=== PATIENT | female | born 1945 | race Caucasian/White ===

== ENCOUNTER 2025-02-07 18:40 | Inpatient (IN) | payer MEDICARE, BC, SELFPAY ==
[2025-02-07] VITALS (8 sets, daily range): BP systolic 91–122; BP diastolic 69–79; BMI 18.4
[2025-02-07] MEDS: NSS 1000 IV ×2 (14:18→20:52)
[2025-02-07] MEDS: OMNIPAQUE 50 ML PO (14:18)
[2025-02-07 14:29] LABS: Hemoglobin 12.4 g/dL (12.0-16.0); Mean Corp Hgb Conc. 33.5 g/dL (33.0-37.0); Mean Corpuscular Volume 89.4 fL (81.0-99.0); Mean Platelet Volume 10.3 fL (7.4-10.4); Platelet Count 557 10^3/uL (130-400); Red Blood Cell Count 4.14 10^6/uL (4.20-5.40); Red Cell Dist. Width 13.8 % (11.5-14.5); White Blood Cell Count 11.5 10^3/uL (4.8-10.8)
[2025-02-07] MEDS: ZOFRAN 4 MG IV ×2 (14:36→18:10)
[2025-02-07 14:37] LABS: Lactic Acid 6.3 mmol/L (0.7-2.0)
[2025-02-07 14:39] LABS: Blood Urea Nitrogen 111 mg/dl (7-17); Calcium 10.3 mg/dl (8.4-10.2); Carbon Dioxide 16 mmol/L (22-30); Chloride 89 mmol/L (98-107); Glucose 177 mg/dl (70-99); Lipase 50 U/L (23-300); Sodium 134 mmol/L (135-145)
[2025-02-07 14:45] LABS: COVID-19 Antigen Negative (Negative)
[2025-02-07 14:46] LABS: Estimated Creatinine Clearance 9 ml/min; eGFR 11.47
[2025-02-07 14:50] LABS: Absolute Neutrophils -Man Diff 9.6 10^3/uL (1.4-6.5); Band Neutrophils 34 % (0-3); Lymphocytes 10 % (20-51); Monocytes 6 % (2-9); Segmented Neutrophils 50 % (42-75)
[2025-02-07 14:51] LABS: Platelets Checked YES
--- NOTE | 2025-02-07 14:51 | ED.GENMED ---
History of Present Illness
<Magali Ramsey PA-C - Last Filed: 02/07/25 20:44>
General
Chief Complaint: Abdominal Symptoms
Source: patient
Exam Limitations: none
Time Seen by Provider: 02/07/25 13:45
Nursing documentation reviewed up to this point in time: agreed with
History of Present Illness
History of Present Illness:
pt is a 79 y/o F
h/o CAD, CKD, depression
s/p colostomy and reversal (robby for collagenous colitis)
here with 5 days nausea/vomiting, abdominal pain and abdominal distention
Patient feels very weak
She has also had chills and suspected fever when this began but has not taken her temperature in several days. She has not been able to eat anything, she occasionally is able to take down some liquids and ice chips. What she is vomiting looks
brownish. She has never had a bowel obstruction before. Her pain is generalized. She has not had a stool in several days as well. Patient has no history of GI bleed. She denies that she is on blood thinners, her daughter says she is on Plavix.
She denies having chest pain, shortness of breath
Past History
<Magali Ramsey PA-C - Last Filed: 02/07/25 20:44>
Past History
ED Past Medical History: CAD, HTN and Hypercholesterolemia
Phy Exam
<Magali Ramsey PA-C - Last Filed: 02/07/25 20:44>
Physical Exam
Physical Exam:
GENERAL: Alert pale, uncomfortable
EYE: pupils equal and reactive
NECK: Supple
ENT: o/p clr, VERY DRY.
CARDIAC: tachycardic
LUNGS: Clear breath sounds bilaterally, no acute respiratory distress, no wheezes/rales/rhonchi
ABDOMEN:distended, tympatnic, mild tenderness, no guarding, no rebound, hypoactive bowel sounds
rectum : heme neg brown stool
NEUROLOGICAL: Alert and oriented, no focal neuro deficits
SKIN: Warm and dry, skin intact. VERY PALE
MUSCULOSKELETAL: No edema, well perfused. neg nick's sign
PSYCH: Normal and appropriate interaction.
Course
<Magali Ramsey PA-C - Last Filed: 02/07/25 20:44>
Orders/Labs/Results
Orders:
Orders
02/07/25 14:02
0.9% Sodium Chloride 1000 ml [Nss] 1,000 ml IV BOLUS
Diphenhydramine [Benadryl] 50 mg IV NOW STA
Hydrocortisone Sod Succinate [Solu-Cortef] 200 mg IV NOW STA
Iohexol [Omnipaque] See Protocol PO NOW STA
02/07/25 14:04
Electrocardiogram (*1) Urgent
Reason for Study: Abdominal Pain
EKG- Treatment ONCE
CR Chest - 2 Views Urgent
Comment:
Reason For Exam: cough x 1 week
02/07/25 14:11
Basic Metabolic Panel Urgent
COVID-19 Antigen Urgent
Source: Nasal Swab
Complete Blood Count/With Diff Urgent
Lactic Acid Urgent
Lipase Urgent
Manual Differential Urgent
02/07/25 14:13
Type+Screen Urgent
02/07/25 14:28
Electrocardiogram (*1) Urgent
Reason for Study: Abdominal Pain
02/07/25 14:29
EKG- Treatment ONCE
02/07/25 14:32
Ondansetron Injectable [Zofran] 4 mg .ROUTE .[facility]
02/07/25 14:35
ABO2 Routine
BBK Wristband Number:
Associate notified that ABO2 has been ordered: [id number]
Date: 02/07/25
Time: 14:30
Shell Sieve Operator ID: [id number]
Troponin I Urgent
Ondansetron Injectable [Zofran] 4 mg IV NOW STA
02/07/25 14:48
0.9% Sodium Chloride 500 ml [Nss] 500 ml IV BOLUS
Cefepime HCl [Maxipime] 1,000 mg IV NOW STA
Vancomycin 1 Gram/200 ml [Vancocin] 1 gram in 200 ml IV NOW
02/07/25 14:53
CT Abd/pel (oral only)-[facility] Only Urgent
Comment:
Reason For Exam: abd pain, vomiting, lactic acidosis; h/o colosomy
Iohexol [Omnipaque] See Protocol PO NOW STA
02/07/25 15:30
Sterile Water [Sterile Water For Injection] 10 ml .ROUTE .[facility]
02/07/25 15:43
Straight cath- Treatment ONCE
02/07/25 16:53
Comprehensive Metabolic Panel Urgent
02/07/25 17:21
NG Tube [GI tube insertion- Treatment] ONCE
Ondansetron Injectable [Zofran] 4 mg IV NOW STA
02/07/25 18:00
0.9% Sodium Chloride 500 ml [Nss] 500 ml IV 100 mls/hr
02/07/25 18:21
Urinalysis Reflex To Culture Routine
02/07/25 18:27
Admit/Transfer Patient As Directed
Co-Sign Provider:
Level of Care: Inpatient admission
Assign to:: Telemetry
Physician / Group: sher ontiveros
Diagnosis: SBO
Reason for Telemetry: Other
Other Reason for Telemetry: sepsis
Date to Stop Telemetry: 02/09/25
Time to Stop Telemetry: 11:00
Reason for Hospitalization: sepsis
sbo
Expected length of stay greater than two midnights?: Yes
ELOS- Estimated Length of Stay in days: 3
I certify the patient meets the requirements for IP care: Yes
Code Status As Directed
Resuscitation Status: Do not resuscitate
Reached after discussion with pt or family/Healthcare POA: Yes
PRN Pain Medication Management As Directed
May give lesser potent ordered pain med per pt: Yes
preference::
Protocol:: Medication orders for pain may be administered in a
manner that supports deferring to patient preference
when the pt is:
- Requesting an ordered lesser potent pain medication.
Least to most potent pain medications are defined
as: acetaminophen < NSAID < tramadol < opioids
(morphine, oxycodone, hydromorphone).
- Requesting a lesser dose of the same medication IF
ORDERED.
- Requesting a less intrusive route of administration
if both routes are prescribed by the provider (PO <
IV).
02/07/25 18:28
DNR Bracelet Application ONCE
02/07/25 19:59
0.9% Sodium Chloride 1000 ml [Nss] 1,000 ml IV 80 mls/hr
Acetaminophen [Tylenol/Feverall] 650 mg RECTAL Q4HPRN PRN
VANCOMYCIN Pharmacy to Dose [VANCOCIN Pharmacy to Dose] 1 each Pharmacy To Prepare [Call Pharmacy To Prepare] 0 ml IV PER PROTOCOL
02/07/25 19:59
CARDIOLOGY CONSULT Routine
Consulting Provider: Elisa Dueñas
Was physician already notified: Yes
SURGICAL CONSULT Routine
Consulting Provider: Andry Alfaro
Was physician already notified: Yes
Activity As Directed
Activity Level: As Tolerated
Intake/ Output As Directed
Frequency: Per unit guidelines
Vital Signs As Directed
Frequency: Per unit guidelines
DX Deep Vein Thrombosis Video Routine
02/07/25 20:00
Heparin 5,000 units SC Q12
02/07/25 20:30
EKG [Electrocardiogram (*1)] Q6H
Reason for Study: Chest Pain
02/07/25 21:37
Lactic Acid Q4H
Comment: repeat q4 hours x 4 or until less than 2 mmol/L
Troponin I Q6H
Blood Culture Q30M
CHRISTINA Source: Blood/Venous
Specimen Description:
Comment: IF NOT OBTAINED IN ED
02/07/25 21:41
Blood Culture Q30M
CHRISTINA Source: Blood/Venous
Specimen Description:
Comment: IF NOT OBTAINED IN ED
02/07/25 23:59
Lactic Acid Q4H
Comment: repeat q4 hours x 4 or until less than 2 mmol/L
02/08/25 02:30
EKG [Electrocardiogram (*1)] Q6H
Reason for Study: Chest Pain
Troponin I Q6H
02/08/25 03:59
Lactic Acid Q4H
Comment: repeat q4 hours x 4 or until less than 2 mmol/L
02/08/25 Breakfast
NPO
Allow oral meds: No
Allow clear liquids: No
Complete Blood Count/No Diff IN AM
02/08/25 07:59
Lactic Acid Q4H
Comment: repeat q4 hours x 4 or until less than 2 mmol/L
02/08/25 08:30
EKG [Electrocardiogram (*1)] Q6H
Reason for Study: Chest Pain
Troponin I Q6H
02/08/25 16:00
Cefepime HCl [Maxipime] 1,000 mg IV Q24H
02/09/25 06:00
Complete Blood Count/No Diff IN AM
02/09/25 11:00
DC Protocol for Telemetry ONCE
02/10/25 06:00
Complete Blood Count/No Diff IN AM
02/11/25 06:00
Complete Blood Count/No Diff IN AM
Abnormal Lab Results
02/07/25 02/07/25 02/07/25
14:11 14:35 16:53
WBC 11.5 H 10^3/uL
(4.8-10.8)
RBC 4.14 L 10^6/uL
(4.20-5.40)
Plt Count 557 H 10^3/uL
(130-400)
Abs Neuts (Manual) 9.6 H 10^3/uL
(1.4-6.5)
Band Neutrophils 34 H %
(0-3)
Lymphocytes (Manual) 10 L %
(20-51)
Sodium 134 L mmol/L
(135-145)
Chloride 89 L mmol/L 93 L mmol/L
(98-107) (98-107)
Carbon Dioxide 16 L mmol/L
(22-30)
BUN 111 H* mg/dl 111 H* mg/dl
(7-17) (7-17)
Creatinine 3.8 H mg/dL 3.8 H mg/dL
(0.6-1.0) (0.6-1.0)
Glucose 177 H mg/dl 152 H mg/dl
(70-99) (70-99)
Lactic Acid 6.3 H* mmol/L
(0.7-2.0)
Calcium 10.3 H mg/dl
(8.4-10.2)
Troponin I 0.261 H* ng/ml
02/07/25 14:11
02/07/25 16:53
Vital Signs
Initial and Last Documented VS:
Initial Vital Signs
BP
91/71
02/07/25 13:34
Last Documented Vital Signs
Temp Pulse Resp BP Pulse Ox
98.2 F 109 18 113/70 95
02/07/25 20:23 02/07/25 20:23 02/07/25 20:23 02/07/25 20:23 02/07/25 20:23
<Clarke Lugo, DO - Last Filed: 02/07/25 22:32>
Orders/Labs/Results
Orders:
Orders
02/07/25 14:02
0.9% Sodium Chloride 1000 ml [Nss] 1,000 ml IV BOLUS
Diphenhydramine [Benadryl] 50 mg IV NOW STA
Hydrocortisone Sod Succinate [Solu-Cortef] 200 mg IV NOW STA
Iohexol [Omnipaque] See Protocol PO NOW STA
02/07/25 14:04
Electrocardiogram (*1) Urgent
Reason for Study: Abdominal Pain
EKG- Treatment ONCE
CR Chest - 2 Views Urgent
Comment:
Reason For Exam: cough x 1 week
02/07/25 14:11
Basic Metabolic Panel Urgent
COVID-19 Antigen Urgent
Source: Nasal Swab
Complete Blood Count/With Diff Urgent
Lactic Acid Urgent
Lipase Urgent
Manual Differential Urgent
02/07/25 14:13
Type+Screen Urgent
02/07/25 14:28
Electrocardiogram (*1) Urgent
Reason for Study: Abdominal Pain
02/07/25 14:29
EKG- Treatment ONCE
02/07/25 14:32
Ondansetron Injectable [Zofran] 4 mg .ROUTE .[facility]
02/07/25 14:35
ABO2 Routine
BBK Wristband Number:
Associate notified that ABO2 has been ordered: [id number]
Date: 02/07/25
Time: 14:30
Shell Sieve Operator ID: [id number]
Troponin I Urgent
Ondansetron Injectable [Zofran] 4 mg IV NOW STA
02/07/25 14:48
0.9% Sodium Chloride 500 ml [Nss] 500 ml IV BOLUS
Cefepime HCl [Maxipime] 1,000 mg IV NOW STA
Vancomycin 1 Gram/200 ml [Vancocin] 1 gram in 200 ml IV NOW
02/07/25 14:53
CT Abd/pel (oral only)-[facility] Only Urgent
Comment:
Reason For Exam: abd pain, vomiting, lactic acidosis; h/o colosomy
Iohexol [Omnipaque] See Protocol PO NOW STA
02/07/25 15:30
Sterile Water [Sterile Water For Injection] 10 ml .ROUTE .[facility]
02/07/25 15:43
Straight cath- Treatment ONCE
02/07/25 16:53
Comprehensive Metabolic Panel Urgent
02/07/25 17:21
NG Tube [GI tube insertion- Treatment] ONCE
Ondansetron Injectable [Zofran] 4 mg IV NOW STA
02/07/25 18:00
0.9% Sodium Chloride 500 ml [Nss] 500 ml IV 100 mls/hr
02/07/25 18:21
Urinalysis Reflex To Culture Routine
02/07/25 18:27
Admit/Transfer Patient As Directed
Co-Sign Provider:
Level of Care: Inpatient admission
Assign to:: Telemetry
Physician / Group: sher ontiveros
Diagnosis: SBO
Reason for Telemetry: Other
Other Reason for Telemetry: sepsis
Date to Stop Telemetry: 02/09/25
Time to Stop Telemetry: 11:00
Reason for Hospitalization: sepsis
sbo
Expected length of stay greater than two midnights?: Yes
ELOS- Estimated Length of Stay in days: 3
I certify the patient meets the requirements for IP care: Yes
Code Status As Directed
Resuscitation Status: Do not resuscitate
Reached after discussion with pt or family/Healthcare POA: Yes
PRN Pain Medication Management As Directed
May give lesser potent ordered pain med per pt: Yes
preference::
Protocol:: Medication orders for pain may be administered in a
manner that supports deferring to patient preference
when the pt is:
- Requesting an ordered lesser potent pain medication.
Least to most potent pain medications are defined
as: acetaminophen < NSAID < tramadol < opioids
(morphine, oxycodone, hydromorphone).
- Requesting a lesser dose of the same medication IF
ORDERED.
- Requesting a less intrusive route of administration
if both routes are prescribed by the provider (PO <
IV).
02/07/25 18:28
DNR Bracelet Application ONCE
02/07/25 19:59
0.9% Sodium Chloride 1000 ml [Nss] 1,000 ml IV 80 mls/hr
Acetaminophen [Tylenol/Feverall] 650 mg RECTAL Q4HPRN PRN
VANCOMYCIN Pharmacy to Dose [VANCOCIN Pharmacy to Dose] 1 each Pharmacy To Prepare [Call Pharmacy To Prepare] 0 ml IV PER PROTOCOL
02/07/25 19:59
CARDIOLOGY CONSULT Routine
Consulting Provider: Elisa Dueñas
Was physician already notified: Yes
SURGICAL CONSULT Routine
Consulting Provider: Andry Alfaro
Was physician already notified: Yes
Activity As Directed
Activity Level: As Tolerated
Intake/ Output As Directed
Frequency: Per unit guidelines
Vital Signs As Directed
Frequency: Per unit guidelines
DX Deep Vein Thrombosis Video Routine
02/07/25 20:00
Heparin 5,000 units SC Q12
02/07/25 20:30
EKG [Electrocardiogram (*1)] Q6H
Reason for Study: Chest Pain
02/07/25 21:37
Lactic Acid Q4H
Comment: repeat q4 hours x 4 or until less than 2 mmol/L
Troponin I Q6H
Blood Culture Q30M
CHRISTINA Source: Blood/Venous
Specimen Description:
Comment: IF NOT OBTAINED IN ED
02/07/25 21:41
Blood Culture Q30M
CHRISTINA Source: Blood/Venous
Specimen Description:
Comment: IF NOT OBTAINED IN ED
02/07/25 23:59
Lactic Acid Q4H
Comment: repeat q4 hours x 4 or until less than 2 mmol/L
02/08/25 02:30
EKG [Electrocardiogram (*1)] Q6H
Reason for Study: Chest Pain
Troponin I Q6H
02/08/25 03:59
Lactic Acid Q4H
Comment: repeat q4 hours x 4 or until less than 2 mmol/L
02/08/25 Breakfast
NPO
Allow oral meds: No
Allow clear liquids: No
Complete Blood Count/No Diff IN AM
02/08/25 07:59
Lactic Acid Q4H
Comment: repeat q4 hours x 4 or until less than 2 mmol/L
02/08/25 08:30
EKG [Electrocardiogram (*1)] Q6H
Reason for Study: Chest Pain
Troponin I Q6H
02/08/25 16:00
Cefepime HCl [Maxipime] 1,000 mg IV Q24H
02/09/25 06:00
Complete Blood Count/No Diff IN AM
02/09/25 11:00
DC Protocol for Telemetry ONCE
02/10/25 06:00
Complete Blood Count/No Diff IN AM
02/11/25 06:00
Complete Blood Count/No Diff IN AM
Abnormal Lab Results
02/07/25 02/07/25 02/07/25
14:11 14:35 16:53
WBC 11.5 H 10^3/uL
(4.8-10.8)
RBC 4.14 L 10^6/uL
(4.20-5.40)
Plt Count 557 H 10^3/uL
(130-400)
Abs Neuts (Manual) 9.6 H 10^3/uL
(1.4-6.5)
Band Neutrophils 34 H %
(0-3)
Lymphocytes (Manual) 10 L %
(20-51)
Sodium 134 L mmol/L
(135-145)
Chloride 89 L mmol/L 93 L mmol/L
(98-107) (98-107)
Carbon Dioxide 16 L mmol/L
(22-30)
BUN 111 H* mg/dl 111 H* mg/dl
(7-17) (7-17)
Creatinine 3.8 H mg/dL 3.8 H mg/dL
(0.6-1.0) (0.6-1.0)
Glucose 177 H mg/dl 152 H mg/dl
(70-99) (70-99)
Lactic Acid 6.3 H* mmol/L
(0.7-2.0)
Calcium 10.3 H mg/dl
(8.4-10.2)
Troponin I 0.261 H* ng/ml
02/07/25 14:11
02/07/25 16:53
Vital Signs
Initial and Last Documented VS:
Initial Vital Signs
BP
91/71
02/07/25 13:34
Last Documented Vital Signs
Temp Pulse Resp BP Pulse Ox
98.2 F 109 18 113/70 95
02/07/25 20:23 02/07/25 20:23 02/07/25 20:23 02/07/25 20:23 02/07/25 20:23
<Magali Ramsey PA-C - Last Filed: 02/07/25 20:44>
MDM/Problems Addressed
Differential Diagnosis Includes:
SBO, volvulus, lactic acidosis, vomiting, dehydration, bry
MDM/Problems Addressed:
robin montero 79 y/o F
cad, collagenous colitis 3 years ago requiring colostomy s/p reversal last year
ckd
5 days vomiting, abd distension and pain
pt has lactate 6, ag 26, ARF (cr 1.5 to 3.8), was hypotensive and tchy on arrival, very dry and pale
got sepsis fluids and abx
has SBO with transition point in the LLQ on ct
NGT
vitals are improved after fluids
nstemi as well (ekg t wave inv with trop 0.2, no STEMI, showed to jocelyn) pt has no chest pain
EKG showed to dr. banks by dr pineda who was on earlier and without chest pain he did not think this was STEMI, but more consistent with NSTEMI
d/w dr alfaro from surgery
agree with plan
<Magali Ramsey PA-C - Last Filed: 02/07/25 20:44>
*Critical Care Note
Total Time (30-74mins, 75-104mins- exclusive of procedures): Not Applicable
ED Attending Note
<Magali Ramsey PA-C - Last Filed: 02/07/25 20:44>
-
Portions of this chart may have been created with voice recognition software.� Occasional wrong word or��sound alike� substitutions may have occurred due to the inherent limitations of voice recognition software.
<Clarke Lugo, - Last Filed: 02/07/25 22:32>
ED Attending Note
Patient seen and examined by attending physician: Yes
I performed the substantive portion of visit, reviewed & personally made and approve the management plan that is documented in note by myself or MARY CARMEN.: Yes
ED Attending Note:
I agree with Janette's note
Patient presents with nausea, vomiting, abdominal pain and constipation. Symptoms have been present for the past 4 to 5 days. She feels generally weak. She is noted decreased urine output. Patient has a significant past abdominal surgical
history with colostomy and reversal of colostomy. Daughter notes she also had a cough earlier in the week and seems short of breath. No known fever. No chest pain.
General: Awake, Alert, Oriented X3. Appears thin and chronically ill.
Vitals: Tachycardic, borderline hypotensive
Head: Atraumatic
Eyes: Pupils equal, EOMI
Throat: Airway intact, no exudates, dry mucosa
Neck: Trachea midline
Lungs: Clear and equal b/l
Heart: Regular rate, no murmurs
Abd: Soft, distended, diffusely tender to palpation, no real rebound, No pulsatile mass
Back: No CVA tenderness to percussion
Neuro: Nonfocal
Skin: Warm, dry, no rash
Extremities: pulses equal b/l, no edema
Patient presents with nausea vomiting abdominal pain and abdominal distention. I most concerned about a small bowel obstruction though other things like ischemic bowel or intra-abdominal infection are possible. Patient has a known history of renal
insufficiency and she states her baseline creatinine is 1.4. Today her creatinine is 3.8 with a BUN of 111 indicating significant prerenal azotemia. We will obtain a CT with oral contrast. We will avoid IV contrast at this point given her renal
function. Patient's lactate is quite elevated at 6.3. We will aggressively hydrate and administer broad-spectrum antibiotics.
Discharge Plan
Departure
Patient Disposition: Admit
Date of Disposition: 02/07/25
Time of Disposition: 17:56
Admit to: IMU
Presentation/result/management discussed w/ accepting MD/DO: Hospitalist
Condition: Fair
Covid-19: Not Applicable
Discharge Problem:
Complete small bowel obstruction, Acidosis, lactic
Interventions
Interventions:
*Risk Screen - Suicide Last Done: 02/07/25 14:22
*General Assessment Last Done: 02/07/25 14:22
*Neglect/Abuse Screening Last Done: 02/07/25 14:22
*ED- Fall Risk Assessment Last Done: 02/07/25 14:22
*ED COVID-19 Vaccine History Last Done: 02/07/25 14:22
*Nursing Disposition Last Done: 02/07/25 19:46
AK-Orwftz-Nwzofjwhtb Assessment Last Done: 02/07/25 18:26
Discharge Date and Time
Discharge Date/Time: 02/07/25 19:47
[2025-02-07 14:52] LABS: Normal RBC Morphology Yes; Total Cells Counted 100
[2025-02-07 15:37] LABS: Troponin I 0.261 ng/ml
[2025-02-07] MEDS: NSS 500 IV ×2 (15:37→18:13)
[2025-02-07] MEDS: MAXIPIME 1000 MG IV (15:38)
[2025-02-07] MEDS: VANCOCIN 200 IV (15:41)
[2025-02-07 17:19] LABS: ALT (SGPT) 25 U/L (0-35); AST (SGOT) 34 U/L (14-36); Albumin 3.8 g/dl (3.5-5.0); Alkaline Phosphatase 91 U/L (38-126); Blood Urea Nitrogen 111 mg/dl (7-17); Calcium 8.7 mg/dl (8.4-10.2); Carbon Dioxide 24 mmol/L (22-30); Chloride 93 mmol/L (98-107); Estimated Creatinine Clearance 9 ml/min; Glucose 152 mg/dl (70-99); Potassium 4.7 mmol/L (3.5-5.1); Sodium 135 mmol/L (135-145); Total Bilirubin 0.9 mg/dl (0.2-1.3); Total Protein 6.7 g/dl (6.3-8.2); eGFR 11.47
--- NOTE | 2025-02-07 18:00 | HPS.HSE ---
Family Physician
-
Family Physician: Phillip Jaquez MD
Chief Complaint
-
Abdominal pain, distention, vomiting
History of Present Illness
79 y/o F h/o CAD, CKD, depression,s/p colostomy and reversal ([facility] for collagenous colitis) here with 5 days nausea/vomiting, abdominal pain and abdominal distention. Her last bowel movement was on Sunday. She has not eat anything for past 1 week.
Patient stated very weak. Complaining of chills. Stated headache and dizzy. Complaining of chest pain across. She is also complaining of short of breath. She is complaining of cough. She is not making enough urine output. Denied hematuria.
CT with small bowel obstruction. NG tube placed in ER. On arrival patient was hypotensive, tachycardia which improved with fluids. Patient also received vancomycin and cefepime in ER. Patient also received Benadryl, hydrocortisone in ER.
Admitting for further management
Medical History
Past Medical History
Past Medical History: Reports Other
Additional Past Medical History:
Trochanteric bursitis of bilateral hip
Bilateral lumbar radiculopathy
Impingement syndrome bilateral shoulder
Osteoporosis
Depression
Sarcoidosis
CVA
loop recorder
Past Surgical History: Reports Other
Additional Past Surgical History:
Hernia surgery
Reverse colostomy
Left elbow surgery
Hysterectomy
Femur surgery
Social History
Tobacco: Former Smoker
Alcohol: None
Drug: None
Living: With Family
Family History
Family History: Not pertinent
Allergies / Home Medications
Allergies reflects when Allergies were last updated in [facility].
Home Medications with original date entered in [facility]
Allergy/Medication List:
Allergies
Allergy/AdvReac Type Severity Reaction Status Date / Time
Penicillins Allergy Mild Hives Verified 02/07/25 14:00
Sulfa (Sulfonamide Allergy Mild Hives Verified 02/07/25 14:00
Antibiotics)
hydrochlorothiazide Allergy Hives Verified 02/07/25 14:00
Iodinated Contrast Media Allergy Hives Verified 02/07/25 14:00
Home Medications
amlodipine 5 mg tablet 5 mg PO NOON 02/07/25
atorvastatin 80 mg tablet 80 mg PO HS 02/07/25
bupropion HCl 150 mg tablet,12 hr sustained-release 150 mg PO DAILY 02/07/25
cholecalciferol (vitamin D3) 125 mcg (5,000 unit) tablet (Vitamin D3) 125 mcg PO NOON 02/07/25
clonazepam 1 mg tablet 1 mg PO HS 02/07/25
denosumab 60 mg/mL subcutaneous syringe (Prolia) 60 mg SC [id number] 02/07/25
ferrous sulfate 325 mg (65 mg iron) tablet 325 mg PO NOON 02/07/25
folic acid 1 mg tablet 1 mg PO NOON 02/07/25
lamotrigine 100 mg tablet 100 mg PO QPM 02/07/25
meclizine 25 mg tablet 25 mg PO DAILY 02/07/25
mirtazapine 15 mg tablet 15 mg PO HS 02/07/25
nitroglycerin 0.2 mg/hr transdermal 24 hour patch 1 patch transdermal HS 02/07/25
omeprazole 20 mg capsule,delayed release 20 mg PO DAILY 02/07/25
pramipexole 0.25 mg tablet 0.5 mg PO HS 02/07/25
quetiapine 100 mg tablet 100 mg PO HS 02/07/25
sodium bicarbonate 650 mg tablet 1,300 mg PO BID 02/07/25
Review of Systems
-
Constitutional: Reports Chills
EENT: Reports No Symptoms
Respiratory: Reports Cough
Cardiac: Reports Chest Pain
Abdomen/GI: Reports Abdominal Pain, Nausea, Vomiting and Constipated
: Reports No Symptoms
Musculoskeletal: Reports No Symptoms
Skin: Reports No Symptoms
Neurological: Reports No Symptoms
Endocrine: Reports No Symptoms
Hematologic/Lymphatic: Reports No Symptoms
Psych: Reports No Symptoms
Physical Exam
Vital Signs
Vital Signs
Temp Pulse Resp BP Pulse Ox
97.8 F 110 27 110/75 97
02/07/25 13:50 02/07/25 17:10 02/07/25 17:10 02/07/25 17:10 02/07/25 17:10
Physical Exam
General: Well Developed, Well Nourished and No Apparent Distress
HEENT: NormoCephalic, Moist mucous membranes and Atraumatic
Respiratory: Clear
Cardiac: S1/S2 and Regular Rhythm; No Murmur or Rub
GI: Soft, Non Tender, Tender and Distended; No Organomegaly
Rectal: Deferred by Provider
Musculoskeletal: No Clubbing, No Cyanosis and No Edema
Skin: No Rash
Neuro: AO x 3 and Nonfocal/grossly intact
Psych: Calm
Laboratory Results
-
02/07/25 14:11
02/07/25 16:53
Laboratory Results
Lactic Acid 6.3 mmol/L (0.7-2.0) H* 02/07/25 14:11
Total Bilirubin 0.9 mg/dl (0.2-1.3) 02/07/25 16:53
AST 34 U/L (14-36) 02/07/25 16:53
ALT 25 U/L (0-35) 02/07/25 16:53
Alkaline Phosphatase 91 U/L (38-126) 02/07/25 16:53
Troponin I 0.261 ng/ml H* 02/07/25 14:35
Lipase 50 U/L (23-300) 02/07/25 14:11
Data Reviewed
-
CT Scan: Report Reviewed by me
Lab Data: Labs Reviewed by me
Impression/Plan
-
# Vomiting/abdominal distention and pain likely from small bowel obstruction
- NG tube
- CT abdomen pelvis with impression of Small bowel obstruction with transition point in the left lower quadrant. Moderate colonic stool burden.1.5 cm hypodense left adrenal nodule, incompletely characterized on this examination however likely
represents an adenoma.Tree-in-bud opacities within the right middle lobe which may be infectious/inflammatory.Diffuse osteopenia with postoperative changes of T12 and L1 kyphoplasty.
Extensive atherosclerotic calcifications of the aorta and branch vessels with focal dilation in the infrarenal abdominal aorta measuring 2.9 cm.Bilateral renal atrophy, more pronounced on the left. There are numerous bilateral renal cysts, some of
which appear hyperdense and are likely hemorrhagic/proteinaceous cyst.There is mild asymmetric cutaneous thickening and stranding in the inferior left gluteal soft tissues which may represent superficial infectious/inflammatory process or sequelae
of pressure wound.
- Keep patient n.p.o.
- Fluids continued for hydration
-surgery consulted
# NSTEMI
- EKG with T wave with troponin 0.261
- Will continue to trend troponin
-will continue to trend EKG and trop
# Sepsis as evident by WBCs 11.5, lactic 6.3
-chest x ray with the impression of Trace left basilar opacities favored to represent atelectasis.
- Obtain UA
- Vanco and cefepime continue
- Trend lactic, monitor WBCs
- Tylenol as needed for fever and pain
# Acute kidney injury/anion gap metabolic acidosis likely dehydration
- Creatinine 3.8
- Normal saline continued
-On sodium bicarb as outpatient
- BMP in a.m.
# Essential hypertension
- Patient hypotensive in ER
- Continue to hold Norvasc
# Hyperlipidemia
- Patient on statin
# Anxiety
- On Wellbutrin and clonazepam Lamictal, Seroquel as outpatient
# Restless leg syndrome
- Hold the pramipexole
# Iron deficiency anemia
- Hold ferrous sulfate
# DVT prophylaxis
- Heparin subcu
# CODE STATUS
DNR
--- NOTE | 2025-02-07 19:17 | W.PN.UPDATE ---
Update Note
Progress Note Update
This note serves as an addendum to the H&P by fire marshal refinery MARY CARMEN
This note serves as an addendum to the H&P by fire marshal refinery MARY CARMEN
[facility]
HPI
79F HX CAD, CKD, depression, s/p colostomy and reversal at [facility] for collagenous colitis kevin at ER
- pw nausea/vomiting, abdominal pain and abdominal distention.
- Last BM was on Sunday
- not eat anything for past 1 week
- report chills, headache and dizzy.
- report CP and SoB with cough.
- decreased urine output.
On arrival
- was hypotensive, tachycardia which improved with fluids.
- also received vancomycin and cefepime in ER.
- received Benadryl, hydrocortisone in ER.
CT AP reports small bowel obstruction.
NG tube placed in ER. Admitting for further management
PHX; see above
Reviewed VS:
Vital Signs
Temp Pulse Resp BP Pulse Ox
97.8 F 106 22 106/74 93
02/07/25 13:50 02/07/25 18:15 02/07/25 18:15 02/07/25 18:00 02/07/25 18:15
PE
Gen: pale , but conversant , looks tired but not toxic
HEENT: anicteric , NGT placed and toleratring
Neck: supple
Lungs:CTA
Cor: RRR S1 s2
Abdomen: soft , slightly full
LEARNING COORDINATOR: AAO3, NFND
MS: no edema
Psych:nl mood and affect
Labs
02/07/25 02/07/25 02/07/25
14:11 14:35 16:53
WBC 11.5 H
Plt Count 557 H
Potassium 4.7
Chloride 93 L
BUN 111 H*
Creatinine 3.8 H
eGFR 11.47
Lactic Acid 6.3 H*
Troponin I 0.261 H*
SARS-CoV-2 Antigen Negative
EKG
SINUS TACHYCARDIA
POSSIBLE LEFT ATRIAL ENLARGEMENT
LEFT VENTRICULAR HYPERTROPHY ( Sokolow-Velez , Romhilt-Martinez )
ANTEROSEPTAL INFARCT , AGE UNDETERMINED
LATERAL INJURY PATTERN
CXR
Trace left basilar opacities favored to represent atelectasis.
CT Abd/pel (oral only)-DH Only
- SBO with transition point in the left lower quadrant.
- Moderate colonic stool burden.
- 1.5 cm hypodense left adrenal nodule, incompletely characterized on this examination however likely represents an adenoma.
- Tree-in-bud opacities within the right middle lobe which may be infectious/inflammatory.
- Diffuse osteopenia with postoperative changes of T12 and L1 kyphoplasty.
- Extensive atherosclerotic calcifications of the aorta and branch vessels with focal dilation in the infrarenal abdominal aorta measuring 2.9 cm.
- Bilateral renal atrophy, more pronounced on the left.
- There are numerous bilateral renal cysts, some of which appear hyperdense and are likely hemorrhagic/proteinaceous cyst.
- There is mild asymmetric cutaneous thickening and stranding in the inferior left gluteal soft tissues which may represent superficial infectious/inflammatory process or sequelae of pressure wound.
SBO with transition point in the left lower quadrant with Ischemic BW ?
Moderate colonic stool burden.
Vomiting with abdominal distention and pain
Hi LA due to SBO
- NG tube for decompression
- NPO and IVF
- PRN analgesia
- PRN anti emetics
- GS conuslted
SIRS ( WBCs 11.5) developing Sepsis - source GI , Lungs
- check PCT
- check UA UA
- IV NS
- agree with empiric Vanco and cefepime
- Trend lactic, monitor WBCs
NSTEMI with troponin 0.261
- reports CP
- abnormal EKG
- trend TPNI
- to trend EKG
Presumed TYESHA with metabolic acisosis
Lactate acidosis
likely dehydration and hyovolemia
Suspect underlying CKD - On Na Bicarb as outpatient
- Creatinine 3.8
- IV NS
- c/w DIRECTOR OF STRATEGIC COMMUNICATIONS Na HCO3
- FU BMP in AM
Essential HTN
- Hypotensive in ER
- to hold Norvasc
Hyperlipidemia
- on on statin
Anxiety
- On Wellbutrin and clonazepam Lamictal, Seroquel as outpatient
Restless leg syndrome
- Hold the pramipexole
Iron deficiency anemia
- Hold ferrous sulfate
DVT Px: SQH
DNR
IP TLM
[2025-02-07] MEDS: DILAUDID 0.25 MG IV ×2 (19:33→23:35)
--- NOTE | 2025-02-07 20:07 | PHA.VAN.IN ---
Assessment
- Assessment
Renal Function: Appears elevated from baseline
Maximum Temperature: 97.8
Minimum Temperature: 97.8
Plan
- Plan
Initial / Loading Dose: 1000mg
Maintenance Regimen: Dose by level
Monitoring: Random with am labs
Pharmacokinetics Vancomycin I
- -
Patient Age: 79
Patient Sex: Female
Vancomycin Day #: 1
Indication: Pulmonary/Respiratory
Requesting Provider: [facility]/
Pertinent Antimicrobial Allergies:
Penicillins,sulfa
Height / Weight:
Height 5 ft 3 in
Actual Weight 47.2 kg
- Vital Signs / Lab Results
Temp Pulse Resp BP Pulse Ox
97.8 F 110 20 106/79 94
02/07/25 13:50 02/07/25 19:30 02/07/25 19:30 02/07/25 19:00 02/07/25 19:15
Lab Results - Hematology
02/07/25
14:11
WBC 11.5 H
Band Neutrophils 34 H
Lab Results - Chemistry
02/07/25 02/07/25 02/07/25
14:11 15:38 16:53
BUN 111 H* Cancelled 111 H*
Creatinine 3.8 H Cancelled 3.8 H
Estimated Creat Clear 9 Cancelled 9
Albumin Cancelled Cancelled 3.8
02/07/25
14:11
Lactic Acid 6.3 H*
[2025-02-07 22:01] LABS: Lactic Acid 1.5 mmol/L (0.7-2.0)
[2025-02-07 22:18] LABS: Troponin I 0.257 ng/ml
[2025-02-07] MEDS: HEPARIN 5000 UNITS SC (22:57)
[2025-02-07] MEDS: LOPRESSOR 5 MG IV (23:55)
[2025-02-08] VITALS (23 sets, daily range): BP systolic 86–139; BP diastolic 57–94
--- NOTE | 2025-02-08 00:16 | W.PN.UPDATE ---
Addendum entered and electronically signed by ROD Barrios 02/08/25 05:55:
amio gtt has worked the best but rates still elevated. Still asymptmatic.
Will try lopressor iv again x1
Original Note:
Update Note
Progress Note Update
2330 Notified by RN that pt HR rhythm changed from nSR/st to Afib with RVR Hr to 180s
Pt denies previous hx of afib. Currently does not feel HR elevated. She does state son had ablation for afib. Lopressor 5mg iv given x1 with minimal changes to HR. Will initiate Cardizem gtt and add heparin gtt. Discussed afib and risk for strokes.
0230 cardizem gtt hanging for 2 hrs with no change in HR remains 150-180 and soft bp SBP 90-100. Will change to amio gtt with bolus.
[2025-02-08 00:30] LABS: APTT 45.2 Sec (23.4-35.0)
[2025-02-08] MEDS: CARDIZEM 125 IV (00:35)
[2025-02-08] MEDS: ERYTHROMYCIN 0.5% OPHTHALMIC OINTMENT 1 APPLIC OPHTH ×5 (00:35→21:51)
[2025-02-08 00:46] LABS: Calcium 8.8 mg/dl (8.4-10.2); Carbon Dioxide 19 mmol/L (22-30); Chloride 94 mmol/L (98-107); Estimated Creatinine Clearance 8 ml/min; Glucose 129 mg/dl (70-99); Magnesium 2.5 mg/dl (1.6-2.3); Potassium 4.6 mmol/L (3.5-5.1); Sodium 136 mmol/L (135-145); eGFR 10.79
[2025-02-08 00:54] LABS: Blood Urea Nitrogen 121 mg/dl (7-17)
[2025-02-08] MEDS: HEPARIN 2800 UNITS IV (00:54)
[2025-02-08] MEDS: HEPARIN 25000 UNITS/250 ML IV (00:54)
[2025-02-08] MEDS: NSS 500 IV (01:45)
[2025-02-08] MEDS: CORDARONE 103 MG IV (02:33)
[2025-02-08] MEDS: CORDARONE 518 MG IV (02:52)
[2025-02-08] MEDS: NSS 1000 IV (03:11)
[2025-02-08] MEDS: DILAUDID 0.25 MG IV ×2 (04:17→19:42)
[2025-02-08 04:23] LABS: Hematocrit 31.2 % (37.0-47.0); Hemoglobin 10.7 g/dL (12.0-16.0); Mean Corp Hgb Conc. 34.3 g/dL (33.0-37.0); Mean Corpuscular Hgb 29.7 pg (27.0-31.0); Mean Corpuscular Volume 86.7 fL (81.0-99.0); Mean Platelet Volume 10.3 fL (7.4-10.4); Platelet Count 511 10^3/uL (130-400); Red Cell Dist. Width 13.8 % (11.5-14.5); White Blood Cell Count 16.6 10^3/uL (4.8-10.8)
[2025-02-08 04:45] LABS: Troponin I 0.188 ng/ml
--- NOTE | 2025-02-08 04:47 | PTCARENOTE ---
Pt new adm to unit on tele from ED on 02/07 for SBO, went into rapid AFIB HR 180s @ 2315 EKG performed, HP notified, STAT Lopressor given, HR sustained in the 170s changed to Cardizem drip, HR remained in the 160/170s changed to Amiodarone drip. Pt
has been as low has 130-150s @ this time. Pt straight cath in ED, attempted to void on unit 2x bladder scanned for 140ml. Pt reports intermediate pain in LLQ, belly firm, distended,t tender to palptation. +bs in RUQ, RLQ, and LUQ. NGT patent to low
intermittent suction.
[2025-02-08 04:56] LABS: Vancomycin Random 17.1 ug/ml
[2025-02-08 06:11] LABS: Urine Albumin 2+ (Neg - Trace); Urine Bilirubin 2+ (Negative); Urine Character Slightly Cloudy (Clear); Urine Color Yellow; Urine Glucose Negative (Negative); Urine Ketone Negative (Negative); Urine Leukocyte 1+ (Negative); Urine Nitrite Negative (Negative); Urine Occult Blood Negative (Negative); Urine Urobilinogen 1+ (Neg - 1+)
[2025-02-08] MEDS: LOPRESSOR 5 MG IV ×3 (06:11→15:10)
[2025-02-08 06:22] LABS: Urine Squamous Cell 0-2 /LPF (Few)
[2025-02-08 06:23] LABS: Urine Bacteria Few (Negative); Urine Red Blood Cell 0-2 /HPF (0-2)
--- NOTE | 2025-02-08 07:22 | PTCARENOTE ---
Pt received STAT Lopressor 5ml @0615 for HR 170 , HR @ this time 140s-150s
[2025-02-08 07:27] LABS: APTT 95.5 Sec (23.4-35.0)
--- NOTE | 2025-02-08 08:24 | PHA.VAN.FU ---
Vancomycin Assessment / Plan
- Assessment
Renal Function: SCR Increasing
WBC's are: Trending Up
In the past 24 hrs, patient has been: Afebrile
Concomitant Antimicrobials: CEFEPIME
- Assessment - Therapeutic Drug Monitoring
Random Level: 17.1 DRAWN ~12 HR AFTER PREVIOUS DOSE 02/07 @1541 VANCO 1000MG
- Dosing Plan
Dosing by Level: Re-dose today (VANCO 750MG X1)
- Monitoring Plan
Random Level: 02/09 @0600
- Follow Up
Pharmacy will continue to follow.
Vancomycin Follow UP
- -
Patient Age: 79
Patient Sex: Female
Vancomycin Day #: 2
Indication: Pulmonary/Respiratory
Requesting Provider: [facility]/
Pertinent Antimicrobial Allergies:
Penicillins,sulfa
Height / Weight:
Height 5 ft 3 in
Actual Weight 47.2 kg
- Vital Signs / Lab Results
Temp Pulse Resp BP Pulse Ox
98.1 F 74 16 106/64 95
02/08/25 07:20 02/08/25 07:20 02/08/25 07:20 02/08/25 07:20 02/08/25 07:20
Lab Results - Hematology
02/07/25 02/08/25 02/08/25
14:11 01:00 03:47
WBC 11.5 H Cancelled 16.6 H
Band Neutrophils 34 H
Lab Results - Chemistry
02/07/25 02/07/25 02/07/25
14:11 15:38 16:53
BUN 111 H* Cancelled 111 H*
Creatinine 3.8 H Cancelled 3.8 H
Estimated Creat Clear 9 Cancelled 9
Albumin Cancelled Cancelled 3.8
02/08/25
00:11
BUN 121 H*
Creatinine 4.0 H
Estimated Creat Clear 8
Albumin
02/07/25 02/07/25 02/08/25
14:11 21:37 00:11
Lactic Acid 6.3 H* 1.5 Cancelled
02/08/25 02/08/25
03:59 07:59
Lactic Acid Cancelled Cancelled
Lab Results - Urine
02/08/25
05:55
Urine Nitrite (Reflex) Negative
Leukocyte Esterase Rfl 1+ A
Ur Squamous Epith Cells 0-2
Therapeutic Drug Monitoring
Random Vancomycin 17.1 ug/ml 02/08/25 03:47
[2025-02-08] MEDS: VANCOCIN 150 IV (08:34)
[2025-02-08 08:50] LABS: Calcium 8.2 mg/dl (8.4-10.2); Carbon Dioxide 18 mmol/L (22-30); Chloride 96 mmol/L (98-107); Estimated Creatinine Clearance 8 ml/min; Glucose 127 mg/dl (70-99); Potassium 4.5 mmol/L (3.5-5.1); Sodium 134 mmol/L (135-145); eGFR 10.48
[2025-02-08 09:12] LABS: Blood Urea Nitrogen 128 mg/dl (7-17)
--- NOTE | 2025-02-08 09:28 | CON.GS ---
Addendum entered and electronically signed by Andry Alfaro MD 02/08/25 10:10:
I saw and examined the patient independently.
The Digital Associate Media Director's note was reviewed and I agree with the note, assessment and plan except where noted below.
Comment: This is an 79-year-old female with complex medical and abdominal surgical history with known colostomy in the setting of a prior bowel perforation secondary to collagenous colitis who presents with 5 days of abdominal pain, nausea vomiting
found here to have a small bowel obstruction in the setting of TYESHA, atrial fibrillation, EKG changes and elevated troponin level. General surgery consulted for management of her small bowel obstruction.
Thankfully her imaging and exam are reassuring. She is tender to palpation but non-peritoneal. Her CT scan demonstrates very distended small bowel with a transition point in the left lower quadrant concerning for a high-grade obstruction.
Will continue nonoperative management of her small bowel obstruction for now.
N.p.o., IV fluids
NG tube advanced of 4 cm at bedside today and resecured. It is working very well with over 2 L of output over the past 24 hours.
Patient agreeable to plan of care above. General surgery will continue to follow.
Original Note:
Consultation
-
Date/Time Consultation Performed: 02/08/25 0815
Medical History
-
Chief Complaint: ABD pain
History of Present Illness:
79 yo female with a h/o CVA with loop recorder, sarcoid, KOFI, prior bowel perforation (collagenous colitis) with colostomy creation and subsequent reversal, VHR and prior SBO who presents with 5 days of abdominal pain with nausea and vomiting. She
notes weakness and chills. She had headaches and dizziness with SOB causing her to present. Her last BM was 5-6 days ago with very little PO intake this week. On exam, her abdomen is distended with tympany and some generalized tenderness. An NGT was
placed in the ED with relief of nausea symptoms.
Past Medical History
Past Medical History: CAD, CVA (loop recorder), Psychiatric (depression), Renal Failure (CKD) and Other (depression, sarcoidosis, SBO, collagenous colitis)
Past Surgical History: Bowel Resection (Prior bowel perforation with colostomy creation and subsequent reversal, ? prior ex lap for SBO), Gynecological (kofi), Hernia Repair (VHR) and Orthopedic (left elbow, femur procedure)
Social History
Tobacco: Former Smoker
Alcohol: None
Family History
Family History: Reviewed & Not Pertinent
Allergies / Home Medications
Allergy/AdvReac Type Severity Reaction Status Date / Time
Penicillins Allergy Mild Hives Verified 02/07/25 14:00
Sulfa (Sulfonamide Allergy Mild Hives Verified 02/07/25 14:00
Antibiotics)
hydrochlorothiazide Allergy Hives Verified 02/07/25 14:00
Iodinated Contrast Media Allergy Hives Verified 02/07/25 14:00
�Medication �Instructions �Recorded �Confirmed �Type
amlodipine 5 mg tablet 5 mg PO NOON 02/07/25 02/07/25 History
atorvastatin 80 mg tablet 80 mg PO HS 02/07/25 02/07/25 History
bupropion HCl 150 mg tablet,12 hr 150 mg PO DAILY 02/07/25 02/07/25 History
sustained-release
cholecalciferol (vitamin D3) 125 125 mcg PO NOON 02/07/25 02/07/25 History
mcg (5,000 unit) tablet (Vitamin
D3)
clonazepam 1 mg tablet 1 mg PO HS 02/07/25 02/07/25 History
denosumab 60 mg/mL subcutaneous 60 mg SC [id number] 02/07/25 02/07/25 History
syringe (Prolia)
ferrous sulfate 325 mg (65 mg 325 mg PO NOON 02/07/25 02/07/25 History
iron) tablet
folic acid 1 mg tablet 1 mg PO NOON 02/07/25 02/07/25 History
lamotrigine 100 mg tablet 100 mg PO QPM 02/07/25 02/07/25 History
meclizine 25 mg tablet 25 mg PO DAILY 02/07/25 02/07/25 History
mirtazapine 15 mg tablet 15 mg PO HS 02/07/25 02/07/25 History
nitroglycerin 0.2 mg/hr 1 patch transdermal HS 02/07/25 02/07/25 History
transdermal 24 hour patch
omeprazole 20 mg capsule,delayed 20 mg PO DAILY 02/07/25 02/07/25 History
release
pramipexole 0.25 mg tablet 0.5 mg PO HS 02/07/25 02/07/25 History
quetiapine 100 mg tablet 100 mg PO HS 02/07/25 02/07/25 History
sodium bicarbonate 650 mg tablet 1,300 mg PO BID 02/07/25 02/07/25 History
Review of Systems
-
History Source: Patient
All other systems: Negative unless noted
A 10 point review of systems was completed, and was negative except as per HPI.
Physical Exam
Vital Signs
Temp Pulse Resp BP Pulse Ox
98.1 F 74 16 106/64 95
02/08/25 07:20 02/08/25 07:20 02/08/25 07:20 02/08/25 07:20 02/08/25 08:20
02/07/25 02/08/25 02/09/25
06:59 06:59 06:59
Actual Weight 47.2 kg
Body Mass Index (BMI) 18.4
Lab Results
02/08/25 03:47
02/08/25 07:08
WBC 16.6 10^3/uL (4.8-10.8) H 02/08/25 03:47
Hgb 10.7 g/dL (12.0-16.0) L 02/08/25 03:47
Hct 31.2 % (37.0-47.0) L 02/08/25 03:47
Plt Count 511 10^3/uL (130-400) H 02/08/25 03:47
Physical Exam
General: Well Developed and Well Nourished
HEENT: Moist Mucous Membranes
Respiratory: Non Labored Respirations
GI: Soft, Tender (generalized without rebound, rigidity or guarding), Distended and Other (NGT to LIWS, brown outputs)
Skin: Warm and Dry
Neuro: Awake, Alert and AO x 3
Psych: Calm
Data Reviewed
-
CT Scan: Image Personally Visualized and interpreted, Report Reviewed by me, Discussed with Physician, Discussed with Patient and Discussed with Family
Labs: Labs Reviewed by me, Discussed with Physician, Discussed with Patient and Discussed with Family
Old Records: Reviewed
Assessment / Plan
-
79 yo female with a h/o CVA with loop recorder, sarcoid, KOFI, prior bowel perforation (collagenous colitis) with colostomy creation and subsequent reversal, VHR and prior SBO who presents with 5 days of abdominal pain with nausea and vomiting.
CT imaging reviewed and consistent with SBO with significant small bowel dilatation, with transition point likely in the left lower abdomen, no evidence of bowel threat or compromise. NGT was placed in the ED with bilious/fecal outputs and relief of
nausea. +distention/tympany on exam without r/r/g.
She was found to be in rapid afib with elevated troponin on presentation with cardiology consults pending. Cr markedly elevated to 4.1 with nephrology consult pending. Leukocytosis present (16.6). Afebrile, BP stable. HR improved with amiodarone
gtt. On IV heparin. XR s/p NGT noted, advanced tube by 4cm.
High risk for any surgical intervention at this time, fortunately, she is having some relief in symptoms with medical management without evidence of bowel threat/compromise which would necessitate emergent procedure.
--Continue NGT to LIWS
--NPO with ice chips for comfort
--Medical management as per primary team
--- NOTE | 2025-02-08 09:45 | CM ---
CM reviewed chart and met with pt. Explained role and discussed anticipated dc plan/options.
Presented/discussed IMM- form on chart.
Pt arrived from home where she resides with her adult dtr and grandchildren.
Per pt - I w/amb and 'furniture hanging' in the home and RW for long distances outside the home.
Pt currently here with SOB who is NPO w/NGT to suction, also being treated for afib.
Owns- RW, rollator, commode, shower chair.
Has worked with [facility] in the past and has been to their rehab as well.
Care on-going at this time.
Rec PT and OOB to chair when appropriate.
CM/SW will continue to follow to ensure a safe and timely dc
[2025-02-08 09:55] LABS: Urine Sodium 11 mmol/L (30-90)
--- NOTE | 2025-02-08 10:17 | CON.CAR ---
Consultation
Consultation Request
Date/Time Consultation Requested: February 08, 2025
Date/Time Consultation Performed: February 08, 2025
Requesting Provider: Hospitalist
Performing Provider: Dr Aldair Dueñas
Reason for Consultation: Newly diagnosed atrial fibrillation, abnormal troponin value
Medical History
-
Chief Complaint: Abdominal pain, nausea and vomiting.
History of Present Illness:
She has a complex medical history which includes history of CVA, CKD, sarcoidosis, prior bowel perforation (collagenous colitis) with colostomy creation and subsequent reversal, VHR and prior small bowel obstruction presenting with 5 days of
abdominal pain nausea vomiting weakness and chills and found to have small bowel obstruction.
In the emergency department she is found to be hypotensive likely from sepsis and volume depletion. She is treated initially with NG tube placement for decompression, IV fluids, IV antibiotics.
Laboratory studies find BUN and creatinine of 121 and 4 with carbon dioxide of 19, sodium 136 and potassium 4.6. Magnesium 2.5. Procalcitonin is 6.5.
Laboratory studies also found initial troponin of 0.257 with a subsequent troponin of 0.188
Electrocardiogram is reviewed by me:
EKG 1: is sinus tachycardia at 113 bpm, with anterior septal infarct age undetermined probably old and lateral T wave inversions
EKG 2: sinus tachycardia 100 bpm with anterior infarct age undetermined probably old and resolution of lateral T wave inversions
EKG 3: Atrial fibrillation with a rapid ventricular rate at [address] abnormality laterally.
She tells me that at present she is symptom-free from any chest pain shortness of breath palpitations arm pain or back pain.
Past medical history:
CVA
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
Chronic kidney disease
Sarcoidosis
Prior bowel perforation from collagenous colitis with colostomy creation and subsequent reversal, VHR and prior small bowel obstruction
Social History
Tobacco: Former Smoker
Alcohol: None
Drug: None
Living: With Family
Employment: Retired
Family History
Family History: Reviewed & Not Pertinent
Allergies / Home Medications
Allergy/AdvReac Type Severity Reaction Status Date / Time
Penicillins Allergy Mild Hives Verified 02/07/25 14:00
Sulfa (Sulfonamide Allergy Mild Hives Verified 02/07/25 14:00
Antibiotics)
hydrochlorothiazide Allergy Hives Verified 02/07/25 14:00
Iodinated Contrast Media Allergy Hives Verified 02/07/25 14:00
�Medication �Instructions �Recorded �Confirmed �Type
amlodipine 5 mg tablet 5 mg PO NOON 02/07/25 02/07/25 History
atorvastatin 80 mg tablet 80 mg PO HS 02/07/25 02/07/25 History
bupropion HCl 150 mg tablet,12 hr 150 mg PO DAILY 02/07/25 02/07/25 History
sustained-release
cholecalciferol (vitamin D3) 125 125 mcg PO NOON 02/07/25 02/07/25 History
mcg (5,000 unit) tablet (Vitamin
D3)
clonazepam 1 mg tablet 1 mg PO HS 02/07/25 02/07/25 History
denosumab 60 mg/mL subcutaneous 60 mg SC [id number] 02/07/25 02/07/25 History
syringe (Prolia)
ferrous sulfate 325 mg (65 mg 325 mg PO NOON 02/07/25 02/07/25 History
iron) tablet
folic acid 1 mg tablet 1 mg PO NOON 02/07/25 02/07/25 History
lamotrigine 100 mg tablet 100 mg PO QPM 02/07/25 02/07/25 History
meclizine 25 mg tablet 25 mg PO DAILY 02/07/25 02/07/25 History
mirtazapine 15 mg tablet 15 mg PO HS 02/07/25 02/07/25 History
nitroglycerin 0.2 mg/hr 1 patch transdermal HS 02/07/25 02/07/25 History
transdermal 24 hour patch
omeprazole 20 mg capsule,delayed 20 mg PO DAILY 02/07/25 02/07/25 History
release
pramipexole 0.25 mg tablet 0.5 mg PO HS 02/07/25 02/07/25 History
quetiapine 100 mg tablet 100 mg PO HS 02/07/25 02/07/25 History
sodium bicarbonate 650 mg tablet 1,300 mg PO BID 02/07/25 02/07/25 History
Review of Systems
-
History Source: Patient
All other systems: Negative unless noted
Constitutional: Weight Loss and Fatigue
EENT: No Symptoms
Respiratory: Cough
Cardiac: Palpitations
Abdomen/GI: Abdominal Pain, Nausea and Vomiting
: No Symptoms
Musculoskeletal: No Symptoms
Skin: No Symptoms
Neurological: Dizzy
Endocrine: No Symptoms
Hematologic/Lymphatic: No Symptoms
Physical Exam
Vital Signs
Temp Pulse Resp BP Pulse Ox
98.1 F 87 16 110/60 95
02/08/25 07:20 02/08/25 09:40 02/08/25 07:20 02/08/25 09:40 02/08/25 08:20
Lab Results
02/08/25 03:47
02/08/25 07:08
Troponin I Cancelled 02/08/25 08:30
Physical Exam
General: Other (Elderly woman, frail appearing, no distress)
HEENT: Normocephalic, Anicteric and Moist Mucous Membranes
Respiratory: Clear and Non Labored Respirations
Cardiac: S1/S2 (No S3 no S4), Irregular Rhythm (Tachycardic) and Murmur (Grade 1 of a 6 apical holosystolic murmur, no rubs)
Breast: Deferred by me
GI: Soft, Tender and Distended
Rectal: Deferred by Provider
Musculoskeletal: No Clubbing, No Cyanosis and No Edema
Skin: Warm and Dry
Neuro: Awake, Alert, Oriented and AO x 3
Psych: Calm
Impression / Plan
-
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
Impression:
Small bowel obstruction
Prior bowel perforation from collagenous colitis with colostomy creation and subsequent reversal, VHR and prior small bowel obstruction
Dehydration
Newly diagnosed atrial fibrillation and rapid ventricular rates
Abnormal EKG and elevated troponin values
Acute on chronic kidney disease
History of CVA
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
Sarcoidosis
Recommendations:
Atrial fibrillation with rapid ventricular rates, this is newly diagnosed this admission although apparently there had been concern for the possibility of atrial fibrillation in respect to her cryptogenic CVA. Family describes that loop recorder
has been in place and was interrogated as recently as last week by her primary live games dealer at [facility] and there was no report of any arrhythmias.
IV heparin for atrial fibrillation related thromboembolic risk reduction with eventual consideration for oral anticoagulation
Rate control. Intravenous amiodarone has been started and her heart rates are now better controlled, continue intravenous amiodarone.
Eventual consideration for rhythm control likely switching to oral amiodarone and eventual plan for CV as long as we know anticoagulation will not be interrupted for minimum of 30 days post CV
Abnormal troponin values along with dynamic ECG with lateral ST depressions when tachycardic. She is asymptomatic.
Continue to trend troponin values
Trend ECGs
Rate control of atrial fibrillation
Check echocardiogram
Blood pressures have been borderline and she is now heart rate controlled and remains symptom-free, will hold off on adding beta-ashkan or antianginals at least for now.
Maintain IV heparin
Acute on chronic kidney disease likely related to volume depletion/dehydration and hypotension
Is receiving IV fluids
Further management as per primary service
Recurrent small bowel obstruction management as per primary service and surgery
Acute management is nonoperative
I met not only with the patient but multiple family members who are at the bedside and answered all of their questions.
Total time spent today was 80 minutes in preparing to see the patient, seeing the patient and coordination of care. This included review of recent laboratory evaluations, cardiact testing, imaging studies, primary care rtecords, specialty
consultations, hospital records, as well as personally interviewing and examining the patient, which included discussion of their tests, review/ordering medications, and communicating with other healthcare professionals and also treatment planning
as well as counseling.
Data Reviewed
-
EKG: Tracing Personally Visualized and interpreted
Radiology: Image Personally Visualized and interpreted
CT Scan: Report Reviewed by me
Labs: Labs Reviewed by me, Discussed with Patient and Discussed with Family
--- NOTE | 2025-02-08 10:33 | W.PN.HOSP.TC ---
Today's Communication/Plan
-
Assessment / Plan
Assessment / Plan
General: No Apparent Distress, awake alert
HEENT: NormoCephalic, dry mucous membranes, NG tube in place
Respiratory: Clear and Non Labored Respirations
Cardiac: Irregular rhythm, heart rate around 100
GI: Soft, TTP lower abdomen, Distended, diminished bowel Sounds
Musculoskeletal: No Edema, no deformity
Skin: Warm and dry
: NO Suero
Neuro: Awake, Alert, Nonfocal/grossly intact
Psych: Calm and Intact Judgment/Insight
Ms. Jack is an 79-year-old female with a medical history of sarcoidosis, collagenous colitis with bowel perforation (status post colostomy and reversal at [facility]), CAD, CKD, and CVA who presented with 5 days of nausea and vomiting associated
with abdominal pain and distention. Her last bowel movement was almost 1 week prior to arrival and she has been unable to tolerate anything p.o. during the past week. CT imaging shows very distended small bowel with a transition point in the left
lower quadrant concerning for high-grade obstruction. NG tube was placed for decompression and started on low intermittent wall suction. She developed A-fib with RVR with a heart rate of 150s to 180s, no prior history of A-fib. She was given a
dose of IV Lopressor with no significant effect and so was then started on IV Cardizem drip. However she became mildly hypotensive and so was switched to IV amiodarone drip with bolus. She has been admitted for further evaluation and management of
SBO and new onset A-fib with RVR.
Sepsis secondary to SBO:
- CT imaging of high-grade SBO with transition point in the left lower quadrant
- Currently no clinical or imaging evidence of perforation
- Continue NGT to LIWS, maintain n.p.o. and IV fluids
- Nonoperative management for now
- Appreciate guidance from general surgery
- Continue antibiotics with cefepime, will discontinue vancomycin, follow-up cultures, status post 30 cc/kg resuscitative fluid bolus
- Alternatively source of infection could be pulmonary or skin (left gluteal) based on mild imaging findings
A-fib with RVR:
- New onset
- Currently attempting rate control with IV amiodarone drip and additional pushes of IV Lopressor as needed
- Anticoagulating with IV heparin drip
- Cardiology following, recommendations appreciated
TYESHA on CKD:
- Unclear baseline renal function but currently renal function is very poor, CKD likely related to sarcoidosis
- Suspect worsening due to poor perfusion in the setting of sepsis with intermittent hypotension
- With associated metabolic acidosis, patient takes p.o. sodium bicarb at home
- Monitor for improvement with IV fluids
- Follow-up nephrology recommendations
NSTEMI:
- Suspect due to myocardial stress in the setting of SBO and rapid A-fib
- Anticoagulating with IV heparin drip
- Appreciate cardiology recommendations
Abdominal aortic dilatation:
- Focal dilatation of the infrarenal abdominal aorta measuring 2.9 cm
- Ongoing outpatient monitoring recommended
Adrenal nodule:
- 1.5 centimeter hypodense left adrenal nodule noted on imaging, likely an adenoma
- Outpatient monitoring recommended
CODE STATUS: DNR
Anticipated Discharge: > 48 hours
Subjective/Interval History
-
Date of Service: February 08, 2025
Patient was seen and examined at bedside this morning. NG tube remains in place. She still has significant abdominal discomfort in her lower abdomen. Her heart rate remains elevated despite being started on amiodarone drip for A-fib with RVR.
She is now also getting pushes of IV Lopressor as needed.
Objective Data
-
Labs:
Laboratory Results
02/08/25 02/08/25 02/08/25
00:11 01:00 03:47
WBC Cancelled 16.6 H
Hgb Cancelled 10.7 L
Hct Cancelled 31.2 L
Plt Count Cancelled 511 H
APTT 45.2 H
Sodium 136
Potassium 4.6
Chloride 94 L
Carbon Dioxide 19 L
BUN 121 H*
Creatinine 4.0 H
Glucose 129 H
Calcium 8.8
02/08/25 02/08/25
07:08 13:00
WBC
Hgb
Hct
Plt Count
APTT 95.5 H Pending
Sodium 134 L
Potassium 4.5
Chloride 96 L
Carbon Dioxide 18 L
BUN 128 H*
Creatinine 4.1 H*
Glucose 127 H
Calcium 8.2 L
Vital Signs:
Vital Signs
Temp Pulse Resp BP Pulse Ox
98.1 F 87 16 110/60 95
02/08/25 07:20 02/08/25 09:40 02/08/25 07:20 02/08/25 09:40 02/08/25 08:20
I&O
02/07/25 02/08/25 02/09/25
06:59 06:59 06:59
Intake Total 1000 / 1000 0 / 0
Output Total 700 / 700 100 / 100
Balance 300 / 300 -100 / -100
Review of Systems
-
History Source: Patient
All other systems: Reviewed and negative
Abdomen/GI: Reports Abdominal Pain and Bloated
Physical Exam
-
General: No Apparent Distress
--- NOTE | 2025-02-08 11:26 | W.CON.NEPH ---
Consultation
-
Date/Time Consultation Requested: 02/08/2025 9 AM
Date/Time Consultation Performed: 02/08/2025 11 AM
Requesting Provider: Dr De Leon
Performing Provider: Dr. Issa
Reason for Consultation: TYESHA
Medical History
-
Chief Complaint: TYESHA
History of Present Illness:
This is an 79-year-old female who has collagenous colitis with history of colostomy and reversal. She has had multiple episodes of dehydration in the past requiring admission. This is relayed by her family. She has hypertension treated with a
mild therapy regimen which is stable, hyperlipidemia on statin therapy which is stable. She is on bicarbonate therapy for chronic acidosis. She has known chronic kidney disease 3A followed by outpatient nephrology at [facility]. Beginning
Sunday of last week she developed significant nausea vomiting with abdominal pain and discomfort she has not had a bowel movement since Sunday. Her oral intake has essentially been nil since that timeframe. She has tried drinking fluids
approximately 30-32 ounces a day but has been vomiting so frequently that has negated her intake. She has tried taking her medications but also vomits these up. Ultimately she came to the emergency room because of failure to thrive. She has been
orthostatic since Sunday. At the time of admission her creatinine was elevated at 3.8 with a BUN of 111
Past Medical History
Trochanteric bursitis of bilateral hip
Bilateral lumbar radiculopathy
Impingement syndrome bilateral shoulder
Osteoporosis
Depression
Sarcoidosis
CVA
loop recorder
Hernia surgery
Reverse colostomy
Left elbow surgery
Hysterectomy
Femur surgery
CKD 3A
Social History
Tobacco: Former Smoker
Alcohol: None
Family History
Mother had CKD
Family History: Not Pertinent
Allergies / Home Medications
Allergy/AdvReac Type Severity Reaction Status Date / Time
Penicillins Allergy Mild Hives Verified 02/07/25 14:00
Sulfa (Sulfonamide Allergy Mild Hives Verified 02/07/25 14:00
Antibiotics)
hydrochlorothiazide Allergy Hives Verified 02/07/25 14:00
Iodinated Contrast Media Allergy Hives Verified 02/07/25 14:00
�Medication �Instructions �Recorded �Confirmed �Type
amlodipine 5 mg tablet 5 mg PO NOON 02/07/25 02/07/25 History
atorvastatin 80 mg tablet 80 mg PO HS 02/07/25 02/07/25 History
bupropion HCl 150 mg tablet,12 hr 150 mg PO DAILY 02/07/25 02/07/25 History
sustained-release
cholecalciferol (vitamin D3) 125 125 mcg PO NOON 02/07/25 02/07/25 History
mcg (5,000 unit) tablet (Vitamin
D3)
clonazepam 1 mg tablet 1 mg PO HS 02/07/25 02/07/25 History
denosumab 60 mg/mL subcutaneous 60 mg SC [id number] 02/07/25 02/07/25 History
syringe (Prolia)
ferrous sulfate 325 mg (65 mg 325 mg PO NOON 02/07/25 02/07/25 History
iron) tablet
folic acid 1 mg tablet 1 mg PO NOON 02/07/25 02/07/25 History
lamotrigine 100 mg tablet 100 mg PO QPM 02/07/25 02/07/25 History
meclizine 25 mg tablet 25 mg PO DAILY 02/07/25 02/07/25 History
mirtazapine 15 mg tablet 15 mg PO HS 02/07/25 02/07/25 History
nitroglycerin 0.2 mg/hr 1 patch transdermal HS 02/07/25 02/07/25 History
transdermal 24 hour patch
omeprazole 20 mg capsule,delayed 20 mg PO DAILY 02/07/25 02/07/25 History
release
pramipexole 0.25 mg tablet 0.5 mg PO HS 02/07/25 02/07/25 History
quetiapine 100 mg tablet 100 mg PO HS 02/07/25 02/07/25 History
sodium bicarbonate 650 mg tablet 1,300 mg PO BID 02/07/25 02/07/25 History
Review of Systems
-
Abdominal pain, nausea
All other systems: Negative unless noted
Physical Exam
Vital Signs
Vital Signs
Temp Pulse Resp BP Pulse Ox
98.1 F 87 16 110/60 95
02/08/25 07:20 02/08/25 09:40 02/08/25 07:20 02/08/25 09:40 02/08/25 08:20
Lab Results
WBC 16.6 10^3/uL (4.8-10.8) H 02/08/25 03:47
RBC 3.60 10^6/uL (4.20-5.40) L 02/08/25 03:47
Hgb 10.7 g/dL (12.0-16.0) L 02/08/25 03:47
Hct 31.2 % (37.0-47.0) L 02/08/25 03:47
Plt Count 511 10^3/uL (130-400) H 02/08/25 03:47
Sodium 134 mmol/L (135-145) L 02/08/25 07:08
Potassium 4.5 mmol/L (3.5-5.1) 02/08/25 07:08
Chloride 96 mmol/L (98-107) L 02/08/25 07:08
Carbon Dioxide 18 mmol/L (22-30) L 02/08/25 07:08
BUN 128 mg/dl (7-17) H* 02/08/25 07:08
Creatinine 4.1 mg/dL (0.6-1.0) H* 02/08/25 07:08
eGFR 10.48 02/08/25 07:08
Glucose 127 mg/dl (70-99) H 02/08/25 07:08
Calcium 8.2 mg/dl (8.4-10.2) L 02/08/25 07:08
Albumin 3.8 g/dl (3.5-5.0) 02/07/25 16:53
06/04/2024 creatinine 1.35
11/10/2024 creatinine 1.12
12/05/[address] abdomen and pelvis 02/07/2025
IMPRESSION:
Small bowel obstruction with transition point in the left lower quadrant. Moderate colonic stool burden.
1.5 cm hypodense left adrenal nodule, incompletely characterized on this examination however likely represents an adenoma.
Tree-in-bud opacities within the right middle lobe which may be infectious/inflammatory.
Diffuse osteopenia with postoperative changes of T12 and L1 kyphoplasty.
Extensive atherosclerotic calcifications of the aorta and branch vessels with focal dilation in the infrarenal abdominal aorta measuring 2.9 cm.
Bilateral renal atrophy, more pronounced on the left. There are numerous bilateral renal cysts, some of which appear hyperdense and are likely hemorrhagic/proteinaceous cyst.
There is mild asymmetric cutaneous thickening and stranding in the inferior left gluteal soft tissues which may represent superficial infectious/inflammatory process or sequelae of pressure wound.
Physical Exam
Patient is awake alert oriented and in no distress. Mood and affect were pleasant, insight and judgment were good. Pupils are equal round and reactive to light, extraocular movements are intact, sclera were anicteric. Hearing was normal, ears and
nose are intact. Oropharynx was clear. Neck was supple with trachea midline and no thyromegaly. Heart was regular rate and rhythm without rubs. Lower extremities without edema. Lungs were clear to auscultation bilaterally and with normal
excursion. Abdomen was soft, nontender, with decreased bowel sounds, and no hepatosplenomegaly. Skin was without rash and with decreased turgor.
Data Reviewed
-
Radiology: Image Personally Visualized and interpreted (Chest x-ray 02/07/2025 by my reading shows no acute disease)
CT Scan: Report Reviewed by me
Labs: Labs Reviewed by me
Old Records: Reviewed
Assessment/Plan
-
Assessment
TYESHA
Azotemia
CKD 3A 1.3 baseline
SBO
Nausea vomiting
Metabolic acidosis
Hyperdense renal cysts
A-fib
History of stroke
Left adrenaloma
Plan
She is overtly volume depleted
Continue isotonic fluids at this time add bicarbonate, increased rate. She has no history of heart failure
Follow BMP
We discussed dialysis and she is inclined to decline this if needed. She reiterated that she is a DNR
Multiple family members present during this conversation
--- NOTE | 2025-02-08 12:14 | PTCARENOTE ---
0930. Hr maintaining into 150's at this time Amiodarone is to be decreased to 0.5mg/min. TT with Dr. Dueñas to notified HR/Bp Lopressor added as a dose then PRN. Did update doctoe about 2hrs later regarding BP + HR. HR 148 BP 96/66. With
dehydration will take a little more time to normalize.
[2025-02-08] MEDS: SODIUM BICARBONATE 1150 MEQ IV ×2 (12:41→22:50)
[2025-02-08 13:38] LABS: APTT 77.5 Sec (23.4-35.0)
[2025-02-08 13:51] LABS: Troponin I 0.168 ng/ml
--- NOTE | 2025-02-08 16:04 | PTCARENOTE ---
1555: report was given to IVU nurse prior to arrival, pt being transferred d/t rapid afib with HR continued into 150-160's and on a Amiodarone drip at 0.5mg/min. pulse ox and EKG present on transport 16fr Suero placed prior to leaving floor.
[2025-02-08] MEDS: MAXIPIME 1000 MG IV (16:34)
[2025-02-08] MEDS: STERILE WATER FOR INJECTION 10 ML IV (16:41)
--- NOTE | 2025-02-08 17:09 | PTCARENOTE ---
Received patient from [address] [place] [address] at 1600 with GENE. Patient is NPO with NGT R nare to low intermittent wall suction, dark brown drainage in tubing. No bowel sounds auscultated, patient states she passed a small amount of flatus earlier today, having
generalized abdominal discomfort, rated 6/10. IV heparin infusing at 550 units, IV amiodarone infusing at 0.5mg/min, and IV fluids with bicarb infusing at 120ml/hr. All IV sites patent, with no signs of redness or edema. Instructed the patient to
notify nursing with any pain at her IV sites. Call bel in reach, belongings brought to her room by her family.
[2025-02-09] VITALS (43 sets, daily range): BP systolic 62–129; BP diastolic 43–117; BMI 17.7
[2025-02-09 02:32] LABS: Hematocrit 28.2 % (37.0-47.0); Hemoglobin 10.1 g/dL (12.0-16.0); Mean Corp Hgb Conc. 35.8 g/dL (33.0-37.0); Mean Corpuscular Hgb 30.8 pg (27.0-31.0); Mean Platelet Volume 10.2 fL (7.4-10.4); Platelet Count 453 10^3/uL (130-400); Red Blood Cell Count 3.28 10^6/uL (4.20-5.40); Red Cell Dist. Width 13.8 % (11.5-14.5); White Blood Cell Count 21.7 10^3/uL (4.8-10.8)
[2025-02-09 02:42] LABS: APTT 71.4 Sec (23.4-35.0)
[2025-02-09] MEDS: DILAUDID 0.25 MG IV ×3 (03:20→10:16)
[2025-02-09] MEDS: CORDARONE 518 MG IV (03:26)
[2025-02-09 03:30] LABS: Albumin 3.3 g/dl (3.5-5.0); Calcium 7.2 mg/dl (8.4-10.2); Carbon Dioxide 28 mmol/L (22-30); Chloride 83 mmol/L (98-107); Glucose 89 mg/dl (70-99); Phosphorus 6.3 mg/dl (2.5-4.5); Potassium 3.8 mmol/L (3.5-5.1); Sodium 134 mmol/L (135-145)
[2025-02-09 03:41] LABS: Blood Urea Nitrogen 136 mg/dl (7-17); Estimated Creatinine Clearance 8 ml/min; eGFR 10.18
[2025-02-09 03:42] LABS: Troponin I 0.154 ng/ml
[2025-02-09] MEDS: OFIRMEV 100 IV (05:31)
--- NOTE | 2025-02-09 06:22 | W.PN.UPDATE ---
Update Note
Progress Note Update
~ 1 am Rounding in IVU, noted patient's HR in 160's, BP 70/40. Gave NSS 500 mls bolus, BP improved to 106/77, HR 160's. Patient stated she was having increased abdominal pain, RN to give pain medication if BP stable. NG tube w/brown liquid output.
Patient did have small bowel movement. Hematest negative.
Labs ordered: Significant for WBC 21.7 (Previous 16.6), BUN 136 (previously 128), Creatinine 4.2 (previously 4.1)
~ 5 am, RN notified that patient's pain is worse, even after receiving Dilaudid. HR remains elevated 160-170's, afib RVR, repeat EKG done. BP 80/50's. Discussed with Dr. Choe.
Ordered stat CT abd/pelvis w/o IV contrast due to creatinine level 4.2. Lactic acid. Started on phenylephrine for MAP < 65. Transfer to ICU. Reviewed with ICU SALES DEPARTMENT MANAGER, appreciate their assistance.
[2025-02-09 06:26] LABS: Glucose - Point of Care 99 mg/dl (70-99)
[2025-02-09] MEDS: LR 1000 IV ×4 (07:13→19:41)
--- NOTE | 2025-02-09 07:15 | PTCARENOTE ---
rec'd patient after CT from IVU. pt oriented x3, c/o abdominal pain, PRN dilaudid given with relief. placed on 2L NC, diminished breath sounds noted. pt afib RVR on monitor with rate up to 170s, ICU WATCH REPAIR PERSON to bedside, amio gtt increased to 1mg/min. BP
stable off pressors. NGT to LIS, hypoactive BS, abdomen tender to palpation. rock in place. amio, heparin, bicarb gtts infusing. LA sent. IVF bolus started. PICC order placed by house WATCH REPAIR PERSON, arto almost at 24hr infusion kostas. call álvarez in reach,
report given to dayshift RN
--- NOTE | 2025-02-09 07:18 | PTCARENOTE ---
Pt AFib with HR 150-180 on Amio gtt. Low SBP 70-90. Pt c/o abd pain 04/07, PRN Dilaudid IV given and not effective. AEROSPACE ENGINEER OFFICER ARMAMENT made aware. Later Pt c/o that abd pain worsening. Pt send to STAT CT abd and upgated to ICU
--- NOTE | 2025-02-09 07:58 | CON.INTV ---
Consultation
Consultation Request
Date/Time Consultation Requested: 02/09/2025 - 613
Date/Time Consultation Performed: 02/09/2025 - 750
Requesting Provider: ROD Brooks
Performing Provider: Dr. Sabillon
Reason for Consultation: Worsening rapid A-fib/SBO
Medical History
-
Chief Complaint: Abd pain/nausea + vomiting
History of Present Illness:
79-year-old female with a past medical history of collagenous colitis s/p colostomy followed by reversal, osteoporosis, depression, history of sarcoidosis, history of CVA and impingement syndrome of bilateral shoulders who presented with abdominal
pain + nausea/vomiting. She has had reduced PO for 1 week prior to arrival and was very weak. Also initially had chills, and had chest pain with shortness of breath and cough. Initially in the ER, she was afebrile to 97.8 �F, pulse rate 121,
respiratory rate 20, BP 91/71 and saturating 98% on room air. Initial labs showed leukocytosis to 11.5, platelet count 557, percent bands 34%, bicarbonate level 16, creatinine 3.8, lactate 6.3, troponin 0.261 and lipase 50. Blood cultures were
collected; initial CXR showed left-sided basilar opacities likely due to atelectasis. CT abdomen/pelvis with oral contrast on showed SBO with transition point in the LLQ with moderate colonic stool burden. Also tree-in-bud opacities within
the RML. In the ER she was given 1.5 L NS 0.9%, Zofran, cefepime/vancomycin and admitted to telemetry for further care. She developed rapid A-fib overnight on 02/07 - 02/08/2025, and heparin drip + Cardizem drip was started. Cardiology consulted.
On the rapier insertion loom fixer hours of 02/09, patient had worsening abdominal pain despite NG tube being on LIWS and also her receiving Dilaudid, and heart rate cosme to the 160s with BP 70s/40s. CT abdomen/pelvis was repeated showing slightly worse dilated
small bowel with SBO with no free air and large volume stool with mild distention of the rectum. Patient transferred to the ICU for further care and commercial subcontractor services consulted for additional management/recommendations.
Pt was seen and evaluated this AM. HR was uncontrolled overnight and TRX here and started on amiodarone gtt, currently at 0.5mg/min. Remains on heparin gtt. NGT now on continuous suction. Patient's daughter, Nalini, is at bedside and all
questions were answered. Patient is currently saturating 98% on 3 L/min nasal cannula. BP 92/67 heart rate 151. The patient appears drowsy but still answering my questions appropriately and in no acute distress. She denies chest pain, MAYNARD,
nausea, fevers or chills. She says her belly hurts but there is no one spot where it hurts the most; she says it hurts across her entire belly.
PMHx: Osteoporosis, depression, history of A-fib s/p ablation, history of sarcoidosis, collagenous colitis s/p colostomy followed by reversal, trochanteric bursitis of bilateral hips, bilateral lumbar radiculopathy, impingement syndrome of bilateral
shoulders, history of CVA, loop recorder
PSHx: Hernia surgery, s/p colostomy with reversal, left elbow surgery, hysterectomy, femur surgery
Past Medical History
Past Medical History: Other (Above as per HPI)
Past Surgical History: Other (Above as per HPI)
Social History
Tobacco: Former Smoker
Alcohol: None
Drug: None
Family History
Family History: Reviewed & Not Pertinent
Allergies / Home Medications
Allergies
Allergy/AdvReac Type Severity Reaction Status Date / Time
Penicillins Allergy Mild Hives Verified 02/07/25 14:00
Sulfa (Sulfonamide Allergy Mild Hives Verified 02/07/25 14:00
Antibiotics)
hydrochlorothiazide Allergy Hives Verified 02/07/25 14:00
Iodinated Contrast Media Allergy Hives Verified 02/07/25 14:00
Home Medications
�Medication �Instructions �Recorded �Confirmed �Last Taken �Type
amlodipine 5 mg tablet 5 mg PO NOON 02/07/25 02/07/25 02/05/25 History
atorvastatin 80 mg tablet 80 mg PO HS 02/07/25 02/07/25 02/06/25 History
bupropion HCl 150 mg tablet,12 hr 150 mg PO DAILY 02/07/25 02/07/25 02/05/25 History
sustained-release
cholecalciferol (vitamin D3) 125 125 mcg PO NOON 02/07/25 02/07/25 02/05/25 History
mcg (5,000 unit) tablet (Vitamin
D3)
clonazepam 1 mg tablet 1 mg PO HS 02/07/25 02/07/25 02/05/25 History
denosumab 60 mg/mL subcutaneous 60 mg SC [id number] 02/07/25 02/07/25 Unknown History
syringe (Prolia)
ferrous sulfate 325 mg (65 mg 325 mg PO NOON 02/07/25 02/07/25 02/05/25 History
iron) tablet
folic acid 1 mg tablet 1 mg PO NOON 02/07/25 02/07/25 02/05/25 History
lamotrigine 100 mg tablet 100 mg PO QPM 02/07/25 02/07/25 02/05/25 History
meclizine 25 mg tablet 25 mg PO DAILY 02/07/25 02/07/25 02/05/25 History
mirtazapine 15 mg tablet 15 mg PO HS 02/07/25 02/07/25 02/05/25 History
nitroglycerin 0.2 mg/hr 1 patch transdermal HS 02/07/25 02/07/25 02/06/25 History
transdermal 24 hour patch
omeprazole 20 mg capsule,delayed 20 mg PO DAILY 02/07/25 02/07/25 02/05/25 History
release
pramipexole 0.25 mg tablet 0.5 mg PO HS 02/07/25 02/07/25 02/05/25 History
quetiapine 100 mg tablet 100 mg PO HS 02/07/25 02/07/25 02/05/25 History
sodium bicarbonate 650 mg tablet 1,300 mg PO BID 02/07/25 02/07/25 02/05/25 History
Review of Systems
-
History Source: Patient
All other systems: Negative unless noted
Vitals / Labs / Diagnostic Testing
Vital Signs
Temp Pulse Resp BP Pulse Ox
98.3 F 136 20 92/67 99
02/09/25 07:10 02/09/25 09:06 02/09/25 07:15 02/09/25 09:06 02/09/25 09:27
Laboratory Results
02/08/25 02/09/25
13: 02:22
APTT 77.5 H 71.4 H
Microbiology
02/08/25 05:55 Urine Urine Culture - Final
NO GROWTH
02/07/25 21:37 Blood/Venous Blood Culture - Preliminary
No Growth in 24 hours- Final report to follow
02/07/25 21:41 Blood/Venous Blood Culture - Preliminary
No Growth in 24 hours- Final report to follow
02/08/25 05:55 Nose Nasal Screen MRSA (PCR) - Final
MRSA not detected - performed by PCR methodology.
Diagnostic Testing:
Physical Exam
-
HEENT: Normocephalic and Anicteric
Cardiovascular: Irregular Rhythm (Irregularly irregular), Peripheral Edema (negative) and Other (Tachycardic)
Respiratory: Wheeze (negative), Rales (negative), Rhonchi (negative) and Non-Labored Respirations
GI: Soft, Non Distended, Tender (Mildly tender to palpation diffusely; absent peritoneal signs) and Other (Hypoactive BS)
Neurology: Awake, Alert, Oriented and Tremors (negative)
Skin: Warm and Dry
General: Respiratory Distress (negative), Pain (abdominal), Fever (negative) and Chills (negative)
Assessment
-
Assessment: 79-year-old female with a past medical history of collagenous colitis s/p colostomy followed by reversal, osteoporosis, depression, history of sarcoidosis, history of CVA and impingement syndrome of bilateral shoulders who presented
with abdominal pain + nausea/vomiting. She has had reduced PO for 1 week prior to arrival and was very weak. Also initially had chills, and had chest pain with shortness of breath and cough. Initially in the ER, she was afebrile to 97.8 �F, pulse
rate 121, respiratory rate 20, BP 91/71 and saturating 98% on room air. Initial labs showed leukocytosis to 11.5, platelet count 557, percent bands 34%, bicarbonate level 16, creatinine 3.8, lactate 6.3, troponin 0.261 and lipase 50. Blood
cultures were collected; initial CXR showed left-sided basilar opacities likely due to atelectasis. CT abdomen/pelvis with oral contrast on showed SBO with transition point in the LLQ with moderate colonic stool burden. Also tree-in-bud
opacities within the RML. In the ER she was given 1.5 L NS 0.9%, Zofran, cefepime/vancomycin and admitted to telemetry for further care. She developed rapid A-fib overnight on 02/07 - 02/08/2025, and heparin drip + Cardizem drip was started.
Cardiology consulted. On the rapier insertion loom fixer hours of 02/09, patient had worsening abdominal pain despite NG tube being on LIWS and also her receiving Dilaudid, and heart rate cosme to the 160s with BP 70s/40s. CT abdomen/pelvis was repeated showing
slightly worse dilated small bowel with SBO with no free air and large volume stool with mild distention of the rectum. Patient transferred to the ICU for further care and commercial subcontractor services consulted for additional management/recommendations.
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
syndrome of bilateral shoulders, history of CVA, loop recorder
Impression:
#Rapid A-fib (A--fib developed on 02/07/2025 � new onset)
#Sepsis due to intra-abdominal source (likely translocation in the setting of SBO)
#Small focal consolidation seen in the RML � doubt that this small focus is causing her sepsis
#Leukocytosis with 34% bands (on admission)
#Hypochloremic, hyponatremia due to reduced PO intake; doubt SIADH given low urine Na
#TYESHA with uremia
#Hypocalcemia
#Lactic acidosis � now resolved since 02/07/2025
#Elevated troponin � peaked at 0.261 on 02/07/2025
#Abnormal urinalysis with +1 leukocyte esterase
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
#Reported history of A-fib s/p ablation
#History of sarcoidosis
#Hx of collagenous colitis s/p colostomy followed by reversal
Plan:
- Pt TRX here to ICU for closer monitoring given rapid A-fib with hypotension and worsening abd pain
- CT A/P showed slightly worse dilated small bowel with SBO, although no free air seen; unable to rule out stercoral colitis
- Surgery on board and currently no acute surgical intervention recommended
- She remains on IV antibiotics with cefepime which should be continued
- Follow up blood Cx X2 (02/07 - NGTD) andn urine Cx (02/08 - NGTD)
- Trend WBC and monitor fever curve
- Keep NGT to low continuous wall suction
- Pain control
- Hold all PO meds for now and keep NPO
- Maintain SpO2 >90-94%
- Wean down supplemental O2 as tolerated
- Aspiration precautions
- prn nebulized bronchodilators - not currently bronchospastic
- Once pain improves, then would encourage incentive spirometer use at least 10x per hour for at least 4 hrs a day
- Maintain MAP>65
- If BP does not improve with amiodarone drip then will need to start Fred-Synephrine
- Replete electrolytes with K>4, Mg>2
- If she continues to desaturate then would check a CT chest, although CXR today does not show any evidence of lobar pneumonia
- Rate control with amiodarone gtt
- Check echo
- Continue heparin gtt
- Cardiology on board - recs appreciated
- Troponin peaked at 0.261 on admission, hence no longer need to continue trending at this time
- Trend serum creatinine with strict I's/O and monitor UOP
- Nephrology consulted and recommendations appreciated
- Patient was on a bicarb drip which is now being changed to LR
- Continue to trend sHCO3 levels
- Maintain euglycemia with goal BG 140-180
- Trend H/H and transfuse if needed to keep Hb>7g/dL; keep plt>20k, unless there is concern for bleeding then keep plt>50k
- PPI (home med)
- DVT ppx: Heparin gtt
DNR/DNI
Continue ICU level care for this critically ill patient
Critical care statement: A total of 38 minutes of critical care time was provided for this patient today. This includes management of unstable vital signs, evaluation of the patient at bedside, reviewing the patient's pertinent medical records
including radiographs, microbiology, laboratory evaluations, and discussion with primary team, consultants, pharmacy, nutrition, physical therapy, case management, charge nurse, critical care nursing, and respiratory therapy.
Data:
CT abdomen/pelvis without IV contrast 02/09/2025:
Dilated small bowel, just slightly increased in comparison to recent prior study with findings again seen suggesting small bowel obstruction as was noted on recent prior study. No free air.
Nasogastric tube with tip in the stomach.
Large volume stool filling and mildly distending the rectum. Cannot exclude mild stercoral colitis.
[2025-02-09 08:06] LABS: Lactic Acid 1.3 mmol/L (0.7-2.0)
--- NOTE | 2025-02-09 08:30 | PTCARENOTE ---
Received pt @ change of shift. Pt. AAOx3, c/o mod abd pain- see MAR. Uncontrolled afib on monitor. Cardiology, Dr. Dueñas made aware of rate. SpO2 99% on 2LNC. Auscultated dim breath sounds @ bases. Hypoactive BS, abd tender to
palp/distended. R nare NGT suction increased to continuous by surgery, Dr. Engel; s/p intervention 800mL of green/brown output from NGT. Suero in place draining adequate amts of santiago urine. #20 R AC w heparin gtt; #22 R FA w amio gtt; # 24 L FA
w bicarb gtt- see flow sheets. Pt. assisted w active repositioning in bed. Family @ bedside, updated. Pt. instructed on how to report care concerns and call álvarez placed w in reach.
[2025-02-09] MEDS: ERYTHROMYCIN 0.5% OPHTHALMIC OINTMENT 1 APPLIC OPHTH ×4 (08:44→23:12)
[2025-02-09] MEDS: SODIUM BICARBONATE IV ×2 (08:44→10:53)
[2025-02-09] MEDS: LOPRESSOR 5 MG IV ×4 (09:06→23:11)
--- NOTE | 2025-02-09 09:11 | W.PN.GS2 ---
Addendum entered and electronically signed by Andry Alfaro MD 02/09/25 10:36:
I saw and examined the patient independently.
The Metal Precision Machine Assembler's note was reviewed and I agree with the note, assessment and plan except where noted below.
Comment: 79-year-old female with complex medical and abdominal surgical history with known colostomy status post reversal and significant abdominal wall reconstruction without mesh who presents with a high-grade small bowel obstruction, in the
setting of 5 days of general abdominal pain and nausea vomiting also found to be in TYESHA, A-fib, elevated troponin level. Patient went into A-fib with RVR last night and transferred to the ICU. Still tachycardic and moderately hypotensive this
morning. NG tube was initially not working well this morning but now is suctioning well.
Continue NG tube to low intermittent wall suction and flush as needed.
N.p.o. with ice chips for comfort.
Appreciate cardiology and nephrology as well as ICU care.
As surgery may be indicated for her, please avoid therapeutic anticoagulation though a heparin drip without bolus is okay if absolutely needed.
General surgical continue to follow
Original Note:
Today's Communication / Plan
-
NGT/NPO
Assessment / Plan
-
79 yo female with complex medical and abdominal surgical history with known colostomy in the setting of a prior bowel perforation secondary to collagenous colitis who presents with 5 days of abdominal pain, nausea vomiting found here to have a small
bowel obstruction in the setting of TYESHA, atrial fibrillation, EKG changes and elevated troponin level.
Transferred to ICU this am for continued tachycardia and hypotension. Afebrile.
Leukocytosis rising
Repeat CT noted with continued bowel distention although now contrast has moved to the colon which is a good sign. ?stercoral colitis on formal read, but low suspicion. No evidence of perforation, bowel threat or compromise.
--Continue NGT to suction, flush as needed
--NPO with ice chips for comfort
--No plans for emergent surgery, will continue to follow for improvement with bowel rest/decompression
Cardiology, nephrology and intensive care teams following
Subjective Data
-
Date of Service: February 09, 2025
Patient seen and examined at bedside with Dr. Alfaro. Notes nausea and some worsening abdominal pain. Not passing stools/flatus. Denies chest pain.
Objective Data
-
Intake and Output
02/08/25 02/09/25 02/10/25
06:59 06:59 06:59
Intake Total 1000 / 1000 4017 / 4017
Output Total 700 / 700 1775 / 1775
Balance 300 / 300 2242 / 2242
Intake:
IV fluids (Total) 1000 / 1000 3766 / 3766
Amiodarone 360 / 360
Heparin 126 / 126
NS 500 / 500
Sterile Water For Injection 1950 / 1950
1000 ml 1,000 ml @ 120 mls/hr
IV .[id number] TANIKA with Sodium
Bicarbonate 150 Meq Rx#:
[id number]
IV piggybacks 221 / 221
Amount instilled into GI Tube ( 0 / 0 30 / 30
Total)
[place] Sump 0 / 0 30 / 30
Output:
Gastrointestinal tube output ( 700 / 700 1400 / 1400
Total)
[place] Sump 700 / 700 1400 / 1400
Urine, Rock 375 / 375
Vital Signs
Temp Pulse Resp BP Pulse Ox
98.3 F 136 20 92/67 99
02/09/25 07:10 02/09/25 09:06 02/09/25 07:15 02/09/25 09:06 02/09/25 06:44
Calcium 7.2 mg/dl (8.4-10.2) L 02/09/25 02:23
Phosphorus 6.3 mg/dl (2.5-4.5) H 02/09/25 02:23
Magnesium 2.5 mg/dl (1.6-2.3) H 02/08/25 00:11
Total Bilirubin 0.9 mg/dl (0.2-1.3) 02/07/25 16:53
AST 34 U/L (14-36) 02/07/25 16:53
ALT 25 U/L (0-35) 02/07/25 16:53
Alkaline Phosphatase 91 U/L (38-126) 02/07/25 16:53
Total Protein 6.7 g/dl (6.3-8.2) 02/07/25 16:53
Albumin 3.3 g/dl (3.5-5.0) L 02/09/25 02:23
Physical Exam
-
Uncomfortable appearing
ABD soft, distended, generalized tenderness, non peritoneal
NGT with brown outputs
Patient has a rock catheter: Yes
--- NOTE | 2025-02-09 09:23 | W.PN.HOSP.TC ---
Today's Communication/Plan
-
Continue with NG tube
Continue IV fluids
Continue with IV antibiotics
Assessment / Plan
Assessment / Plan
Ms. Jack is an 79-year-old female with a medical history of sarcoidosis, collagenous colitis with bowel perforation (status post colostomy and reversal at [facility]), CAD, CKD, and CVA who presented with 5 days of nausea and vomiting associated
with abdominal pain and distention. Her last bowel movement was almost 1 week prior to arrival and she has been unable to tolerate anything p.o. during the past week. CT imaging shows very distended small bowel with a transition point in the left
lower quadrant concerning for high-grade obstruction. NG tube was placed for decompression and started on low intermittent wall suction. She developed A-fib with RVR with a heart rate of 150s to 180s, no prior history of A-fib. She was given a
dose of IV Lopressor with no significant effect and so was then started on IV Cardizem drip. However she became mildly hypotensive and so was switched to IV amiodarone drip with bolus. She has been admitted for further evaluation and management of
SBO and new onset A-fib with RVR.
SBO:
- CT imaging of high-grade SBO with transition point in the left lower quadrant. Repeat CT today again shows persistent small bowel obstruction. She is symptomatic with abdominal pain and distention.
- Currently no clinical or imaging evidence of perforation
- Continue NGT to LIWS, maintain n.p.o. and IV fluids
- Nonoperative management per surgery
- Appreciate guidance from general surgery
Sepsis
Unclear source.
Not bacteremic
Urinalysis without pyuria
CT abdomen pelvis raised the concern of tree-in-bud opacities in the right middle lobe, mild asymmetric cutaneous thickening is stranding in the inferior left gluteal soft tissues, mild rectal wall thickening with large amount of stool in the colon.
She does have a cough and she also complains of left buttock area pain. Unclear if those are the sources of infection.
- Continue antibiotics with cefepime, will discontinue vancomycin, follow-up cultures
A-fib with RVR:
- New onset
- Currently attempting rate control with IV amiodarone drip and additional pushes of IV Lopressor as needed
- Anticoagulating with IV heparin drip
- Cardiology following, recommendations appreciated
TYESHA on CKD:
- Unclear baseline renal function but currently renal function is very poor, CKD likely related to sarcoidosis
- Suspect worsening due to poor perfusion in the setting of sepsis with intermittent hypotension
- With associated metabolic acidosis, patient takes p.o. sodium bicarb at home
- Monitor for improvement with IV fluids
- Follow-up nephrology recommendations
NSTEMI:
- Suspect due to myocardial stress in the setting of SBO and rapid A-fib
- Anticoagulating with IV heparin drip
- Appreciate cardiology recommendations
Abdominal aortic dilatation:
- Focal dilatation of the infrarenal abdominal aorta measuring 2.9 cm
- Ongoing outpatient monitoring recommended
Adrenal nodule:
- 1.5 centimeter hypodense left adrenal nodule noted on imaging, likely an adenoma
- Outpatient monitoring recommended
CODE STATUS: DNR
Discussed with INTERNET ECOMMERCE SPECIALIST
Discussed with daughter
Discussed with surgery
Total time spent on today's encounter was 52 minutes which included time spent in counseling the patient/family regarding diagnosis and treatment plan as listed above, goals of care, and symptom management. Case was discussed with nursing staff,
specialists, and care coordinators/case management. All labs and imaging personally reviewed by me. Remainder the time spent in detailed review of previous records, lab data, imaging, and other medical provider documentation.
Anticipated Discharge: > 48 hours
Subjective/Interval History
-
Date of Service: February 09, [address]
Nausea vomiting.
Persistent abdominal pain. She thinks she may have passed some gas but no bowel movement.
No fever or chills.
Objective Data
-
Labs:
Laboratory Results
02/09/25 02/09/25 02/09/25
02:22 02:23 06:00
WBC 21.7 H Pending
Hgb 10.1 L Pending
Hct 28.2 L Pending
Plt Count 453 H Pending
PT
INR
APTT 71.4 H
Sodium 134 L
Potassium 3.8
Chloride 83 L
Carbon Dioxide 28
BUN 136 H*
Creatinine 4.2 H*
Glucose 89
Calcium 7.2 L
02/09/25 02/09/25 02/09/25
09:00 09:15 10:00
WBC
Hgb
Hct
Plt Count
PT Pending
INR Pending
APTT Pending
Sodium Pending
Potassium Pending
Chloride Pending
Carbon Dioxide Pending
BUN Pending
Creatinine Pending
Glucose Pending
Calcium Pending
02/09/25 02/09/25
16:00 22:00
WBC
Hgb
Hct
Plt Count
PT
INR
APTT
Sodium Pending Pending
Potassium Pending Pending
Chloride Pending Pending
Carbon Dioxide Pending Pending
BUN Pending Pending
Creatinine Pending Pending
Glucose Pending Pending
Calcium Pending Pending
Vital Signs:
Vital Signs
Temp Pulse Resp BP Pulse Ox
98.3 F 136 20 92/67 99
02/09/25 07:10 02/09/25 09:06 02/09/25 07:15 02/09/25 09:06 02/09/25 06:44
I&O
02/08/25 02/09/25 02/10/25
06:59 06:59 06:59
Intake Total 1000 / 1000 4017 / 4017
Output Total 700 / 700 1775 / 1775
Balance 300 / 300 2242 / 2242
Review of Systems
-
Constitutional: Denies Fever
Cardiac: Reports Other (Feels like constant pressure in the chest unclear if it is because of abdominal pain); Denies Chest Pain or Palpitations
Neuro: Denies Dizzy
Physical Exam
-
General: Comfortable
HEENT: Moist Mucous Membranes
Respiratory: Clear to Auscultation (Anteriorly) and Non Labored Respirations; Negative Accessory Resp Muscle Use
Cardiac: S1/S2, Irregular Rhythm and Tachycardic
GI: Soft, Tender (Lower abdomen but no rebound guarding rigidity) and Distended (Mild); Negative Normal Bowel Sounds
Neuro: AO x 3
Psych: Calm; Negative Confused
Data Reviewed
-
Labs: Labs Reviewed by me
[2025-02-09 09:53] LABS: Venous Blood Gas HCO3 39.4 mmol/L (22-27); Venous Blood Gas O2 Sat % 98.9 %; Venous Blood Gas pCO2 42 mmHg (35-48); Venous Blood Gas pH 7.58 (7.32-7.43); Venous Blood Gas pO2 104 mmHg (30-50)
--- NOTE | 2025-02-09 09:53 | W.PN.NEPH.PH ---
Today's Communication / Plan
-
Stop bicarbonate drip.
Changed to lactated Ringer's
Assessment/Plan
-
Assessment
TYESHA
Azotemia
CKD 3A 1.3 baseline
SBO
Nausea vomiting
Metabolic acidosis
Hyperdense renal cysts
A-fib
History of stroke
Left adrenaloma
Plan
She is overtly volume depleted
Follow BMP
We discussed dialysis and will decline if needed She reiterated that she is a DNR
Multiple family daughter present
stop bicarb gtt
change to LR
Total Time Spent with Patient (in minutes): 32
-
-
Date of Service: February 09, 2025
CC / HPI / ROS
-
Chief Complaint:
Small bowel obstruction
History of Present Illness:
Presents with small bowel obstruction acute on chronic kidney disease baseline creatinine 1.4 with presenting creatinine 3.8
Review of Systems:.
Oliguric.
No chest pain
Labs
-
Labs:
eGFR 10.18 02/09/25 02:23
Phosphorus 6.3 mg/dl (2.5-4.5) H 02/09/25 02:23
Albumin 3.3 g/dl (3.5-5.0) L 02/09/25 02:23
Physical Exam
-
Vital Signs:
Vital Signs
Temp Pulse Resp BP Pulse Ox
98.3 F 136 20 92/67 99
02/09/25 07:10 02/09/25 09:06 02/09/25 07:15 02/09/25 09:06 02/09/25 09:27
Respiratory:: Bilateral: Coarse
Lung Excursion:: Normal
Abdomen:: Soft
Bowel Sounds:: None
Extremity Edema:: None: Bilateral:
Suero Catheter: Yes
[2025-02-09 10:04] LABS: INR 1.41; PT 17.5 Sec (11.4-14.6)
[2025-02-09 10:06] LABS: APTT 76.7 Sec (23.4-35.0)
[2025-02-09 10:40] LABS: Magnesium 2.2 mg/dl (1.6-2.3)
[2025-02-09 10:48] LABS: Calcium 6.5 mg/dl (8.4-10.2); Carbon Dioxide 34 mmol/L (22-30); Chloride 79 mmol/L (98-107); Glucose 102 mg/dl (70-99); Potassium 3.1 mmol/L (3.5-5.1); Sodium 132 mmol/L (135-145)
[2025-02-09 11:06] LABS: Blood Urea Nitrogen 131 mg/dl (7-17); Estimated Creatinine Clearance 8 ml/min; eGFR 11.12
[2025-02-09 11:10] LABS: Hematocrit 24.1 % (37.0-47.0); Hemoglobin 8.7 g/dL (12.0-16.0); Mean Corp Hgb Conc. 36.1 g/dL (33.0-37.0); Mean Corpuscular Volume 85.8 fL (81.0-99.0); Mean Platelet Volume 10.3 fL (7.4-10.4); Platelet Count 359 10^3/uL (130-400); Red Blood Cell Count 2.81 10^6/uL (4.20-5.40); Red Cell Dist. Width 13.9 % (11.5-14.5); White Blood Cell Count 19.5 10^3/uL (4.8-10.8)
[2025-02-09] MEDS: PROTONIX IV 40 MG IV (12:28)
[2025-02-09] MEDS: DILAUDID 0.5 MG IV ×2 (12:28→19:41)
[2025-02-09] MEDS: NSS (PRESERVATIVE FREE) 10 ML IV (12:29)
[2025-02-09] MEDS: CALCIUM GLUCONATE 100 IV (12:29)
[2025-02-09] MEDS: KCL 50 IV (12:29)
--- NOTE | 2025-02-09 12:30 | PTCARENOTE ---
R DL PICC placed by VAT; placement verified w x-ray. #20 R AC and #22 R FA removed; clean dressings applied. Tubing changed prior to PICC use; amio gtt and IVF infusing via R DL PICC. #24 L FA flushed and heparin gtt infusing. Per cardio, half
amio gtt back to 0.5mh/hr- see flow sheet. NGT output slowing down, surgery made aware and orders received to put suction back to LIS; output remains brown/green. Int nausea and mod-severe pain- medicated w prns- see MAR. Critically low C+ and
low K+ results relayed to Dr. Sabillon and further orders received to replete- see MAR. BUN/creat reviewed by nephro; to bedside to discuss w pt; patient verbalized not wanting HD even if offered. Mx. family members to bedside today, ongoing
updates. Call álvarez in reach.
--- NOTE | 2025-02-09 13:00 | W.PN.CARDCBS ---
Today's Communication / Plan
-
Continue rate control of atrial fibrillation with IV amiodarone. Lopressor IV as needed and [id number]-[id number] also added
Follow telemetry and EKGs
Blood pressure support as needed
Await echocardiogram
Treat sepsis and small bowel obstruction
Impression / Plan
-
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
Impression:
Small bowel obstruction
Prior bowel perforation from collagenous colitis with colostomy creation and subsequent reversal, VHR and prior small bowel obstruction
Dehydration
Newly diagnosed atrial fibrillation and rapid ventricular rates
Abnormal EKG and elevated troponin values
Acute on chronic kidney disease
History of CVA
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
Sarcoidosis
Recommendations:
She remains significantly ill. Family at the bedside. She does feel however a little bit better than yesterday.
Atrial fibrillation with rapid ventricular rates, this is newly diagnosed this admission although apparently there had been concern for the possibility of atrial fibrillation in respect to her cryptogenic CVA. Family describes that loop recorder
has been in place and was interrogated as recently as last week by her primary shrimp header at [facility] and there was no report of any arrhythmias.
Continue as tolerates IV heparin for atrial fibrillation related thromboembolic risk reduction with eventual consideration for oral anticoagulation
Rate control has been difficult given low blood pressure and significant renal dysfunction.
Continue intravenous amiodarone. I have added both as needed and agylaw-fzc-vedwm IV Lopressor which should not reduce her blood pressure significantly.
Eventual consideration for rhythm control likely switching to oral amiodarone and eventual plan for CV as long as we know anticoagulation will not be interrupted for minimum of 30 days post CV
Abnormal troponin values along with dynamic ECG with lateral ST depressions when tachycardic. She is asymptomatic.
We have trended troponin values which have now come down and peak was first troponin of admission 0.261
Follow ECGs
Rate control of atrial fibrillation
Check echocardiogram which is pending
Blood pressures have been borderline. Follow.
Maintain IV heparin
Acute on chronic kidney disease likely related to volume depletion/dehydration and hypotension
Is receiving IV fluids
Further management as per primary service and nephrology
Recurrent small bowel obstruction management as per primary service and surgery
Sepsis being treated
Acute management is nonoperative
I spent 30 minutes gskk-ly-xwug and twf-lecr-bt-face time in discussion and review of records. Discussed with family at the bedside and also have discussed with nursing.
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
Subjective
Date of Service: February 09, 2025
She denies chest pain and palpitation
Objective
Labs:
02/09/25 09:46
Labs
Hgb 8.7 g/dL (12.0-16.0) L 02/09/25 09:46
Hct 24.1 % (37.0-47.0) L 02/09/25 09:46
Plt Count 359 10^3/uL (130-400) D 02/09/25 09:46
PT 17.5 Sec (11.4-14.6) H 02/09/25 09:46
INR 1.41 02/09/25 09:46
APTT 76.7 Sec (23.4-35.0) H 02/09/25 09:46
Sodium Cancelled 02/09/25 11:20
Potassium Cancelled 02/09/25 11:20
BUN Cancelled 02/09/25 11:20
Creatinine Cancelled 02/09/25 11:20
Glucose Cancelled 02/09/25 11:20
Troponins
02/07/25 02/07/25 02/08/25
14:35 21:37 02:30
Troponin I 0.261 H* 0.257 H* Cancelled
02/08/25 02/08/25 02/08/25
03:47 06:00 08:30
Troponin I 0.188 H* D Cancelled Cancelled
02/08/25 02/09/25
13:09 02:23
Troponin I 0.168 H* 0.154 H*
Vital Signs and I&O:
Vital Signs
Temp Pulse Resp BP Pulse Ox
98 F 121 20 97/66 99
02/09/25 11:19 02/09/25 12:29 02/09/25 07:15 02/09/25 12:29 02/09/25 09:27
Vital Signs
Temp Pulse Resp BP Pulse Ox
98 F 121 20 97/66 99
02/09/25 11:19 02/09/25 12:29 02/09/25 07:15 02/09/25 12:29 02/09/25 09:27
Intake & Output
02/07/25 02/08/25 02/09/25 02/10/25
06:59 06:59 06:59 06:59
Intake Total 1000 / 1000 4017 / 4017
Output Total 700 / 700 1775 / 1775
Balance 300 / 300 2242 / 2242
Physical Exam
Physical Exam
General: Well developed, well nourished in NAD.
Heart: Increased heart rates irregularly irregular
Lungs: Coarse anterior breath sounds
Abdomen: NG tube in place
Extremities: No clubbing, cyanosis or edema bilaterally.
Neuro: Grossly nonfocal, awake, alert and oriented x3.
[2025-02-09] MEDS: STERILE WATER FOR INJECTION 10 ML IV (15:34)
[2025-02-09] MEDS: MAXIPIME 1000 MG IV (15:34)
--- NOTE | 2025-02-09 16:09 | PTCARENOTE ---
Remains on IVF, amio and heparin gtts- see flow sheets. Assessment unchanged from previous. ECHO in progress @ bedside. Call álvarez remains w in reach.
[2025-02-09 17:03] LABS: APTT 68.9 Sec (23.4-35.0)
[2025-02-09] MEDS: HEPARIN 25000 UNITS/250 ML IV (17:29)
[2025-02-09 17:41] LABS: Calcium 7.3 mg/dl (8.4-10.2); Carbon Dioxide 35 mmol/L (22-30); Chloride 85 mmol/L (98-107); Glucose 119 mg/dl (70-99); Potassium 3.2 mmol/L (3.5-5.1); Sodium 132 mmol/L (135-145)
[2025-02-09 18:12] LABS: Blood Urea Nitrogen 119 mg/dl (7-17); Estimated Creatinine Clearance 9 ml/min; eGFR 12.67
[2025-02-09] MEDS: KCL 100 IV (18:31)
[2025-02-09] MEDS: ATIVAN 0.25 MG IV (23:11)
[2025-02-09 23:53] LABS: APTT 173.5 Sec (23.4-35.0)
[2025-02-10] VITALS (50 sets, daily range): BP systolic 71–127; BP diastolic 47–85; BMI 17.6
[2025-02-10 00:18] LABS: Blood Urea Nitrogen 119 mg/dl (7-17); Calcium 7.2 mg/dl (8.4-10.2); Carbon Dioxide 34 mmol/L (22-30); Chloride 88 mmol/L (98-107); Glucose 83 mg/dl (70-99); Potassium 3.9 mmol/L (3.5-5.1); Sodium 135 mmol/L (135-145)
[2025-02-10] MEDS: CALCIUM GLUCONATE 100 IV ×2 (00:33→16:57)
--- NOTE | 2025-02-10 00:35 | PTCARENOTE ---
repeat labs sent, calcium repleted. no changes in assessment noted. call álvarez in reach
--- NOTE | 2025-02-10 01:06 | PTCARENOTE ---
ICU SUPERINTENDENT POLICE made aware of soft BPs 80/50s, 250ml LR bolus ordered
[2025-02-10] MEDS: LR 250 IV (01:10)
[2025-02-10] MEDS: LR 1000 IV ×4 (01:43→21:13)
[2025-02-10] MEDS: CORDARONE 518 MG IV (01:44)
[2025-02-10] MEDS: DILAUDID 0.25 MG IV (01:44)
[2025-02-10] MEDS: LOPRESSOR 5 MG IV ×6 (02:08→23:32)
[2025-02-10 02:21] LABS: Estimated Creatinine Clearance 10 ml/min
[2025-02-10] MEDS: NEO-SYNEPHRINE 250 IV ×2 (03:07→23:31)
[2025-02-10 04:45] LABS: Hematocrit 24.9 % (37.0-47.0); Hemoglobin 8.5 g/dL (12.0-16.0); Mean Corp Hgb Conc. 34.1 g/dL (33.0-37.0); Mean Corpuscular Hgb 30.5 pg (27.0-31.0); Mean Corpuscular Volume 89.2 fL (81.0-99.0); Mean Platelet Volume 10.1 fL (7.4-10.4); Platelet Count 402 10^3/uL (130-400); Red Blood Cell Count 2.79 10^6/uL (4.20-5.40)
--- NOTE | 2025-02-10 04:48 | PTCARENOTE ---
Am labs sent. assessment unchanged. pt repositioned q2h for comfort. call álvarez in reach
[2025-02-10 05:40] LABS: Blood Urea Nitrogen 112 mg/dl (7-17); Calcium 8.1 mg/dl (8.4-10.2); Carbon Dioxide 32 mmol/L (22-30); Chloride 91 mmol/L (98-107); Estimated Creatinine Clearance 11 ml/min; Glucose 77 mg/dl (70-99); Potassium 3.4 mmol/L (3.5-5.1); Sodium 136 mmol/L (135-145); eGFR 15.24
[2025-02-10 05:47] LABS: Procalcitonin 6.41 ng/ml (0.0-0.25)
[2025-02-10] MEDS: KCL 100 IV (06:17)
[2025-02-10 06:55] LABS: APTT 113.1 Sec (23.4-35.0)
[2025-02-10] MEDS: ERYTHROMYCIN 0.5% OPHTHALMIC OINTMENT 1 APPLIC OPHTH (07:35)
[2025-02-10] MEDS: PROTONIX IV 40 MG IV (07:35)
[2025-02-10] MEDS: NSS (PRESERVATIVE FREE) 10 ML IV (07:35)
--- NOTE | 2025-02-10 08:00 | PTCARENOTE ---
Received pt @ change of shift. Pt. AAOx3, c/o abd pain- see DEC. Uncontrolled afib on monitor. Cardiology, Dr. ANITA Daley aware of rate. SpO2 94% on 2LNC. Auscultated dim breath sounds @ bases. Hypoactive BS, abd tender to palp/distended. R nare
NGT to LIS draining brown liq. Inc of soft/brown stool. Hygiene provided. Suero in place draining adequate amts of yellow/santiago urine. #24 L FA w heparin gtt; R DL PICC w amio/benoit/IVF/K+ rider- see flow sheet. Pt. assisted w active repositioning
in bed. Pt. instructed on how to report care concerns and call álvarez placed w in reach.
--- NOTE | 2025-02-10 08:11 | W.PN.INTV ---
Today's Communication / Plan
Recommendations
Continue antibiotics
ID now consulted to assist with ABx
Serial abdominal exams, NGT to LIWS and keep NPO
Defer surgical intervention to general surgery; follow-up small bowel follow-through
Heart rate control per cardiology, continue amiodarone and digoxin being added today
Continue to trend serum creatinine + UOP
Maintain MAP >65, continue with Fred-Synephrine
Continue with IVF with LR
Heparin drip
Ativan at night as she takes clonazepam at night as outpatient
Guarded prognosis
Continue ICU level care for this critically ill patient
Assessment
-
Assessment: 79-year-old female with a past medical history of collagenous colitis s/p colostomy followed by reversal, osteoporosis, depression, history of sarcoidosis, history of CVA and impingement syndrome of bilateral shoulders who presented
with abdominal pain + nausea/vomiting. She has had reduced PO for 1 week prior to arrival and was very weak. Also initially had chills, and had chest pain with shortness of breath and cough. Initially in the ER, she was afebrile to 97.8 �F, pulse
rate 121, respiratory rate 20, BP 91/71 and saturating 98% on room air. Initial labs showed leukocytosis to 11.5, platelet count 557, percent bands 34%, bicarbonate level 16, creatinine 3.8, lactate 6.3, troponin 0.261 and lipase 50. Blood
cultures were collected; initial CXR showed left-sided basilar opacities likely due to atelectasis. CT abdomen/pelvis with oral contrast on showed SBO with transition point in the LLQ with moderate colonic stool burden. Also tree-in-bud
opacities within the RML. In the ER she was given 1.5 L NS 0.9%, Zofran, cefepime/vancomycin and admitted to telemetry for further care. She developed rapid A-fib overnight on 02/07 - 02/08/2025, and heparin drip + Cardizem drip was started.
Cardiology consulted. On the meteorologist in charge hours of 02/09, patient had worsening abdominal pain despite NG tube being on LIWS and also her receiving Dilaudid, and heart rate cosme to the 160s with BP 70s/40s. CT abdomen/pelvis was repeated showing
slightly worse dilated small bowel with SBO with no free air and large volume stool with mild distention of the rectum. Patient transferred to the ICU for further care and associate programmer analyst services consulted for additional management/recommendations.
Chronic conditions DATABASE MANAGEMENT SPECIALIST: Osteoporosis, depression, history of A-fib s/p ablation, history of sarcoidosis, collagenous colitis s/p colostomy followed by reversal, trochanteric bursitis of bilateral hips, bilateral lumbar radiculopathy, impingement
syndrome of bilateral shoulders, history of CVA, loop recorder
Impression:
#Rapid A-fib (A--fib developed on 02/07/2025 � new onset)
#Sepsis due to intra-abdominal source (likely translocation in the setting of SBO)
#Small focal consolidation seen in the RML � doubt that this small focus is causing her sepsis
#Leukocytosis with 34% bands (on admission)
#Hypochloremic, hyponatremia due to reduced PO intake; doubt SIADH given low urine Na
#TYESHA with uremia
#Hypocalcemia
#Lactic acidosis � now resolved since 02/07/2025
#Elevated troponin � peaked at 0.261 on 02/07/2025
#Abnormal urinalysis with +1 leukocyte esterase
#Partial SBO with nausea/vomiting and reduced PO intake for 1 week DATABASE MANAGEMENT SPECIALIST
#Reported history of A-fib s/p ablation
#History of sarcoidosis
#Hx of collagenous colitis s/p colostomy followed by reversal
Plan:
- Pt TRX here to ICU for closer monitoring given rapid A-fib with hypotension and worsening abd pain
- CT A/P showed slightly worse dilated small bowel with SBO, although no free air seen; unable to rule out stercoral colitis
- Surgery on board and currently no acute surgical intervention recommended as of 02/09 --> she now has bowel sounds as of 02/09 but belly remains distended, tender and shes in rapid a-fib. Defer surgical intervention decision to surgery who ordered
a SBFT today
- She remains on IV antibiotics with cefepime which should be continued --> ID consulted to assist with ABx
- Follow up blood Cx X2 (02/07 - NGTD) andn urine Cx (02/08 - NGTD)
- Trend WBC and monitor fever curve
- Keep NGT to low intermittent wall suction
- Pain control
- Hold all PO meds for now and keep NPO; may need TPN if she does not want enteral diet within the next 24-48 hrs given low BMI and poor oral intake for >1 week now
- Maintain SpO2 >90-94%
- Wean down supplemental O2 as tolerated
- Aspiration precautions
- prn nebulized bronchodilators - not currently bronchospastic
- Once pain improves, then would encourage incentive spirometer use at least 10x per hour for at least 4 hrs a day
- Maintain MAP>65
- Continue fred-synephrine
- Replete electrolytes with K>4, Mg>2
- If she continues to desaturate then would check a CT chest, although CXR from 02/09 does not show any evidence of lobar pneumonia
- there is a focus of consolidative opacity in RML seen on CT A/P - she is already on Abx with cefepime, and now flagyl staretd by hospitalist
- Rate control with amiodarone gtt
- Add digoxin today but need to renally dose to prevent toxicity; correct hypokalemia as well to prevent dig toxicity
- Echo checked on 02/09 showing valvular heart disease with mild MR, mild AI, and mild�moderate TR with preserved LVEF of 50-55% with mild concentric LVH; RV has normal size and function
- Continue heparin gtt
- Cardiology on board - recs appreciated
- Troponin peaked at 0.261 on admission, hence no longer need to continue trending at this time
- Trend serum creatinine with strict I/O and monitor UOP
- Nephrology consulted and recommendations appreciated
- Patient was on a bicarb drip which was changed to LR on 02/09
- Continue to trend sHCO3 levels
- Maintain euglycemia with goal BG 140-180
- Trend H/H and transfuse if needed to keep Hb>7g/dL; keep plt>20k, unless there is concern for bleeding then keep plt>50k
- PPI (home med)
- DVT ppx: Heparin gtt
DNR/DNI
Continue ICU level care for this critically ill patient
Critical care statement: A total of 41 minutes of critical care time was provided for this patient today. This includes management of unstable vital signs, evaluation of the patient at bedside, reviewing the patient's pertinent medical records
including radiographs, microbiology, laboratory evaluations, and discussion with primary team, consultants, pharmacy, nutrition, physical therapy, case management, charge nurse, critical care nursing, and respiratory therapy.
Data:
CT abdomen/pelvis without IV contrast 02/09/2025:
Dilated small bowel, just slightly increased in comparison to recent prior study with findings again seen suggesting small bowel obstruction as was noted on recent prior study. No free air.
Nasogastric tube with tip in the stomach.
Large volume stool filling and mildly distending the rectum. Cannot exclude mild stercoral colitis.
CXR 02/09/2025:
1. Right PICC tip projects over the central SVC.
2. Lungs remain clear.
Subjective Dataa
Subjective Data
Date of Service:
Date of Service: February 10, 2025
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
Subjective:
Pt seen and evaluated this AM. HR still uncontrolled with HR 136, BP 83/52 on fred at 40mcg/min. SpO2 93% on 1.5L/min NC. NGT has put out about 1.2L since yesterday. NGT now on LIWS. Currently on amiodarone drip 0.5 mg/min + heparin drip.
Review of Systems
General: Other (negative unless mentioned above)
Objective Data
Data Reviewed
Vital Signs / I&O / Oxygen:
Vital Signs
Temp Pulse Resp BP Pulse Ox
97.6 F 125 20 100/79 94
02/10/25 07:38 02/10/25 08:00 02/10/25 08:00 02/10/25 08:00 02/10/25 08:13
Intake and Output
02/09/25 02/10/25 02/11/25
06:59 06:59 06:59
Intake Total 4017 / 4176.8 5144.2 / 5302.4 316.4 / 316.4
Output Total 1775 / 1825 2825 / 2925 200 / 200
Balance 2242 / 2351.8 2319.2 / 2377.4 116.4 / 116.4
SaO2 94
Nasal Cannula flow liters per 2
minute
Physical Exam
General: Respiratory Distress (negative), Chills (negative) and Sweats (negative)
HEENT: Normocephalic and Anicteric
Cardiovascular: Irregular Rhythm (Irregularly irregular), Peripheral Edema (negative) and Other (tachycardic)
Respiratory: Clear, Wheeze (negative), Crackles (negative), Rhonchi (negative), Stridor (negative) and Other (Poor inspiratory effort)
GI: Soft, Distended, Tender, NG Tube (on LIWS) and Other (Hypoactive bowel sounds)
Neurology: Tremors (negative) and Lethargic (Awakens to verbal/tactile stimuli)
Skin: Warm, Dry, Cyanosis (negative) and Jaundice (negative)
Labs/Micro/Reports
Lab Data
02/10/25 04:34
Laboratory Results
02/09/25 02/09/25 02/09/25
09:46 16:33 23:06
PT 17.5 H
INR 1.41
APTT 76.7 H 68.9 H 173.5 H*
02/10/25
06:24
PT
INR
APTT 113.1 H
Microbiology
02/07/25 21:37 Blood/Venous Blood Culture - Preliminary
No Growth in 48 hours- Final report to follow
02/07/25 21:41 Blood/Venous Blood Culture - Preliminary
No Growth in 48 hours- Final report to follow
02/08/25 05:55 Urine Urine Culture - Final
NO GROWTH
02/08/25 05:55 Nose Nasal Screen MRSA (PCR) - Final
MRSA not detected - performed by PCR methodology.
[2025-02-10] MEDS: DILAUDID 0.5 MG IV ×3 (08:19→21:35)
--- NOTE | 2025-02-10 08:39 | W.PN.CARDCBS ---
Today's Communication / Plan
-
Add digoxin
Volume repletion
Continue IV amiodarone
Continue heparin
Impression / Plan
-
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
Impression:
Small bowel obstruction
Prior bowel perforation from collagenous colitis with colostomy creation and subsequent reversal, VHR and prior small bowel obstruction
Dehydration
Newly diagnosed atrial fibrillation and rapid ventricular rates
Abnormal EKG and elevated troponin values
Acute on chronic kidney disease
History of CVA
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
Sarcoidosis
Frailty
Echo 02/09/2025: Mild LVH, EF 50-55%, mild mitral regurgitation, mild aortic regurgitation, mild to moderate tricuspid regurgitation, pulmonary artery systolic pressure 27 mmHg
Recommendations:
At present she has what may well be a surgical abdomen, but she is uncertain as to whether she would consent to surgery. Will await input from hospitalist, clinical nursing assistant, and most importantly surgery, as well as opinion from patient.
Her ventricular response and atrial fibrillation remains very rapid on IV amiodarone. She is on IV Lopressor which has helped somewhat but she remains hypotensive and is on Fred-Synephrine. We will add digoxin. Some of her tachycardia may be
driven by volume depletion as well, would be in favor of aggressive volume repletion. Defer to nephrology, hospitalist and pulmonary.
If surgery recommends laparotomy, perioperative cardiac risk will be very high but not prohibitive given likelihood of poor outcome with conservative management. Her ejection fraction is normal, she does not have pulmonary hypertension and I
suspect her elevated troponin was a nonischemic myocardial injury from sepsis and physiologic stress.
We will continue to follow. Prognosis is guarded, and patient may elect for transition in goals of care which would be reasonable.
Critical care time: 45 minutes
Progress Note - Marketing Strategy Manager
Subjective
Date of Service: February 10, 2025:
Patient with severe abdominal pain. Ventricular response remains very rapid. 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 Has high output from NG tube. Need for surgery is being considered.
Medications: Cefepime, IV heparin, phenylephrine, amiodarone IV, IV pantoprazole, metoprolol 5 mg IV every 6, K rider
100/79, 90/69, pulse 125, sats 94% on 2 L, weight is 45 kg, which is stable,, frail, cachectic, appears uncomfortable, is stoic, lungs not examined as it is painful for her to move and she gets short of breath with movement, very tachycardic, with
systolic murmur, no edema
Chest x-ray NAD
Echo: EF 50-55% mild MR, minimal mild aortic regurgitation, mild to moderate tricuspid regurgitation, mild LVH, pulmonary artery systolic pressure 27
White count 29, hemoglobin 8.5, platelets 402, venous blood gas yesterday 7.58, pCO2 42, O2 104, procalcitonin 6.41, at 4 AM potassium 3.4, BUN 112, creatinine 3.0 last lactic acid was 1.3., Peak troponin was 0.261
Objective
Labs:
02/10/25 04:34
Labs
Hgb 8.5 g/dL (12.0-16.0) L 02/10/25 04:34
Hct 24.9 % (37.0-47.0) L 02/10/25 04:34
Plt Count 402 10^3/uL (130-400) H 02/10/25 04:34
PT 17.5 Sec (11.4-14.6) H 02/09/25 09:46
INR 1.41 02/09/25 09:46
APTT 113.1 Sec (23.4-35.0) H 02/10/25 06:24
Sodium 136 mmol/L (135-145) 02/10/25 04:34
Potassium 3.4 mmol/L (3.5-5.1) L 02/10/25 04:34
BUN 112 mg/dl (7-17) H* 02/10/25 04:34
Creatinine 3.0 mg/dL (0.6-1.0) H 02/10/25 04:34
Glucose 77 mg/dl (70-99) 02/10/25 04:34
Troponins
02/07/25 02/07/25 02/08/25
14:35 21:37 02:30
Troponin I 0.261 H* 0.257 H* Cancelled
02/08/25 02/08/25 02/08/25
03:47 06:00 08:30
Troponin I 0.188 H* D Cancelled Cancelled
02/08/25 02/09/25
13:09 02:23
Troponin I 0.168 H* 0.154 H*
Vital Signs and I&O:
Vital Signs
Temp Pulse Resp BP Pulse Ox
36.4 C 125 20 100/79 94
02/10/25 07:38 02/10/25 08:00 02/10/25 08:00 02/10/25 08:00 02/10/25 08:13
Vital Signs
Temp Pulse Resp BP Pulse Ox
36.4 C 125 20 100/79 94
02/10/25 07:38 02/10/25 08:00 02/10/25 08:00 02/10/25 08:00 02/10/25 08:13
Intake & Output
02/08/25 02/09/25 02/10/25 02/11/25
07:59 07:59 07:59 07:59
Intake Total 1000 / 1000 4176.8 / 4336.6 5142.6 / 5300.8 158.2 / 158.2
Output Total 700 / 700 1825 / 1875 2875 / 2975 100 / 100
Balance 300 / 300 2351.8 / 2461.6 2267.6 / 2325.8 58.2 / 58.2
Physical Exam
Physical Exam
See above
--- NOTE | 2025-02-10 09:40 | W.PN.HOSP.TC ---
Today's Communication/Plan
-
Continue with cefepime. Add Flagyl. Consult ID. Follow white count.
Wean phenylephrine as able.
Continue with IV heparin and IV amiodarone per cardiology
Awaiting general surgery input from today.
Assessment / Plan
Assessment / Plan
Ms. Jack is an 79-year-old female with a medical history of sarcoidosis, collagenous colitis with bowel perforation (status post colostomy and reversal at [facility]), CAD, CKD, and CVA who presented with 5 days of nausea and vomiting associated
with abdominal pain and distention. Her last bowel movement was almost 1 week prior to arrival and she has been unable to tolerate anything p.o. during the past week. CT imaging shows very distended small bowel with a transition point in the left
lower quadrant concerning for high-grade obstruction. NG tube was placed for decompression and started on low intermittent wall suction. She developed A-fib with RVR with a heart rate of 150s to 180s, no prior history of A-fib. She was given a
dose of IV Lopressor with no significant effect and so was then started on IV Cardizem drip. However she became mildly hypotensive and so was switched to IV amiodarone drip with bolus. She has been admitted for further evaluation and management of
SBO and new onset A-fib with RVR.
SBO:
- CT imaging of high-grade SBO with transition point in the left lower quadrant. Repeat CT 02/09 again shows persistent small bowel obstruction. She remains symptomatic with abdominal pain and distention.
- Currently no clinical or imaging evidence of perforation
- Continue NGT to LIWS, maintain n.p.o. and IV fluids
- Further management per surgery
- Appreciate guidance from general surgery
Sepsis
Unclear source.
Not bacteremic
Urinalysis without pyuria
CT abdomen pelvis raised the concern of tree-in-bud opacities in the right middle lobe, mild asymmetric cutaneous thickening is stranding in the inferior left gluteal soft tissues, mild rectal wall thickening with large amount of stool in the colon.
She does have a cough and she also complains of left buttock area pain. Unclear if those are the sources of infection.
- Continue antibiotics with cefepime, vancomycin was discontinued
- With continued rise in white count to add Flagyl for anaerobic coverage. Consult ID.
- High procalcitonin without change may be function of renal function.
A-fib with RVR:
- New onset
- Currently attempting rate control with IV amiodarone drip and additional pushes of IV Lopressor as needed
- Anticoagulating with IV heparin drip
- Cardiology following, recommendations appreciated
TYESHA on CKD 3:
- Unclear baseline renal function but currently renal function is very poor
- Suspect worsening due to poor perfusion in the setting of sepsis with intermittent hypotension
- With associated metabolic acidosis she was put on IV bicarb which is now discontinued with resolution of metabolic acidosis; patient takes p.o. sodium bicarb at home
- Continue IV fluids
- Follow-up nephrology recommendations
NSTEMI:
- Suspect due to myocardial stress in the setting of SBO and rapid A-fib
- Anticoagulating with IV heparin drip
- Appreciate cardiology recommendations
Abdominal aortic dilatation:
- Focal dilatation of the infrarenal abdominal aorta measuring 2.9 cm
- Ongoing outpatient monitoring recommended
Adrenal nodule:
- 1.5 centimeter hypodense left adrenal nodule noted on imaging, likely an adenoma
- Outpatient monitoring recommended
CODE STATUS: DNR
Discussed with cardiology
Total time spent on today's encounter was 52 minutes which included time spent in counseling the patient/family regarding diagnosis and treatment plan as listed above, goals of care, and symptom management. Case was discussed with nursing staff,
specialists, and care coordinators/case management. All labs and imaging personally reviewed by me. Remainder the time spent in detailed review of previous records, lab data, imaging, and other medical provider documentation.
Anticipated Discharge: > 48 hours
Subjective/Interval History
-
Date of Service: February 10, 2025
Patient with persistent nausea and abdominal pain. No flatus. No bowel movement. NG tube in place and hooked up to suction.
Denies any shortness of breath or chest pain.
No fever or chills.
No dizziness
Objective Data
-
Labs:
Laboratory Results
02/09/25 02/10/25 02/10/25
23:06 04:34 06:00
WBC 29.0 H
Hgb 8.5 L
Hct 24.9 L
Plt Count 402 H
APTT 173.5 H*
Sodium 135 136 Pending
Potassium 3.9 3.4 L Pending
Chloride 88 L 91 L Pending
Carbon Dioxide 34 H 32 H Pending
BUN 119 H* 112 H* Pending
Creatinine 3.2 H 3.0 H Pending
Glucose 83 77 Pending
Calcium 7.2 L 8.1 L Pending
02/10/25 02/10/25 02/10/25
06:24 10:00 13:00
WBC
Hgb
Hct
Plt Count
APTT 113.1 H Pending
Sodium Pending
Potassium Pending
Chloride Pending
Carbon Dioxide Pending
BUN Pending
Creatinine Pending
Glucose Pending
Calcium Pending
02/10/25
16:00
WBC
Hgb
Hct
Plt Count
APTT
Sodium Pending
Potassium Pending
Chloride Pending
Carbon Dioxide Pending
BUN Pending
Creatinine Pending
Glucose Pending
Calcium Pending
Vital Signs:
Vital Signs
Temp Pulse Resp BP Pulse Ox
97.6 F 125 20 100/79 94
02/10/25 07:38 02/10/25 08:00 02/10/25 08:00 02/10/25 08:00 02/10/25 08:13
I&O
02/09/25 02/10/25 02/11/25
06:59 06:59 06:59
Intake Total 4017 / 4176.8 5144.2 / 5302.4 474.6 / 474.6
Output Total 1775 / 1825 2825 / 2925 200 / 200
Balance 2242 / 2351.8 2319.2 / 2377.4 274.6 / 274.6
Physical Exam
-
General: No Apparent Distress
HEENT: Moist Mucous Membranes
Respiratory: Clear to Auscultation (Anterior) and Non Labored Respirations; Negative Accessory Resp Muscle Use
Cardiac: S1/S2, Irregular Rhythm and Tachycardic
GI: Soft and Tender (In general without peritonism); Negative Normal Bowel Sounds
Musculoskeletal: No Edema
Neuro: AO x 3
Psych: Calm; Negative Confused
Data Reviewed
-
Labs: Labs Reviewed by me
--- NOTE | 2025-02-10 10:36 | W.PN.NEPH.PH ---
Addendum entered and electronically signed by Alex Guerrero DO 02/10/25 11:02:
Bolus LR 1L and cont infusion @ 125
Original Note:
Today's Communication / Plan
-
Continue LR at decreased dose 80 cc per
Assessment/Plan
-
Assessment
TYESHA
Azotemia
CKD 3A 1.3 baseline= follows with nephrology in [place] Dr. [place]
SBO
Nausea vomiting
Metabolic acidosis
Hyperdense renal cysts
A-fib
History of stroke
Left adrenaloma
Plan
Follow BMP
We discussed dialysis and will decline if needed She reiterated that she is a DNR
Multiple family daughter present
creatinine improved down to 3 peaked 4.8
Decrease lactated Ringer's to 80 cc
Rate control per cardiology
Total Time Spent with Patient (in minutes): 32
-
-
Date of Service: February 10, 2025
CC / HPI / ROS
-
Chief Complaint:
Small bowel obstruction
History of Present Illness:
Presents with small bowel obstruction acute on chronic kidney disease baseline creatinine 1.4 with presenting creatinine 3.8
Review of Systems:.
Nonoliguric improved urine output
No chest pain
Labs
-
Labs:
WBC 29.0 10^3/uL (4.8-10.8) H 02/10/25 04:34
RBC 2.79 10^6/uL (4.20-5.40) L 02/10/25 04:34
Hgb 8.5 g/dL (12.0-16.0) L 02/10/25 04:34
Hct 24.9 % (37.0-47.0) L 02/10/25 04:34
Plt Count 402 10^3/uL (130-400) H 02/10/25 04:34
eGFR 15.24 02/10/25 04:34
Phosphorus 6.3 mg/dl (2.5-4.5) H 02/09/25 02:23
Albumin 3.3 g/dl (3.5-5.0) L 02/09/25 02:23
Physical Exam
-
Vital Signs:
Vital Signs
Temp Pulse Resp BP Pulse Ox
97.6 F 125 20 100/79 94
02/10/25 07:38 02/10/25 08:00 02/10/25 08:00 02/10/25 08:00 02/10/25 08:13
--- NOTE | 2025-02-10 11:43 | PN.CDI ---
CDI
- -
CDI:
Physician Documentation Request
Admit Date: 02/07/25 18:40
Dear Doctor Dickson,
Patient admitted with sepsis and SBO.
02/09 Nutrition note, 'Pt meets criteria for moderate protein calorie malnutrition of acute illness with <75% energy intake >7days, mild depletion subcutaneous fat and mild depletion of muscle.'
Please provide in your note the diagnosis associated with the above nutrition findings and your assessment:
Moderate protein calorie malnutrition
Mild protein calorie malnutrition
Other
[place] Criteria ([facility] Hospitalist 2017)
2 or more criteria must be present for either
non severe or severe malnutrition
Note that the criteria differs related to the
presence of an acute or chronic illness
Acute Illness
Energy Intake Non Severe: <75% for >7 days
Severe: <50% for >5 days
Weight Loss Non Severe: 1-2% over 1 week
5% over 1 month
7.5% over 3 months
1 year N/A
Severe: >2% over 1 week
>5% over 1 month
>7.5% over 3 months
1 year N/A
Body Fat Non Severe: Mild Decrease
Severe: Moderate Decrease
Muscle Mass Non Severe: Mild Decrease
Severe: Moderate Decrease
Fluid Accumulation Non Severe: Mild Accumulation
Severe: Moderate to severe
accumulation
Reduced [employer] Manager Strength Non Severe: N/A
Severe: Measurably reduced
Use of terms such as suspected, likely, concern for, or probable (associated with a specific diagnosis that is being evaluated, monitored, or treated as if it exists) are acceptable and can be coded in the inpatient setting, when documented at the
time of discharge.
Thank you,
Beatriz RILEY,RN,CCDS
CDI Specialist
Available via [place] text
Please use your independent medical judgment in providing your response.
--- NOTE | 2025-02-10 11:51 | PN.CDI ---
CDI
- -
CDI:
Physician Documentation Request
Admit Date: 02/07/25 18:40
Dear Doctor Dickson,
Patient admitted with sepsis and SBO.
02/09 Nursing skin assessment, 'Stage 1 buttock pressure injury, POA.'
Physician documentation of the type and location of wounds is required for compliant documentation. Based on the above clinical findings and your assessment, please provide the following in your progress note:
1. Location of the ulcer/wound, including laterality.
2. Type (etiology) of ulcer/wound:
- Pressure (decubitus) ulcer
- Other
- Unable to determine
For a pressure ulcer, please also include the stage* of the ulcer:
- Stage 1 - Skin intact, non-blanchable redness
- Stage 2 - Partial thickness loss of dermis, includes intact or open blister
- Stage 3 - Full thickness tissue not including bone, tendon or muscle
- Stage 4 - Full thickness tissue loss, including exposed bone, tendon or muscle
- Unstageable - Full thickness loss in which the base of the ulcer is covered by slough (yellow, bills, soto, green or brown) and/or eschar (bills, brown or black) in the wound bed.
- Unable to determine
Use of terms such as suspected, likely, concern for, or probable (associated with a specific diagnosis that is being evaluated, monitored, or treated as if it exists) are acceptable and can be coded in the inpatient setting, when documented at the
time of discharge.
Thank you,
Beatriz RILEY,RN,CCDS
CDI Specialist
Available via [place] text
Please use your independent medical judgment in providing your response.
*Source: National Pressure Ulcer Advisory Panel (NPUAP)
[2025-02-10 12:34] LABS: APTT 56.9 Sec (23.4-35.0)
--- NOTE | 2025-02-10 13:02 | W.PN.GS2 ---
Today's Communication / Plan
-
SBFT
Assessment / Plan
-
79 yo female with complex medical and abdominal surgical history with known colostomy in the setting of a prior bowel perforation secondary to collagenous colitis who presents with 5 days of abdominal pain, nausea vomiting found here to have a small
bowel obstruction in the setting of TYESHA, atrial fibrillation, EKG changes and elevated troponin level.
Transferred to ICU this am for continued tachycardia and hypotension. Afebrile.
Leukocytosis rising, unclear source, abd exam does not correlate with intra-abdominal source
Repeat CT noted with continued bowel distention although now contrast has moved to the colon which is a good sign. ?stercoral colitis on formal read, but low suspicion. No evidence of perforation, bowel threat or compromise.
Asked if she would want surgery if it is the only way to survive this, she responded no. In my opinion she has insight into her current condition and the risks of surgery and is capacitated to make decisions. Asked if she wanted me to speak with
family about this, she responded no.
--Continue NGT to suction, flush as needed
--NPO with ice chips for comfort
--SBFT today via NGT with water soluble contrast
Cardiology, nephrology and intensive care teams following
Subjective Data
-
Date of Service: February 10, 2025
Denies abd pain when asked, denies n/v with ngt to suction, passed a BM but denies flatus, reports feeling 'the same' without improvement
Objective Data
-
Intake and Output
02/09/25 02/10/25 02/11/25
06:59 06:59 06:59
Intake Total 4017 / 4176.8 5144.2 / 5302.4 1791.0 / 1791.0
Output Total 1775 / 1825 2825 / 2925 300 / 300
Balance 2242 / 2351.8 2319.2 / 2377.4 1491.0 / 1491.0
Intake:
IV fluids (Total) 3766 / 3925.8 3514.2 / 3672.4 791.0 / 791.0
Amiodarone 360 / 393.3 467.2 / 483.9 83.5 / 83.5
Heparin 126 / 132.5 157.0 / 161.5 22.5 / 22.5
Lr 1,000 ml @ 125 mls/hr IV . 2500 / 2625 625 / 625
Q8H TANIKA Rx#:[id number]
NS 500 / 500
Fred 30 / 42 60 / 60
Sterile Water For Injection 1949 360 / 360
1000 ml 1,000 ml @ 120 mls/hr
IV .Q9H35M TANIKA with Sodium
Bicarbonate 150 Meq Rx#:
[id number]
IV piggybacks 221 / 221 1600 / 1600 1000 / 1000
Amount instilled into GI Tube ( 30 30 / 30
Total)
[place] Sump 30 / 30 30 / 30
Output:
Gastrointestinal tube output ( 1400 / 1400 1200 / 1200
Total)
[place] Sump 1400 / 1400 1200 / 1200
Urine, Rock 375 / 425 1625 / 1725 300 / 300
Vital Signs
Temp Pulse Resp BP Pulse Ox
97.4 F 125 20 100/79 94
02/10/25 11:09 02/10/25 08:00 02/10/25 08:00 02/10/25 08:00 02/10/25 08:13
Lab Results
02/10/25 04:34
Calcium 8.1 mg/dl (8.4-10.2) L 02/10/25 04:34
Phosphorus 6.3 mg/dl (2.5-4.5) H 02/09/25 02:23
Magnesium 2.2 mg/dl (1.6-2.3) 02/09/25 09:46
Total Bilirubin 0.9 mg/dl (0.2-1.3) 02/07/25 16:53
AST 34 U/L (14-36) 02/07/25 16:53
ALT 25 U/L (0-35) 02/07/25 16:53
Alkaline Phosphatase 91 U/L (38-126) 02/07/25 16:53
Total Protein 6.7 g/dl (6.3-8.2) 02/07/25 16:53
Albumin 3.3 g/dl (3.5-5.0) L 02/09/25 02:23
Physical Exam
-
Gen: somnolent but easily rousable with verbal stimuli
Abd: soft, mild distention, ttp mild-mod at RLQ, no tt light perc
Patient has a rock catheter: Yes
Patient has a central line: Yes (PICC)
[2025-02-10 13:19] LABS: Blood Urea Nitrogen 99 mg/dl (7-17); Calcium 7.5 mg/dl (8.4-10.2); Carbon Dioxide 30 mmol/L (22-30); Chloride 94 mmol/L (98-107); Estimated Creatinine Clearance 11 ml/min; Glucose 111 mg/dl (70-99); Potassium 4.1 mmol/L (3.5-5.1); Sodium 137 mmol/L (135-145); eGFR 15.87
--- NOTE | 2025-02-10 13:48 | CON.ID ---
Consultation
-
Date/Time Consultation Requested: February 10, 2025 0909
Date/Time Consultation Performed: February 10, 2025 1350
Requesting Provider: Dr. Silas Forman
Performing Provider: Dr. Angeline Kovacs
Reason for Consultation: Leukocytosis
Chief Complaint / Past History
Chief Complaint
Nausea, vomiting, abdominal pain
History of Present Illness
79-year-old female with history of severe collagenous colitis status post colostomy with subsequent reversal, abdominal wall reconstruction without mesh, CKD, who presented to the hospital on February 07 due to approximately 5-day history of
intractable nausea, vomiting, abdominal distention, abdominal pain, poor oral intake. Admission white count 11.5 [address] bandemia[address] No fever. CT of the abdomen pelvis showed small bowel obstruction with transition point in the left lower quadrant.
NG tube placed. The patient repeat CAT scan shows slight progression of the SBO. Today she underwent small bowel follow-through. She reports abdominal discomfort with significant pressure. Positive nausea. Positive chills. No sweats. No bowel
movements. Patient was transferred to the ICU today due to tachycardia, A-fib, hypotension requiring pressor support. Patient also in TYESHA. Her white count has increased up to 29. Blood cultures negative. Urine culture negative. MRSA screen
negative.
Past History
Additional Past Medical History:
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
CVA
Osteoporosis
CKD3A
CAD
History of collagenous colitis status post colostomy with subsequent reversal, abdominal wall reconstruction without mesh
Lumbar radiculopathy
Depression/anxiety
Restless leg syndrome
Osteoporosis
Hysterectomy
Ventral Hernia repair
Left elbow surgery
Femur surgery
Allergy History:
Penicillins Allergy (Mild, Verified 02/07/25 14:00)
Hives
Sulfa (Sulfonamide Antibiotics) Allergy (Mild, Verified 02/07/25 14:00)
Hives
hydrochlorothiazide Allergy (Verified 02/07/25 14:00)
Hives
Iodinated Contrast Media Allergy (Verified 02/07/25 14:00)
Hives
Medications Reviewed: Yes
Current Antibiotics:
Cefepime d4
Metronidazole d1
Social History
Tobacco: Former Smoker
Alcohol: None
Drug: None
Living: With Family
Family History
Family History: Not Pertinent
Review of Systems
Review of Systems
General: Chills and Change in Appetite
HEENT: Negative Headache or Pharyngitis
Cardiovascular: Negative Chest Pain or Dyspnea
Respiratory: Negative Dyspnea or Cough
Gasteroenterology: Nausea and Vomiting
Genital / Urological: Negative Dysuria or Flank Pain
Endocrine: Weakness and Fatigue
Skin / Hair / Nails: Negative Rash
All systems: All other systems were reviewed and were negative
Vital Signs
Temp Pulse Resp BP Pulse Ox
97.4 F 125 20 100/79 94
02/10/25 11:09 02/10/25 08:00 02/10/25 08:00 02/10/25 08:00 02/10/25 08:13
Physical Exam
Physical Exam
Constitutional: Acutely Ill
Head: Other (No frontal or max or sinus tenderness)
Eyes: No Conjunctival Hemorrhage and Sclera Anicteric
Cardiovascular: Irregular Rate and Other (Tachycardic)
Pulmonary: Clear
Gastrointestinal: Soft, Tender (Mild diffuse tenderness), Distended and Decreased Bowel Sounds
Genito-Urinary: Clear Urine; Negative CVA Tenderness
Extremities: Negative Edema
Neurological: AO x 3
Lines: PICC (RUE no erythema)
Lab / Diagnostic Study Results
02/10/25 04:34
Total Counted 100 02/07/25 14:11
Abs Neuts (Manual) 9.6 10^3/uL (1.4-6.5) H 02/07/25 14:11
Segmented Neutrophils 50 % (42-75) 02/07/25 14:11
Band Neutrophils 34 % (0-3) H 02/07/25 14:11
Lymphocytes (Manual) 10 % (20-51) L 02/07/25 14:11
PT 17.5 Sec (11.4-14.6) H 02/09/25 09:46
INR 1.41 02/09/25 09:46
Lactic Acid Cancelled 02/09/25 10:00
Procalcitonin 6.41 ng/ml (0.0-0.25) H* 02/10/25 04:34
Ur Squamous Epith Cells 0-2 /LPF (Few) 02/08/25 05:55
Microbiology Results
Micro:
02/07/25 21:37 Blood Culture - Preliminary
Blood/Venous No Growth in 48 hours- Final report to follow
02/07/25 21:41 Blood Culture - Preliminary
Blood/Venous No Growth in 48 hours- Final report to follow
02/08/25 05:55 Urine Culture - Final
Urine NO GROWTH
02/08/25 05:55 Nasal Screen MRSA (PCR) - Final
Nose MRSA not detected - performed by PCR methodology.
02/07/25 CT a/p: Small bowel obstruction with transition point in the left lower quadrant. Moderate colonic stool burden. Tree-in-bud opacities within the right middle lobe which may be infectious/inflammatory. There is mild asymmetric cutaneous
thickening and stranding in the inferior left gluteal soft tissues which may represent superficial infectious/inflammatory process or sequelae of pressure wound.
02/09/25 CT a/p: Dilated small bowel, just slightly increased in comparison to recent prior study with findings again seen suggesting small bowel obstruction as was noted on recent prior study. No free air. Nasogastric tube with tip in the stomach.
Large volume stool filling and mildly distending the rectum. Cannot exclude mild stercoral colitis.
02/09/25 CXR: . Right PICC tip projects over the central SVC. Lungs remain clear.
Assessment / Plan
# High-grade small bowel obstruction
# Stercoral colitis
# Leukocytosis continues to trend up
# Shock on pressor
# TYESHA on CKD
# A-fib with RVR
# PCN and sulfa allergy
-Bcx's neg, Ucx neg. CXR clear lunbgs.
- Suspect GI source of leukocytosis/shock
- Await SBFT result
- Agree with adding metronidazole (d1) to cefepime(d4)
- Add IV Vancomycin for enterococcal coverage.
- Trend wbc, vitals, renal function
- Continue ICU support.
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
CVA
Osteoporosis
CKD3A
CAD
History of collagenous colitis status post colostomy with subsequent reversal, abdominal wall reconstruction without mesh
Lumbar radiculopathy
Depression/anxiety
Restless leg syndrome
Osteoporosis
Hysterectomy
Ventral Hernia repair
Left elbow surgery
Femur surgery
[2025-02-10] MEDS: STERILE WATER FOR INJECTION 10 ML IV (16:21)
[2025-02-10] MEDS: LANOXIN 250 MCG IV (16:21)
[2025-02-10] MEDS: FLAGYL 500 MG 100 IV ×2 (16:21→23:25)
[2025-02-10] MEDS: MAXIPIME 1000 MG IV (16:21)
--- NOTE | 2025-02-10 16:45 | PTCARENOTE ---
Pt. RN transported down to x-ray and back for obstruction series @ approx 1300. No events during transport and pt arrived back to unit @ approx 1530. Upon arrival back to floor, pt reported nausea and had small episode of emesis. NGT back to
continuous suction; decompressed stomach for 1700mL of brown/liq drainage. Once drainage slowed, NGT placed to LIS. Pt. reported nausea relieved. Pt. also inc of stool. Complete hygiene provided. Episode relayed to radiology. Portable x-ray
still obtained 2.5 hours post initial contrast admin; awaiting results. Pt. assisted w active repositioning. Pt.'s son to bedside, updated. Remains on benoit/amio/IVF. Call henri locke in reach.
--- NOTE | 2025-02-10 16:50 | PHA.VAN.IN ---
Assessment
- Assessment
Renal Function: Appears elevated from baseline (1.3)
Concomitant Antimicrobials: cefepime, metronidazole
Plan
- Plan
Initial / Loading Dose: vanc 1000mg
Maintenance Regimen: dosing by level
Monitoring: random level 02/11 06
Pharmacokinetics Vancomycin I
- -
Patient Age: 79
Patient Sex: Female
Vancomycin Day #: 1 (re-consulted today)
Indication: Gi / Intra-Abdominal
Requesting Provider: Dr. Kovacs
Pertinent Antimicrobial Allergies:
Penicillins,sulfa
Height / Weight:
Height 5 ft 3 in
Actual Weight 45 kg
Pertinent Past Medical History: CKD3a
- Vital Signs / Lab Results
Temp Pulse Resp BP Pulse Ox
97.4 F 136 20 100/79 94
02/10/25 11:09 02/10/25 16:21 02/10/25 08:00 02/10/25 08:00 02/10/25 08:13
Lab Results - Hematology
02/08/25 02/08/25 02/09/25
01:00 03:47 02:23
WBC Cancelled 16.6 H 21.7 H
02/09/25 02/10/25
09:46 04:34
WBC 19.5 H 29.0 H
Lab Results - Chemistry
02/07/25 02/08/25 02/08/25
16:53 00:11 07:08
BUN 111 H* 121 H* 128 H*
Creatinine 3.8 H 4.0 H 4.1 H*
Estimated Creat Clear 9 8 8
Albumin 3.8
02/09/25 02/09/25 02/09/25
02:23 09:46 11:20
BUN 136 H* 131 H* Cancelled
Creatinine 4.2 H* 3.9 H Cancelled
Estimated Creat Clear 8 8 Cancelled
Albumin 3.3 L
02/09/25 02/09/25 02/10/25
16:33 23:06 04:34
BUN 119 H* 119 H* 112 H*
Creatinine 3.5 H 3.2 H 3.0 H
Estimated Creat Clear 9 10 11
Albumin
02/10/25
12:16
BUN 99 H
Creatinine 2.9 H
Estimated Creat Clear 11
Albumin
02/07/25 02/08/25 02/08/25
21:37 00:11 03:59
Lactic Acid 1.5 Cancelled Cancelled
02/08/25 02/09/25 02/09/25
07:59 06:36 10:00
Lactic Acid Cancelled 1.3 Cancelled
Lab Results - Urine
02/08/25
05:55
Urine Nitrite (Reflex) Negative
Leukocyte Esterase Rfl 1+ A
Urine WBC (Reflex) 3-5
Ur Squamous Epith Cells 0-2
Urine Bacteria (Reflex) Few A
Microbiology Results
02/07/25 21:37 Blood Culture - Preliminary
Blood/Venous No Growth in 48 hours- Final report to follow
02/07/25 21:41 Blood Culture - Preliminary
Blood/Venous No Growth in 48 hours- Final report to follow
02/08/25 05:55 Urine Culture - Final
Urine NO GROWTH
[2025-02-10] MEDS: VANCOCIN 200 IV (18:10)
[2025-02-10 18:39] LABS: APTT 146.5 Sec (23.4-35.0)
[2025-02-10 19:10] LABS: Blood Urea Nitrogen 99 mg/dl (7-17); Calcium 8.2 mg/dl (8.4-10.2); Carbon Dioxide 28 mmol/L (22-30); Chloride 96 mmol/L (98-107); Estimated Creatinine Clearance 11 ml/min; Glucose 116 mg/dl (70-99); Potassium 3.7 mmol/L (3.5-5.1); Sodium 137 mmol/L (135-145); eGFR 16.55
--- NOTE | 2025-02-10 19:50 | PTCARENOTE ---
Patient received lying in bed, she appears to be sleeping comfortably with eyes closed, lying still respirations nonlabored. She is slightly lethargic, she was recently medicated for pain. She is oriented. She states that her abdominal pain is
better. [place] NGT to right nare to LIS, flushed and almost 300 cc bills green output immediately retrieved. Abdomen rounded and soft, slightly tender to palpation. Bowel sounds hyperactive bilateral upper quadrants, bilateral lower quadrant bowel
sounds hypoactive. Right arm PICC line--Amiodarone, Neosynephrine, IVF infusing. Heparin gtt left FA currently on hold. [place] catheter patent with santiago urine output. BBS diminished t/o, sats 97% on 2L/nc. S1S2 irregular and tachy with positive
murmur. Afib on CM. Positive pulses x 4 extremities, pedal pulses diminished, Bilateral pedal edema trace. Skin color pale, warm and dry. Abdominal xray performed at bedside to complete GI series. Bed in low and locked position. Patient turned every
2 hours. Call álavrez within reach.
[2025-02-10] MEDS: ATIVAN 0.25 MG IV (21:24)
--- NOTE | 2025-02-10 21:30 | PTCARENOTE ---
Complete CHG bath and cares rendered. Suero care and skin care. Complete linen change. DTI noted on Sacrum/left buttock. Foam border dressing donned. Continue turning every 2 hours.
--- NOTE | 2025-02-10 22:35 | PTCARENOTE ---
Attempted to titrate down Neosynephrine but had to return to 40mcg after being medicated for pain.
--- NOTE | 2025-02-10 23:45 | PTCARENOTE ---
Essentially no change in patient's physical assessment. 750cc emptied from NGT. VSS. She appears to be sleeping comfortably when undisturbed with eyes closed, lying still, respirations nonlabored. No complaints offered at this time.
[2025-02-11] VITALS (46 sets, daily range): BP systolic 81–128; BP diastolic 44–76; BMI 19.5
[2025-02-11 03:21] LABS: APTT 125.9 Sec (23.4-35.0)
--- NOTE | 2025-02-11 04:00 | PTCARENOTE ---
Patient appears to be sleeping comfortably when undisturbed with eyes closed, lying still, respirations nonlabored. No complaints offered. Essentially no change in patient physical assessment from previous.
[2025-02-11 05:03] LABS: Ionized Calcium 1.06 mMOL/L (1.15-1.33)
[2025-02-11 05:08] LABS: Hematocrit 23.4 % (37.0-47.0); Hemoglobin 7.7 g/dL (12.0-16.0); Mean Corp Hgb Conc. 32.9 g/dL (33.0-37.0); Mean Corpuscular Hgb 30.4 pg (27.0-31.0); Mean Corpuscular Volume 92.5 fL (81.0-99.0); Mean Platelet Volume 9.8 fL (7.4-10.4); Platelet Count 369 10^3/uL (130-400); Red Blood Cell Count 2.53 10^6/uL (4.20-5.40); Red Cell Dist. Width 14.4 % (11.5-14.5); White Blood Cell Count 24.9 10^3/uL (4.8-10.8)
[2025-02-11 05:20] LABS: Blood Urea Nitrogen 86 mg/dl (7-17); Calcium 7.7 mg/dl (8.4-10.2); Carbon Dioxide 31 mmol/L (22-30); Chloride 97 mmol/L (98-107); Digoxin 0.7 ng/ml (0.8-2.0); Estimated Creatinine Clearance 13 ml/min; Glucose 121 mg/dl (70-99); Potassium 3.2 mmol/L (3.5-5.1); Sodium 137 mmol/L (135-145); eGFR 19.92
[2025-02-11] MEDS: LOPRESSOR 5 MG IV ×6 (05:23→23:00)
[2025-02-11] MEDS: DILAUDID 0.5 MG IV ×2 (05:23→19:45)
[2025-02-11 05:34] LABS: Vancomycin Random 23.3 ug/ml
--- NOTE | 2025-02-11 06:00 | PTCARENOTE ---
Patient incontinent of moderate amount of dark green brown stool. Suero discontinued per order. Partial cares given, perineal care. Partial linen change. Potassium noted 3.2. Orders received for KCL IVPB, see MAR.
[2025-02-11] MEDS: KCL 270 MEQ IV (06:17)
[2025-02-11] MEDS: LR 1000 IV ×2 (06:47→22:39)
--- NOTE | 2025-02-11 07:23 | PTCARENOTE ---
Report given verbally to oncoming Margarita truong RN. Questions answered.
[2025-02-11] MEDS: PROTONIX IV 40 MG IV ×2 (07:45→19:45)
[2025-02-11] MEDS: NSS (PRESERVATIVE FREE) 10 ML IV ×2 (07:45→19:45)
[2025-02-11] MEDS: FLAGYL 500 MG 100 IV ×3 (07:45→23:01)
[2025-02-11] MEDS: CORDARONE 518 MG IV (07:53)
--- NOTE | 2025-02-11 08:11 | PHA.VAN.FU ---
Vancomycin Assessment / Plan
- Assessment
Renal Function: SCR Decreasing (2.8->2.4)
WBC's are: Trending Down (29->24.9)
In the past 24 hrs, patient has been: Afebrile
Concomitant Antimicrobials: Piperacillin/Tazobactam, metronidazole
- Assessment - Therapeutic Drug Monitoring
Random Level: 23.3 ~11hrs after 1G loading infusion
- Dosing Plan
Dosing by Level: Hold off on dosing today
- Monitoring Plan
Random Level: 02/12/25 0600
- Follow Up
Pharmacy will continue to follow.
Vancomycin Follow UP
- -
Patient Age: 79
Patient Sex: Female
Vancomycin Day #: 2 (re-consulted today)
Indication: Gi / Intra-Abdominal
Requesting Provider: Dr. Kovacs
Pertinent Antimicrobial Allergies:
Penicillins,sulfa
Height / Weight:
Height 5 ft 3 in
Actual Weight 50 kg
Pertinent Past Medical History: CKD3a
- Vital Signs / Lab Results
Temp Pulse Resp BP Pulse Ox
97.5 F 116 17 108/68 97
02/11/25 07:44 02/11/25 08:00 02/11/25 08:00 02/11/25 08:00 02/11/25 07:53
Lab Results - Hematology
02/09/25 02/09/25 02/10/25
02:23 09:46 04:34
WBC 21.7 H 19.5 H 29.0 H
02/11/25
04:54
WBC 24.9 H
Lab Results - Chemistry
02/08/25 02/09/25 02/09/25
07:08 02:23 09:46
BUN 128 H* 136 H* 131 H*
Creatinine 4.1 H* 4.2 H* 3.9 H
Estimated Creat Clear 8 8 8
Albumin 3.3 L
02/09/25 02/09/25 02/09/25
11:20 16:33 23:06
BUN Cancelled 119 H* 119 H*
Creatinine Cancelled 3.5 H 3.2 H
Estimated Creat Clear Cancelled 9 10
Albumin
02/10/25 02/10/25 02/10/25
04:34 06:00 12:16
BUN 112 H* Cancelled 99 H
Creatinine 3.0 H Cancelled 2.9 H
Estimated Creat Clear 11 Cancelled 11
Albumin
02/10/25 02/10/25 02/11/25
16:00 18:13 04:54
BUN Cancelled 99 H 86 H
Creatinine Cancelled 2.8 H 2.4 H
Estimated Creat Clear Cancelled 11 13
Albumin
02/09/25 02/09/25
06:36 10:00
Lactic Acid 1.3 Cancelled
Microbiology Results
02/07/25 21:41 Blood Culture - Preliminary
Blood/Venous No Growth in 72 hours- Final report to follow
02/07/25 21:37 Blood Culture - Preliminary
Blood/Venous No Growth in 72 hours- Final report to follow
02/08/25 05:55 Urine Culture - Final
Urine NO GROWTH
Therapeutic Drug Monitoring
Random Vancomycin 23.3 ug/ml 02/11/25 04:54
--- NOTE | 2025-02-11 08:12 | W.PN.INTV ---
Today's Communication / Plan
Recommendations
Continue antibiotics
ID now consulted to assist with ABx
Serial abdominal exams, NGT to LIWS and keep NPO
Defer surgical intervention to general surgery; family coming into the hospital to discuss goals of care today
Heart rate control per cardiology, continue amiodarone; s/p dig on 02/10; HR is better controlled today
Continue to trend serum creatinine + UOP
Maintain MAP >65, continue with Fred-Synephrine
Continue with IVF with LR but cautious not to cause volume overload and she is net (+) 7L since admission and weight is up
Heparin drip on hold; change PPI to 40mg IV BID and consider GI consult
Ativan at night as she takes clonazepam at night as outpatient
Guarded prognosis
Continue ICU level care for this critically ill patient
Assessment
-
Assessment: 79-year-old female with a past medical history of collagenous colitis s/p colostomy followed by reversal, osteoporosis, depression, history of sarcoidosis, history of CVA and impingement syndrome of bilateral shoulders who presented
with abdominal pain + nausea/vomiting. She has had reduced PO for 1 week prior to arrival and was very weak. Also initially had chills, and had chest pain with shortness of breath and cough. Initially in the ER, she was afebrile to 97.8 �F, pulse
rate 121, respiratory rate 20, BP 91/71 and saturating 98% on room air. Initial labs showed leukocytosis to 11.5, platelet count 557, percent bands 34%, bicarbonate level 16, creatinine 3.8, lactate 6.3, troponin 0.261 and lipase 50. Blood
cultures were collected; initial CXR showed left-sided basilar opacities likely due to atelectasis. CT abdomen/pelvis with oral contrast on showed SBO with transition point in the LLQ with moderate colonic stool burden. Also tree-in-bud
opacities within the RML. In the ER she was given 1.5 L NS 0.9%, Zofran, cefepime/vancomycin and admitted to telemetry for further care. She developed rapid A-fib overnight on 02/07 - 02/08/2025, and heparin drip + Cardizem drip was started.
Cardiology consulted. On the mechanical ordnance assembler hours of 02/09, patient had worsening abdominal pain despite NG tube being on LIWS and also her receiving Dilaudid, and heart rate cosme to the 160s with BP 70s/40s. CT abdomen/pelvis was repeated showing
slightly worse dilated small bowel with SBO with no free air and large volume stool with mild distention of the rectum. Patient transferred to the ICU for further care and hot end operator services consulted for additional management/recommendations.
Chronic conditions PR[employer] E[employer]: Osteoporosis, depression, history of A-fib s/p ablation, history of sarcoidosis, collagenous colitis s/p colostomy followed by reversal, trochanteric bursitis of bilateral hips, bilateral lumbar radiculopathy, impingement
syndrome of bilateral shoulders, history of CVA, loop recorder
Impression:
#Rapid A-fib (A--fib developed on 02/07/2025 � new onset)
#Sepsis due to intra-abdominal source (likely translocation in the setting of SBO)
#Circulatory shock likely due to sepsis in setting of rapid A-fib
#Small focal consolidation seen in the RML � doubt that this small focus is causing her sepsis
#Leukocytosis with 34% bands (on admission)
#Hypochloremic, hyponatremia due to reduced PO intake; doubt SIADH given low urine Na
#TYESHA with uremia
#Hypocalcemia
#Anemia
#Lactic acidosis � now resolved since 02/07/2025
#Elevated troponin � peaked at 0.261 on 02/07/2025
#Abnormal urinalysis with +1 leukocyte esterase
#High-grade SBO with nausea/vomiting and reduced PO intake for 1 week [employer] E[employer]
#Reported history of A-fib s/p ablation
#History of sarcoidosis
#Hx of collagenous colitis s/p colostomy followed by reversal
Plan:
- Pt TRX here to ICU for closer monitoring given rapid A-fib with hypotension and worsening abd pain
- CT A/P showed slightly worse dilated small bowel with SBO, although no free air seen; unable to rule out stercoral colitis
- Surgery on board and no acute surgical intervention recommended on 02/09 --> she developed bowel sounds as of 02/09 but belly remains distended, tender and shes in rapid a-fib. Defer surgical intervention decision to surgery -> pt actually says
that she does not want surgery
- SBFT on 02/10 showed high grade SBO
- She remains on IV antibiotics with cefepime which should be continued --> ID consulted to assist with ABx; IV vanco added to cover enterococcus spp
- Follow up blood Cx X2 (02/07 - NGTD) and urine Cx (02/08 - NGTD)
- Trend WBC and monitor fever curve
- Keep NGT to low intermittent wall suction
- Pain control
- Hold all PO meds for now and keep NPO; recommend to start TPN but only if she wishes to pursue surgery; otherwise hospice would be most appropraite; of note, she has low BMI and poor oral intake for >1 week now
- Maintain SpO2 >90-94%
- Wean down supplemental O2 as tolerated
- Aspiration precautions
- prn nebulized bronchodilators - not currently bronchospastic
- Once abd pain + strength improve, then would encourage incentive spirometer use at least 10x per hour for at least 4 hrs a day
- Maintain MAP>65
- Continue fred-synephrine, weaning down as tolerated
- Replete electrolytes with K>4, Mg>2
- If she continues to desaturate then would check a CT chest, although CXR from 02/09 does not show any evidence of lobar pneumonia
- there is a focus of consolidative opacity in RML seen on CT A/P - she is already on Abx with cefepime, flagyl and now IV vanco
- Rate control with amiodarone gtt
- Given digoxin 250mcg x1 on 02/10; dig level today is 0.7; hold off on further dig given risk of toxicity; correct hypokalemia as well to prevent dig toxicity
- Echo checked on 02/09 showing valvular heart disease with mild MR, mild AI, and mild�moderate TR with preserved LVEF of 50-55% with mild concentric LVH; RV has normal size and function
- Heparin gtt currently on hold due to anemia
- Cardiology on board - recs appreciated
- Troponin peaked at 0.261 on admission, hence no longer need to continue trending at this time
- Trend serum creatinine with strict I/O and monitor UOP
- Nephrology consulted and recommendations appreciated
- Patient was on a bicarb drip which was changed to LR on 02/09
- Continue to trend sHCO3 levels
- Maintain euglycemia with goal BG 140-180
- Trend H/H and transfuse if needed to keep Hb>7g/dL; keep plt>50k (hospitalist saw blood coming from NGT this AM)
- Raise PPI to 40mg IV BID
- Consider GI consult
- DVT ppx: SCDs for now; heparin gtt on hold given anemia
DNR/DNI
Continue ICU level care for this critically ill patient
Critical care statement: A total of 37 minutes of critical care time was provided for this patient today. This includes management of unstable vital signs, evaluation of the patient at bedside, reviewing the patient's pertinent medical records
including radiographs, microbiology, laboratory evaluations, and discussion with primary team, consultants, pharmacy, nutrition, physical therapy, case management, charge nurse, critical care nursing, and respiratory therapy.
Data:
CT abdomen/pelvis without IV contrast 02/09/2025:
Dilated small bowel, just slightly increased in comparison to recent prior study with findings again seen suggesting small bowel obstruction as was noted on recent prior study. No free air.
Nasogastric tube with tip in the stomach.
Large volume stool filling and mildly distending the rectum. Cannot exclude mild stercoral colitis.
CXR 02/09/2025:
1. Right PICC tip projects over the central SVC.
2. Lungs remain clear.
Small bowel follow-through 02/10/2025:
Delayed imaging at 6 hours reveals persistent contrast throughout dilated small bowel.
There is no definitive oral contrast seen in large bowel.
Findings suggest high-grade small bowel obstruction.
Subjective Dataa
Subjective Data
Date of Service:
Date of Service: February 11, 2025
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
Subjective:
Pt seen and evaluated this AM. She is awake and following all commands. Hb 7.7 this AM so heparin gtt turned off this AM. Hospitalist saw blood from NGT, although no blood seen when I was in the room. HR 117, BP 99/75 and SpO2 95% on 2L/min.
Remains on amio at 0.5mg/min, fred at 20mcg/min. Suero removed this AM. She is having liquid brown BM. SBFT shows high grade SBO. Surgery was again discussed with the patient but she says she does not want to deal with the postoperative
lifestyle. Family is coming to the hospital to discuss goals of care; family wants the patient to go through with surgery though.
Review of Systems
General: Other (Negative unless mentioned above)
Objective Data
Data Reviewed
Vital Signs / I&O / Oxygen:
Vital Signs
Temp Pulse Resp BP Pulse Ox
97.5 F 128 17 92/65 97
02/11/25 07:44 02/11/25 09:02 02/11/25 09:00 02/11/25 09:02 02/11/25 07:53
Intake and Output
02/10/25 02/11/25 02/12/25
06:59 06:59 06:59
Intake Total 5144.2 / 5302.4 5726.55 / 5926.25 663.6 / 663.6
Output Total 2825 / 2925 3900 / 3900 0 / 0
Balance 2319.2 / 2377.4 1826.55 / 2025. 663.6 / 663.6
SaO2 97
Nasal Cannula flow liters per 1
minute
Physical Exam
General: Respiratory Distress (negative), Comfortable, Chills (negative) and Sweats (negative)
HEENT: Normocephalic and Anicteric
Cardiovascular: Irregular Rhythm (Irregularly irregular), Peripheral Edema (negative) and Other (tachycardic)
Respiratory: Clear, Wheeze (negative), Crackles (negative), Rhonchi (negative), Stridor (negative) and Other (Poor inspiratory effort)
GI: Soft, Distended, Tender, Normal Bowel Sounds and NG Tube (on LIWS)
Neurology: Awake, Alert, Oriented and Tremors (negative)
Skin: Warm, Dry, Cyanosis (negative) and Jaundice (negative)
Labs/Micro/Reports
Lab Data
02/11/25 04:54
Laboratory Results
02/10/25 02/10/25 02/11/25
12:16 18:13 02:23
APTT 56.9 H 146.5 H 125.9 H
Microbiology
02/07/25 21:41 Blood/Venous Blood Culture - Preliminary
No Growth in 72 hours- Final report to follow
02/07/25 21:37 Blood/Venous Blood Culture - Preliminary
No Growth in 72 hours- Final report to follow
02/08/25 05:55 Urine Urine Culture - Final
NO GROWTH
02/08/25 05:55 Nose Nasal Screen MRSA (PCR) - Final
MRSA not detected - performed by PCR methodology.
--- NOTE | 2025-02-11 08:40 | W.PN.HOSP.TC ---
Addendum entered and electronically signed by Silas Forman MD 02/11/25 18:24:
Stage 1 buttock pressure injury, POA.
Pt meets criteria for moderate protein calorie malnutrition of acute illness with <75% energy intake >7days, mild depletion subcutaneous fat and mild depletion of muscle.
Original Note:
Today's Communication/Plan
-
Continue with NG tube suction
Continue with IV antibiotics
Hold IV heparin. Follow H&H.
Assessment / Plan
Assessment / Plan
Ms. Jack is an 79-year-old female with a medical history of sarcoidosis, collagenous colitis with bowel perforation (status post colostomy and reversal at [facility]), CAD, CKD, and CVA who presented with 5 days of nausea and vomiting associated
with abdominal pain and distention. Her last bowel movement was almost 1 week prior to arrival and she has been unable to tolerate anything p.o. during the past week. CT imaging shows very distended small bowel with a transition point in the left
lower quadrant concerning for high-grade obstruction. NG tube was placed for decompression and started on low intermittent wall suction. She developed A-fib with RVR with a heart rate of 150s to 180s, no prior history of A-fib. She was given a
dose of IV Lopressor with no significant effect and so was then started on IV Cardizem drip. However she became mildly hypotensive and so was switched to IV amiodarone drip with bolus. She has been admitted for further evaluation and management of
SBO and new onset A-fib with RVR.
SBO:
- CT imaging of high-grade SBO with transition point in the left lower quadrant. Repeat CT 02/09 again shows persistent small bowel obstruction. SBFT yesterday showed persistent high-grade obstruction of small bowel. She remains symptomatic with
abdominal pain and distention.
- Continue NGT to LIWS, maintain n.p.o. and IV fluids
- Further management per surgery. Patient to talk to surgeon today regarding her options
- Appreciate guidance from general surgery
Sepsis
Clinical shock requiring pressors -suspected septic shock
Unclear source.
Not bacteremic
Urinalysis without pyuria
CT abdomen pelvis raised the concern of tree-in-bud opacities in the right middle lobe, mild asymmetric cutaneous thickening is stranding in the inferior left gluteal soft tissues, mild rectal wall thickening with large amount of stool in the colon.
She does have a cough and she also complains of left buttock area pain. Unclear if those are the sources of infection.
- Continue antibiotics with cefepime
- With continued rise in white count to add Flagyl for anaerobic coverage. Consulted ID-IV vancomycin added for enterococcal coverage
- High procalcitonin without change may be function of renal function.
- Continue with phenylephrine and wean as able
A-fib with RVR:
- New onset
- Currently attempting rate control with IV amiodarone drip and additional pushes of IV Lopressor as needed
- Anticoagulating with IV heparin drip
- Cardiology following, recommendations appreciated
TYESHA on CKD 3:
- Unclear baseline renal function but currently renal function is very poor
- Suspect worsening due to poor perfusion in the setting of sepsis with intermittent hypotension
- With associated metabolic acidosis she was put on IV bicarb which is now discontinued with resolution of metabolic acidosis; patient takes p.o. sodium bicarb at home
- Continue IV fluids. Improving creatinine
- Follow-up nephrology recommendations
NSTEMI:
- Suspect due to myocardial stress in the setting of SBO and rapid A-fib
- Anticoagulating with IV heparin drip
- Appreciate cardiology recommendations
Progressive ownoyz-hakugnqevx-WG aspirate looks bloody-patient is on IV heparin. Gastric occult test. Hold heparin. Continue with PPI IV. Peak H&H later today.
Abdominal aortic dilatation:
- Focal dilatation of the infrarenal abdominal aorta measuring 2.9 cm
- Ongoing outpatient monitoring recommended
Adrenal nodule:
- 1.5 centimeter hypodense left adrenal nodule noted on imaging, likely an adenoma
- Outpatient monitoring recommended
CODE STATUS: DNR
Discussed with RN
Discussed with surgery and application security developer
High risk situation with poor prognosis without surgery. Patient is contemplating on holding any surgical procedures. Counseled patient to speak with her surgeon and the family.
She seems to understand her current situation and the prognosis if she does not have surgery which includes . I feel she is medically competent and understanding her disease process and outcomes.
Total Critical Care Time___35__ minutes. I was immediately available to the patient and staff. I personally examined, reviewed labs, diagnostic images/reports, interpretations, treatment plans, discussed patient care with other providers and
family or caregivers (if patient is unable to make decisions), entered orders as appropriate and documented the medical record.
Anticipated Discharge: > 48 hours
Subjective/Interval History
-
Date of Service: February 11, 2025
Patient still with abdominal discomfort and pain needing IV narcotics.
Nausea present. NG tube in place. No flatus. Denies shortness of breath.
She is alert and oriented.
She had declined the surgery yesterday according to the surgeon. When questioned what her fears of surgery was she told me that last time post intestinal perforation and resection she had a prolonged ICU stay and also she could not handle the
colostomy and dreads having another colostomy.
' I had so many miracles in my life doc, I think it is time for me to check out'
Counseled her about speaking to the surgeon see if there would be a colostomy need and if not would she entertain a surgery.
She also wanted to talk to the surgeon first before I speak to the daughter.
Objective Data
-
Labs:
Laboratory Results
02/10/25 02/11/25 02/11/25
06:00 02:23 04:54
WBC 24.9 H
Hgb 7.7 L
Hct 23.4 L
Plt Count 369
APTT 125.9 H
Sodium Cancelled 137
Potassium Cancelled 3.2 L
Chloride Cancelled 97 L
Carbon Dioxide Cancelled 31 H
BUN Cancelled 86 H
Creatinine Cancelled 2.4 H
Glucose Cancelled 121 H
Calcium Cancelled 7.7 L
02/11/25
09:45
WBC
Hgb
Hct
Plt Count
APTT Pending
Sodium
Potassium
Chloride
Carbon Dioxide
BUN
Creatinine
Glucose
Calcium
Vital Signs:
Vital Signs
Temp Pulse Resp BP Pulse Ox
97.5 F 116 17 108/68 97
02/11/25 07:44 02/11/25 08:00 02/11/25 08:00 02/11/25 08:00 02/11/25 07:53
I&O
02/10/25 02/11/25 02/12/25
06:59 06:59 06:59
Intake Total 5144.2 / 5302.4 5726.55 / 5926.25 448.4 / 448.4
Output Total 2825 / 2925 3900 / 3900 0 / 0
Balance 2319.2 / 2377.4 1826.55 / 2025.25 448.4 / 448.4
Review of Systems
-
Constitutional: Denies Fever or Chills
Cardiac: Denies Chest Pain
Neuro: Denies Dizzy
Physical Exam
-
General: No Apparent Distress
Respiratory: Clear to Auscultation (Anteriorly) and Non Labored Respirations; Negative Accessory Resp Muscle Use
Cardiac: S1/S2, Irregular Rhythm and Tachycardic
GI: Soft, Tender (No rebound or guarding) and Distended; Negative Normal Bowel Sounds
Neuro: AO x 3 and No Motor Deficits; Negative Tremors, Slurred Speech or Facial Droop
Psych: Calm; Negative Confused or Agitated
Data Reviewed
-
Labs: Labs Reviewed by me
--- NOTE | 2025-02-11 08:55 | W.PN.CARDCBS ---
Today's Communication / Plan
-
Continue for now with IV amiodarone. She is also receiving IV Lopressor. She received one time dose of Digoxin February 10.
With possible bleeding, IV heparin currently on hold by hospitalist. Resume anticoagulation once able. Patient is at elevated stroke risk while off anticoagulation but is currently at elevated bleeding risk. She understands her bleeding risk and
stroke risk.
Some of her tachycardia could be related to volume contraction. She is also on IV benoit for blood pressure support.
She is being evaluated by surgery. She is currently opting for conservative management.
Her echo shows preserved LV function. There is no high-grade valvular heart disease.
Continue medical therapy for non-[place] troponin with peak 0.26.
Prognosis is guarded, and patient may elect for transition in goals of care
Impression / Plan
-
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
Impression:
Small bowel obstruction
Prior bowel perforation from collagenous colitis with colostomy creation and subsequent reversal, VHR and prior small bowel obstruction
Dehydration
Newly diagnosed atrial fibrillation and rapid ventricular rates
NonMI troponin elevation with peak was first troponin of admission 0.261
Abnormal EKG
Acute on chronic kidney disease
History of CVA
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
Sarcoidosis
Frailty
Echo 02/09/2025: Mild LVH, EF 50-55%, mild mitral regurgitation, mild aortic regurgitation, mild to moderate tricuspid regurgitation, pulmonary artery systolic pressure 27 mmHg
Plan:
Continue for now with IV amiodarone. She is also receiving IV Lopressor. She received one time dose of Digoxin February 10.
With possible bleeding, IV heparin currently on hold by hospitalist. Resume anticoagulation once able. Patient is at elevated stroke risk while off anticoagulation but is currently at elevated bleeding risk. She understands her bleeding risk and
stroke risk.
Some of her tachycardia could be related to volume contraction. She is also on IV benoit for blood pressure support.
She is being evaluated by surgery. She is currently opting for conservative management.
Her echo shows preserved LV function. There is no high-grade valvular heart disease.
Continue medical therapy for non-[place] troponin with peak 0.26.
Prognosis is guarded, and patient may elect for transition in goals of care
Critical care time: 31 minutes
Discussed with nursing
Progress Note - Senior Commissions Analyst
Subjective
Date of Service: February 11, 2025
Pt seen and examined. No chest pain or shortness of breath.
Objective
Labs:
02/11/25 04:54
Labs
Hgb 7.7 g/dL (12.0-16.0) L 02/11/25 04:54
Hct 23.4 % (37.0-47.0) L 02/11/25 04:54
Plt Count 369 10^3/uL (130-400) 02/11/25 04:54
PT 17.5 Sec (11.4-14.6) H 02/09/25 09:46
INR 1.41 02/09/25 09:46
APTT 125.9 Sec (23.4-35.0) H 02/11/25 02:23
Sodium 137 mmol/L (135-145) 02/11/25 04:54
Potassium 3.2 mmol/L (3.5-5.1) L 02/11/25 04:54
BUN 86 mg/dl (7-17) H 02/11/25 04:54
Creatinine 2.4 mg/dL (0.6-1.0) H 02/11/25 04:54
Glucose 121 mg/dl (70-99) H 02/11/25 04:54
Digoxin 0.7 ng/ml (0.8-2.0) L 02/11/25 04:54
Troponins
02/08/25 02/09/25
13:09 02:23
Troponin I 0.168 H* 0.154 H*
Vital Signs and I&O:
Vital Signs
Temp Pulse Resp BP Pulse Ox
97.5 F 116 17 108/68 97
02/11/25 07:44 02/11/25 08:00 02/11/25 08:00 02/11/25 08:00 02/11/25 07:53
Vital Signs
Temp Pulse Resp BP Pulse Ox
97.5 F 116 17 108/68 97
02/11/25 07:44 02/11/25 08:00 02/11/25 08:00 02/11/25 08:00 02/11/25 07:53
Intake & Output
02/09/25 02/10/25 02/11/25 02/12/25
06:59 06:59 06:59 06:59
Intake Total 4017 / 4176.8 5144.2 / 5302.4 5726.55 / 5926.25 448.4 / 448.4
Output Total 1775 / 1825 2825 / 2925 3900 / 3900 0 / 0
Balance 2242 / 2351.8 2319.2 / 2377.4 1826.55 / 2025.25 448.4 / 448.4
Physical Exam
Physical Exam
General: No acute distress, AAOX3
Neck: Negative JVD
Heart: Regular, Negative S3 positive S1/S2, Negative S4, No murmur
Lungs: CTA b/l, negative wheezes/rales/rhonchi
Abd: Positive BS, NT/ND, neg rebound/rigidity/guarding
Ext: Negative cyanosis/clubbing/edema
Neuro: nonfocal
--- NOTE | 2025-02-11 09:15 | PTCARENOTE ---
Rec'd care of patient at 0700. AAOx3. Drowsy. Sleeping between care. Afib on tele monitor. Rate in the 110-130's. PRN 5mg IV Lopressor administered for HR >120. +Murmur. Trace pedal edema. Weak, palpable pulses. Pulse ox 96-97% on 1L nc. Lung sounds
diminished throughout. Scattered crackles 1/2 up posterior left lung. +BS. Incontinent of liquid brown stool. [place] sump to LIS. Brown output. Suero removed at 0600. DTV by 1200. Amio/Fred/LR/KCl infusing through RDL PICC. Heparin drip placed on hold
by Hospitalist. Repeat labs ordered for 1500. Full assessment and care as charted on worklist.
--- NOTE | 2025-02-11 09:58 | W.PN.NEPH.PH ---
Addendum entered and electronically signed by Alex Guerrero DO 02/11/25 10:08:
Decreased lactated Ringer's to 60 cc/h
Original Note:
Today's Communication / Plan
-
Lactated Ringer's infusion
Assessment/Plan
-
Assessment
TYESHA
Azotemia
CKD 3A 1.3 baseline= follows with nephrology in [place] Dr. Land
SBO
Nausea vomiting
Metabolic acidosis
Hyperdense renal cysts
A-fib
History of stroke
Left adrenaloma
Plan
Follow BMP
We discussed dialysis and will decline if needed She reiterated that she is a DNR
Multiple family daughter present
creatinine improved down to 2.6 peaked 4.8
Heart rates have been better with volume.
Continue lactated Ringer's
-
-
Date of Service: February 11, 2025
CC / HPI / ROS
-
Chief Complaint:
Small bowel obstruction
History of Present Illness:
Presents with small bowel obstruction acute on chronic kidney disease baseline creatinine 1.4 with presenting creatinine 3.8
Review of Systems:.
Nonoliguric improved urine output
No chest pain
Labs
-
Labs:
Sodium 137 mmol/L (135-145) 02/11/25 04:54
Potassium 3.2 mmol/L (3.5-5.1) L 02/11/25 04:54
Chloride 97 mmol/L (98-107) L 02/11/25 04:54
Carbon Dioxide 31 mmol/L (22-30) H 02/11/25 04:54
BUN 86 mg/dl (7-17) H 02/11/25 04:54
Creatinine 2.4 mg/dL (0.6-1.0) H 02/11/25 04:54
eGFR 19.92 02/11/25 04:54
Glucose 121 mg/dl (70-99) H 02/11/25 04:54
Calcium 7.7 mg/dl (8.4-10.2) L 02/11/25 04:54
Phosphorus 6.3 mg/dl (2.5-4.5) H 02/09/25 02:23
Albumin 3.3 g/dl (3.5-5.0) L 02/09/25 02:23
Physical Exam
-
Vital Signs:
Vital Signs
Temp Pulse Resp BP Pulse Ox
97.5 F 120 17 99/75 97
02/11/25 07:44 02/11/25 09:30 02/11/25 09:30 02/11/25 09:30 02/11/25 07:53
Respiratory:: Bilateral: CTA
Lung Excursion:: Normal
Abdomen:: Soft
Bowel Sounds:: Decreased
Extremity Edema:: None: Bilateral:
[2025-02-11] MEDS: CALCIUM GLUCONATE 100 IV (10:27)
--- NOTE | 2025-02-11 11:00 | PTCARENOTE ---
No void since removal of indwelling rock catheter. Bladder scan 432 cc's. Straight cath'd per protocol. 300 cc's of yellow urine drained from bladder.
--- NOTE | 2025-02-11 11:43 | W.PN.GS2 ---
Today's Communication / Plan
-
Family mtg for GOC discussion
Assessment / Plan
-
79 yo female with complex medical and abdominal surgical history with known colostomy in the setting of a prior bowel perforation secondary to collagenous colitis who presents with 5 days of abdominal pain, nausea vomiting found here to have a small
bowel obstruction in the setting of TYESHA, atrial fibrillation, EKG changes and elevated troponin level.
Transferred to ICU for continued tachycardia and hypotension. Afebrile.
Leukocytosis trending down today, unclear source, abd exam does not correlate with intra-abdominal source
Repeat CT noted with continued bowel distention although now contrast has moved to the colon which is a good sign. ?stercoral colitis on formal read, but low suspicion. No evidence of perforation, bowel threat or compromise.
SBFT yesterday without radiographic contrast in colon however she is passing liquid stools\\
KUB today with ongoing sb distention
Asked again if she would want surgery if it is the only way to survive this, she responded no. In my opinion she has insight into her current condition and the risks of surgery and is capacitated to make decisions. I offered to explain a bit more
what surgery would entail and likely recovery and she agreed and asked appropriate questions such as 'how would my life change after surgery?' I advised that she would likely have a long and difficult recovery and may lose some of her independence,
she may feel week and tired for weeks to months, and may need a mobility aid and help with normal ADLs like showering, dressing, etc. She again responded she does not want surgery but she did ask for a 'family huddle.' I reached daughter Ameena Myers to
communicate thisshared this discussion with her. She will organize the 5 children for a visit today. Children not listed in the EMR: Ameena Rocha [phone], Jayy [phone], Genna [phone]
--Continue NGT to suction, flush as needed
--NPO with ice chips for comfort
--SBFT today via NGT with water soluble contrast
--reasonable to start TPN to allow time for family discussion re GOC
Cardiology, nephrology and intensive care teams following
Subjective Data
-
Date of Service: February 11, 2025
Remains phenylephrine, somnolent but easily rousable, denies pain when in good supine position, per nursing passing liquid stools, pt denies flatus, high NGT outputs
Objective Data
-
Intake and Output
02/10/25 02/11/25/
06:59 06:59 06:59
Intake Total 5144.2 / 5302.4 5726.55 / 5926.25 929.0 / 929.0
Output Total 2825 / 2925 3900 / 3900 300 / 300
Balance 2319.2 / 2377.4 1826.55 / 2025.25 629.0 / 629.0
Intake:
Oral fluids 0 / 0
IV fluids (Total) 3514.2 / 3672.4 3549.05 / 3581.25 496.5 / 496.5
Amiodarone 467.2 / 483.9 400.8 / 417.5 83.5 / 83.5
Heparin 157.0 / 161.5 114.75 / 118.25 7.0 / 7.0
Lr 1,000 ml @ 60 mls/hr IV . 2500 / 2625 2750 / 2750 370 / 370
[id number] TANIKA Rx#:[id number]
Fred 30 / 42 283.5 / 295.5 36 / 36
Sterile Water For Injection 360 / 360
1000 ml 1,000 ml @ 120 mls/hr
IV .[id number] TANIKA with Sodium
Bicarbonate 150 Meq Rx#:
[id number]
IV piggybacks 1600 / 1600 1567.5 / 1735.0 402.5 / 402.5
Amount instilled into GI Tube ( 30 / 30 610 / 610 30 / 30
Total)
[place] Sump 30 / 30 610 / 610 30 / 30
Output:
Gastrointestinal tube output ( 1200 / 1200 2650 / 2650
Total)
[place] Sump 1200 / 1200 2650 / 2650
Urine, Rock 1625 / 1725 1250 / 1250
Urine, Voided 0 / 0
Straight cath output 300 / 300
Other:
Number of unmeasured liquid
stools
Rectum 2
Vital Signs
Temp Pulse Resp BP Pulse Ox
97.7 F 113 17 108/76 94
02/11/25 11:17 02/11/25 11:00 02/11/25 11:00 02/11/25 11:00 02/11/25 11:01
Calcium 7.7 mg/dl (8.4-10.2) L 02/11/25 04:54
Phosphorus 6.3 mg/dl (2.5-4.5) H 02/09/25 02:23
Magnesium 2.2 mg/dl (1.6-2.3) 02/09/25 09:46
Total Bilirubin 0.9 mg/dl (0.2-1.3) 02/07/25 16:53
AST 34 U/L (14-36) 02/07/25 16:53
ALT 25 U/L (0-35) 02/07/25 16:53
Alkaline Phosphatase 91 U/L (38-126) 02/07/25 16:53
Total Protein 6.7 g/dl (6.3-8.2) 02/07/25 16:53
Albumin 3.3 g/dl (3.5-5.0) L 02/09/25 02:23
Physical Exam
-
Gen: NAD
Abd: soft, minimal ttp mostly to periumbilical area, no tt light perc
Patient has a rock catheter: No
Patient has a central line: Yes
--- NOTE | 2025-02-11 12:06 | WOUNDNOTE ---
PLANTAR FINGER TIPS
--- NOTE | 2025-02-11 12:09 | WOUNDNOTE ---
[facility] RN note: Patient admitted with complete small bowel obstruction and lactic acidosis.
See H&P for complete history.
PMH: From H&P
Trochanteric bursitis of bilateral hip
Bilateral lumbar radiculopathy
Impingement syndrome bilateral shoulder
Osteoporosis
Depression
Sarcoidosis
CVA
loop recorder
Past Surgical History: Reports Other
Additional Past Surgical History:
Hernia surgery
Reverse colostomy
Left elbow surgery
Hysterectomy
Femur surgery
Wound Location and type/assessment: Patient admitted with: Sacral and L buttock stage 1 PI documented. Per nurse patient transferred from floor to ICU on the , documented DTI on L buttock/Coccyx Sunday evening. L elbow blanchable discolored
skin. L heel with dot of discolored skin, does not appear to be new. Finger tips light purple tinged, patient states she feels cold. Nurse at bedside made aware, patient is on multiple pressors. Suspect despite preventable measures patient at risk
for developing PI's due to NPO status and comorbidities. Patient was also incontinent of small smear of brown stool on Ultra sorb pad, skin care and pad changed.
Appetite: NPO
Pressure redistribution devices in place: On [facility] air bed, turning schedule in effect. Pillows under calves, adhesive foams applied to heels and elbows. Air chair cushion for chair.
Plan: Continue silicone foam to Coccyx and L buttock. Air mattress if patient transferred to floor, nurse aware
Will confirm orders with hospitalist. Updated care plan and will follow as needed.
Note to case management of equipment requested for discharge: air mattress
Recommend follow up at wound care center upon discharge.
--- NOTE | 2025-02-11 12:30 | PTCARENOTE ---
No major changes in assessment. VSS. Afebrile. Remains in afib on tele monitor. Rate in the 110-120's. Pulse ox 96% on 1L nc. WOC consult placed. DTI on left buttock/sacrum. Foam changed. Protective foams applied to b/l heel and elbow. During skin
assessment, finger tips observed to be purple. Weaning Fred for MAP >65. Awaiting arrival of family for GOC discussion.
--- NOTE | 2025-02-11 13:20 | W.PN.ID1 ---
Date of Service
Date of Service: February 11, 2025
Today's Communication
Continue current abx's.
Assessment / Plan
# High-grade small bowel obstruction - persistent
# Leukocytosis plateau'd
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
# TYESHA on CKD
# A-fib with RVR
# PCN and sulfa allergy
-Bcx's neg, Ucx neg. CXR clear lungs.
- Suspect GI source of leukocytosis/shock
- Continue Vancomycin (d2) metronidazole (d2) cefepime(d5) for now.
- Trend wbc, vitals, renal function
- Continue ICU support.
-Prognosis guarded.
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
CVA
Osteoporosis
CKD3A
CAD
History of collagenous colitis status post colostomy with subsequent reversal, abdominal wall reconstruction without mesh
Lumbar radiculopathy
Depression/anxiety
Restless leg syndrome
Osteoporosis
Hysterectomy
Ventral Hernia repair
Left elbow surgery
Femur surgery
Chief Complaint
-: Leukocytosis
Subjective / Review of Systems
Continue to have abd discomfort.
Vital Signs / Physical Exam
Vital Signs
Vital Signs
Temp Pulse Resp BP Pulse Ox
97.7 F 129 19 93/59 94
02/11/25 11:17 02/11/25 13:00 02/11/25 13:00 02/11/25 13:00 02/11/25 11:01
Physical Exam
Constitutional: Acutely Ill
Head: Other (NGT in place.)
Eyes: Sclera Anicteric
Cardiovascular: Irregular Rate and Other (Tachycardic)
Pulmonary: Clear (anteriorly)
Gastrointestinal: Soft, Tender (diffuse mild), Distended and Decreased Bowel Sounds
Extremities: Negative Edema
Objective Data
Lab Data
PT 17.5 Sec (11.4-14.6) H 02/09/25 09:46
INR 1.41 02/09/25 09:46
APTT 125.9 Sec (23.4-35.0) H 02/11/25 02:23
Estimated Creat Clear 13 ml/min 02/11/25 04:54
Lactic Acid Cancelled 02/09/25 10:00
Total Bilirubin 0.9 mg/dl (0.2-1.3) 02/07/25 16:53
AST 34 U/L (14-36) 02/07/25 16:53
ALT 25 U/L (0-35) 02/07/25 16:53
Alkaline Phosphatase 91 U/L (38-126) 02/07/25 16:53
Most recent labs reviewed.
Micro Results:
02/07/25 21:41 Blood Culture - Preliminary
Blood/Venous No Growth in 72 hours- Final report to follow
02/07/25 21:37 Blood Culture - Preliminary
Blood/Venous No Growth in 72 hours- Final report to follow
02/08/25 05:55 Urine Culture - Final
Urine NO GROWTH
02/08/25 05:55 Nasal Screen MRSA (PCR) - Final
Nose MRSA not detected - performed by PCR methodology.
02/07/25 CT a/p: Small bowel obstruction with transition point in the left lower quadrant. Moderate colonic stool burden. Tree-in-bud opacities within the right middle lobe which may be infectious/inflammatory. There is mild asymmetric cutaneous
thickening and stranding in the inferior left gluteal soft tissues which may represent superficial infectious/inflammatory process or sequelae of pressure wound.
02/09/25 CT a/p: Dilated small bowel, just slightly increased in comparison to recent prior study with findings again seen suggesting small bowel obstruction as was noted on recent prior study. No free air. Nasogastric tube with tip in the stomach.
Large volume stool filling and mildly distending the rectum. Cannot exclude mild stercoral colitis.
02/09/25 CXR: . Right PICC tip projects over the central SVC. Lungs remain clear.
02/10/25 SBFT: Delayed imaging at 6 hours reveals persistent contrast throughout dilated small bowel. There is no definitive oral contrast seen in large bowel. Findings suggest high-grade small bowel obstruction.
02/11/25 AXR: Persistent dilated small bowel with persistent contrast following small bowel series of preceding day. Findings suggest high-grade small bowel obstruction.
Care Review
Plan reviewed with: Nurse
--- NOTE | 2025-02-11 14:36 | CM ---
CM following re: discharge planning.
Discussed in Rounds, reviewed pt's chart, met with pt.
Per rounds meeting, Family meeting today for GOC discussion with possible transition to comfort care. Five children are coming this afternoon.
D/C plan: Family meeting today for GOC discussion with possible transition to comfort care.
CM is available for emotional support.
--- NOTE | 2025-02-11 15:23 | PTCARENOTE ---
Patient incontinent of small liquid bm. While cleaning up, patient suddenly nauseous. NGT placed to continuous suction. 1100 cc's drained. Nausea subsided. Placed back to LIS. Repeat labs drawn and sent. No other changes.
[2025-02-11] MEDS: MAXIPIME 1000 MG IV (15:27)
[2025-02-11] MEDS: STERILE WATER FOR INJECTION 10 ML IV (15:27)
[2025-02-11] MEDS: LR IV (15:47)
[2025-02-11 15:56] LABS: Blood Urea Nitrogen 75 mg/dl (7-17); Calcium 8.6 mg/dl (8.4-10.2); Carbon Dioxide 28 mmol/L (22-30); Chloride 100 mmol/L (98-107); Estimated Creatinine Clearance 15 ml/min; Glucose 79 mg/dl (70-99); Phosphorus 3.6 mg/dl (2.5-4.5); Sodium 140 mmol/L (135-145); eGFR 19.92
[2025-02-11 16:15] LABS: Hematocrit 25.9 % (37.0-47.0); Hemoglobin 8.4 g/dL (12.0-16.0); Mean Corp Hgb Conc. 32.4 g/dL (33.0-37.0); Mean Corpuscular Hgb 29.8 pg (27.0-31.0); Mean Corpuscular Volume 91.8 fL (81.0-99.0); Mean Platelet Volume 9.7 fL (7.4-10.4); Platelet Count 378 10^3/uL (130-400); Red Blood Cell Count 2.82 10^6/uL (4.20-5.40); Red Cell Dist. Width 14.3 % (11.5-14.5); White Blood Cell Count 23.6 10^3/uL (4.8-10.8)
--- NOTE | 2025-02-11 16:26 | CHAP ---
Emotional and spiritual support provided: long conversation. Spoke of her life's history and talked through challenge of navigating coming decisions. Will follow.
--- NOTE | 2025-02-11 18:26 | PTCARENOTE ---
Patient converted to NSR at 1700. HR in the 70's. VSS. Patient c/o abdominal pain/pressure. Placed on bedpan to try to void. Patient unable. Bladder scan <400. Patient requesting straight cath d/t discomfort. 300 cc's drained. Incontinent of small
liquid brown bm. CHG bath provided. Total output from [place] sump 1900 cc's from 7A-7P. Abdomen less distended. Patient's 5 children at bedside to discuss GOC.
[2025-02-11 20:00] LABS: TSH Reflex To Free T4 4.87 uIU/ml (0.47-4.68)
--- NOTE | 2025-02-11 20:09 | PTCARENOTE ---
Received pt from previous RN. Pt is AAOx3, drowsy, flat. NSR on the monitor, trace pedal edema. On 1L NC for comfort O2 sat 98%, lungs diminished. Right nare NG at 60 cm, to low int suction. Amio, Fred and LR infusing. Pt c/o 06/07 pain, PRN Dilaudid
given (see MAR). SCDs in place. Plan of care discussed. Safe environment maintained.
[2025-02-11 20:27] LABS: Free T4 2.81 ng/dl (0.78-2.19)
[2025-02-11 20:36] LABS: Folate > 20.0 ng/ml (2.76-20); Vitamin B12 941 pg/ml (239-931)
[2025-02-11] MEDS: ATIVAN 0.25 MG IV (22:39)
[2025-02-11] MEDS: NSS (PRESERVATIVE FREE) 0.125 ML IV (22:39)
[2025-02-11] MEDS: DILAUDID 0.25 MG IV (22:52)
[2025-02-12] VITALS (28 sets, daily range): BP systolic 91–144; BP diastolic 41–65; BMI 19.6
--- NOTE | 2025-02-12 00:25 | PTCARENOTE ---
Systems reviewed, no new changes in assessment. Amio and benoit gtt. CHG bath and sheet changed. Safe environment maintained.
[2025-02-12] MEDS: NEO-SYNEPHRINE 250 IV (03:52)
--- NOTE | 2025-02-12 03:59 | PTCARENOTE ---
Systems reviewed, no new changes in assessment. Fred gtt turned back on MAP 59 (see worklist). Safe environment maintained.
[2025-02-12 04:33] LABS: Vancomycin Random 18.5 ug/ml
[2025-02-12 04:45] LABS: Hematocrit 25.3 % (37.0-47.0); Hemoglobin 8.3 g/dL (12.0-16.0); Mean Corp Hgb Conc. 32.8 g/dL (33.0-37.0); Mean Corpuscular Hgb 30.2 pg (27.0-31.0); Mean Platelet Volume 9.8 fL (7.4-10.4); Platelet Count 292 10^3/uL (130-400); Red Blood Cell Count 2.75 10^6/uL (4.20-5.40); Red Cell Dist. Width 14.3 % (11.5-14.5); White Blood Cell Count 15.8 10^3/uL (4.8-10.8)
[2025-02-12 05:10] LABS: Blood Urea Nitrogen 75 mg/dl (7-17); Calcium 8.2 mg/dl (8.4-10.2); Carbon Dioxide 29 mmol/L (22-30); Chloride 102 mmol/L (98-107); Estimated Creatinine Clearance 17 ml/min; Glucose 72 mg/dl (70-99); Potassium 3.8 mmol/L (3.5-5.1); Sodium 139 mmol/L (135-145); eGFR 23.38
[2025-02-12] MEDS: LOPRESSOR 5 MG IV ×3 (05:28→17:45)
[2025-02-12] MEDS: NSS (PRESERVATIVE FREE) 10 ML IV ×2 (07:24→21:08)
[2025-02-12] MEDS: PROTONIX IV 40 MG IV ×2 (07:24→21:08)
[2025-02-12] MEDS: FLAGYL 500 MG 100 IV ×2 (07:25→15:47)
--- NOTE | 2025-02-12 07:25 | W.PN.GS2 ---
Addendum entered and electronically signed by Mikey Moss MD 02/12/25 08:05:
Patient seen and examined independently of resident. See my surgical progress note for details
Original Note:
Today's Communication / Plan
-
To OR today
Assessment / Plan
-
79 yo female with complex medical and abdominal surgical history with known colostomy in the setting of a prior bowel perforation secondary to collagenous colitis who presents with 5 days of abdominal pain, nausea vomiting found here to have a small
bowel obstruction in the setting of TYESHA, atrial fibrillation, EKG changes and elevated troponin level.
Transferred to ICU for continued tachycardia and hypotension. Afebrile.
WBC downtrending, unclear source - does not appear GI in correlation to physical exam
Repeat CT noted with continued bowel distention although now contrast has moved to the colon which is a good sign. ?stercoral colitis on formal read, but low suspicion. No evidence of perforation, bowel threat or compromise.
SBFT on 02/10 without radiographic contrast in colon however she is passing liquid stools\\
KUB on 02/11 no contrast through the colon
On 02/11 extensive discussion with pt and not agreeable for surgery. 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
final decision. Yesterday, the family strongly encouraged her to go through with surgery and today she is agreeable. She verbalized understanding of the risks of having surgery and what recovery may look for for her. Children not listed in the EMR:
Ameena Rocha [phone], Jayy [phone], Genna [phone]
--To OR today for ex laparotomy and Laparoscopic lysis of adhesion
--Cont to hold heparin ggt
--Cont NPO
Cardiology, nephrology and intensive care teams following
Subjective Data
-
Date of Service: February 12, 2025
Pt feeling generally weak and unwell, however after long discussion with family last night wants to go through with surgery. Denies any N/V overnight or overt ab pain, but tender with palpation. Overnight she did pass a small amount of liquid stool.
Objective Data
-
Intake and Output
02/11/25 02/12/25 02/13/25
06:59 06:59 06:59
Intake Total 5726.55 / 5926.25 2934.3 / 3017.0 82.7 / 82.7
Output Total 3900 / 3900 2900 / 2900 0 / 0
Balance 1826.55 / 2025.25 34.3 / 117.0 82.7 / 82.7
Intake:
Oral fluids 120 / 120 0 / 0
IV fluids (Total) 3549.05 / 3581.25 2091.8 / 2174.5 82.7 / 82.7
Amiodarone 400.8 / 417.5 400.8 / 417.5 16.7 / 16.7
Heparin 114.75 / 118.25 7.0 / 7.0
Lr 1,000 ml @ 60 mls/hr IV . 2750 / 2750 1510 / 1570 60 / 60
[id number] [facility] Rx#:[id number]
Fred 283.5 / 295.5 174 / 180 6 / 6
IV piggybacks 1567.5 / 1735.0 602.5 / 602.5
Amount instilled into GI Tube ( 610 / 610 120 / 120
Total)
[place] Sump 610 / 610 120 / 120
Output:
Gastrointestinal tube output ( 2650 / 2650 1900 / 1900
Total)
[place] Sump 2650 / 2650 1900 / 1900
Urine, Rock 1250 / 1250
Urine, Voided 0 / 0 0 / 0
Straight cath output 1000 / 1000
Other:
Number of unmeasured liquid
stools
Rectum 2
Vital Signs
Temp Pulse Resp BP Pulse Ox
97.9 F 64 19 108/55 98
02/12/25 03:50 02/12/25 07:00 02/12/25 07:00 02/12/25 07:00 02/11/25 20:08
Lab Results
02/12/25 03:54
02/12/25 03:54
Calcium 8.2 mg/dl (8.4-10.2) L 02/12/25 03:54
Phosphorus 3.6 mg/dl (2.5-4.5) 02/11/25 15:16
Magnesium 2.0 mg/dl (1.6-2.3) 02/11/25 15:16
Total Bilirubin 0.9 mg/dl (0.2-1.3) 02/07/25 16:53
AST 34 U/L (14-36) 02/07/25 16:53
ALT 25 U/L (0-35) 02/07/25 16:53
Alkaline Phosphatase 91 U/L (38-126) 02/07/25 16:53
Total Protein 6.7 g/dl (6.3-8.2) 02/07/25 16:53
Albumin 3.3 g/dl (3.5-5.0) L 02/09/25 02:23
Physical Exam
-
Afebrile, converted into sinus rythm yesterday, BP stable on 20 fred-synephrine, currently satting well on room air, however did require 1 L overnight
Ab tender with palpation especially in RLQ, minimal distension, no tympany noted
Patient has a rock catheter: No
Patient has a central line: Yes
--- NOTE | 2025-02-12 07:31 | W.PN.GS2 ---
Today's Communication / Plan
-
`
Assessment / Plan
-
Assessment: 79-year-old female with persistent high-grade small bowel obstruction
Past abdominal surgical history includes colostomy with subsequent reversal, possible ex lap lysis for small bowel obstruction, KOFI, ventral hernia repair
Persistent obstructive symptoms despite NG tube decompression -high bilious outputs
CT and small bowel follow-through imaging suggestive of high-grade persistent partial small bowel obstruction
Lengthy discussions have been had as outlined with Dr. Copeland's note over the last 48 hours with patient and her family. Patient advises that she is comfortable/agreeable to proceed with surgical intervention due to the persistence of her small
bowel obstruction. There is no evidence of immediate bowel ischemia or perforation risk however she has not responded adequately to NG tube decompression after 5-day hospitalization with continued signs of a persistent obstruction as indications
for strong consideration of operative correction.
A-fib with RVR -> improved currently sinus rhythm
Sepsis/hypotension -> improving with resuscitation and now in sinus rhythm; Fred-Synephrine significantly weaning
TYESHA improving with normal electrolytes
Plan: Patient has been added onto the OR schedule today for laparoscopic possible open lysis of adhesions, possible bowel resection
Advised patient of risk of surgery. Utilizing ACS nsqip risk calculator -> 30-day mortality risk of up to 25%, risk of any or serious medical complications approaching 30 to 40%, anticipate prolonged hospital course greater than a week, possible
need for postoperative mechanical ventilation, probable significant post operative/hospitalization deconditioning which may require shelter care. Any of the patient's concerns or questions were confirmed to be fully addressed. I was also
able to discuss with her daughter Nalini Galan who confirmed plan for surgery today. We discussed the risks as outlined above and even in more detail. Also reviewed postoperative hospitalization and care. Any of her questions or concerns were
also confirmed to be completely addressed.
Type and screen
Continue current care
Anticipate starting TPN postoperatively tomorrow
Subjective Data
-
Date of Service: February 12, 2025
Patient seen and examined. Nursing at bedside.
No acute events overnight.
Currently in sinus rhythm with significant improvement on vasopressor support.
Patient acknowledges continued abdominal discomfort/pain but no worse.
She has passed occasional small stool
NG tube with high output 2 L over the last 24 hours. And remains bilious.
Objective Data
-
Intake and Output
02/11/25 02/12/25 02/13/25
06:59 06:59 06:59
Intake Total 5726.55 / 5926.25 2934.3 / 3147.0 212.7 / 212.7
Output Total 3900 / 3900 2900 / 2900 0 / 0
Balance 1826.55 / 2025. 34.3 / 247.0 212.7 / 212.7
Intake:
Oral fluids 120 / 120 0 / 0
IV fluids (Total) 3549.05 / 3581.25 2091.8 / 2174.5 82.7 / 82.7
Amiodarone 400.8 / 417.5 400.8 / 417.5 16.7 / 16.7
Heparin 114.75 / 118.25 7.0 / 7.0
Lr 1,000 ml @ 60 mls/hr IV . 2750 / 2750 1510 / 1570 60 / 60
[id number] [facility] Rx#:[id number]
Fred 283.5 / 295.5 174 / 180 6 / 6
IV piggybacks 1567.5 / 1735.0 602.5 / 702.5 100 / 100
Amount instilled into GI Tube ( 610 / 610 120 / 150 30 / 30
Total)
[place] Sump 610 / 610 120 / 150 30 / 30
Output:
Gastrointestinal tube output ( 2650 / 2650 1900 / 1900
Total)
[place] Sump 2650 / 2650 1900 / 1900
Urine, Rock 1250 / 1250
Urine, Voided 0 / 0 0 / 0
Straight cath output 1000 / 1000
Other:
Number of unmeasured liquid
stools
Rectum 2
Vital Signs
Temp Pulse Resp BP Pulse Ox
97.9 F 64 19 108/55 98
02/12/25 03:50 02/12/25 07:00 02/12/25 07:00 02/12/25 07:00 02/11/25 20:08
Lab Results
02/12/25 03:54
02/12/25 03:54
Calcium 8.2 mg/dl (8.4-10.2) L 02/12/25 03:54
Phosphorus 3.6 mg/dl (2.5-4.5) 02/11/25 15:16
Magnesium 2.0 mg/dl (1.6-2.3) 02/11/25 15:16
Total Bilirubin 0.9 mg/dl (0.2-1.3) 02/07/25 16:53
AST 34 U/L (14-36) 02/07/25 16:53
ALT 25 U/L (0-35) 02/07/25 16:53
Alkaline Phosphatase 91 U/L (38-126) 02/07/25 16:53
Total Protein 6.7 g/dl (6.3-8.2) 02/07/25 16:53
Albumin 3.3 g/dl (3.5-5.0) L 02/09/25 02:23
Physical Exam
-
NAD AAO x 3 acutely/chronically ill-appearing
ABD: Softly distended, mild tenderness to palpation. No rebound rigidity or guarding. Surgical scars.
Residual tympany on percussion.
NG tube in place with bilious output
Patient has a rock catheter: No
--- NOTE | 2025-02-12 08:10 | PHA.VAN.FU ---
Vancomycin Assessment / Plan
- Assessment
Renal Function: SCR Decreasing (2.4->2.1)
WBC's are: Trending Down (23.6->15.8)
In the past 24 hrs, patient has been: Afebrile
Concomitant Antimicrobials: Cefepime, Metronidazole
- Assessment - Therapeutic Drug Monitoring
Random Level: 18.5 ~23hrs after last level of 23.3
Calculated ke: 0.01
Calculated half life (H): 69.1
- Dosing Plan
Dosing by Level: Hold off on dosing today (Level expected to remain >10 for over 48H based on current PK)
- Monitoring Plan
Random Level: 02/13/25 0600
- Follow Up
Pharmacy will continue to follow.
Vancomycin Follow UP
- -
Patient Age: 79
Patient Sex: Female
Vancomycin Day #: 3 (re-consulted today)
Indication: Gi / Intra-Abdominal
Requesting Provider: Dr. Kovacs
Pertinent Antimicrobial Allergies:
Penicillins,sulfa
Height / Weight:
Height 5 ft 3 in
Actual Weight 50.3 kg
Pertinent Past Medical History: CKD3a
- Vital Signs / Lab Results
Temp Pulse Resp BP Pulse Ox
98.0 F 64 19 108/55 98
02/12/25 08:07 02/12/25 07:00 02/12/25 07:00 02/12/25 07:00 02/11/25 20:08
Lab Results - Hematology
02/09/25 02/10/25 02/11/25
09:46 04:34 04:54
WBC 19.5 H 29.0 H 24.9 H
02/11/25 02/12/25
15:16 03:54
WBC 23.6 H 15.8 H
Lab Results - Chemistry
02/09/25 02/09/25 02/09/25
09:46 11:20 16:33
BUN 131 H* Cancelled 119 H*
Creatinine 3.9 H Cancelled 3.5 H
Estimated Creat Clear 8 Cancelled 9
02/09/25 02/10/25 02/10/25
23:06 04:34 06:00
BUN 119 H* 112 H* Cancelled
Creatinine 3.2 H 3.0 H Cancelled
Estimated Creat Clear 10 11 Cancelled
02/10/25 02/10/25 02/10/25
12:16 16:00 18:13
BUN 99 H Cancelled 99 H
Creatinine 2.9 H Cancelled 2.8 H
Estimated Creat Clear 11 Cancelled 11
02/11/25 02/11/25 02/12/25
04:54 15:16 03:54
BUN 86 H 75 H 75 H
Creatinine 2.4 H 2.4 H 2.1 H
Estimated Creat Clear 13 15 17
02/09/25
10:00
Lactic Acid Cancelled
Microbiology Results
02/07/25 21:41 Blood Culture - Preliminary
Blood/Venous No Growth in 4 days- Final report to follow
02/07/25 21:37 Blood Culture - Preliminary
Blood/Venous No Growth in 4 days- Final report to follow
Therapeutic Drug Monitoring
Random Vancomycin 18.5 ug/ml 02/12/25 03:54
--- NOTE | 2025-02-12 08:14 | W.PN.HOSP.TC ---
Today's Communication/Plan
-
OR today.
Continue with antibiotics.
Continue with IV fluids
TPN starting tomorrow
Follow H&H
Assessment / Plan
Assessment / Plan
Ms. Jack is an 79-year-old female with a medical history of sarcoidosis, collagenous colitis with bowel perforation (status post colostomy and reversal at [facility]), CAD, CKD, and CVA who presented with 5 days of nausea and vomiting associated
with abdominal pain and distention. Her last bowel movement was almost 1 week prior to arrival and she has been unable to tolerate anything p.o. during the past week. CT imaging shows very distended small bowel with a transition point in the left
lower quadrant concerning for high-grade obstruction. NG tube was placed for decompression and started on low intermittent wall suction. She developed A-fib with RVR with a heart rate of 150s to 180s, no prior history of A-fib. She was given a
dose of IV Lopressor with no significant effect and so was then started on IV Cardizem drip. However she became mildly hypotensive and so was switched to IV amiodarone drip with bolus. She has been admitted for further evaluation and management of
SBO and new onset A-fib with RVR.
SBO:
- CT imaging of high-grade SBO with transition point in the left lower quadrant. Repeat CT 02/09 again shows persistent small bowel obstruction. SBFT yesterday showed persistent high-grade obstruction of small bowel. She remains symptomatic with
abdominal pain and distention.
- Continue NGT to LIWS, maintain n.p.o. and IV fluids
- Persistent small bowel obstruction and patient finally agreed to go ahead with the surgery. OR today
Sepsis
Clinical shock requiring pressors -suspected septic shock
Unclear source.
Not bacteremic
Urinalysis without pyuria
CT abdomen pelvis raised the concern of tree-in-bud opacities in the right middle lobe, mild asymmetric cutaneous thickening is stranding in the inferior left gluteal soft tissues, mild rectal wall thickening with large amount of stool in the colon.
She does have a cough and she also complains of left buttock area pain. Unclear if those are the sources of infection.
- Continue antibiotics with cefepime
- With continued rise in white count to add Flagyl for anaerobic coverage. Consulted ID-IV vancomycin added for enterococcal coverage
- High procalcitonin without change may be function of renal function.
- Continue with phenylephrine and wean as able
- Improving white count.
A-fib with RVR:
- New onset
- Currently attempting rate control with IV amiodarone drip and additional pushes of IV Lopressor
- Anticoagulating with IV heparin drip-on hold due to bloody aspirate from an NG tube.
- Today she is in sinus rhythm
- Cardiology following, recommendations appreciated
TYESHA on CKD 3:
- Suspect worsening due to poor perfusion in the setting of sepsis with intermittent hypotension
- With associated metabolic acidosis she was put on IV bicarb which is now discontinued with resolution of metabolic acidosis; patient takes p.o. sodium bicarb at home
- Continue IV fluids per nephrology. Improving creatinine
- Follow-up nephrology recommendations
NSTEMI:
- Suspect due to myocardial stress in the setting of SBO and rapid A-fib
- Anticoagulating with IV heparin drip-on hold
- Appreciate cardiology recommendations
Progressive ghffdp-frxltzzzhw-XA aspirate looks bloody-patient is on IV heparin. Heparin on hold. H&H stable in last 24 hours. Continue with PPI IV.
Abdominal aortic dilatation:
- Focal dilatation of the infrarenal abdominal aorta measuring 2.9 cm
- Ongoing outpatient monitoring recommended
Adrenal nodule:
- 1.5 centimeter hypodense left adrenal nodule noted on imaging, likely an adenoma
- Outpatient monitoring recommended
Nutrition-patient has been n.p.o. since admission. Day 6 today without diet. Will start TPN starting tomorrow.
CODE STATUS: DNR
Discussed with RN
Discussed with surgery
Total Critical Care Time___35__ minutes. I was immediately available to the patient and staff. I personally examined, reviewed labs, diagnostic images/reports, interpretations, treatment plans, discussed patient care with other providers and
family or caregivers (if patient is unable to make decisions), entered orders as appropriate and documented the medical record.
Anticipated Discharge: > 48 hours
Subjective/Interval History
-
Date of Service: February 12, 2025
Patient finally agreed for surgery. Going to the OR today.
Still with persistent abdominal pain.
Denies any shortness of breath or chest pain
Objective Data
-
Labs:
Laboratory Results
02/11/25 02/12/25
09:45 03:54
WBC 15.8 H
Hgb 8.3 L
Hct 25.3 L
Plt Count 292 D
APTT Cancelled
Sodium 139
Potassium 3.8
Chloride 102
Carbon Dioxide 29
BUN 75 H
Creatinine 2.1 H
Glucose 72
Calcium 8.2 L
Vital Signs:
Vital Signs
Temp Pulse Resp BP Pulse Ox
98.0 F 64 19 108/55 98
02/12/25 08:07 02/12/25 07:00 02/12/25 07:00 02/12/25 07:00 02/11/25 20:08
I&O
02/11/25 02/12/25 02/13/25
06:59 06:59 06:59
Intake Total 5726.55 / 5926.25 2934.3 / 3147.0 212.7 / 212.7
Output Total 3900 / 3900 2900 / 2900 0 / 0
Balance 1826.55 / 34.3 / 247.0 212.7 / 212.7
Review of Systems
-
Constitutional: Denies Fever
Abdomen/GI: Reports Abdominal Pain
Neuro: Denies Dizzy
Physical Exam
-
General: No Apparent Distress
Respiratory: Clear to Auscultation (Anteriorly) and Non Labored Respirations; Negative Accessory Resp Muscle Use
Cardiac: Regular Rhythm and S1/S2; Negative Tachycardic
GI: Soft and Tender; Negative Normal Bowel Sounds
Neuro: AO x 3
Psych: Calm; Negative Confused
Data Reviewed
-
Labs: Labs Reviewed by me
--- NOTE | 2025-02-12 08:27 | W.PN.INTV ---
Today's Communication / Plan
Recommendations
Going to OR today
Continue antibiotics per ID
Serial abdominal exams, NGT to LIWS and keep NPO
Heart rate control per cardiology, continue amiodarone; s/p dig on 02/10; HR is better controlled today
Continue to trend serum creatinine + UOP
Maintain MAP >65, continue with Fred-Synephrine
Continue with IVF with LR but cautious not to cause volume overload and she is net (+) 7L since admission and weight is up
Heparin drip on hold; continue PPI to 40mg IV BID and consider GI consult if concern for GIB persists/worsens
Ativan at night as she takes clonazepam at night as outpatient
Guarded prognosis
Continue ICU level care for this critically ill patient
Assessment
-
Assessment: 79-year-old female with a past medical history of collagenous colitis s/p colostomy followed by reversal, osteoporosis, depression, history of sarcoidosis, history of CVA and impingement syndrome of bilateral shoulders who presented
with abdominal pain + nausea/vomiting. She has had reduced PO for 1 week prior to arrival and was very weak. Also initially had chills, and had chest pain with shortness of breath and cough. Initially in the ER, she was afebrile to 97.8 �F, pulse
rate 121, respiratory rate 20, BP 91/71 and saturating 98% on room air. Initial labs showed leukocytosis to 11.5, platelet count 557, percent bands 34%, bicarbonate level 16, creatinine 3.8, lactate 6.3, troponin 0.261 and lipase 50. Blood
cultures were collected; initial CXR showed left-sided basilar opacities likely due to atelectasis. CT abdomen/pelvis with oral contrast on showed SBO with transition point in the LLQ with moderate colonic stool burden. Also tree-in-bud
opacities within the RML. In the ER she was given 1.5 L NS 0.9%, Zofran, cefepime/vancomycin and admitted to telemetry for further care. She developed rapid A-fib overnight on 02/07 - 02/08/2025, and heparin drip + Cardizem drip was started.
Cardiology consulted. On the illusionist hours of 02/09, patient had worsening abdominal pain despite NG tube being on LIWS and also her receiving Dilaudid, and heart rate cosme to the 160s with BP 70s/40s. CT abdomen/pelvis was repeated showing
slightly worse dilated small bowel with SBO with no free air and large volume stool with mild distention of the rectum. Patient transferred to the ICU for further care and forest law and policy professor services consulted for additional management/recommendations.
Chronic conditions FIELD ASSISTANT: Osteoporosis, depression, history of A-fib s/p ablation, history of sarcoidosis, collagenous colitis s/p colostomy followed by reversal, trochanteric bursitis of bilateral hips, bilateral lumbar radiculopathy, impingement
syndrome of bilateral shoulders, history of CVA, loop recorder
Impression:
#Rapid A-fib (A--fib developed on 02/07/2025 � new onset) -spontaneously converted into NSR on 02/11/2025
#Sepsis due to intra-abdominal source (likely translocation in the setting of SBO)
#Circulatory shock likely due to sepsis in setting of rapid A-fib
#Small focal consolidation seen in the RML � doubt that this small focus is causing her sepsis
#Leukocytosis with 34% bands (on admission)
#Hypochloremic, hyponatremia due to reduced PO intake; doubt SIADH given low urine Na - Na and Cl both normal now
#TYESHA with uremia
#Hypocalcemia
#Anemia
#Lactic acidosis � now resolved since 02/07/2025
#Elevated troponin � peaked at 0.261 on 02/07/2025
#Abnormal urinalysis with +1 leukocyte esterase
#High-grade SBO with nausea/vomiting and reduced PO intake for 1 week FIELD ASSISTANT
#Reported history of A-fib s/p ablation
#History of sarcoidosis
#Hx of collagenous colitis s/p colostomy followed by reversal
Plan:
- Pt TRX here to ICU for closer monitoring given rapid A-fib with hypotension and worsening abd pain
- CT A/P on 02/09/2025 showed slightly worse dilated small bowel with SBO, although no free air seen; unable to rule out stercoral colitis
- Surgery on board and no acute surgical intervention recommended on 02/09 --> she developed bowel sounds as of 02/09 but belly remains distended, tender and shes in rapid a-fib. As of AM of 02/11, pt actually says that she does not want surgery.
Family came to hospital, discussed the case with the patient and now she is agreeable to surgery. She is going to OR this afternoon
- Of note, SBFT on 02/10 showed high grade SBO
- She is thankfully still having loose bowel movements although small amount
- She remains on IV antibiotics with cefepime which should be continued --> ID consulted to assist with ABx; IV vanco added to cover enterococcus spp
- Follow up blood Cx X2 (02/07 - NGTD) and urine Cx (02/08 - NGTD)
- Trend WBC and monitor fever curve
- Keep NGT to low intermittent wall suction
- Pain control
- Hold all PO meds for now and keep NPO; now that she is starting surgery, will discuss starting TPN; TPN vs tube feeds will be a continuous discussion between surgery and nephro going forward depending how her surgery goes today; of note, she has
low BMI and poor oral intake for >1 week now
- Maintain SpO2 >90-94%
- Wean down supplemental O2 as tolerated
- Aspiration precautions
- prn nebulized bronchodilators - not currently bronchospastic
- Once abd pain + strength improve, then would encourage incentive spirometer use at least 10x per hour for at least 4 hrs a day
- Maintain MAP>65
- Continue fred-synephrine, weaning down as tolerated
- Replete electrolytes with K>4, Mg>2
- CXR from 02/09 does not show any evidence of lobar pneumonia
- there is a focus of consolidative opacity in RML seen on CT A/P from 02/07/2025, and persisted on repeat CT A./P from 02/09- she is already on Abx with cefepime, flagyl and now IV vanco
- Rate control with amiodarone gtt
- Given digoxin 250mcg x1 on 02/10; dig level on 02/11 was 0.7; hold off on further dig given risk of toxicity
- Echo checked on 02/09 showing valvular heart disease with mild MR, mild AI, and mild�moderate TR with preserved LVEF of 50-55% with mild concentric LVH; RV has normal size and function
- Heparin gtt currently on hold due to anemia, although Hb now stable. Would consider resuming heparin gtt post-operatively depending if safe per surgery and Hb stable
- Cardiology on board - recs appreciated
- Troponin peaked at 0.261 on admission, hence no longer need to continue trending at this time
- Trend serum creatinine with strict I/O and monitor UOP
- Nephrology consulted and recommendations appreciated
- Patient was on a bicarb drip which was changed to LR on 02/09
- Continue to trend sHCO3 levels
- Maintain euglycemia with goal BG 140-180
- Trend H/H and transfuse if needed to keep Hb>7g/dL; keep plt>50k (hospitalist saw blood coming from NGT this AM)
- Given that there was blood seen coming from NGT on 02/11, I raised PPI to 40mg IV BID
- Consider GI consult
- DVT ppx: SCDs for now; heparin gtt on hold given anemia
DNR/DNI
Continue ICU level care for this critically ill patient
Critical care statement: A total of 41 minutes of critical care time was provided for this patient today. This includes management of unstable vital signs, evaluation of the patient at bedside, reviewing the patient's pertinent medical records
including radiographs, microbiology, laboratory evaluations, and discussion with primary team, consultants, pharmacy, nutrition, physical therapy, case management, charge nurse, critical care nursing, and respiratory therapy.
Data:
CT abdomen/pelvis/09/2025:
Small bowel obstruction with transition point in the left lower quadrant. Moderate colonic stool burden.
1.5 cm hypodense left adrenal nodule, incompletely characterized on this examination however likely represents an adenoma.
Tree-in-bud opacities within the right middle lobe which may be infectious/inflammatory.
Diffuse osteopenia with postoperative changes of T12 and L1 kyphoplasty.
Extensive atherosclerotic calcifications of the aorta and branch vessels with focal dilation in the infrarenal abdominal aorta measuring 2.9 cm.
Bilateral renal atrophy, more pronounced on the left. There are numerous bilateral renal cysts, some of which appear hyperdense and are likely hemorrhagic/proteinaceous cyst.
There is mild asymmetric cutaneous thickening and stranding in the inferior left gluteal soft tissues which may represent superficial infectious/inflammatory process or sequelae of pressure wound.
CT abdomen/pelvis without IV contrast 02/09/2025:
Dilated small bowel, just slightly increased in comparison to recent prior study with findings again seen suggesting small bowel obstruction as was noted on recent prior study. No free air.
Nasogastric tube with tip in the stomach.
Large volume stool filling and mildly distending the rectum. Cannot exclude mild stercoral colitis.
CXR 02/09/2025:
1. Right PICC tip projects over the central SVC.
2. Lungs remain clear.
Small bowel follow-through 02/10/2025:
Delayed imaging at 6 hours reveals persistent contrast throughout dilated small bowel.
There is no definitive oral contrast seen in large bowel.
Findings suggest high-grade small bowel obstruction.
Subjective Dataa
Subjective Data
Date of Service:
Date of Service: February 12, 2025
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
Subjective:
Pt seen and evaluated this AM. Remains on fred at 20mcg/min. On LR at 60cc/hr. Going to OR today in afternoon. Currently on amio at 0.5mg/min, HR 71, SpO2 95% on 1L/min and BP 101/54. She converted to NSR yesterday afternoon. NGT suctioned out
2L yesterday. She feels well this morning. Her son, Jayy, and a very close family friend that is like her marconDeepti, both at bedside and all questions were answered.
Review of Systems
General: Other (Negative unless mentioned above)
Objective Data
Data Reviewed
Vital Signs / I&O / Oxygen:
Vital Signs
Temp Pulse Resp BP Pulse Ox
98.0 F 69 16 112/51 98
02/12/25 08:07 02/12/25 09:00 02/12/25 09:00 02/12/25 09:00 02/12/25 08:22
Intake and Output
02/11/25 02/12/25 02/13/25
06:59 06:59 06:59
Intake Total 5726.55 / 5926.25 2934.3 / 3087.0 318.1 / 318.1
Output Total 3900 / 3900 2900 / 2900 0 / 0
Balance 1826.55 / 2025.25 34.3 / 187.0 318.1 / 318.1
SaO2 98
Nasal Cannula flow liters per 1
minute
Physical Exam
General: Respiratory Distress (negative), Comfortable, Chills (negative) and Sweats (negative)
HEENT: Normocephalic and Anicteric
Cardiovascular: Irregular Rhythm (Irregularly irregular), Peripheral Edema (negative) and Other (tachycardic)
Respiratory: Clear, Wheeze (negative), Crackles (negative), Rhonchi (negative), Stridor (negative) and Other (Poor inspiratory effort)
GI: Soft, Distended, Tender, Normal Bowel Sounds and NG Tube (on LIWS)
Neurology: Awake, Alert, Oriented and Tremors (negative)
Skin: Warm, Dry, Cyanosis (negative) and Jaundice (negative)
Labs/Micro/Reports
Lab Data
02/12/25 03:54
02/12/25 03:54
Laboratory Results
02/11/25
09:45
APTT Cancelled
Microbiology
02/07/25 21:41 Blood/Venous Blood Culture - Preliminary
No Growth in 4 days- Final report to follow
02/07/25 21:37 Blood/Venous Blood Culture - Preliminary
No Growth in 4 days- Final report to follow
02/08/25 05:55 Urine Urine Culture - Final
NO GROWTH
--- NOTE | 2025-02-12 09:30 | PTCARENOTE ---
Rec'd care of patient at 0700. Patient alert and oriented. Drowsy. NSR on tele monitor. Rate in the 60-70's. +Murmur. Pulse ox 95-98% on 1L nc. Lung sounds diminished throughout. +BS. Abdomen round/distended. [place] sump maintained to LIS. Brown
output. Incontinent of small liquid brown stool. No void. Last straight cath @ 0500. Per Dr. Moss, if bladder scan >400 prior to OR, place indwelling rock catheter. Sacral, b/l heel and b/l elbow foams intact. Q2hr turn maintained. Fred/Amio/LR
infusing through RDL PICC. Left forearm INT removed d/t leaking and patient discomfort. Family at bedside.
--- NOTE | 2025-02-12 10:29 | W.PN.ID1 ---
Date of Service
Date of Service: February 12, 2025
Today's Communication
Continue current abx's.
Assessment / Plan
# High-grade small bowel obstruction - persistent
# Leukocytosis trending down
# s/p Shock off pressor
# TYESHA on CKD
# A-fib - rate controlled
# PCN and sulfa allergy
-Bcx's neg, Ucx neg. CXR clear lungs.
-To OR today for bowel surgery.
- Continue empiric Vancomycin (d3) metronidazole (d3) cefepime(d6) for now.
- Trend wbc, vitals, renal function
- Prognosis remains guarded.
# Conditions DIRECTOR SERVICE
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
CVA
Osteoporosis
CKD3A
CAD
History of collagenous colitis status post colostomy with subsequent reversal, abdominal wall reconstruction without mesh
Lumbar radiculopathy
Depression/anxiety
Restless leg syndrome
Osteoporosis
Hysterectomy
Ventral Hernia repair
Left elbow surgery
Femur surgery
Chief Complaint
-: Leukocytosis
Subjective / Review of Systems
Going to OR today. Family at bedside.
Vital Signs / Physical Exam
Vital Signs
Vital Signs
Temp Pulse Resp BP Pulse Ox
98.0 F 69 17 104/53 95
02/12/25 08:07 02/12/25 10:00 02/12/25 10:00 02/12/25 10:00 02/12/25 09:41
Physical Exam
Constitutional: Acutely Ill and Cachetic
Cardiovascular: Regular Rate and Irregular Rate
Pulmonary: Clear
Gastrointestinal: Soft, Tender, Distended and Decreased Bowel Sounds
Extremities: Negative Edema
Neurological: AO x 3
Objective Data
Lab Data
Lab Results
02/12/25 03:54
02/12/25 03:54
PT 17.5 Sec (11.4-14.6) H 02/09/25 09:46
INR 1.41 02/09/25 09:46
APTT Cancelled 02/11/25 09:45
Estimated Creat Clear 17 ml/min 02/12/25 03:54
Lactic Acid Cancelled 02/09/25 10:00
Total Bilirubin 0.9 mg/dl (0.2-1.3) 02/07/25 16:53
AST 34 U/L (14-36) 02/07/25 16:53
ALT 25 U/L (0-35) 02/07/25 16:53
Alkaline Phosphatase 91 U/L (38-126) 02/07/25 16:53
Most recent labs reviewed.
Micro Results:
02/07/25 21:41 Blood Culture - Preliminary
Blood/Venous No Growth in 4 days- Final report to follow
02/07/25 21:37 Blood Culture - Preliminary
Blood/Venous No Growth in 4 days- Final report to follow
02/08/25 05:55 Urine Culture - Final
Urine NO GROWTH
02/08/25 05:55 Nasal Screen MRSA (PCR) - Final
Nose MRSA not detected - performed by PCR methodology.
02/07/25 CT a/p: Small bowel obstruction with transition point in the left lower quadrant. Moderate colonic stool burden. Tree-in-bud opacities within the right middle lobe which may be infectious/inflammatory. There is mild asymmetric cutaneous
thickening and stranding in the inferior left gluteal soft tissues which may represent superficial infectious/inflammatory process or sequelae of pressure wound.
02/09/25 CT a/p: Dilated small bowel, just slightly increased in comparison to recent prior study with findings again seen suggesting small bowel obstruction as was noted on recent prior study. No free air. Nasogastric tube with tip in the stomach.
Large volume stool filling and mildly distending the rectum. Cannot exclude mild stercoral colitis.
02/09/25 CXR: . Right PICC tip projects over the central SVC. Lungs remain clear.
02/10/25 SBFT: Delayed imaging at 6 hours reveals persistent contrast throughout dilated small bowel. There is no definitive oral contrast seen in large bowel. Findings suggest high-grade small bowel obstruction.
02/11/25 AXR: Persistent dilated small bowel with persistent contrast following small bowel series of preceding day. Findings suggest high-grade small bowel obstruction.
Care Review
Plan reviewed with: Physician (Dr. Silas Forman)
[2025-02-12] MEDS: DILAUDID 0.5 MG IV ×2 (11:08→19:06)
--- NOTE | 2025-02-12 11:49 | W.PN.NEPH.PH ---
Today's Communication / Plan
-
Continue maintenance fluid
Assessment/Plan
-
Assessment
TYESHA
Azotemia
CKD 3A 1.3 baseline= follows with nephrology in [place] Dr. Land
SBO
Nausea vomiting
Metabolic acidosis
Hyperdense renal cysts
A-fib
History of stroke
Left adrenaloma
Plan
Follow BMP
We discussed dialysis and will decline if needed She reiterated that she is a DNR
creatinine improved down to 2.1 peaked 4.8
Heart rates have been better with volume.
Continue lactated Ringer's maintenance dose
today for laparoscopic possible open lysis of adhesions, possible bowel resection
TPN to be started tomorrow per surgery team
Total Time Spent with Patient (in minutes): 31
-
-
Date of Service: February 12, 2025
CC / HPI / ROS
-
Chief Complaint:
Small bowel obstruction
History of Present Illness:
Presents with small bowel obstruction acute on chronic kidney disease baseline creatinine 1.4 with presenting creatinine 3.8
Review of Systems:.
Nonoliguric improved urine output
No chest pain
Labs
-
Labs:
WBC 15.8 10^3/uL (4.8-10.8) H 02/12/25 03:54
RBC 2.75 10^6/uL (4.20-5.40) L 02/12/25 03:54
Hgb 8.3 g/dL (12.0-16.0) L 02/12/25 03:54
Hct 25.3 % (37.0-47.0) L 02/12/25 03:54
Plt Count 292 10^3/uL (130-400) D 02/12/25 03:54
Sodium 139 mmol/L (135-145) 02/12/25 03:54
Potassium 3.8 mmol/L (3.5-5.1) 02/12/25 03:54
Chloride 102 mmol/L (98-107) 02/12/25 03:54
Carbon Dioxide 29 mmol/L (22-30) 02/12/25 03:54
BUN 75 mg/dl (7-17) H 02/12/25 03:54
Creatinine 2.1 mg/dL (0.6-1.0) H 02/12/25 03:54
eGFR 23.38 02/12/25 03:54
Glucose 72 mg/dl (70-99) 02/12/25 03:54
Calcium 8.2 mg/dl (8.4-10.2) L 02/12/25 03:54
Phosphorus 3.6 mg/dl (2.5-4.5) 02/11/25 15:16
Albumin 3.3 g/dl (3.5-5.0) L 02/09/25 02:23
Physical Exam
-
Vital Signs:
Vital Signs
Temp Pulse Resp BP Pulse Ox
97.9 F 69 11 135/57 95
02/12/25 11:46 02/12/25 11:42 02/12/25 11:00 02/12/25 11:42 02/12/25 09:41
--- NOTE | 2025-02-12 11:52 | W.SUR.PREOP ---
Pre-Operative Surgical Note
-
I have examined this patient prior to the performance of the scheduled procedure.
The patient's condition is unchanged from the time of the current History and
Physical and the patient is able to undergo the scheduled procedure.
--- NOTE | 2025-02-12 12:00 | PTCARENOTE ---
Report given to PROPAGATORANUP Brooks. Patient transported in bed to OR. Amio/Fred/LR infusing through RDL PICC. VSS. NSR on tele. Patient c/o abdominal pain around 1100; treated with PRN Dilaudid.
[2025-02-12 13:43] LABS: B.E. - POC 2.2 mmol/L; Glucose - POC 101 mg/dl (70-99); HCO3 - POC 30 mmol/L (21-28); Hematocrit - POC 30 % PCV (37-47); Hemodilution- POC Yes; Hemoglobin Calculated - POC 10.2; Ionized Calcium - POC 1.06 mmol/L (1.15-1.33); Lactate - POC 1.07 mmol/L (0.36-0.75); O2 Saturation %Calculated-POC 99.3 % (94-98); PCO2 - POC 61 mmHg (35-48); PO2 - POC 167 mmHg (83-108); Potassium - POC 3.5 mmol/L (3.5-5.1); Sodium - POC 140 mmol/L (136-145); Specimen Type - POC Arterial; pH - POC 7.29 (7.35-7.45)
[2025-02-12 13:51] LABS: B.E. - POC 2.6 mmol/L; Glucose - POC 92 mg/dl (70-99); HCO3 - POC 30 mmol/L (21-28); Hematocrit - POC 29 % PCV (37-47); Hemodilution- POC Yes; Hemoglobin Calculated - POC 9.8; Ionized Calcium - POC 1.09 mmol/L (1.15-1.33); Lactate - POC 0.69 mmol/L (0.36-0.75); O2 Saturation %Calculated-POC 99.1 % (94-98); PCO2 - POC 64 mmHg (35-48); PO2 - POC 156 mmHg (83-108); Potassium - POC 3.5 mmol/L (3.5-5.1); Sodium - POC 141 mmol/L (136-145); Specimen Type - POC Arterial; pH - POC 7.29 (7.35-7.45)
--- NOTE | 2025-02-12 13:57 | CHAP ---
Ms. Jack received [facility] from [facility] prior to going down for surgery, as requested.
--- NOTE | 2025-02-12 14:08 | W.PN.CARDCBS ---
Today's Communication / Plan
-
Continue IV metoprolol and amiodarone for now with tentatively plan to transition to oral formulation when able to take p.o.
Would recommend eventual anticoagulation when safe from a surgical standpoint
Impression / Plan
-
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
Impression:
Small bowel obstruction
Prior bowel perforation from collagenous colitis with colostomy creation and subsequent reversal, VHR and prior small bowel obstruction
Dehydration
Newly diagnosed atrial fibrillation and rapid ventricular rates
NonMI troponin elevation with peak was first troponin of admission 0.261
Abnormal EKG
Acute on chronic kidney disease
History of CVA
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
Sarcoidosis
Frailty
Echo 02/09/2025: Mild LVH, EF 50-55%, mild mitral regurgitation, mild aortic regurgitation, mild to moderate tricuspid regurgitation, pulmonary artery systolic pressure 27 mmHg
Plan:
Maintaining sinus rhythm today on telemetry
Continue IV amiodarone and IV Lopressor. Can transition to oral formulation when able to take p.o.
IV heparin currently on hold. Resume anticoagulation once able post-op. Patient is at elevated stroke risk while off anticoagulation.
Some of her tachycardia could be related to volume contraction. She is also on IV benoit for blood pressure support.
Her echo shows preserved LV function. There is no high-grade valvular heart disease.
Continue medical therapy for non-NH troponin with peak 0.26.
Progress Note - Aws Architect
Subjective
Date of Service: February 12, 2025
Patient seen and examined on morning rounds. Still with abdominal pain/discomfort. No cardiac complaints.
Objective
Labs:
02/12/25 03:54
02/12/25 03:54
Labs
Hgb 8.3 g/dL (12.0-16.0) L 02/12/25 03:54
Hct 25.3 % (37.0-47.0) L 02/12/25 03:54
Plt Count 292 10^3/uL (130-400) D 02/12/25 03:54
PT 17.5 Sec (11.4-14.6) H 02/09/25 09:46
INR 1.41 02/09/25 09:46
APTT Cancelled 02/11/25 09:45
Sodium 139 mmol/L (135-145) 02/12/25 03:54
Potassium 3.8 mmol/L (3.5-5.1) 02/12/25 03:54
BUN 75 mg/dl (7-17) H 02/12/25 03:54
Creatinine 2.1 mg/dL (0.6-1.0) H 02/12/25 03:54
Glucose 72 mg/dl (70-99) 02/12/25 03:54
Digoxin 0.7 ng/ml (0.8-2.0) L 02/11/25 04:54
Vital Signs and I&O:
Vital Signs
Temp Pulse Resp BP Pulse Ox
97.9 F 66 12 113/51 95
02/12/25 11:46 02/12/25 12:00 02/12/25 12:00 02/12/25 12:00 02/12/25 09:41
Vital Signs
Temp Pulse Resp BP Pulse Ox
97.9 F 66 12 113/51 95
02/12/25 11:46 02/12/25 12:00 02/12/25 12:00 02/12/25 12:00 02/12/25 09:41
Intake & Output
02/10/25 02/11/25 02/12/25 02/13/25
06:59 06:59 06:59 06:59
Intake Total 5144.2 / 5302.4 5726.55 / 5926.25 2934.3 / 3087.0 596.2 / 596.2
Output Total 2825 / 2925 3900 / 3900 2900 / 2900 0 / 0
Balance 2319.2 / 2377.4 1826.55 / 2026.25 34.3 / 187.0 596.2 / 596.2
Physical Exam
Physical Exam
Gen: NAD, AA
HEENT: NG tube in place
Neck: No JVD
CV: RRR, NL s1/s2
Lungs: CTAB
Abd: ND
Ext: No LE edema
Skin: Warm, dry
Neuro: Non-focal
--- NOTE | 2025-02-12 14:12 | W.IMMPOSTOP ---
Addendum entered and electronically signed by Mikey Moss MD 02/12/25 14:23:
#[id number]
Original Note:
Surgical Immed Post Op Note
-
Primary Surgeon: Mikey Moss MD
Assisting Surgeon: Nico SHRESTHAA/Feliciano WHIPPLE
Pre-op Diagnosis: Persistent high-grade small bowel obstruction
Post-op Diagnosis: High-grade small bowel obstruction
Procedure Performed: Laparoscopic lysis of adhesions
Anesthesia Type: GETA +0.25% Marcaine
Specimen / Cultures: None
Estimated Blood Loss: 8 mL
Complications: None immediate
Operative Findings: Omental adhesion band with resultant internal hernia and high grade partial small bowel obstruction. Additional small bowel adhesions to midline abdominal wall just distal from point of obstruction were also lysed. Clear
transition point. Numerous additional adhesions identified but were not lysed as were not associated with the small bowel obstruction.
Postoperative plan:
Therapeutic anticoagulation should be held for 48 hours postoperatively
Maintain NG tube until increasing signs of GI function and reducing outputs
Given degree of malnutrition going into surgery would empirically start on TPN tomorrow while awaiting return of postoperative GI function
--- NOTE | 2025-02-12 14:48 | PTCARENOTE ---
Rec'd patient direct back from OR. Patient drowsy. Opening eyes to verbal stimuli. NSR on tele. HR in the 60's. Right radial mariah transduced and zeroed. Amio and Fred infusing through RDL PICC. Fred infusing for MAP >65. Pulse ox 98% on 6L simple
mask. Lung sounds diminished throughout. +BS. Lap sites approximated and closed with surgical glue. NGT placed back to LIS. Suero placed in OR. Core temp 99.4. Family updated by Dr. Moss.
--- NOTE | 2025-02-12 15:05 | W.PN.UPDATE ---
Update Note
Progress Note Update
I saw the patient after returning from the OR where she underwent laparoscopic lysis of adhesions. She was drowsy but easily awakened and following all commands. NGT remains on LIWS. Fred remains at 20mcg/min. BP 115/41mmhg. She is in NAD. RN
requesting rock order. Will continue to monitor and try to continue weaning down on Fred.
[2025-02-12] MEDS: CORDARONE 518 MG IV (15:14)
[2025-02-12] MEDS: MAXIPIME 1000 MG IV (15:48)
[2025-02-12] MEDS: STERILE WATER FOR INJECTION 10 ML IV (15:48)
--- NOTE | 2025-02-12 15:57 | PTCARENOTE ---
1545- Arterial blood pressure down to 70/30's. Fred titrated accordingly. ABP slowly improved. Titrated back down to 40 mcg/min for MAP > 65. Simple mask weaned off. Pulse ox 96% on 2L nc. Patient resting comfortably.
[2025-02-12] MEDS: LR 1000 IV (20:02)
--- NOTE | 2025-02-12 21:31 | PTCARENOTE ---
Pt received start of shift, HR SR on telemetry. Fred, amio, and LR infusing as ordered. Abdominal operation sites intact, surgical glue present. Positive bowel sounds throughout. R radial line zeroed. 2L NC 98%. NGT in R nare, 60cm at the nare,
connected to LIS. Pt AAOX3, drowsy but easily arousable to verbal stim. PRN Dilaudid - see MAR. Effective.
[2025-02-12] MEDS: ATIVAN 0.25 MG IV (22:41)
[2025-02-12] MEDS: NSS (PRESERVATIVE FREE) 0.125 ML IV (22:42)
[2025-02-13] MEDS: LOPRESSOR 5 MG IV (00:19)
[2025-02-13] MEDS: FLAGYL 500 MG 100 IV ×3 (00:19→17:03)
[2025-02-13] MEDS: DILAUDID 0.5 MG IV ×2 (00:19→15:34)
[2025-02-13] MEDS: DILAUDID 0.25 MG IV ×2 (02:33→12:00)
--- NOTE | 2025-02-13 02:42 | PTCARENOTE ---
Reassessed. Small smear bm x1. PRN dilaudid for pain - see DEC. NGT continuing to drain small amount brown gastric content.
[2025-02-13] MEDS: CHLORASEPTIC/SORE THROAT SPRAY 1 SPRAY PO (05:07)
[2025-02-13 05:53] LABS: Hematocrit 27.8 % (37.0-47.0); Hemoglobin 9.3 g/dL (12.0-16.0); Mean Corp Hgb Conc. 33.5 g/dL (33.0-37.0); Mean Corpuscular Hgb 30.8 pg (27.0-31.0); Mean Corpuscular Volume 92.1 fL (81.0-99.0); Mean Platelet Volume 9.7 fL (7.4-10.4); Platelet Count 328 10^3/uL (130-400); Red Blood Cell Count 3.02 10^6/uL (4.20-5.40); Red Cell Dist. Width 14.7 % (11.5-14.5); White Blood Cell Count 14.5 10^3/uL (4.8-10.8)
[2025-02-13 06:00] VITALS: BMI 20.2
[2025-02-13 06:15] LABS: Blood Urea Nitrogen 62 mg/dl (7-17); Calcium 8.2 mg/dl (8.4-10.2); Carbon Dioxide 21 mmol/L (22-30); Chloride 103 mmol/L (98-107); Estimated Creatinine Clearance 20 ml/min; Glucose 156 mg/dl (70-99); Potassium 4.2 mmol/L (3.5-5.1); Sodium 140 mmol/L (135-145); eGFR 28.13
--- NOTE | 2025-02-13 06:18 | PTCARENOTE ---
Reassessed. No change in assessment. Abdominal incision sites intact.
[2025-02-13 06:21] LABS: Vancomycin Random 12.6 ug/ml
[2025-02-13] MEDS: LOPRESSOR IV ×3 (07:00→18:10)
--- NOTE | 2025-02-13 07:03 | W.PN.GS2 ---
Addendum entered and electronically signed by Mikey Moss MD 02/13/25 09:18:
Patient seen and examined in follow-up with resident care supervisor. Agree with documented progress note.
Overall patient seems to be in better spirits and smiling today.
Reports some postoperative abdominal pains but adequately controlled.
No nausea or vomiting. No flatus or BM.
AFVSS (on Fred-Synephrine drip)
NAD AAO x 3
ABD: Softly protuberant but not tense or overly distended. Mild tenderness to palpation. Surgical sites with glue dressings.
NG tube in place with timber feller bilious/gastric contents. Canister with minimal contents. -Significant improvement in outputs over the last 24 hours
A/P: POD #1 status post laparoscopic lysis of adhesions for high-grade SBO
TPN
IV fluids until TPN started
Wean pressors
N.p.o., NG tube decompression until signs of GI recovery and stability and diminishing outputs; okay for ice chips for comfort
PPI
Original Note:
Today's Communication / Plan
-
TPN
Cont hold anticoagulation until 02/14
PPI BID
Cont bowel rest with NG tube
Fluids
Pain management
Assessment / Plan
-
Assessment: 79-year-old female with persistent high-grade small bowel obstruction s/p ex lap lysis POD#1
In ICU for the following:
A-fib with RVR -> improved currently sinus rhythm on amio ggt 0.5
Sepsis/hypotension -> previously pressor support decreasing, however after surgery pressor requirements increased now on phenylephrine 40. WBC also cont downtrend
TYESHA improving with normal electrolytes
Afebrile, vital signs stable on the above therapies^^
Yesterday during operation found Omental adhesion band with resultant internal hernia and high grade partial small bowel obstruction. Additional small bowel adhesions to midline abdominal wall just distal from point of obstruction were also lysed.
Clear transition point. Numerous additional adhesions identified but were not lysed as were not associated with the small bowel obstruction. 8ml blood loss.
Plan:
--Start TPN today
--Hold anti-coagulants until 02/14
--NG tube with cont bowel rest
--IV Fluids
--Pain management
--Cont PPI BID
--Cont antibiotics
--Cont medical management per primary team
Subjective Data
-
Date of Service: February 13, 2025
In pain, but controlled. Pt states ab pain better after surgery than previously. Nauseous, but no vomiting. Pleasantly surprised at how well the surgery went and how little scars she has post-op. Counts herself eneida.
Objective Data
-
Intake and Output
02/12/25 02/13/25 02/14/25
06:59 06:59 06:59
Intake Total 2934.3 / 3087.0 2050.7 / 2049.7
Output Total 2900 / 2900 1150 / 1150
Balance 34.3 / 187.0 900.7 / 900.7
Intake:
Oral fluids 120 / 120 0 / 0
IV fluids (Total) 2091.8 / 2114.5 1760.7 / 1760.7
Amiodarone 400.8 / 417.5 350.7 / 350.7
Heparin 7.0 / 7.0
Lr 1,000 ml @ 60 mls/hr IV . 1510 / 1510 1200 / 1200
[id number] [facility] Rx#:[id number]
Fred 174 / 180 210 / 210
IV piggybacks 602.5 / 702.5 200 / 200
Amount instilled into GI Tube ( 120 / 150 90 / 90
Total)
Twiggs Sump 120 / 150 90 / 90
Output:
Gastrointestinal tube output ( 1900 / 1900 450 / 450
Total)
Twiggs Sump 1900 / 1900 450 / 450
Urine, Suero 700 / 700
Urine, Voided 0 / 0 0 / 0
Straight cath output 1000 / 1000
Other:
Number of unmeasured liquid
stools
Rectum 2
Vital Signs
Temp Pulse Resp BP Pulse Ox
99.3 F 64 13 130/48 97
02/13/25 03:03 02/13/25 06:15 02/13/25 06:15 02/12/25 17:45 02/13/25 06:44
Lab Results
02/13/25 05:38
02/13/25 05:38
Calcium 8.2 mg/dl (8.4-10.2) L 02/13/25 05:38
Phosphorus 3.6 mg/dl (2.5-4.5) 02/11/25 15:16
Magnesium 2.0 mg/dl (1.6-2.3) 02/11/25 15:16
Total Bilirubin 0.9 mg/dl (0.2-1.3) 02/07/25 16:53
AST 34 U/L (14-36) 02/07/25 16:53
ALT 25 U/L (0-35) 02/07/25 16:53
Alkaline Phosphatase 91 U/L (38-126) 02/07/25 16:53
Total Protein 6.7 g/dl (6.3-8.2) 02/07/25 16:53
Albumin 3.3 g/dl (3.5-5.0) L 02/09/25 02:23
Physical Exam
-
NAD
Tender with palpation especially in RLQ, but improved from prior
Tympanic, slight distension
No signs of infx around surgical wound sites
[2025-02-13] MEDS: NSS (PRESERVATIVE FREE) 10 ML IV ×2 (07:47→20:16)
[2025-02-13] MEDS: PROTONIX IV 40 MG IV ×2 (07:47→20:18)
--- NOTE | 2025-02-13 08:03 | W.PN.INTV ---
Today's Communication / Plan
Recommendations
Went to OR yesterday for laparoscopic NICKI and tolerated well, extubated prior to returning to ICU
Continue antibiotics per ID
Serial abdominal exams, NGT to LIWS and keep NPO
Starting TPN today
Hopefully can start heparin drip tomorrow if H&H remained stable and okay with surgery
Heart rate control per cardiology, continue amiodarone; s/p dig on 02/10; HR is better controlled since 02/12
Continue to trend serum creatinine + UOP
Maintain MAP >65, continue with Fred-Synephrine; start stress dose steroids given that random cortisol this morning was <10
Continue with IVF with LR but cautious not to cause volume overload and she is net (+) 7L since admission and weight is up - once TPN starts then stop IVF
continue PPI to 40mg IV BID and consider GI consult if concern for GIB persists/worsens
Ativan at night as she takes clonazepam at night as outpatient
Guarded prognosis
Continue ICU level care for this critically ill patient
Assessment
-
Assessment: 79-year-old female with a past medical history of collagenous colitis s/p colostomy followed by reversal, osteoporosis, depression, history of sarcoidosis, history of CVA and impingement syndrome of bilateral shoulders who presented
with abdominal pain + nausea/vomiting. She has had reduced PO for 1 week prior to arrival and was very weak. Also initially had chills, and had chest pain with shortness of breath and cough. Initially in the ER, she was afebrile to 97.8 �F, pulse
rate 121, respiratory rate 20, BP 91/71 and saturating 98% on room air. Initial labs showed leukocytosis to 11.5, platelet count 557, percent bands 34%, bicarbonate level 16, creatinine 3.8, lactate 6.3, troponin 0.261 and lipase 50. Blood
cultures were collected; initial CXR showed left-sided basilar opacities likely due to atelectasis. CT abdomen/pelvis with oral contrast on showed SBO with transition point in the LLQ with moderate colonic stool burden. Also tree-in-bud
opacities within the RML. In the ER she was given 1.5 L NS 0.9%, Zofran, cefepime/vancomycin and admitted to telemetry for further care. She developed rapid A-fib overnight on 02/07 - 02/08/2025, and heparin drip + Cardizem drip was started.
Cardiology consulted. On the hand bulldozer hours of 02/09, patient had worsening abdominal pain despite NG tube being on LIWS and also her receiving Dilaudid, and heart rate cosme to the 160s with BP 70s/40s. CT abdomen/pelvis was repeated showing
slightly worse dilated small bowel with SBO with no free air and large volume stool with mild distention of the rectum. Patient transferred to the ICU for further care and educational sign language interpreter services consulted for additional management/recommendations.
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
syndrome of bilateral shoulders, history of CVA, loop recorder
Impression:
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
#Rapid A-fib (A--fib developed on 02/07/2025 � new onset) - spontaneously converted into NSR on 02/11/2025
#Sepsis due to intra-abdominal source (likely translocation in the setting of SBO)
#Circulatory shock likely due to sepsis in setting of rapid A-fib - A fib now resolved as stated above; her DBP is very low, so I question if she has PAD
#Small focal consolidation seen in the RML � doubt that this small focus is causing her sepsis
#Leukocytosis with 34% bands (on admission)
#Hypochloremic, hyponatremia due to reduced PO intake; doubt SIADH given low urine Na - Na and Cl both normal now
#TYESHA with uremia
#Hypocalcemia
#Anemia
#Lactic acidosis � now resolved since 02/07/2025
#Elevated troponin � peaked at 0.261 on 02/07/2025
#Abnormal urinalysis with +1 leukocyte esterase
#Reported history of A-fib s/p ablation
#History of sarcoidosis
#Hx of collagenous colitis s/p colostomy followed by reversal
Plan:
- Pt TRX here to ICU for closer monitoring given rapid A-fib with hypotension and worsening abd pain
- CT A/P on 02/09/2025 showed slightly worse dilated small bowel with SBO, although no free air seen; unable to rule out stercoral colitis
- Surgery on board and no acute surgical intervention recommended on 02/09 --> she developed bowel sounds as of 02/09 but belly remains distended, tender and shes in rapid a-fib. As of AM of 02/11, pt actually says that she does not want surgery.
Family came to hospital, discussed the case with the patient and she agreed to surgery, and went to OR on 02/12 for laparoscopic lysis of adhesions
- Postoperative management as per general surgery
- Continue to monitor bowel movements
- She remains on IV antibiotics with cefepime, Flagyl + IV vancomycin (to cover Enterococcus species); ID on board to assist with ABx; if she deteriorates then would start micafungin
- Follow up blood Cx X2 (02/07 - NGTD) and urine Cx (02/08 - NGTD)
- Trend WBC and monitor fever curve
- Keep NGT to low intermittent wall suction
- Pain control
- Hold all PO meds for now and keep NPO; starting TPN today; of note, she has low BMI and poor oral intake for >1 week now; hopefully we can start using her bowels for tube feeds + oral medications by this weekend - defer this decision to surgery
- Maintain SpO2 >90-94%
- Wean down supplemental O2 as tolerated
- Aspiration precautions
- prn nebulized bronchodilators - not currently bronchospastic
- Encourage incentive spirometer use q1hr while awake or as tolerated
- Maintain MAP>65
- Continue fred-synephrine, weaning down as tolerated
- Replete electrolytes with K>4, Mg>2
- CXR from 02/09 does not show any evidence of lobar pneumonia
- there is a focus of consolidative opacity in RML seen on CT A/P from 02/07/2025, and persisted on repeat CT A./P from 02/09- she is already on Abx with cefepime, flagyl and IV vanco
- Random cortisol checked today which was 9.3. This is very low for patient who is postop and on vasopressors (of note, she did get dexamethasone 20 mg yesterday intraoperatively)
- I will start stress dose steroids and assess her response and then wean as she clinically improves
- Rate control with amiodarone gtt
- Given digoxin 250mcg x1 on 02/10; dig level on 02/11 was 0.7; hold off on further dig given risk of toxicity
- Echo checked on 02/09 showing valvular heart disease with mild MR, mild AI, and mild�moderate TR with preserved LVEF of 50-55% with mild concentric LVH; RV has normal size and function
- Heparin gtt has been on hold since 02/09 due to anemia, although Hb now stable. General surgery is okay with us starting heparin drip tomorrow, however will need to confirm that H&H remained stable before doing so
- Cardiology on board - recs appreciated
- Troponin peaked at 0.261 on admission, hence no longer need to continue trending at this time
- Trend serum creatinine with strict I/O and monitor UOP
- Nephrology consulted and recommendations appreciated
- Patient was on a bicarb drip which was changed to LR on 02/09
- Continue to trend sHCO3 levels
- Maintain euglycemia with goal BG 140-180
- Trend H/H and transfuse if needed to keep Hb>7g/dL; keep plt>50k (hospitalist saw blood coming from NGT this AM)
- Given that there was blood seen coming from NGT on 02/11, I raised PPI to 40mg IV BID --> no more blood seen from NGT since 02/11
- Consider GI consult if concern for GI bleed develops again
- Starting TPN today with ISS q6hr
- DVT ppx: SCDs for now; heparin gtt on hold given anemia; hopefully can start tomorrow
DNR/DNI
Continue ICU level care for this critically ill patient
Critical care statement: A total of 38 minutes of critical care time was provided for this patient today. This includes management of unstable vital signs, evaluation of the patient at bedside, reviewing the patient's pertinent medical records
including radiographs, microbiology, laboratory evaluations, and discussion with primary team, consultants, pharmacy, nutrition, physical therapy, case management, charge nurse, critical care nursing, and respiratory therapy.
Data:
CT abdomen/pelvis/09/2025:
Small bowel obstruction with transition point in the left lower quadrant. Moderate colonic stool burden.
1.5 cm hypodense left adrenal nodule, incompletely characterized on this examination however likely represents an adenoma.
Tree-in-bud opacities within the right middle lobe which may be infectious/inflammatory.
Diffuse osteopenia with postoperative changes of T12 and L1 kyphoplasty.
Extensive atherosclerotic calcifications of the aorta and branch vessels with focal dilation in the infrarenal abdominal aorta measuring 2.9 cm.
Bilateral renal atrophy, more pronounced on the left. There are numerous bilateral renal cysts, some of which appear hyperdense and are likely hemorrhagic/proteinaceous cyst.
There is mild asymmetric cutaneous thickening and stranding in the inferior left gluteal soft tissues which may represent superficial infectious/inflammatory process or sequelae of pressure wound.
CT abdomen/pelvis without IV contrast 02/09/2025:
Dilated small bowel, just slightly increased in comparison to recent prior study with findings again seen suggesting small bowel obstruction as was noted on recent prior study. No free air.
Nasogastric tube with tip in the stomach.
Large volume stool filling and mildly distending the rectum. Cannot exclude mild stercoral colitis.
CXR 02/09/2025:
1. Right PICC tip projects over the central SVC.
2. Lungs remain clear.
Small bowel follow-through 02/10/2025:
Delayed imaging at 6 hours reveals persistent contrast throughout dilated small bowel.
There is no definitive oral contrast seen in large bowel.
Findings suggest high-grade small bowel obstruction.
Subjective Dataa
Subjective Data
Date of Service:
Date of Service: February 13, 2025
Chief Complaint: Brush Hand Follow Up
Subjective:
Pt was seen and evaluated this AM. Having mild abd pain s/p OR yesterday. Still on vasopressors with fred at 60mcg/min. NGT to LIWS with minimal output. Remains on amio gtt at 0.5mg/min. This AM, HR 66, BP 114/46 via A line, and SpO2 95% on room
air. She appears very tired/fatigued. Denies SOB, chest pain.
Review of Systems
General: Other (Negative unless mentioned above)
Objective Data
Data Reviewed
Vital Signs / I&O / Oxygen:
Vital Signs
Temp Pulse Resp BP Pulse Ox
99.2 F 64 13 130/48 95
02/13/25 07:25 02/13/25 08:00 02/13/25 08:00 02/12/25 17:45 02/13/25 07:50
Intake and Output
02/12/25 02/13/25 02/14/25
06:59 06:59 06:59
Intake Total 2934.3 / 3087.0 2050.7 / 2179.4 247.4 / 247.4
Output Total 2900 / 2900 1150 / 1195 85 / 85
Balance 34.3 / 187.0 900.7 / 984.4 162.4 / 162.4
SaO2 95
Nasal Cannula flow liters per 1
minute
Physical Exam
General: Respiratory Distress (negative), Comfortable, Chills (negative) and Sweats (negative)
HEENT: Normocephalic and Anicteric
Cardiovascular: Irregular Rhythm (Irregularly irregular), Peripheral Edema (Trace lower extremity edema bilaterally) and Other (tachycardic)
Respiratory: Clear, Wheeze (negative), Crackles (negative), Rhonchi (negative), Stridor (negative) and Other (Poor inspiratory effort)
GI: Soft, Distended, Tender (RUQ), Normal Bowel Sounds and NG Tube (on LIWS)
Neurology: Awake, Alert, Oriented and Tremors (negative)
Skin: Warm, Dry, Cyanosis (negative) and Jaundice (negative)
Labs/Micro/Reports
Lab Data
02/13/25 05:38
02/13/25 05:38
Microbiology
02/07/25 21:41 Blood/Venous Blood Culture - Final
No Growth - Final Report
02/07/25 21:37 Blood/Venous Blood Culture - Final
No Growth - Final Report
--- NOTE | 2025-02-13 08:29 | W.PN.HOSP.TC ---
Today's Communication/Plan
-
Start on TPN
Continue with IV antibiotics
Out of bed when okay from surgical standpoint
Assessment / Plan
Assessment / Plan
Ms. Jack is an 79-year-old female with a medical history of sarcoidosis, collagenous colitis with bowel perforation (status post colostomy and reversal at [facility]), CAD, CKD, and CVA who presented with 5 days of nausea and vomiting associated
with abdominal pain and distention. Her last bowel movement was almost 1 week prior to arrival and she has been unable to tolerate anything p.o. during the past week. CT imaging shows very distended small bowel with a transition point in the left
lower quadrant concerning for high-grade obstruction. NG tube was placed for decompression and started on low intermittent wall suction. She developed A-fib with RVR with a heart rate of 150s to 180s, no prior history of A-fib. She was given a
dose of IV Lopressor with no significant effect and so was then started on IV Cardizem drip. However she became mildly hypotensive and so was switched to IV amiodarone drip with bolus. She has been admitted for further evaluation and management of
SBO and new onset A-fib with RVR.
High-grade SBO secondary to adhesions
- Status post laparoscopic lysis of additions 02/12
- Await recovery of bowel function. NG tube in place. Continue with n.p.o.
-Start on TPN
Sepsis
Clinical shock requiring pressors -suspected septic shock
Unclear source.
Not bacteremic
Urinalysis without pyuria
CT abdomen pelvis raised the concern of tree-in-bud opacities in the right middle lobe, mild asymmetric cutaneous thickening is stranding in the inferior left gluteal soft tissues, mild rectal wall thickening with large amount of stool in the colon.
She does have a cough and she also complains of left buttock area pain. Unclear if those are the sources of infection.
- Continue antibiotics with cefepime
- With continued rise in white count to add Flagyl for anaerobic coverage. Consulted ID-IV vancomycin added for enterococcal coverage
- High procalcitonin without change may be function of renal function.
- Continue with phenylephrine and wean as able
- Improving white count. Afebrile
A-fib with RVR:
- New onset
- C continue with IV amiodarone drip and additional pushes of IV Lopressor
- Anticoagulating with IV heparin drip-was on hold with NG aspirate being bloody which is now clear. H&H stable. Will restart IV heparin-okay from surgery standpoint.
- Currently she is in sinus rhythm
- Cardiology following, recommendations appreciated
TYESHA on CKD 3:
- Suspect worsening due to poor perfusion in the setting of sepsis with intermittent hypotension
- With associated metabolic acidosis she was put on IV bicarb which is now discontinued with resolution of metabolic acidosis; patient takes p.o. sodium bicarb at home
- Continue IV fluids per nephrology. Improving creatinine
- Follow-up nephrology recommendations
NSTEMI:
- Suspect due to myocardial stress in the setting of SBO and rapid A-fib
- Anticoagulating with IV heparin drip-on hold
- Appreciate cardiology recommendations
Progressive iopmhu-tadffkowig-AE aspirate looks bloody-patient is on IV heparin. Heparin on hold. H&H stable and aspirate without blood. Continue with PPI IV. Will restart heparin when okay from surgical standpoint
Abdominal aortic dilatation:
- Focal dilatation of the infrarenal abdominal aorta measuring 2.9 cm
- Ongoing outpatient monitoring recommended
Adrenal nodule:
- 1.5 centimeter hypodense left adrenal nodule noted on imaging, likely an adenoma
- Outpatient monitoring recommended
Nutrition-patient has been n.p.o. since admission. Day 7 today without diet. Will start TPN.
CODE STATUS: DNR
Discussed with RN
Discussed with surgery
Discussed with monotype caster
Total time spent on today's encounter was 52 minutes which included time spent in counseling the patient/family regarding diagnosis and treatment plan as listed above, goals of care, and symptom management. Case was discussed with nursing staff,
specialists, and care coordinators/case management. All labs and imaging personally reviewed by me. Remainder the time spent in detailed review of previous records, lab data, imaging, and other medical provider documentation.
Anticipated Discharge: > 48 hours
Subjective/Interval History
-
Date of Service: February 13, 2025
Status post laparoscopic lysis of adhesions 02/12.
Improved abdominal pain. NG tube in place still.
Has not passed gas or bowel movement yet.
Denies chest pain or shortness of breath. No dizziness.
Objective Data
-
Labs:
Laboratory Results
02/13/25
05:38
WBC 14.5 H
Hgb 9.3 L
Hct 27.8 L
Plt Count 328
Sodium 140
Potassium 4.2
Chloride 103
Carbon Dioxide 21 L
BUN 62 H
Creatinine 1.8 H
Glucose 156 H
Calcium 8.2 L
Vital Signs:
Vital Signs
Temp Pulse Resp BP Pulse Ox
99.2 F 64 13 130/48 95
02/13/25 07:25 02/13/25 08:00 02/13/25 08:00 02/12/25 17:45 02/13/25 07:50
I&O
02/12/25 02/13/25 02/14/25
06:59 06:59 06:59
Intake Total 2934.3 / 3087.0 2050.7 / 2179.4 247.4 / 247.4
Output Total 2900 / 2900 1150 / 1195 85 / 85
Balance 34.3 / 187.0 900.7 / 984.4 162.4 / 162.4
Review of Systems
-
Constitutional: Denies Fever or Chills
Physical Exam
-
General: No Apparent Distress
Respiratory: Clear to Auscultation (Anteriorly) and Non Labored Respirations; Negative Accessory Resp Muscle Use
Cardiac: Regular Rhythm and S1/S2
GI: Soft, Nondistended and Tender (Much improved tenderness); Negative Normal Bowel Sounds
Neuro: AO x 3
Psych: Calm
Data Reviewed
-
Labs: Labs Reviewed by me
--- NOTE | 2025-02-13 09:00 | PTCARENOTE ---
Rec'd care of patient at 0700. Patient drowsy. Oriented. MAEx4. NSR on tele monitor. Rate in the 60's. +Murmur. Trace pedal edema. +1 edema in fingers. Right radial mariah leveled and zeroed. Titrating benoit for MAP>65. Infusing through RDL PICC with
Amio and LR. Weaned to RA. Pulse ox 95%. Lung sounds diminished throughout; crackles in left base. Hypo BS. [place] sump remains to LIS. Minimal output. No BM. Suero in place for critical I/O. Abdominal incisions closed with surgical glue. Sacral
foam, b/l heel and elbow foams intact. Q2hr turn maintained.
[2025-02-13 10:21] LABS: ALT (SGPT) 46 U/L (0-35); AST (SGOT) 137 U/L (14-36); Albumin 2.3 g/dl (3.5-5.0); Alkaline Phosphatase 92 U/L (38-126); Direct Bilirubin 0.4 mg/dl (0.0-0.4); Magnesium 2.1 mg/dl (1.6-2.3); Phosphorus 5.2 mg/dl (2.5-4.5); Total Bilirubin 0.6 mg/dl (0.2-1.3); Total Protein 4.8 g/dl (6.3-8.2); Triglycerides 51 mg/dl (10-149)
--- NOTE | 2025-02-13 11:04 | W.PN.NEPH.PH ---
Today's Communication / Plan
-
TPN tonight
Assessment/Plan
-
Assessment
TYESHA
Azotemia
CKD 3A 1.3 baseline= follows with nephrology in [place] Dr. [place]
SBO
Nausea vomiting
Metabolic acidosis
Hyperdense renal cysts
A-fib
History of stroke
Left adrenaloma
Plan
improving renal function cr 1.8
non oliguric
starting TPN tonight, d/c IVF same time
s/p laparoscopic lysis of adhesions 02/12
BP stable , wean Fred as tolerated MAP >65
d/w nursing
-
-
Date of Service: February 13, 2025
CC / HPI / ROS
-
Chief Complaint:
Small bowel obstruction
History of Present Illness:
Presents with small bowel obstruction acute on chronic kidney disease baseline creatinine 1.4 with presenting creatinine 3.8
cr now at 1.8, non oliguric with rock
on fred still
no fever
hb better at 9.3
Review of Systems:.
has NGT
no SOB at rest on RA
no cp
Labs
-
Labs:
WBC 14.5 10^3/uL (4.8-10.8) H 02/13/25 05:38
RBC 3.02 10^6/uL (4.20-5.40) L 02/13/25 05:38
Hgb 9.3 g/dL (12.0-16.0) L 02/13/25 05:38
Hct 27.8 % (37.0-47.0) L 02/13/25 05:38
Plt Count 328 10^3/uL (130-400) 02/13/25 05:38
Sodium 140 mmol/L (135-145) 02/13/25 05:38
Potassium 4.2 mmol/L (3.5-5.1) 02/13/25 05:38
Chloride 103 mmol/L (98-107) 02/13/25 05:38
Carbon Dioxide 21 mmol/L (22-30) L 02/13/25 05:38
BUN 62 mg/dl (7-17) H 02/13/25 05:38
Creatinine 1.8 mg/dL (0.6-1.0) H 02/13/25 05:38
eGFR 28.13 02/13/25 05:38
Glucose 156 mg/dl (70-99) H 02/13/25 05:38
Calcium 8.2 mg/dl (8.4-10.2) L 02/13/25 05:38
Phosphorus 5.2 mg/dl (2.5-4.5) H 02/13/25 05:38
Albumin 2.3 g/dl (3.5-5.0) L 02/13/25 05:38
Physical Exam
-
Vital Signs:
Vital Signs
Temp Pulse Resp BP Pulse Ox
99.2 F 67 16 130/48 95
02/13/25 07:25 02/13/25 10:00 02/13/25 10:00 02/12/25 17:45 02/13/25 07:50
Cardiovascular:: Regular rate and rhythm (murmur)
Lung Excursion:: Normal (decrased BS, JVD mild)
Abdomen:: Soft
Extremity Edema:: None: Bilateral:
Rock Catheter: Yes
--- NOTE | 2025-02-13 11:09 | W.PN.CARDCBS ---
Today's Communication / Plan
-
Stable cardiology status
Continue IV Lopressor and IV amiodarone while n.p.o.
Eventual resume anticoagulation when okay from surgical standpoint
Impression / Plan
-
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
Impression:
Small bowel obstruction/status post lysis of adhesions 02/12/2025
Prior bowel perforation from collagenous colitis with colostomy creation and subsequent reversal, VHR and prior small bowel obstruction
Dehydration
Newly diagnosed atrial fibrillation and rapid ventricular rates
Nonischemic troponin elevation with peak troponin 0.261
Abnormal EKG
Acute on chronic kidney disease
History of CVA
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
Sarcoidosis
Frailty
Echo 02/09/2025: Mild LVH, EF 50-55%, mild mitral regurgitation, mild aortic regurgitation, mild to moderate tricuspid regurgitation, pulmonary artery systolic pressure 27 mmHg
Plan:
She remains in sinus rhythm and will continue IV amiodarone and IV Lopressor. Can transition to oral formulation when able to take p.o.
Currently has NG tube in place.
IV heparin currently on hold. Resume anticoagulation once able post-op. Patient is at elevated stroke risk while off anticoagulation
Discussed with nursing
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
Subjective
Date of Service: February 13, 2025
No complaints
Objective
Labs:
02/13/25 05:38
02/13/25 05:38
Labs
Hgb 9.3 g/dL (12.0-16.0) L 02/13/25 05:38
Hct 27.8 % (37.0-47.0) L 02/13/25 05:38
Plt Count 328 10^3/uL (130-400) 02/13/25 05:38
PT 17.5 Sec (11.4-14.6) H 02/09/25 09:46
INR 1.41 02/09/25 09:46
APTT Cancelled 02/11/25 09:45
Sodium 140 mmol/L (135-145) 02/13/25 05:38
Potassium 4.2 mmol/L (3.5-5.1) 02/13/25 05:38
BUN 62 mg/dl (7-17) H 02/13/25 05:38
Creatinine 1.8 mg/dL (0.6-1.0) H 02/13/25 05:38
Glucose 156 mg/dl (70-99) H 02/13/25 05:38
Digoxin 0.7 ng/ml (0.8-2.0) L 02/11/25 04:54
Vital Signs and I&O:
Vital Signs
Temp Pulse Resp BP Pulse Ox
99.2 F 65 16 130/48 95
02/13/25 07:25 02/13/25 11:00 02/13/25 11:00 02/12/25 17:45 02/13/25 07:50
Vital Signs
Temp Pulse Resp BP Pulse Ox
99.2 F 65 16 130/48 95
02/13/25 07:25 02/13/25 11:00 02/13/25 11:00 02/12/25 17:45 02/13/25 07:50
Intake & Output
02/11/25 02/12/25 02/13/25 02/14/25
06:59 06:59 06:59 06:59
Intake Total 5726.55 / 5926.25 2934.3 / 3087.0 2050.7 / 2179.4 513.5 / 513.5
Output Total 3900 / 3900 2900 / 2900 1150 / 1195 /
Balance 1826.55 / 34.3 / 187.0 900.7 / 984.4 308.5 / 308.5
Physical Exam
Physical Exam
General: Well developed, well nourished in NAD.
Neck: Supple, no JVD, HJR, carotids +2 B/L, no bruits bilaterally.
Heart: Non displaced PMI, RRR, no murmurs, No S3, S4, no rubs.
Lungs: Scattered rhonchi
Extremities: No clubbing, cyanosis or edema bilaterally.
Neuro: Grossly nonfocal, awake, alert and oriented x3.
[2025-02-13] MEDS: NOVOLOG FLEXPEN-MODERATE RESISTANCE SC ×2 (11:42→18:08)
[2025-02-13 11:44] LABS: Glucose - Point of Care 108 mg/dl (70-99)
[2025-02-13 11:44] LABS: Prealbumin (Transthyretin) 5.4 mg/dl (17.6-36.0)
--- NOTE | 2025-02-13 11:46 | W.PN.ID1 ---
Date of Service
Date of Service: February 13, 2025
Today's Communication
Continue abx's for now.
Assessment / Plan
# High-grade small bowel obstruction
02/12/25 s/p lap NICKI
# Leukocytosis trending down
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
# TYESHA on CKD, improving
# A-fib - rate controlled
# PCN and sulfa allergy
-Bcx's neg, Ucx neg. CXR clear lungs.
- Continue empiric Vancomycin (d4) metronidazole (d4) cefepime(d7) for now.
- Anticipate dc abx's within next 48 hrs as patient clinically improves.
- Trend wbc, vitals, renal function
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
CVA
Osteoporosis
CKD3A
CAD
History of collagenous colitis status post colostomy with subsequent reversal, abdominal wall reconstruction without mesh
Lumbar radiculopathy
Depression/anxiety
Restless leg syndrome
Osteoporosis
Hysterectomy
Ventral Hernia repair
Left elbow surgery
Femur surgery
Chief Complaint
-: Leukocytosis
Subjective / Review of Systems
Feeling better today.
Vital Signs / Physical Exam
Vital Signs
Vital Signs
Temp Pulse Resp BP Pulse Ox
99.2 F 64 18 130/48 95
02/13/25 07:25 02/13/25 11:30 02/13/25 11:30 02/12/25 17:45 02/13/25 07:50
Physical Exam
Constitutional: Chronically Ill
Eyes: Sclera Anicteric
Cardiovascular: Regular Rate and S1/S2
Pulmonary: Clear
Gastrointestinal: Soft, Tender (mild), Non Distended and Decreased Bowel Sounds
Extremities: Negative Edema
Neurological: Alert
Objective Data
Lab Data
Lab Results
02/13/25 05:38
02/13/25 05:38
PT 17.5 Sec (11.4-14.6) H 02/09/25 09:46
INR 1.41 02/09/25 09:46
APTT Cancelled 02/11/25 09:45
Estimated Creat Clear 20 ml/min 02/13/25 05:38
Lactic Acid Cancelled 02/09/25 10:00
Total Bilirubin 0.6 mg/dl (0.2-1.3) 02/13/25 05:38
AST 137 U/L (14-36) H 02/13/25 05:38
ALT 46 U/L (0-35) H 02/13/25 05:38
Alkaline Phosphatase 92 U/L (38-126) 02/13/25 05:38
Most recent labs reviewed.
Micro Results:
02/07/25 21:41 Blood Culture - Final
Blood/Venous No Growth - Final Report
02/07/25 21:37 Blood Culture - Final
Blood/Venous No Growth - Final Report
02/08/25 05:55 Urine Culture - Final
Urine NO GROWTH
02/08/25 05:55 Nasal Screen MRSA (PCR) - Final
Nose MRSA not detected - performed by PCR methodology.
02/07/25 CT a/p: Small bowel obstruction with transition point in the left lower quadrant. Moderate colonic stool burden. Tree-in-bud opacities within the right middle lobe which may be infectious/inflammatory. There is mild asymmetric cutaneous
thickening and stranding in the inferior left gluteal soft tissues which may represent superficial infectious/inflammatory process or sequelae of pressure wound.
02/09/25 CT a/p: Dilated small bowel, just slightly increased in comparison to recent prior study with findings again seen suggesting small bowel obstruction as was noted on recent prior study. No free air. Nasogastric tube with tip in the stomach.
Large volume stool filling and mildly distending the rectum. Cannot exclude mild stercoral colitis.
02/09/25 CXR: . Right PICC tip projects over the central SVC. Lungs remain clear.
02/10/25 SBFT: Delayed imaging at 6 hours reveals persistent contrast throughout dilated small bowel. There is no definitive oral contrast seen in large bowel. Findings suggest high-grade small bowel obstruction.
02/11/25 AXR: Persistent dilated small bowel with persistent contrast following small bowel series of preceding day. Findings suggest high-grade small bowel obstruction.
[2025-02-13] MEDS: LR 1000 IV (11:59)
--- NOTE | 2025-02-13 12:26 | PHA.VAN.FU ---
Vancomycin Assessment / Plan
- Assessment
Renal Function: SCR Decreasing (2.1->1.8)
WBC's are: Trending Down (15.8->14.5)
In the past 24 hrs, patient has been: Afebrile
Concomitant Antimicrobials: Cefepime, Metronidazole
- Assessment - Therapeutic Drug Monitoring
Random Level: 12.6 ~24.5H after previous level of 18.5
Calculated ke: 0.0149
Calculated half life (H): 46.4
- Dosing Plan
Dosing by Level: Re-dose today
Dosing Comments: Vanco 500mg x1
- Monitoring Plan
Random Level: 02/14/25 0600
- Follow Up
Pharmacy will continue to follow.
Vancomycin Follow UP
- -
Patient Age: 79
Patient Sex: Female
Vancomycin Day #: 4 (re-consulted today)
Indication: Gi / Intra-Abdominal
Requesting Provider: Dr. Kovacs
Pertinent Antimicrobial Allergies:
Penicillins,sulfa
Height / Weight:
Height 5 ft 3 in
Actual Weight 51.8 kg
Pertinent Past Medical History: CKD3a
- Vital Signs / Lab Results
Temp Pulse Resp BP Pulse Ox
99.5 F 62 18 93/40 95
02/13/25 11:00 02/13/25 12:00 02/13/25 12:00 02/13/25 11:47 02/13/25 07:50
Lab Results - Hematology
02/11/25 02/11/25 02/12/25
04:54 15:16 03:54
WBC 24.9 H 23.6 H 15.8 H
02/13/25
05:38
WBC 14.5 H
Lab Results - Chemistry
02/10/25 02/10/25 02/10/25
06:00 12:16 16:00
BUN Cancelled 99 H Cancelled
Creatinine Cancelled 2.9 H Cancelled
Estimated Creat Clear Cancelled 11 Cancelled
Albumin
02/10/25 02/11/25 02/11/25
18:13 04:54 15:16
BUN 99 H 86 H 75 H
Creatinine 2.8 H 2.4 H 2.4 H
Estimated Creat Clear 11 13 15
Albumin
02/12/25 02/13/25
03:54 05:38
BUN 75 H 62 H
Creatinine 2.1 H 1.8 H
Estimated Creat Clear 17 20
Albumin 2.3 L
Microbiology Results
02/07/25 21:41 Blood Culture - Final
Blood/Venous No Growth - Final Report
02/07/25 21:37 Blood Culture - Final
Blood/Venous No Growth - Final Report
Therapeutic Drug Monitoring
Random Vancomycin 12.6 ug/ml 02/13/25 05:38
--- NOTE | 2025-02-13 12:30 | PTCARENOTE ---
Systems reviewed. Patient remains drowsy. NSR on tele. Lopressor held per parameters. Grease Refiner Operator aware. Pulse ox dropping to low 80's while asleep. 2L nc reapplied. Suero output decreased to 15 cc's/hr. Bladder scanned, <30 cc's. Fred/Amio/LR
infusing as ordered. Initiation of TPN ordered for tonight. Q6 accuchecks initiated. Additional peripheral site placed on left forearm. No other changes.
[2025-02-13 12:33] LABS: Cortisol, Random 9.3 ug/dl
[2025-02-13 12:44] LABS: Triglycerides 60 mg/dl (10-149)
[2025-02-13] MEDS: SOLU-CORTEF 50 MG IV (15:33)
[2025-02-13] MEDS: VANCOCIN HCL 500 MG 100 IV (15:34)
[2025-02-13] MEDS: MAXIPIME 1000 MG IV (15:35)
[2025-02-13] MEDS: STERILE WATER FOR INJECTION 10 ML IV (15:35)
--- NOTE | 2025-02-13 16:04 | CM ---
CM following re: discharge planning.
Discussed in rounds, reviewed pt's chart.
Pt is POD#1 s/p ex lap lysis, extubated prior to returning to ICU, continue supportive care.
D/C plan: uncertain at this time and will depend on pt's progress.
CM will follow with discharge plan updates as hospitalization progresses
--- NOTE | 2025-02-13 16:21 | PTCARENOTE ---
No major changes in assessment. Patient awake and talking with son. Repositioned to chair position in bed. Pain controlled with PRN Dilaudid. NSR on tele. Fred remains on for bp support. Pulse ox 92-94% on RA. No BM. Urine output improving; 30-50
cc/hr. IV steroids initiated.
[2025-02-13 18:02] LABS: Glucose - Point of Care 117 mg/dl (70-99)
[2025-02-13] MEDS: CORDARONE 518 MG IV (20:15)
[2025-02-13 20:32] VITALS: BP 142/63
--- NOTE | 2025-02-13 20:46 | PTCARENOTE ---
Handoff report received from off going RN. Dual RN gtt reconciliation completed. Pt's on Fred-synephrine gtt at 20 mcg/min (6 ml/hr), Amiodarone gtt at 0.5 mg/min (16.7 ml/hr), and LR at 60 ml/hr. Pt's AAOx3, drowsy but conversing with staff. MAEx4.
Verbalizes having restless leg syndrome to LLE. Repositioning suggested for relief, but the pt stated that repositioning generally doesn't help. Plan of care for the shift reviewed with the patient. Palpable pulses throughout. Sinus rhythm to sinus
rosey with HR fluctuation between 59-60 bpm. Pt's with +1 edema mainly on her fingers. Core temp at 99 F. SpO2 at 97% on 2L/o2 nc. Crackles throughout. Hypoactive BS. Tenderness to abdomen with palpation. Right nare NGT to LIWS, and is draining
small amount of greenish brown output.Temp sensing rock catheter is intact with no uop at this time. 3 puncture and 1 incision lap site are cdi with surgical adhesive. SCDs are intact. PIV.
[2025-02-13] MEDS: Parenteral Nutrition, Central 770 IV (21:05)
--- NOTE | 2025-02-13 21:13 | PTCARENOTE ---
TPN initiated at 32 ml/hr.
[2025-02-13] MEDS: ATIVAN 0.25 MG IV (22:15)
[2025-02-14] VITALS (18 sets, daily range): BP systolic 105–139; BP diastolic 58–91; BMI 20.9
[2025-02-14] MEDS: SOLU-CORTEF 50 MG IV ×4 (00:08→19:35)
[2025-02-14 00:09] LABS: Glucose - Point of Care 190 mg/dl (70-99)
[2025-02-14] MEDS: LOPRESSOR IV ×3 (00:09→18:12)
[2025-02-14] MEDS: FLAGYL 500 MG 100 IV ×3 (00:12→15:13)
[2025-02-14] MEDS: NOVOLOG FLEXPEN-MODERATE RESISTANCE 1 UNITS SC (00:27)
--- NOTE | 2025-02-14 00:54 | PTCARENOTE ---
Patient reassessed. Drowsy but arouses to verbal commands. Fred-synephrine placed on hold. SBP >65. Remains on 2L/ o2 nc. Turns and repositioning continued.
--- NOTE | 2025-02-14 04:25 | PTCARENOTE ---
Patient reassessed. Awake and unable to sleep. Pt verbalized being depressed and that 'the TPN did not work.' Explained to the patient that the TPN is an ongoing infusion. Reviewed use of TPN to the patient. Repositioning and turning continued. Labs
drawn and sent. No further changes.
[2025-02-14 04:44] LABS: Hematocrit 25.5 % (37.0-47.0); Hemoglobin 8.2 g/dL (12.0-16.0); Mean Corp Hgb Conc. 32.2 g/dL (33.0-37.0); Mean Corpuscular Hgb 30.7 pg (27.0-31.0); Mean Corpuscular Volume 95.5 fL (81.0-99.0); Mean Platelet Volume 9.8 fL (7.4-10.4); Platelet Count 212 10^3/uL (130-400); Red Blood Cell Count 2.67 10^6/uL (4.20-5.40); Red Cell Dist. Width 15.1 % (11.5-14.5); White Blood Cell Count 9.7 10^3/uL (4.8-10.8)
[2025-02-14 04:47] LABS: Vancomycin Random 13.8 ug/ml
[2025-02-14 05:33] LABS: Glucose - Point of Care 227 mg/dl (70-99)
[2025-02-14] MEDS: DILAUDID 0.25 MG IV ×5 (05:50→19:34)
[2025-02-14] MEDS: NOVOLOG FLEXPEN-MODERATE RESISTANCE 3 UNITS SC (05:52)
[2025-02-14 06:57] LABS: ALT (SGPT) 40 U/L (0-35); AST (SGOT) 101 U/L (14-36); Albumin 2.1 g/dl (3.5-5.0); Alkaline Phosphatase 70 U/L (38-126); Blood Urea Nitrogen 62 mg/dl (7-17); Calcium 7.7 mg/dl (8.4-10.2); Carbon Dioxide 23 mmol/L (22-30); Chloride 110 mmol/L (98-107); Estimated Creatinine Clearance 25 ml/min; Glucose 208 mg/dl (70-99); Phosphorus 3.3 mg/dl (2.5-4.5); Potassium 3.8 mmol/L (3.5-5.1); Sodium 138 mmol/L (135-145); Total Bilirubin 0.6 mg/dl (0.2-1.3); Total Protein 4.6 g/dl (6.3-8.2); eGFR 35.01
[2025-02-14] MEDS: PROTONIX IV 40 MG IV ×2 (07:46→19:35)
[2025-02-14] MEDS: NSS (PRESERVATIVE FREE) 10 ML IV ×2 (07:46→19:35)
[2025-02-14] MEDS: CHLORASEPTIC/SORE THROAT SPRAY 2 SPRAY PO (08:10)
--- NOTE | 2025-02-14 08:17 | W.PN.INTV ---
Today's Communication / Plan
Recommendations
Went to OR 2 days ago for laparoscopic NICKI and tolerated well, extubated prior to returning to ICU
Continue antibiotics per ID
Serial abdominal exams, NGT to LIWS and keep NPO
Continue TPN
Defer starting heparin gtt to surgery assuming H&H remains stable
Continue amiodarone; s/p dig on 02/10; she is now in NSR since 02/11/2025
Continue to trend serum creatinine + UOP
Maintain MAP >65, continue stress dose steroids and wean as she clinically improves
Off pressors since midnight
No longer need to use IVF now that she is on TPN
Diurese now that she is off pressors as she is net (+)8L since admission and weight is up 13 lbs
Continue PPI 40mg IV BID and consider GI consult if concern for GIB persists/worsens
Ativan at night as she takes clonazepam at night as outpatient
Guarded prognosis - pt seems interested in transitioning to hospice. I asked her daughter, Ameena, to discuss this with the family and Leonila
Continue ICU level care for this critically ill patient
Assessment
-
Assessment: 79-year-old female with a past medical history of collagenous colitis s/p colostomy followed by reversal, osteoporosis, depression, history of sarcoidosis, history of CVA and impingement syndrome of bilateral shoulders who presented
with abdominal pain + nausea/vomiting. She has had reduced PO for 1 week prior to arrival and was very weak. Also initially had chills, and had chest pain with shortness of breath and cough. Initially in the ER, she was afebrile to 97.8 �F, pulse
rate 121, respiratory rate 20, BP 91/71 and saturating 98% on room air. Initial labs showed leukocytosis to 11.5, platelet count 557, percent bands 34%, bicarbonate level 16, creatinine 3.8, lactate 6.3, troponin 0.261 and lipase 50. Blood
cultures were collected; initial CXR showed left-sided basilar opacities likely due to atelectasis. CT abdomen/pelvis with oral contrast on showed SBO with transition point in the LLQ with moderate colonic stool burden. Also tree-in-bud
opacities within the RML. In the ER she was given 1.5 L NS 0.9%, Zofran, cefepime/vancomycin and admitted to telemetry for further care. She developed rapid A-fib overnight on 02/07 - 02/08/2025, and heparin drip + Cardizem drip was started.
Cardiology consulted. On the caustic preparer hours of 02/09, patient had worsening abdominal pain despite NG tube being on LIWS and also her receiving Dilaudid, and heart rate cosme to the 160s with BP 70s/40s. CT abdomen/pelvis was repeated showing
slightly worse dilated small bowel with SBO with no free air and large volume stool with mild distention of the rectum. Patient transferred to the ICU for further care and drawbench operator services consulted for additional management/recommendations.
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
syndrome of bilateral shoulders, history of CVA, loop recorder
Impression:
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
#Rapid A-fib (A--fib developed on 02/07/2025 � new onset) - spontaneously converted into NSR on 02/11/2025
#Sepsis due to intra-abdominal source (likely translocation in the setting of SBO)
#Circulatory shock likely due to sepsis in setting of rapid A-fib - A fib now resolved as stated above; her DBP is very low, so I question if she has PAD
#Small focal consolidation seen in the RML � doubt that this small focus is causing her sepsis
#Leukocytosis with 34% bands (on admission)
#Hypochloremic, hyponatremia due to reduced PO intake; doubt SIADH given low urine Na - Na and Cl both normal now
#TYESHA with uremia - uremia resolved and sCr improving
#Hypocalcemia
#Anemia
#Lactic acidosis � now resolved since 02/07/2025
#Elevated troponin � peaked at 0.261 on 02/07/2025
#Abnormal urinalysis with +1 leukocyte esterase
#Reported history of A-fib s/p ablation
#History of sarcoidosis
#Hx of collagenous colitis s/p colostomy followed by reversal
Plan:
- Pt TRX here to ICU for closer monitoring given rapid A-fib with hypotension and worsening abd pain
- CT A/P on 02/09/2025 showed slightly worse dilated small bowel with SBO, although no free air seen; unable to rule out stercoral colitis
- Surgery on board and no acute surgical intervention recommended on 02/09 --> she developed bowel sounds as of 02/09 but belly remains distended, tender and shes in rapid a-fib. As of AM of 02/11, pt actually says that she does not want surgery.
Family came to hospital, discussed the case with the patient and she agreed to surgery, and went to OR on 02/12 for laparoscopic lysis of adhesions
- Postoperative management as per general surgery
- Continue to monitor bowel movements
- She remains on IV antibiotics with cefepime, Flagyl + IV vancomycin (to cover Enterococcus species); ID on board to assist with ABx; if she deteriorates then would start micafungin
- Follow up blood Cx X2 (02/07 - NGTD) and urine Cx (02/08 - NGTD)
- Trend WBC and monitor fever curve
- Keep NGT to low intermittent wall suction
- Pain control
- Hold all PO meds for now and keep NPO; started TPN on 02/13; of note, she has low BMI and poor oral intake for >1 week now; hopefully we can start using her bowels for tube feeds + oral medications by tomorrow or Sunday - defer this decision to
surgery
- Maintain SpO2 >90-94%
- Wean down supplemental O2 as tolerated
- Aspiration precautions
- prn nebulized bronchodilators - not currently bronchospastic
- Encourage incentive spirometer use q1hr while awake or as tolerated
- Maintain MAP>65
- Off vasopressors since starting on stress dose steroids; random cortisol on 02/13 was 9.3 (very low for a post-op pt on vasopressors (of note, she did get dexamethasone 20 mg intraoperatively)
- Continue with hydrocortisone but wean down to 50 mg IV q8hr given she is clinically improving with her BP
- Replete electrolytes with K>4, Mg>2
- CXR from 02/09 does not show any evidence of lobar pneumonia
- there is a focus of consolidative opacity in RML seen on CT A/P from 02/07/2025, and persisted on repeat CT A./P from 02/09- she is already on Abx with cefepime, flagyl and IV vanco
- Rate control with amiodarone gtt
- Given digoxin 250mcg x1 on 02/10; dig level on 02/11 was 0.7; hold off on further dig given risk of toxicity
- Echo checked on 02/09 showing valvular heart disease with mild MR, mild AI, and mild�moderate TR with preserved LVEF of 50-55% with mild concentric LVH; RV has normal size and function
- Heparin gtt has been held since 02/09 due to anemia - defer resuming to General surgery assuming H/H is stable
- Cardiology on board - recs appreciated
- Troponin peaked at 0.261 on admission, hence no longer need to continue trending at this time
- Trend serum creatinine with strict I/O and monitor UOP
- Nephrology consulted and recommendations appreciated
- Patient was on a bicarb drip which was changed to LR on 02/09 --> off IVF now that TPN was started
- Given Bumex 0.5mg IV x1 today given she has excess total body volume
- Continue to trend sHCO3 levels
- Maintain euglycemia with goal BG 140-180
- Trend H/H and transfuse if needed to keep Hb>7g/dL; keep plt>50k (hospitalist saw blood coming from T this AM)
- Given that there was blood seen coming from NGT on 02/11, I raised PPI to 40mg IV BID --> no more blood seen from NGT since 02/11
- Consider GI consult if concern for GI bleed develops again
- Continue TPN with ISS q6hr; add a low dose lantus and scheduled aspart 2 units given BG>220 today
- DVT ppx: SCDs for now; heparin gtt on hold given anemia; hopefully can start tomorrow
DNR/DNI
Guarded prognosis -patient said to me today that she does not think she should have done the surgery, and wants to 'throw it in.' Her daughter, Ameena, called and I told her what Leonila had just told me, and that the family as well as Leonila need to
discuss what the best course is going forward as it does not seem that Leonila wants to continue fighting to get better and she would like to be comfortable and transition to hospice.
Continue ICU level care for this critically ill patient
Critical care statement: A total of 41 minutes of critical care time was provided for this patient today. This includes management of unstable vital signs, evaluation of the patient at bedside, reviewing the patient's pertinent medical records
including radiographs, microbiology, laboratory evaluations, and discussion with primary team, consultants, pharmacy, nutrition, physical therapy, case management, charge nurse, critical care nursing, and respiratory therapy.
Data:
CT abdomen/pelvis 02/07/2025:
Small bowel obstruction with transition point in the left lower quadrant. Moderate colonic stool burden.
1.5 cm hypodense left adrenal nodule, incompletely characterized on this examination however likely represents an adenoma.
Tree-in-bud opacities within the right middle lobe which may be infectious/inflammatory.
Diffuse osteopenia with postoperative changes of T12 and L1 kyphoplasty.
Extensive atherosclerotic calcifications of the aorta and branch vessels with focal dilation in the infrarenal abdominal aorta measuring 2.9 cm.
Bilateral renal atrophy, more pronounced on the left. There are numerous bilateral renal cysts, some of which appear hyperdense and are likely hemorrhagic/proteinaceous cyst.
There is mild asymmetric cutaneous thickening and stranding in the inferior left gluteal soft tissues which may represent superficial infectious/inflammatory process or sequelae of pressure wound.
CT abdomen/pelvis without IV contrast 02/09/2025:
Dilated small bowel, just slightly increased in comparison to recent prior study with findings again seen suggesting small bowel obstruction as was noted on recent prior study. No free air.
Nasogastric tube with tip in the stomach.
Large volume stool filling and mildly distending the rectum. Cannot exclude mild stercoral colitis.
CXR 02/09/2025:
1. Right PICC tip projects over the central SVC.
2. Lungs remain clear.
Small bowel follow-through 02/10/2025:
Delayed imaging at 6 hours reveals persistent contrast throughout dilated small bowel.
There is no definitive oral contrast seen in large bowel.
Findings suggest high-grade small bowel obstruction.
Subjective Dataa
Subjective Data
Date of Service:
Date of Service: February 14, 2025
Chief Complaint: Slp Follow Up
Subjective:
Patient was seen this morning. Been off the Fred-Synephrine since midnight. Started on hydrocortisone around the same time. Current BP 125/70, heart rate 69 and saturating 95% on room air. Currently on amiodarone at 0.5 mg/min and TPN at 32 cc/h.
She says she should not have gone through with surgery and she appears drowsy, uncomfortable, and would like to speak to her family as it appears that she wants to be made comfortable and transition to hospice. Her daughter, Joey, called and
I spoke to her over the phone, explaining what Leonila just told me and that the patient as well as other fan members need to discuss this going forward and Joey was in agreement. Patient currently has abdominal discomfort, bloating, and says
she feels she has to have a bowel movement. No chest pain but feels SOB. No fevers or chills or vomiting.
Review of Systems
General: Other (Negative unless mentioned above)
Objective Data
Data Reviewed
Vital Signs / I&O / Oxygen:
Vital Signs
Temp Pulse Resp BP Pulse Ox
98.8 F 66 11 118/58 94
02/14/25 07:17 02/14/25 09:08 02/14/25 09:08 02/14/25 09:08 02/14/25 09:51
Intake and Output
02/13/25 02/14/25 02/15/25
06:59 06:59 06:59
Intake Total 2050.7 / 2179.4 2048.1 / 2096.8 276.1 / 276.1
Output Total 1150 / 1195 937 / 962 105 / 105
Balance 900.7 / 984.4 1111.1 / 1134.8 171.1 / 171.1
SaO2 94
Nasal Cannula flow liters per 2
minute
Physical Exam
General: Respiratory Distress (negative), Pain (Abdominal), Chills (negative), Sweats (negative) and Other (Appears weak, deconditioned and uncomfortable)
HEENT: Normocephalic and Anicteric
Cardiovascular: S1-S2, Regular Rhythm and Peripheral Edema (Trace lower extremity edema bilaterally)
Respiratory: Clear, Wheeze (negative), Crackles (negative), Rhonchi (negative), Stridor (negative) and Other (Poor inspiratory effort)
GI: Soft, Distended, Tender (RUQ), Normal Bowel Sounds and NG Tube (on LIWS)
Neurology: Awake, Alert, Oriented, Tremors (negative) and Other (Drowsy but answering all questions appropriately)
Skin: Warm, Dry, Cyanosis (negative) and Jaundice (negative)
Labs/Micro/Reports
Lab Data
02/14/25 04:07
02/14/25 05:48
Microbiology
02/07/25 21:41 Blood/Venous Blood Culture - Final
No Growth - Final Report
02/07/25 21:37 Blood/Venous Blood Culture - Final
No Growth - Final Report
--- NOTE | 2025-02-14 08:27 | W.PN.ID1 ---
Date of Service
Date of Service: February 14, 2025
Today's Communication
Continue antibiotics for today
Assessment / Plan
# High-grade small bowel obstruction
- s/p lap NICKI (02/12/25 )
# Leukocytosis - trending down
# Shock
- now off pressors
# TYESHA on CKD, improving
# A-fib - rate controlled
# PCN and sulfa allergy
-Bcx's neg, Ucx neg. CXR clear lungs.
- Continue empiric Vancomycin (d#5) metronidazole (d#5) cefepime(d#8) for today.
- Anticipate dc abx's within next 24 hrs as patient clinically improves.
- Trend wbc, vitals, renal function
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
CVA
Osteoporosis
CKD3A
CAD
History of collagenous colitis status post colostomy with subsequent reversal, abdominal wall reconstruction without mesh
Lumbar radiculopathy
Depression/anxiety
Restless leg syndrome
Osteoporosis
Hysterectomy
Ventral Hernia repair
Left elbow surgery
Femur surgery
Chief Complaint
-: Leukocytosis
Subjective / Review of Systems
Review of Systems: No Fever and No Chills
Vital Signs / Physical Exam
Vital Signs
Vital Signs
Temp Pulse Resp BP Pulse Ox
98.8 F 61 15 130/84 97
02/14/25 07:17 02/14/25 06:15 02/14/25 06:15 02/14/25 06:14 02/13/25 20:05
Physical Exam
Constitutional: No Acute Distress, Comfortable and Chronically Ill
Head: Other (NG tube in place.)
Cardiovascular: Regular Rate and S1/S2; Negative S3/S4
Pulmonary: Clear; Negative Wheezes or Rales
Gastrointestinal: Soft, Tender (mild), Non Distended and Decreased Bowel Sounds
Extremities: Negative Edema, Cyanosis or Erythema
Psychological: Calm
Objective Data
Lab Data
Lab Results
02/14/25 04:07
02/14/25 05:48
PT 17.5 Sec (11.4-14.6) H 02/09/25 09:46
INR 1.41 02/09/25 09:46
APTT Cancelled 02/11/25 09:45
Estimated Creat Clear 25 ml/min 02/14/25 05:48
Lactic Acid Cancelled 02/09/25 10:00
Total Bilirubin 0.6 mg/dl (0.2-1.3) 02/14/25 05:48
AST 101 U/L (14-36) H 02/14/25 05:48
ALT 40 U/L (0-35) H 02/14/25 05:48
Alkaline Phosphatase 70 U/L (38-126) 02/14/25 05:48
Most recent labs reviewed.
Micro Results:
02/07/25 21:41 Blood Culture - Final
Blood/Venous No Growth - Final Report
02/07/25 21:37 Blood Culture - Final
Blood/Venous No Growth - Final Report
02/08/25 05:55 Urine Culture - Final
Urine NO GROWTH
02/08/25 05:55 Nasal Screen MRSA (PCR) - Final
Nose MRSA not detected - performed by PCR methodology.
02/07/25 CT a/p: Small bowel obstruction with transition point in the left lower quadrant. Moderate colonic stool burden. Tree-in-bud opacities within the right middle lobe which may be infectious/inflammatory. There is mild asymmetric cutaneous
thickening and stranding in the inferior left gluteal soft tissues which may represent superficial infectious/inflammatory process or sequelae of pressure wound.
02/09/25 CT a/p: Dilated small bowel, just slightly increased in comparison to recent prior study with findings again seen suggesting small bowel obstruction as was noted on recent prior study. No free air. Nasogastric tube with tip in the stomach.
Large volume stool filling and mildly distending the rectum. Cannot exclude mild stercoral colitis.
02/09/25 CXR: . Right PICC tip projects over the central SVC. Lungs remain clear.
02/10/25 SBFT: Delayed imaging at 6 hours reveals persistent contrast throughout dilated small bowel. There is no definitive oral contrast seen in large bowel. Findings suggest high-grade small bowel obstruction.
02/11/25 AXR: Persistent dilated small bowel with persistent contrast following small bowel series of preceding day. Findings suggest high-grade small bowel obstruction.
--- NOTE | 2025-02-14 08:33 | PHA.VAN.FU ---
Vancomycin Assessment / Plan
- Assessment
Renal Function: SCR Decreasing (1.8->1.5)
WBC's are: WNL (9.7)
In the past 24 hrs, patient has been: Afebrile
Concomitant Antimicrobials: Cefepime, Metronidazole
- Assessment - Therapeutic Drug Monitoring
Random Level: 13.8 ~12.5H after 500mg dose
- Dosing Plan
Dosing by Level: Re-dose today
Dosing Comments: Vanco 500mg x1
- Monitoring Plan
Random Level: 02/15/25 0600
- Follow Up
Pharmacy will continue to follow.
Vancomycin Follow UP
- -
Patient Age: 79
Patient Sex: Female
Vancomycin Day #: 5 (re-consulted today)
Indication: Gi / Intra-Abdominal
Requesting Provider: Dr. Kovacs
Pertinent Antimicrobial Allergies:
Penicillins,sulfa
Height / Weight:
Height 5 ft 3 in
Actual Weight 53.4 kg
Pertinent Past Medical History: CKD3a
- Vital Signs / Lab Results
Temp Pulse Resp BP Pulse Ox
98.8 F 61 15 130/84 97
02/14/25 07:17 02/14/25 06:15 02/14/25 06:15 02/14/25 06:14 02/13/25 20:05
Lab Results - Hematology
02/11/25 02/12/25 02/13/25
15:16 03:54 05:38
WBC 23.6 H 15.8 H 14.5 H
02/14/25
04:07
WBC 9.7
Lab Results - Chemistry
02/11/25 02/12/25 02/13/25
15:16 03:54 05:38
BUN 75 H 75 H 62 H
Creatinine 2.4 H 2.1 H 1.8 H
Estimated Creat Clear 15 17 20
Albumin 2.3 L
02/14/25 02/14/25
04:07 05:48
BUN Cancelled 62 H
Creatinine Cancelled 1.5 H
Estimated Creat Clear Cancelled 25
Albumin Cancelled 2.1 L
Microbiology Results
02/07/25 21:41 Blood Culture - Final
Blood/Venous No Growth - Final Report
02/07/25 21:37 Blood Culture - Final
Blood/Venous No Growth - Final Report
Therapeutic Drug Monitoring
Random Vancomycin 13.8 ug/ml 02/14/25 04:07
[2025-02-14] MEDS: VANCOCIN HCL 500 MG 100 IV (08:50)
--- NOTE | 2025-02-14 09:02 | PTCARENOTE ---
Pt peripheral site infiltrated this am. Site removed. Veins very small and some hard in l arm. IV team called for peripheral access.
--- NOTE | 2025-02-14 09:48 | W.PN.NEPH.PH ---
Addendum entered and electronically signed by Lucina Shahid MD 02/14/25 09:58:
sice allergic to sulfa and HCTZ-will try bumex instead of lasix
Original Note:
Today's Communication / Plan
-
renew TPN, lasix
Assessment/Plan
-
Assessment
TYESHA
Azotemia
CKD 3A 1.3 baseline= follows with nephrology in [place] Dr. Land
SBO s/p laparoscopic lysis of adhesions 02/12
Nausea vomiting
Metabolic acidosis
Hyperdense renal cysts
A-fib
History of stroke
Left adrenaloma
Plan
improving renal function cr 1.5, keep rock still
non oliguric but wt increasing-will give lasix 40mg IVx1
renew TPN
BP stable off benoit
stable resp status on RA
cont supportive care
d/w nursing
-
-
Date of Service: February 14, 2025
CC / HPI / ROS
-
Chief Complaint:
Small bowel obstruction
History of Present Illness:
Presents with small bowel obstruction acute on chronic kidney disease baseline creatinine 1.4 with presenting creatinine 3.8
cr now at 1.5, non oliguric with rock
off benoit since last night
no fever
hb low at 8.2, wt is up
Review of Systems:.
has NGT
no SOB at rest on RA
no cp
surgical pain on Iv Dilaudid
Labs
-
Labs:
WBC 9.7 10^3/uL (4.8-10.8) 02/14/25 04:07
RBC 2.67 10^6/uL (4.20-5.40) L 02/14/25 04:07
Hgb 8.2 g/dL (12.0-16.0) L 02/14/25 04:07
Hct 25.5 % (37.0-47.0) L 02/14/25 04:07
Plt Count 212 10^3/uL (130-400) D 02/14/25 04:07
Sodium 138 mmol/L (135-145) 02/14/25 05:48
Potassium 3.8 mmol/L (3.5-5.1) 02/14/25 05:48
Chloride 110 mmol/L (98-107) H 02/14/25 05:48
Carbon Dioxide 23 mmol/L (22-30) 02/14/25 05:48
BUN 62 mg/dl (7-17) H 02/14/25 05:48
Creatinine 1.5 mg/dL (0.6-1.0) H 02/14/25 05:48
eGFR 35.01 02/14/25 05:48
Glucose 208 mg/dl (70-99) H 02/14/25 05:48
Calcium 7.7 mg/dl (8.4-10.2) L 02/14/25 05:48
Phosphorus 3.3 mg/dl (2.5-4.5) 02/14/25 05:48
Albumin 2.1 g/dl (3.5-5.0) L 02/14/25 05:48
Physical Exam
-
Vital Signs:
Vital Signs
Temp Pulse Resp BP Pulse Ox
98.8 F 61 15 130/84 100
02/14/25 07:17 02/14/25 06:15 02/14/25 06:15 02/14/25 06:14 02/14/25 08:00
Cardiovascular:: Regular rate and rhythm
Lung Excursion:: Normal (decrased BS,)
Abdomen:: Soft
Extremity Edema:: None: Bilateral:
Rock Catheter: Yes
--- NOTE | 2025-02-14 09:48 | W.PN.CARDCBS ---
Today's Communication / Plan
-
IV amiodarone to maintain sinus rhythm
IV metoprolol while not taking p.o.'s if blood pressure allows
Once taking p.o.'s we can change to p.o. amiodarone and p.o. metoprolol with blood pressure hold parameters
Resume oral anticoagulation as soon as safe
Will follow with you
Impression / Plan
-
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
Impression:
Small bowel obstruction/status post lysis of adhesions 02/12/2025
Prior bowel perforation from collagenous colitis with colostomy creation and subsequent reversal, VHR and prior small bowel obstruction
Dehydration
Newly diagnosed atrial fibrillation and rapid ventricular rates
Nonischemic troponin elevation with peak troponin 0.261
Abnormal EKG
Acute on chronic kidney disease
History of CVA
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
Sarcoidosis
Frailty
Echo 02/09/2025: Mild LVH, EF 50-55%, mild mitral regurgitation, mild aortic regurgitation, mild to moderate tricuspid regurgitation, pulmonary artery systolic pressure 27 mmHg
Plan:
She remains in sinus rhythm and will continue IV amiodarone and IV Lopressor. Can transition to oral formulation when able to take p.o.
Currently has NG tube in place.
Resume anticoagulation once able post-op. Patient is at elevated stroke risk while off anticoagulation
Discussed with nursing
Progress Note - Slate Splitter
Subjective
Date of Service: February 14, 2025
Feels about the same, overall blood pressure remains mildly low
Objective
Labs:
02/14/25 04:07
02/14/25 05:48
Labs
Hgb 8.2 g/dL (12.0-16.0) L 02/14/25 04:07
Hct 25.5 % (37.0-47.0) L 02/14/25 04:07
Plt Count 212 10^3/uL (130-400) D 02/14/25 04:07
PT 17.5 Sec (11.4-14.6) H 02/09/25 09:46
INR 1.41 02/09/25 09:46
APTT Cancelled 02/11/25 09:45
Sodium 138 mmol/L (135-145) 02/14/25 05:48
Potassium 3.8 mmol/L (3.5-5.1) 02/14/25 05:48
BUN 62 mg/dl (7-17) H 02/14/25 05:48
Creatinine 1.5 mg/dL (0.6-1.0) H 02/14/25 05:48
Glucose 208 mg/dl (70-99) H 02/14/25 05:48
Digoxin 0.7 ng/ml (0.8-2.0) L 02/11/25 04:54
Vital Signs and I&O:
Vital Signs
Temp Pulse Resp BP Pulse Ox
98.8 F 61 15 130/84 100
02/14/25 07:17 02/14/25 06:15 02/14/25 06:15 02/14/25 06:14 02/14/25 08:00
Vital Signs
Temp Pulse Resp BP Pulse Ox
98.8 F 61 15 130/84 100
02/14/25 07:17 02/14/25 06:15 02/14/25 06:15 02/14/25 06:14 02/14/25 08:00
Intake & Output
02/12/25 02/13/25 02/14/25 02/15/25
06:59 06:59 06:59 06:59
Intake Total 2934.3 / 3087.0 2050.7 / 2179.4 2048.1 / 2096.8 276.1 / 276.1
Output Total 2900 / 2900 1150 / 1195 937 / 962 105 / 105
Balance 34.3 / 187.0 900.7 / 984.4 1111.1 / 1134.8 171.1 / 171.1
Physical Exam
Physical Exam
����Physical Exam
���������������������General:��no apparent distress, not acutely ill
���������������������������Neck:��supple. no meningeal signs. normal psoterior pharynx
������������������������
���������������������������Heart:��s1/s2 regular rate and rhythm, no murmur. equal radial pulses.
��������������������������Lungs: ��no acute respiratory distress. clear bilaterally
����������������������Abdomen:�normal bowel sounds. not tender. no CVAT
��������������������������Neuro:��alert and oriented. no focal neurological deficits
������������������������������Skin: ��no rash
�����������������������Psychiatric:�well kept. interactive and cooperative
�����������������������Extremities:��no edema. no calf tenderness. negative homans. good distal pulses
��
�
--- NOTE | 2025-02-14 09:52 | PTCARENOTE ---
with assist of 2 due to weakness/lack of effort, pt assisted oob to chair.
[2025-02-14] MEDS: BUMEX 0.5 MG IV (10:08)
[2025-02-14 11:57] LABS: Glucose - Point of Care 254 mg/dl (70-99)
[2025-02-14] MEDS: LOPRESSOR 5 MG IV (12:02)
[2025-02-14] MEDS: NOVOLOG FLEXPEN-MODERATE RESISTANCE 5 UNITS SC (12:03)
--- NOTE | 2025-02-14 12:30 | PTCARENOTE ---
Pt seen at bedside by Dr Rogers. NGT removed by Dr Rogers and pt still ok for ice chips. Surgery wanted anticoagulation to remain on hold for today. Dr Forman texted and made aware. Pt has remained out of bed to chair. Remains flat and at times
tearful. Texting with family, medicated for pain as charted. Otherwise no changes.
--- NOTE | 2025-02-14 12:31 | W.PN.HOSP.TC ---
Today's Communication/Plan
-
CW TPN
CW ABX
Restart IV heparin
Assessment / Plan
Assessment / Plan
Ms. Jack is an 79-year-old female with a medical history of sarcoidosis, collagenous colitis with bowel perforation (status post colostomy and reversal at [facility]), CAD, CKD, and CVA who presented with 5 days of nausea and vomiting associated
with abdominal pain and distention. Her last bowel movement was almost 1 week prior to arrival and she has been unable to tolerate anything p.o. during the past week. CT imaging shows very distended small bowel with a transition point in the left
lower quadrant concerning for high-grade obstruction. NG tube was placed for decompression and started on low intermittent wall suction. She developed A-fib with RVR with a heart rate of 150s to 180s, no prior history of A-fib. She was given a
dose of IV Lopressor with no significant effect and so was then started on IV Cardizem drip. However she became mildly hypotensive and so was switched to IV amiodarone drip with bolus. She has been admitted for further evaluation and management of
SBO and new onset A-fib with RVR.
High-grade SBO secondary to adhesions
- Status post laparoscopic lysis of additions 02/12
- Await recovery of bowel function. NG tube in place. Continue with n.p.o.
-Started on TPN
Sepsis
Clinical shock requiring pressors -suspected septic shock
Unclear source.
Not bacteremic
Urinalysis without pyuria
CT abdomen pelvis raised the concern of tree-in-bud opacities in the right middle lobe, mild asymmetric cutaneous thickening is stranding in the inferior left gluteal soft tissues, mild rectal wall thickening with large amount of stool in the colon.
She does have a cough and she also complains of left buttock area pain. Unclear if those are the sources of infection.
- Continue antibiotics with cefepime/flagyl/Vanco
- off of vasopressors
- Normalized white count. Afebrile
A-fib with RVR:
- New onset
- C continue with IV amiodarone drip and additional pushes of IV Lopressor
- Anticoagulating with IV heparin drip-was on hold with NG aspirate being bloody which is now clear. H&H stable. Will restart IV heparin today as discussed with surgery yesterday.
- Currently she is in sinus rhythm
- Cardiology following, recommendations appreciated
TYESHA on CKD 3:
- Suspect worsening due to poor perfusion in the setting of sepsis with intermittent hypotension
- With associated metabolic acidosis she was put on IV bicarb which is now discontinued with resolution of metabolic acidosis; patient takes p.o. sodium bicarb at home
- TPN per nephrology. Improving creatinine
- Follow-up nephrology recommendations -consider diuretics for wt gain
NSTEMI:
- Suspect due to myocardial stress in the setting of SBO and rapid A-fib
- Anticoagulating with IV heparin drip-on hold
- Appreciate cardiology recommendations
Progressive [id number] aspirate looks bloody-patient is on IV heparin. Heparin on hold. H&H stable and aspirate without blood. Continue with PPI IV. Follow HH
Abdominal aortic dilatation:
- Focal dilatation of the infrarenal abdominal aorta measuring 2.9 cm
- Ongoing outpatient monitoring recommended
Adrenal nodule:
- 1.5 centimeter hypodense left adrenal nodule noted on imaging, likely an adenoma
- Outpatient monitoring recommended
Nutrition-patient has been n.p.o. since admission. Day 7 today without diet. Will start TPN.
CODE STATUS: DNR
Discussed with RN
Discussed with nephrology
Discussed with snow plow operator
Total time spent on today's encounter was 52 minutes which included time spent in counseling the patient/family regarding diagnosis and treatment plan as listed above, goals of care, and symptom management. Case was discussed with nursing staff,
specialists, and care coordinators/case management. All labs and imaging personally reviewed by me. Remainder the time spent in detailed review of previous records, lab data, imaging, and other medical provider documentation.
Anticipated Discharge: > 48 hours
Subjective/Interval History
-
Date of Service: February 14, 2025
Today complains bit of abdominal pain but also back pain. No nausea or vomiting. Passing gas.
Denies any chest pain. Breathing may be a bit labored.
No dizziness.
Objective Data
-
Labs:
Laboratory Results
02/14/25 02/14/25
04:07 05:48
WBC 9.7
Hgb 8.2 L
Hct 25.5 L
Plt Count 212 D
Sodium Cancelled 138
Potassium Cancelled 3.8
Chloride Cancelled 110 H
Carbon Dioxide Cancelled 23
BUN Cancelled 62 H
Creatinine Cancelled 1.5 H
Glucose Cancelled 208 H
Calcium Cancelled 7.7 L
Total Bilirubin Cancelled 0.6
AST Cancelled 101 H
ALT Cancelled 40 H
Alkaline Phosphatase Cancelled 70
Vital Signs:
Vital Signs
Temp Pulse Resp BP Pulse Ox
97.2 F 76 19 125/70 94
02/14/25 11:00 02/14/25 12:02 02/14/25 11:00 02/14/25 12:02 02/14/25 09:51
I&O
02/13/25 02/14/25 02/15/25
06:59 06:59 06:59
Intake Total 2050.7 / 2179.4 2048.1 / 2096.8 552.2 / 552.2
Output Total 1150 / 1195 937 / 962 340 / 340
Balance 900.7 / 984.4 1111.1 / 1134.8 212.2 / 212.2
Physical Exam
-
General: Comfortable
Respiratory: Clear to Auscultation (anteriorly) and Non Labored Respirations; Negative Accessory Resp Muscle Use
Cardiac: Regular Rhythm, S1/S2 and JVD
GI: Soft, Nondistended and Normal Bowel Sounds; Negative Tender (some discomfort but rebound or guarding)
Neuro: AO x 3
Psych: Calm
Data Reviewed
-
Labs: Labs Reviewed by me
--- NOTE | 2025-02-14 12:41 | W.PN.GS2 ---
Today's Communication / Plan
-
d/c ngt
hold on anticoagulation
Assessment / Plan
-
Assessment: 79-year-old female presenting with high-grade small bowel obstruction
POD #2 Laparoscopic NICKI
TYESHA improving
Pressors off early this am
Afebrile, vital signs stable
Plan:
--Continue on TPN, managed by nephrology
--D/C NGT, continue NPO with ice chips for comfort
--Pain management
--Cont PPI
--Cont antibiotics
--Cont medical management per primary team
Hold full AC for now, if h/h remains stable in AM, ok to start heparin gtt with no bolus tomorrow from surgical standpoint
Subjective Data
-
Date of Service: February 14, 2025
Patient seen and examined at bedside with Dr. Rogers. Monchoies n/v. Passing some small smears of stools. Recently received analgesics for abd pain with relief
Objective Data
-
Intake and Output
02/13/25 02/14/25 02/15/25
06:59 06:59 06:59
Intake Total 2050.7 / 2179.4 2048.1 / 2096.8 552.2 / 552.2
Output Total 1150 / 1195 937 / 962 340 / 340
Balance 900.7 / 984.4 1111.1 / 1134.8 212.2 / 212.2
Intake:
Oral fluids 0 / 0 0 / 0
IV fluids (Total) 1760.7 / 1789.4 1528.1 / 1544.8 100.2 / 100.2
Amiodarone 350.7 / 367.4 384.1 / 400.8 100.2 / 100.2
Lr 1,000 ml @ 60 mls/hr IV . 1200 / 1200 720 / 720
[id number] TANIKA Rx#:[id number]
Fred 210 / 222 168 / 168
TPN 256 / 256
IV piggybacks 200 / 300 400 / 400 200 / 200
TPN/PPN 192 / 192
Amount instilled into GI Tube ( 90 / 90 120 / 120 60 / 60
Total)
[place] Sump 90 / 90 120 / 120 60 / 60
Output:
Gastrointestinal tube output ( 450 / 450 50 / 50
Total)
[place] Sump 450 / 450 50 / 50
Urine, Suero 700 / 745 887 / 912 340 / 340
Urine, Voided 0 / 0
Vital Signs
Temp Pulse Resp BP Pulse Ox
97.2 F 76 19 125/70 94
02/14/25 11:00 02/14/25 12:02 02/14/25 11:00 02/14/25 12:02 02/14/25 09:51
Lab Results
02/14/25 04:07
02/14/25 05:48
Calcium 7.7 mg/dl (8.4-10.2) L 02/14/25 05:48
Phosphorus 3.3 mg/dl (2.5-4.5) 02/14/25 05:48
Magnesium 2.0 mg/dl (1.6-2.3) 02/14/25 05:48
Total Bilirubin 0.6 mg/dl (0.2-1.3) 02/14/25 05:48
Direct Bilirubin 0.4 mg/dl (0.0-0.4) 02/13/25 05:38
AST 101 U/L (14-36) H 02/14/25 05:48
ALT 40 U/L (0-35) H 02/14/25 05:48
Alkaline Phosphatase 70 U/L (38-126) 02/14/25 05:48
Total Protein 4.6 g/dl (6.3-8.2) L 02/14/25 05:48
Albumin 2.1 g/dl (3.5-5.0) L 02/14/25 05:48
Physical Exam
-
NAD
ABD soft, nd, nt
No signs of infx around surgical wound sites, glue intact
[2025-02-14] MEDS: HUMULIN N KWIKPEN 5 UNITS SC (13:21)
[2025-02-14] MEDS: MAXIPIME 1000 MG IV (15:14)
[2025-02-14] MEDS: STERILE WATER FOR INJECTION 10 ML IV (15:15)
--- NOTE | 2025-02-14 16:30 | PTCARENOTE ---
Systems reviewed. Pt continues to tolerate ice chips. No bm since first thing in morning. VItals remain stable off pressors. Continues to c/o abd pain, medicated as charted. Abdomen remains soft, no rebound or guarding. Returned to bed with
heavy assist of 2. Pt remains withdrawn, but in somewhat better spirits this afternoon. More interactive with staff and talking about grandchildren. Spoke on telephone to family. Otherwise no changes.
[2025-02-14 18:36] LABS: Glucose - Point of Care 234 mg/dl (70-99)
[2025-02-14] MEDS: NOVOLOG FLEXPEN 2 UNITS SC (18:36)
[2025-02-14] MEDS: NOVOLOG FLEXPEN-HIGH RESISTANCE 4 UNITS SC (18:36)
--- NOTE | 2025-02-14 19:55 | PTCARENOTE ---
Handoff report received from off going RN. Patient received on Amiodarone gtt at 0.5 mg/min (16.7 ml/hr). Pt's awake and oriented x3. Flat affect. Verbalizes abdominal pain of 8/10, felt mainly on the left side per the patient. Plan of care and pain
management plan for the shift reviewed with the patient. MAEx4 with generalized weakness. NSR on the monitor with HR of 67. + 1 anasarca. trunk edema +2. Weak but palpable pulses. SpO2 at 97 % on room air. Scattered crackles. + BS. Tenderness with
palpation. Rock catheter is draining santiago urine. Mouth and rock care provided. Patient turned and repositioned. SCDs in use. Safety measures maintained. Call álvarez and personal belongings are within reach.
[2025-02-14] MEDS: Parenteral Nutrition, Central 780 IV (21:01)
[2025-02-14] MEDS: ATIVAN 0.25 MG IV (22:08)
[2025-02-14] MEDS: LANTUS 0.07 UNITS SC (22:08)
[2025-02-14] MEDS: NSS (PRESERVATIVE FREE) 0.125 ML IV (22:09)
[2025-02-14 22:20] LABS: Glucose - Point of Care 225 mg/dl (70-99)
[2025-02-14 23:53] LABS: Glucose - Point of Care 250 mg/dl (70-99)
[2025-02-15] VITALS (23 sets, daily range): BP systolic 96–147; BP diastolic 53–91; PULSE 69–70; O2SAT 99–100; BMI 21.2
[2025-02-15] MEDS: FLAGYL 500 MG 100 IV ×4 (00:08→23:40)
[2025-02-15] MEDS: NOVOLOG FLEXPEN-HIGH RESISTANCE 7 UNITS SC (00:09)
[2025-02-15] MEDS: LOPRESSOR IV ×3 (00:09→11:27)
[2025-02-15] MEDS: NOVOLOG FLEXPEN 2 UNITS SC ×4 (00:09→17:52)
--- NOTE | 2025-02-15 00:18 | PTCARENOTE ---
Patient reassessed. had a liquid BM. patient cleansed with CHG wipes. Full linen change completed. VSS. Safety measures maintained.
[2025-02-15] MEDS: CORDARONE 518 MG IV (02:45)
[2025-02-15] MEDS: DILAUDID 0.5 MG IV ×2 (03:06→15:15)
[2025-02-15 03:22] LABS: Hematocrit 26.5 % (37.0-47.0); Hemoglobin 8.8 g/dL (12.0-16.0); Mean Corp Hgb Conc. 33.2 g/dL (33.0-37.0); Mean Corpuscular Hgb 30.2 pg (27.0-31.0); Mean Corpuscular Volume 91.1 fL (81.0-99.0); Mean Platelet Volume 10.1 fL (7.4-10.4); Platelet Count 180 10^3/uL (130-400); Red Blood Cell Count 2.91 10^6/uL (4.20-5.40); Red Cell Dist. Width 14.5 % (11.5-14.5); White Blood Cell Count 15.9 10^3/uL (4.8-10.8)
[2025-02-15 03:39] LABS: Blood Urea Nitrogen 65 mg/dl (7-17); Calcium 8.3 mg/dl (8.4-10.2); Carbon Dioxide 25 mmol/L (22-30); Chloride 110 mmol/L (98-107); Estimated Creatinine Clearance 27 ml/min; Glucose 181 mg/dl (70-99); Magnesium 2.1 mg/dl (1.6-2.3); Phosphorus 1.9 mg/dl (2.5-4.5); Potassium 3.8 mmol/L (3.5-5.1); Sodium 142 mmol/L (135-145); eGFR 38.03
[2025-02-15 03:51] LABS: Vancomycin Random 15.5 ug/ml
[2025-02-15] MEDS: SOLU-CORTEF 50 MG IV ×3 (03:54→19:58)
--- NOTE | 2025-02-15 04:06 | PTCARENOTE ---
Patient reassessed. PRN administered for 9/10 pain. All needs are met at this time. Call álvarez is within reach.
[2025-02-15] MEDS: NOVOLOG FLEXPEN-HIGH RESISTANCE 2 UNITS SC (05:45)
[2025-02-15 06:00] LABS: Glucose - Point of Care 190 mg/dl (70-99)
--- NOTE | 2025-02-15 08:16 | W.PN.INTV ---
Today's Communication / Plan
Recommendations
Went to OR 3 days ago for laparoscopic NICKI and tolerated well, extubated prior to returning to ICU
Continue antibiotics per ID
Serial abdominal exams,NGT removed today and ok to start PO meds
Would check INCOMING INSPECTOR eval prior to her starting PO diet
Defer starting diet to surgery; continue TPN with q6hr ISS and lantus with scheduled aspart
Starting heparin drip today as well per surgery
Continue amiodarone and start PO amio so we can wean off the drip; s/p dig on 02/10; she is now in NSR since 02/11/2025
Continue to trend serum creatinine + UOP
Maintain MAP >65, continue stress dose steroids and wean as she clinically improves
Off pressors since midnight
No longer need to use IVF now that she is on TPN
Diurese now that she is off pressors as she is net (+)9L since admission and weight is up 15 lbs
Continue PPI 40mg IV BID and consider GI consult if concern for GIB persists/worsens
Resume clonazepam at night (outpatient med)
Guarded prognosis - pt seems interested in transitioning to hospice on 02/14 - Dr. Sabillon asked her daughter, Ameena, to discuss this with the family and Leonila - this will be an ongoing discussion
Consider palliative care consult
Considering that the patient's blood pressure stable, off pressors for >36 hours and now able to start oral medications, can downgrade to IMU. No additional recommendations at this time. Assembly Loader/Pulmonary service will now sign off. Please
reconsult if there are any additional questions/concerns, or if patient's respiratory status deteriorates.
Assessment
-
Assessment: 79-year-old female with a past medical history of collagenous colitis s/p colostomy followed by reversal, osteoporosis, depression, history of sarcoidosis, history of CVA and impingement syndrome of bilateral shoulders who presented
with abdominal pain + nausea/vomiting. She has had reduced PO for 1 week prior to arrival and was very weak. Also initially had chills, and had chest pain with shortness of breath and cough. Initially in the ER, she was afebrile to 97.8 �F, pulse
rate 121, respiratory rate 20, BP 91/71 and saturating 98% on room air. Initial labs showed leukocytosis to 11.5, platelet count 557, percent bands 34%, bicarbonate level 16, creatinine 3.8, lactate 6.3, troponin 0.261 and lipase 50. Blood
cultures were collected; initial CXR showed left-sided basilar opacities likely due to atelectasis. CT abdomen/pelvis with oral contrast on showed SBO with transition point in the LLQ with moderate colonic stool burden. Also tree-in-bud
opacities within the RML. In the ER she was given 1.5 L NS 0.9%, Zofran, cefepime/vancomycin and admitted to telemetry for further care. She developed rapid A-fib overnight on 02/07 - 02/08/2025, and heparin drip + Cardizem drip was started.
Cardiology consulted. On the early childhood assistant hours of 02/09, patient had worsening abdominal pain despite NG tube being on LIWS and also her receiving Dilaudid, and heart rate cosme to the 160s with BP 70s/40s. CT abdomen/pelvis was repeated showing
slightly worse dilated small bowel with SBO with no free air and large volume stool with mild distention of the rectum. Patient transferred to the ICU for further care and lap welder services consulted for additional management/recommendations.
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
syndrome of bilateral shoulders, history of CVA, loop recorder
Impression:
#High-grade SBO with nausea/vomiting and reduced PO intake for 1 week SIGNALING PROJECT ENGINEER s/p laparoscopic lysis of adhesions (POD #3)
#Rapid A-fib (A-fib developed on 02/07/2025 � new onset) - spontaneously converted into NSR on 02/11/2025
#Sepsis due to intra-abdominal source (likely translocation in the setting of SBO)
#Circulatory shock likely due to sepsis in setting of rapid A-fib - A fib now resolved as stated above; her DBP is very low, so I question if she has PAD - shock state resolved
#Small focal consolidation seen in the RML � doubt that this small focus is causing her sepsis
#Leukocytosis with 34% bands (on admission)
#Hypochloremic, hyponatremia due to reduced PO intake; doubt SIADH given low urine Na - Na and Cl both normal now
#TYESHA with uremia - uremia resolved and sCr improving
#Hypocalcemia
#Anemia
#Lactic acidosis � now resolved since 02/07/2025
#Elevated troponin � peaked at 0.261 on 02/07/2025
#Abnormal urinalysis with +1 leukocyte esterase
#Reported history of A-fib s/p ablation
#History of sarcoidosis
#Hx of collagenous colitis s/p colostomy followed by reversal
Plan:
- Pt TRX here to ICU for closer monitoring given rapid A-fib with hypotension and worsening abd pain
- CT A/P on 02/09/2025 showed slightly worse dilated small bowel with SBO, although no free air seen; unable to rule out stercoral colitis
- Surgery on board and no acute surgical intervention recommended on 02/09 --> she developed bowel sounds as of 02/09 but belly remains distended, tender and shes in rapid a-fib. As of AM of 02/11, pt actually says that she does not want surgery.
Family came to hospital, discussed the case with the patient and she agreed to surgery, and went to OR on 02/12 for laparoscopic lysis of adhesions
- Postoperative management as per general surgery
- Continue to monitor bowel movements
- She remains on IV antibiotics with cefepime, Flagyl + IV vancomycin (to cover Enterococcus species); ID on board to assist with ABx; if she deteriorates then would start micafungin
- Follow up blood Cx X2 (02/07 - NGTD) and urine Cx (02/08 - NGTD)
- Trend WBC and monitor fever curve
- NGT removed today per surgery
- Pain control
- Now ok to start PO meds and heparin gtt per surgery; not yet ok for diet - started TPN on 02/13; of note, she has low BMI and poor oral intake for >1 week now
- Maintain SpO2 >90-94% using supplemental O2 if needed
- Aspiration precautions
- prn nebulized bronchodilators - not currently bronchospastic
- Encourage incentive spirometer use q1hr while awake or as tolerated
- Maintain MAP>65
- Off vasopressors since starting on stress dose steroids; random cortisol on 02/13 was 9.3 (very low for a post-op pt on vasopressors (of note, she did get dexamethasone 20 mg intraoperatively)
- Continue with hydrocortisone - weaned down to 50 mg IV q8hr on 02/14 given she is clinically improving with her BP --> wean down to 40mg IV q12hr tonight
- Replete electrolytes with K>4, Mg>2
- CXR from 02/09 does not show any evidence of lobar pneumonia
- there is a focus of consolidative opacity in RML seen on CT A/P from 02/07/2025, and persisted on repeat CT A/P from 02/09- she is already on Abx with cefepime, flagyl and IV vanco
- Rate control with amiodarone gtt but now that she can take PO meds, will start PO amio at 200mg TID (per cardiology, Dr. Hannah, who agreed with this)
- Given digoxin 250mcg x1 on 02/10; dig level on 02/11 was 0.7; hold off on further dig given risk of toxicity
- Echo checked on 02/09 showing valvular heart disease with mild MR, mild AI, and mild�moderate TR with preserved LVEF of 50-55% with mild concentric LVH; RV has normal size and function
- Heparin gtt has been held since 02/09 due to anemia - resumed heparin gtt today (02/15)
- Cardiology on board - recs appreciated
- Troponin peaked at 0.261 on admission, hence no longer need to continue trending at this time
- Trend serum creatinine with strict I/O and monitor UOP
- Nephrology consulted and recommendations appreciated
- Patient was on a bicarb drip which was changed to LR on 02/09 --> off IVF now that TPN was started
- Given Bumex 0.5mg IV x1 on 02/14 and again today (02/15) given she has excess total body volume
- Continue to trend sHCO3 levels
- Maintain euglycemia with goal BG 140-180
- Trend H/H and transfuse if needed to keep Hb>7g/dL; keep plt>50k
- Given that there was blood seen coming from NGT on 02/11, I raised PPI to 40mg IV BID --> no more blood seen from NGT since 02/11
- Consider GI consult if concern for GI bleed develops again
- Continue TPN with ISS q6hr; on 02/14 Dr. Sabillon added lantus and scheduled aspart 2 units given BG>220
- DVT ppx: resumed heparin gtt today
DNR/DNI
Guarded prognosis -patient said to Dr. Sabillon on 02/14 that she does not think she should have done the surgery, and wants to 'throw it in.' Her daughter, Ameena, called and I told her what Leonila had just told me, and that the family as well as
Leonila need to discuss what the best course is going forward as it does not seem that Leonila wants to continue fighting to get better and she would like to be comfortable and transition to hospice.
As of 02/15, multiple family was at bedside and the patient is in much better spirits and is more sporadically. Goals of care still needs to be discussed going forward.
Considering that the patient's blood pressure stable, off pressors for >36 hours and now able to start oral medications, can downgrade to IMU. No additional recommendations at this time. Assembly Loader/Pulmonary service will now sign off. Thank you
for allowing us to be involved in the care of this patient. Please reconsult if there are any additional questions/concerns, or if patient's respiratory status deteriorates.
Data:
CT abdomen/pelvis 02/07/2025:
Small bowel obstruction with transition point in the left lower quadrant. Moderate colonic stool burden.
1.5 cm hypodense left adrenal nodule, incompletely characterized on this examination however likely represents an adenoma.
Tree-in-bud opacities within the right middle lobe which may be infectious/inflammatory.
Diffuse osteopenia with postoperative changes of T12 and L1 kyphoplasty.
Extensive atherosclerotic calcifications of the aorta and branch vessels with focal dilation in the infrarenal abdominal aorta measuring 2.9 cm.
Bilateral renal atrophy, more pronounced on the left. There are numerous bilateral renal cysts, some of which appear hyperdense and are likely hemorrhagic/proteinaceous cyst.
There is mild asymmetric cutaneous thickening and stranding in the inferior left gluteal soft tissues which may represent superficial infectious/inflammatory process or sequelae of pressure wound.
CT abdomen/pelvis without IV contrast 02/09/2025:
Dilated small bowel, just slightly increased in comparison to recent prior study with findings again seen suggesting small bowel obstruction as was noted on recent prior study. No free air.
Nasogastric tube with tip in the stomach.
Large volume stool filling and mildly distending the rectum. Cannot exclude mild stercoral colitis.
CXR 02/09/2025:
1. Right PICC tip projects over the central SVC.
2. Lungs remain clear.
Small bowel follow-through 02/10/2025:
Delayed imaging at 6 hours reveals persistent contrast throughout dilated small bowel.
There is no definitive oral contrast seen in large bowel.
Findings suggest high-grade small bowel obstruction.
Total time spent today was 79 minutes for this encounter. Time includes reviewing laboratory test/imaging results, reviewing pertinent medical records, obtaining and reviewing medical history, performing an appropriate exam, ordering medications,
tests and procedures. Time also includes documentation of this encounter, coordinating patient care and communicating with other healthcare professionals. Total time does not include separately billed tests performed on this date of service.
Subjective Dataa
Subjective Data
Date of Service:
Date of Service: February 15, 2025
Chief Complaint: Assembly Loader Follow Up
Subjective:
Patient seen and evaluated this morning. She is doing much better today. Able to start taking oral medications per surgery and NGT removed. Currently on room air breathing comfortably, saturating 99% with BP 145/67 and heart rate 64. Has
abdominal pain similar to yesterday. Multiple family members at bedside and all questions were answered. She denies MAYNARD, SOB, chest pain, fevers or chills.
Review of Systems
General: Other (Negative unless mentioned above)
Objective Data
Data Reviewed
Vital Signs / I&O / Oxygen:
Vital Signs
Temp Pulse Resp BP Pulse Ox
98.3 F 57 15 127/54 97
02/15/25 08:31 02/15/25 06:00 02/15/25 06:00 02/15/25 06:00 02/15/25 06:00
Intake and Output
02/14/25 02/15/25 02/16/25
06:59 06:59 06:59
Intake Total 2048.1 / 2096.8 1707.8 / 1757.5 99.4 / 99.4
Output Total 937 / 962 996 / 1046 100 / 100
Balance 1111.1 / 1134.8 711.8 / 711.5 -0.6 / -0.6
SaO2 97
Nasal Cannula flow liters per 2
minute
Physical Exam
General: Respiratory Distress (negative), Pain (Abdominal), Chills (negative), Sweats (negative) and Other (Appears weak, deconditioned and uncomfortable)
HEENT: Normocephalic and Anicteric
Cardiovascular: S1-S2, Regular Rhythm and Peripheral Edema (Trace lower extremity edema bilaterally)
Respiratory: Clear, Wheeze (negative), Crackles (negative), Rhonchi (negative), Stridor (negative) and Other (Poor inspiratory effort)
GI: Soft, Distended, Tender (Periumbilical) and Normal Bowel Sounds
Neurology: Awake, Alert, Oriented and Tremors (negative)
Skin: Warm, Dry, Cyanosis (negative) and Jaundice (negative)
Labs/Micro/Reports
Lab Data
02/15/25 03:08
02/15/25 03:08
Laboratory Results
02/14/25
12:45
APTT Cancelled
Microbiology
02/07/25 21:41 Blood/Venous Blood Culture - Final
No Growth - Final Report
02/07/25 21:37 Blood/Venous Blood Culture - Final
No Growth - Final Report
--- NOTE | 2025-02-15 08:24 | W.PN.ID1 ---
Date of Service
Date of Service: February 15, 2025
Today's Communication
Continue antibiotics.
Assessment / Plan
# High-grade small bowel obstruction
- s/p lap NICKI (02/12/25 )
# Leukocytosis - up today
# Shock
- now off pressors
# TYESHA on CKD, improving
# A-fib - rate controlled
# PCN and sulfa allergy
-Bcx's neg, Ucx neg. CXR clear lungs.
- Continue empiric Vancomycin (d#6) metronidazole (d#6) cefepime(d#9) for today.
- Continue to trend wbc, vitals, renal function
# Conditions PEARL HAND
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
CVA
Osteoporosis
CKD3A
CAD
History of collagenous colitis status post colostomy with subsequent reversal, abdominal wall reconstruction without mesh
Lumbar radiculopathy
Depression/anxiety
Restless leg syndrome
Osteoporosis
Hysterectomy
Ventral Hernia repair
Left elbow surgery
Femur surgery
Chief Complaint
-: Leukocytosis and Other (SBO)
Subjective / Review of Systems
Review of Systems: No Fever and No Abdominal Pain
Vital Signs / Physical Exam
Vital Signs
Vital Signs
Temp Pulse Resp BP Pulse Ox
97.6 F 57 15 127/54 97
02/15/25 03:29 02/15/25 06:00 02/15/25 06:00 02/15/25 06:00 02/15/25 06:00
Physical Exam
Constitutional: No Acute Distress, Comfortable and Chronically Ill
Cardiovascular: Regular Rate and S1/S2; Negative S3/S4
Pulmonary: Clear; Negative Wheezes or Rales
Gastrointestinal: Soft, Tender (mild), Non Distended and Decreased Bowel Sounds
Extremities: Negative Edema, Cyanosis or Erythema
Neurological: Awake and Alert
Psychological: Calm
Objective Data
Lab Data
Lab Results
02/15/25 03:08
02/15/25 03:08
PT 17.5 Sec (11.4-14.6) H 02/09/25 09:46
INR 1.41 02/09/25 09:46
APTT Cancelled 02/14/25 12:45
Estimated Creat Clear 27 ml/min 02/15/25 03:08
Lactic Acid Cancelled 02/09/25 10:00
Total Bilirubin 0.6 mg/dl (0.2-1.3) 02/14/25 05:48
AST 101 U/L (14-36) H 02/14/25 05:48
ALT 40 U/L (0-35) H 02/14/25 05:48
Alkaline Phosphatase 70 U/L (38-126) 02/14/25 05:48
Most recent labs reviewed.
Micro Results:
02/07/25 21:41 Blood Culture - Final
Blood/Venous No Growth - Final Report
02/07/25 21:37 Blood Culture - Final
Blood/Venous No Growth - Final Report
02/08/25 05:55 Urine Culture - Final
Urine NO GROWTH
02/08/25 05:55 Nasal Screen MRSA (PCR) - Final
Nose MRSA not detected - performed by PCR methodology.
Imaging:
02/07/25 CT a/p: Small bowel obstruction with transition point in the left lower quadrant. Moderate colonic stool burden. Tree-in-bud opacities within the right middle lobe which may be infectious/inflammatory. There is mild asymmetric cutaneous
thickening and stranding in the inferior left gluteal soft tissues which may represent superficial infectious/inflammatory process or sequelae of pressure wound.
02/09/25 CT a/p: Dilated small bowel, just slightly increased in comparison to recent prior study with findings again seen suggesting small bowel obstruction as was noted on recent prior study. No free air. Nasogastric tube with tip in the stomach.
Large volume stool filling and mildly distending the rectum. Cannot exclude mild stercoral colitis.
02/09/25 CXR: . Right PICC tip projects over the central SVC. Lungs remain clear.
02/10/25 SBFT: Delayed imaging at 6 hours reveals persistent contrast throughout dilated small bowel. There is no definitive oral contrast seen in large bowel. Findings suggest high-grade small bowel obstruction.
02/11/25 AXR: Persistent dilated small bowel with persistent contrast following small bowel series of preceding day. Findings suggest high-grade small bowel obstruction.
[2025-02-15] MEDS: NSS (PRESERVATIVE FREE) 10 ML IV (08:40)
[2025-02-15] MEDS: PROTONIX IV 40 MG IV (08:41)
--- NOTE | 2025-02-15 08:50 | W.PN.CARDCBS ---
Today's Communication / Plan
-
Resume p.o. amiodarone and metoprolol on February 16
Once taking p.o.'s resume oral anticoagulation when safe as per surgical perspective
Impression / Plan
-
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
Impression:
Small bowel obstruction/status post lysis of adhesions 02/12/2025
Prior bowel perforation from collagenous colitis with colostomy creation and subsequent reversal, VHR and prior small bowel obstruction
Dehydration
Newly diagnosed atrial fibrillation and rapid ventricular rates
Nonischemic troponin elevation with peak troponin 0.261
Abnormal EKG
Acute on chronic kidney disease
History of CVA
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
Sarcoidosis
Frailty
Echo 02/09/2025: Mild LVH, EF 50-55%, mild mitral regurgitation, mild aortic regurgitation, mild to moderate tricuspid regurgitation, pulmonary artery systolic pressure 27 mmHg
Plan:
-She remains in sinus rhythm and will continue IV amiodarone and IV Lopressor. Can transition to oral formulation when able to take p.o. and I suspect on February 16 we can transition to p.o. amiodarone and Lopressor
-Her NG tube is out and she is starting to take little shaved ice bites
-Resume anticoagulation once able post-op. Patient is at elevated stroke risk while off anticoagulation
Progress Note - Natural Gas Inspector
Subjective
Date of Service: February 15, 2025
Starting to take little bites of shaved ice
Objective
Labs:
02/15/25 03:08
02/15/25 03:08
Labs
Hgb 8.8 g/dL (12.0-16.0) L 02/15/25 03:08
Hct 26.5 % (37.0-47.0) L 02/15/25 03:08
Plt Count 180 10^3/uL (130-400) 02/15/25 03:08
PT 17.5 Sec (11.4-14.6) H 02/09/25 09:46
INR 1.41 02/09/25 09:46
APTT Cancelled 02/14/25 12:45
Sodium 142 mmol/L (135-145) 02/15/25 03:08
Potassium 3.8 mmol/L (3.5-5.1) 02/15/25 03:08
BUN 65 mg/dl (7-17) H 02/15/25 03:08
Creatinine 1.4 mg/dL (0.6-1.0) H 02/15/25 03:08
Glucose 181 mg/dl (70-99) H 02/15/25 03:08
Digoxin 0.7 ng/ml (0.8-2.0) L 02/11/25 04:54
Vital Signs and I&O:
Vital Signs
Temp Pulse Resp BP Pulse Ox
98.3 F 57 15 127/54 97
02/15/25 08:31 02/15/25 06:00 02/15/25 06:00 02/15/25 06:00 02/15/25 06:00
Vital Signs
Temp Pulse Resp BP Pulse Ox
98.3 F 57 15 127/54 97
02/15/25 08:31 02/15/25 06:00 02/15/25 06:00 02/15/25 06:00 02/15/25 06:00
Intake & Output
02/13/25 02/14/25 02/15/25 02/16/25
06:59 06:59 06:59 06:59
Intake Total 2050.7 / 2179.4 2048.1 / 2096.8 1707.8 / 1757.5 99.4 / 99.4
Output Total 1150 / 1195 937 / 962 996 / 1046 100 / 100
Balance 900.7 / 984.4 1111.1 / 1134.8 711.8 / 711.5 -0.6 / -0.6
Physical Exam
Physical Exam
����Physical Exam
���������������������General:��no apparent distress, not acutely ill
���������������������������Neck:��supple. no meningeal signs. normal psoterior pharynx
������������������������
���������������������������Heart:��s1/s2 regular rate and rhythm, no murmur. equal radial pulses.
��������������������������Lungs: ��no acute respiratory distress. clear bilaterally
����������������������Abdomen:�normal bowel sounds. not tender. no CVAT
��������������������������Neuro:��alert and oriented. no focal neurological deficits
������������������������������Skin: ��no rash
�����������������������Psychiatric:�well kept. interactive and cooperative
�����������������������Extremities:��no edema. no calf tenderness. negative homans. good distal pulses
��
�
--- NOTE | 2025-02-15 09:01 | PHA.VAN.FU ---
Vancomycin Assessment / Plan
- Assessment
Renal Function: SCR Decreasing (1.5->1.4)
WBC's are: Trending Up (9.7->15.9)
In the past 24 hrs, patient has been: Afebrile
Concomitant Antimicrobials: Cefepime, Metronidazole
- Assessment - Therapeutic Drug Monitoring
Random Level: 15.5 ~18H after 500mg infusion
- Dosing Plan
Dosing by Level: Re-dose today
Dosing Comments: Vanco 500mg x1
- Monitoring Plan
Random Level: 02/16/25 0600
- Follow Up
Pharmacy will continue to follow.
Vancomycin Follow UP
- -
Patient Age: 79
Patient Sex: Female
Vancomycin Day #: 6 (re-consulted today)
Indication: Gi / Intra-Abdominal
Requesting Provider: Dr. Kovacs
Pertinent Antimicrobial Allergies:
Penicillins,sulfa
Height / Weight:
Height 5 ft 3 in
Actual Weight 54.2 kg
Pertinent Past Medical History: CKD3a
- Vital Signs / Lab Results
Temp Pulse Resp BP Pulse Ox
98.3 F 57 15 127/54 97
02/15/25 08:31 02/15/25 06:00 02/15/25 06:00 02/15/25 06:00 02/15/25 06:00
Lab Results - Hematology
02/13/25 02/14/25 02/14/25
05:38 04:07 12:45
WBC 14.5 H 9.7 Cancelled
02/15/25
03:08
WBC 15.9 H
Lab Results - Chemistry
02/13/25 02/14/25 02/14/25
05:38 04:07 05:48
BUN 62 H Cancelled 62 H
Creatinine 1.8 H Cancelled 1.5 H
Estimated Creat Clear 20 Cancelled 25
Albumin 2.3 L Cancelled 2.1 L
02/15/25
03:08
BUN 65 H
Creatinine 1.4 H
Estimated Creat Clear 27
Albumin
Therapeutic Drug Monitoring
Random Vancomycin 15.5 ug/ml 02/15/25 03:08
--- NOTE | 2025-02-15 09:38 | W.PN.HOSP.TC ---
Today's Communication/Plan
-
Continue with TPN. Advance diet per surgery.
Start on IV heparin if okay from surgical standpoint.
CW ABX.
PT/OT tx.
Assessment / Plan
Assessment / Plan
Ms. Jack is an 79-year-old female with a medical history of sarcoidosis, collagenous colitis with bowel perforation (status post colostomy and reversal at [facility]), CAD, CKD, and CVA who presented with 5 days of nausea and vomiting associated
with abdominal pain and distention. Her last bowel movement was almost 1 week prior to arrival and she has been unable to tolerate anything p.o. during the past week. CT imaging shows very distended small bowel with a transition point in the left
lower quadrant concerning for high-grade obstruction. NG tube was placed for decompression and started on low intermittent wall suction. She developed A-fib with RVR with a heart rate of 150s to 180s, no prior history of A-fib. She was given a
dose of IV Lopressor with no significant effect and so was then started on IV Cardizem drip. However she became mildly hypotensive and so was switched to IV amiodarone drip with bolus. She has been admitted for further evaluation and management of
SBO and new onset A-fib with RVR.
High-grade SBO secondary to adhesions
- Status post laparoscopic lysis of additions 02/12
- Await recovery of bowel function. NG tube is out. Advance diet per surgery .
-Started on TPN
Sepsis
Clinical shock requiring pressors -suspected septic shock
Unclear source.
Not bacteremic
Urinalysis without pyuria
CT abdomen pelvis raised the concern of tree-in-bud opacities in the right middle lobe, mild asymmetric cutaneous thickening is stranding in the inferior left gluteal soft tissues, mild rectal wall thickening with large amount of stool in the colon.
She does have a cough and she also complains of left buttock area pain. Unclear if those are the sources of infection.
- Continue antibiotics with cefepime/flagyl/Vanco
- off of vasopressors
- Normalized white count-bump up today noted-continue to follow. Afebrile
A-fib with RVR:
- New onset
- C continue with IV amiodarone drip and additional pushes of IV Lopressor
- Anticoagulating with IV heparin drip-was on hold with NG aspirate being bloody which is now clear. H&H stable. Will restart IV heparin when okay from surgical standpoint
- Currently she is in sinus rhythm
- Cardiology following, recommendations appreciated
TYESHA on CKD 3:
- Suspect worsening due to poor perfusion in the setting of sepsis with intermittent hypotension
- With associated metabolic acidosis she was put on IV bicarb which is now discontinued with resolution of metabolic acidosis; patient takes p.o. sodium bicarb at home
- TPN per nephrology. Improving creatinine
- Follow-up nephrology recommendations -continue with as needed diuretics. Off of oxygen today.
NSTEMI:
- Suspect due to myocardial stress in the setting of SBO and rapid A-fib
- Anticoagulating with IV heparin drip-on hold
- Appreciate cardiology recommendations
Progressive [id number] further external bleeding. H&H stable . Continue with PPI IV. Follow HH
Abdominal aortic dilatation:
- Focal dilatation of the infrarenal abdominal aorta measuring 2.9 cm
- Ongoing outpatient monitoring recommended
Adrenal nodule:
- 1.5 centimeter hypodense left adrenal nodule noted on imaging, likely an adenoma
- Outpatient monitoring recommended
Nutrition-patient has been n.p.o. since admission. Day 7 today without diet. Will start TPN.
CODE STATUS: DNR
Discussed with RN
PT OT eval
Will consider transfer to IMU depending on progress today
Total time spent on today's encounter was 52 minutes which included time spent in counseling the patient/family regarding diagnosis and treatment plan as listed above, goals of care, and symptom management. Case was discussed with nursing staff,
specialists, and care coordinators/case management. All labs and imaging personally reviewed by me. Remainder the time spent in detailed review of previous records, lab data, imaging, and other medical provider documentation.
Anticipated Discharge: > 48 hours
Subjective/Interval History
-
Date of Service: February 15, 2025
Patient's NG tube is out. Currently on ice chips. No nausea vomiting. passing flatus. No bowel movement. Abdominal pain improved. She is chronic low back pain from disc problem and it is getting exacerbated being in the bed. No radiculopathy.
Objective Data
-
Labs:
Laboratory Results
02/15/25
03:08
WBC 15.9 H
Hgb 8.8 L
Hct 26.5 L
Plt Count 180
Sodium 142
Potassium 3.8
Chloride 110 H
Carbon Dioxide 25
BUN 65 H
Creatinine 1.4 H
Glucose 181 H
Calcium 8.3 L
Vital Signs:
Vital Signs
Temp Pulse Resp BP Pulse Ox
98.3 F 57 15 127/54 97
02/15/25 08:31 02/15/25 06:00 02/15/25 06:00 02/15/25 06:00 02/15/25 06:00
I&O
02/14/25 02/15/25 02/16/25
06:59 06:59 06:59
Intake Total 2048.1 / 2096.8 1707.8 / 1757.5 99.4 / 99.4
Output Total 937 / 962 996 / 1046 100 / 100
Balance 1111.1 / 1134.8 711.8 / 711.5 -0.6 / -0.6
Review of Systems
-
Constitutional: Denies Fever
Respiratory: Denies Trouble Breathing (Off of oxygen today)
Cardiac: Denies Chest Pain
Neuro: Denies Dizzy
Physical Exam
-
General: Comfortable
Respiratory: Clear to Auscultation and Non Labored Respirations; Negative Wheezes, Crackles or Accessory Resp Muscle Use
Cardiac: Regular Rhythm and S1/S2
GI: Soft, Nontender, Nondistended and Normal Bowel Sounds
Neuro: AO x 3
Psych: Calm
Data Reviewed
-
Labs: Labs Reviewed by me
[2025-02-15 09:42] LABS: Glycohemoglobin (HgbA1c) 5.4 % (4.0-5.6)
[2025-02-15] MEDS: VANCOCIN HCL 500 MG 100 IV (10:37)
[2025-02-15] MEDS: MAXIPIME 1000 MG IV ×2 (10:38→21:25)
[2025-02-15] MEDS: STERILE WATER FOR INJECTION 10 ML IV ×2 (10:38→21:25)
[2025-02-15] MEDS: DILAUDID 0.25 MG IV (10:39)
--- NOTE | 2025-02-15 10:42 | W.PN.GS2 ---
Today's Communication / Plan
-
Ok for po meds
Ok for heparin gtt no bolus from surgical standpoint
Assessment / Plan
-
Assessment: 79-year-old female presenting with high-grade small bowel obstruction
POD #3 Laparoscopic NICKI
TYESHA improving
Afebrile, vital signs stable
Labs stable
Passing some flatus/small stools
Plan:
--Continue on TPN, managed by nephrology
--NPO with sips of clears. Ok for PO meds.
--Pain management
--Cont PPI
--ABX as per ID
--Cont medical management per primary team
Ok for heparin gtt no bolus, hold off on PO AC until more robust bowel recovery
Subjective Data
-
Date of Service: February 15, 2025
Pt seen and examined at bedside with Dr. Rogers. Jose Manuel n/v. c/o abdominal pain. Hasn't slept well for the last few days. Passing flatus and small stools
Objective Data
-
Intake and Output
02/14/25 02/15/25 02/16/25
06:59 06:59 06:59
Intake Total 2048.1 / 2096.8 1707.8 / 1757.5 99.4 / 99.4
Output Total 937 / 962 996 / 1046 100 / 100
Balance 1111.1 / 1134.8 711.8 / 711.5 -0.6 / -0.6
Intake:
Oral fluids 0 / 0 120 / 120
IV fluids (Total) 1528.1 / 1544.8 400.8 / 417.5 33.4 / 33.4
Amiodarone 384.1 / 400.8 400.8 / 417.5 33.4 / 33.4
Lr 1,000 ml @ 60 mls/hr IV . 720 / 720
[id number] TANIKA Rx#:[id number]
Fred 168 / 168
TPN 256 / 256
IV piggybacks 400 / 400 350 / 350
TPN/PPN 777 / 810 66 / 66
Amount instilled into GI Tube ( 120 / 120 60 / 60
Total)
[place] Sump 120 / 120 60 / 60
Output:
Gastrointestinal tube output ( 50 / 50
Total)
[place] Sump 50 / 50
Urine, Suero 887 / 912 996 / 1046 100 / 100
Vital Signs
Temp Pulse Resp BP Pulse Ox
98.3 F 57 15 127/54 97
02/15/25 08:31 02/15/25 06:00 02/15/25 06:00 02/15/25 06:00 02/15/25 06:00
Lab Results
02/15/25 03:08
02/15/25 03:08
Calcium 8.3 mg/dl (8.4-10.2) L 02/15/25 03:08
Phosphorus 1.9 mg/dl (2.5-4.5) L 02/15/25 03:08
Magnesium 2.1 mg/dl (1.6-2.3) 02/15/25 03:08
Total Bilirubin 0.6 mg/dl (0.2-1.3) 02/14/25 05:48
Direct Bilirubin 0.4 mg/dl (0.0-0.4) 02/13/25 05:38
AST 101 U/L (14-36) H 02/14/25 05:48
ALT 40 U/L (0-35) H 02/14/25 05:48
Alkaline Phosphatase 70 U/L (38-126) 02/14/25 05:48
Total Protein 4.6 g/dl (6.3-8.2) L 02/14/25 05:48
Albumin 2.1 g/dl (3.5-5.0) L 02/14/25 05:48
Physical Exam
-
NAD
ABD soft, mild distended, mild generalized tenderness
No signs of infx around surgical wound sites, glue intact
[2025-02-15] MEDS: MYLICON 80 MG PO (10:53)
[2025-02-15 12:10] LABS: Glucose - Point of Care 231 mg/dl (70-99)
[2025-02-15] MEDS: TYLENOL 650 MG PO ×4 (12:11→23:42)
[2025-02-15] MEDS: NOVOLOG FLEXPEN-HIGH RESISTANCE 4 UNITS SC ×3 (12:11→23:41)
--- NOTE | 2025-02-15 12:36 | W.PN.NEPH.PH ---
Today's Communication / Plan
-
renew TPN
Bumex again
Assessment/Plan
-
Assessment
TYESHA
Azotemia
CKD 3A 1.3 baseline= follows with nephrology in [place] Dr. Land
SBO s/p laparoscopic lysis of adhesions 02/12
Nausea vomiting
Metabolic acidosis
Hyperdense renal cysts
A-fib
History of stroke
Left adrenaloma
Plan
improving renal function cr 1.4
ok for VT
barely non oliguric and wt increasing-will give bumex 1mg and redose if needed
reports sulfa allergy with rash even with lasix
renew TPN-increase k phos for hypophosphatemia
BP stable
stable resp status on RA
cont supportive care
d/w nursing
d/w family at bedside
-
-
Date of Service: February 15, 2025
CC / HPI / ROS
-
Chief Complaint:
Small bowel obstruction
History of Present Illness:
Presents with small bowel obstruction acute on chronic kidney disease baseline creatinine 1.4 with presenting creatinine 3.8
cr now at 1.4, non oliguric with rock
bp stable
no fever
hb low at 8.8, wt is up
Review of Systems:.
off NGT
no SOB at rest on RA
no cp
surgical pain
Labs
-
Labs:
WBC 15.9 10^3/uL (4.8-10.8) H 02/15/25 03:08
RBC 2.91 10^6/uL (4.20-5.40) L 02/15/25 03:08
Hgb 8.8 g/dL (12.0-16.0) L 02/15/25 03:08
Hct 26.5 % (37.0-47.0) L 02/15/25 03:08
Plt Count 180 10^3/uL (130-400) 02/15/25 03:08
Sodium 142 mmol/L (135-145) 02/15/25 03:08
Potassium 3.8 mmol/L (3.5-5.1) 02/15/25 03:08
Chloride 110 mmol/L (98-107) H 02/15/25 03:08
Carbon Dioxide 25 mmol/L (22-30) 02/15/25 03:08
BUN 65 mg/dl (7-17) H 02/15/25 03:08
Creatinine 1.4 mg/dL (0.6-1.0) H 02/15/25 03:08
eGFR 38.03 02/15/25 03:08
Glucose 181 mg/dl (70-99) H 02/15/25 03:08
Calcium 8.3 mg/dl (8.4-10.2) L 02/15/25 03:08
Phosphorus 1.9 mg/dl (2.5-4.5) L 02/15/25 03:08
Albumin 2.1 g/dl (3.5-5.0) L 02/14/25 05:48
Physical Exam
-
Vital Signs:
Vital Signs
Temp Pulse Resp BP Pulse Ox
97.9 F 63 15 127/54 97
02/15/25 11:00 02/15/25 11:27 02/15/25 06:00 02/15/25 06:00 02/15/25 06:00
Cardiovascular:: Regular rate and rhythm
Respiratory:: Bilateral: Coarse
Lung Excursion:: Normal
Abdomen:: Soft
Extremity Edema:: None: Bilateral: (trace)
Rock Catheter: Yes
[2025-02-15 12:52] LABS: APTT 31.9 Sec (23.4-35.0)
[2025-02-15] MEDS: FOLVITE 1 MG PO (13:23)
[2025-02-15] MEDS: BUMEX 1 MG IV (13:23)
[2025-02-15] MEDS: VITAMIN D3 (cholecalciferol) 125 MCG PO (13:23)
[2025-02-15] MEDS: HEPARIN 25000 UNITS/250 ML IV (13:43)
--- NOTE | 2025-02-15 15:51 | CHAP ---
Called by ICU staff for Leonila, who was feeling downcast. Her son was at her side. Leonila asked for a prayer - emotional and spiritual support provided. Prayer blanket in her favorite color also provided, along with assurance of our on-going
availability.
[2025-02-15] MEDS: PACERONE 200 MG PO ×2 (16:49→21:25)
[2025-02-15] MEDS: WELLBUTRIN SR (12 hour sustained release) 150 MG PO (16:50)
--- NOTE | 2025-02-15 17:02 | PTCARENOTE ---
pt assisted back to bed. still required mod assist of 2, but improved movement with cues during transfer
[2025-02-15] MEDS: LAMICTAL 25 MG PO (17:06)
[2025-02-15 17:50] LABS: Glucose - Point of Care 223 mg/dl (70-99)
[2025-02-15] MEDS: PROTONIX 40 MG PO (19:57)
[2025-02-15] MEDS: COREG PO (19:57)
[2025-02-15] MEDS: NSS (PRESERVATIVE FREE) IV (19:58)
--- NOTE | 2025-02-15 20:00 | PTCARENOTE ---
Rec'd pt resting in bed , oriented, cooperative, needs enc to move in bed, SR/ Sinus rosey, bp stable, + edema, weak distal pulses, RA, lungs decr , sat 99, hypo bowel sounds, no bm, abd soft, no n/v, npo excepts meds, ice chips, sips h20- jordan
well, rock draining santiago urine, hep gtt at 300 units/ amiodarone gtt dc'd per order
[2025-02-15 20:11] LABS: APTT 35.1 Sec (23.4-35.0)
[2025-02-15] MEDS: Parenteral Nutrition, Central 770 IV (20:49)
[2025-02-15] MEDS: LANTUS 0.1 UNITS SC (21:02)
[2025-02-15 21:13] LABS: Glucose - Point of Care 201 mg/dl (70-99)
[2025-02-15] MEDS: LIPITOR 80 MG PO (21:24)
[2025-02-15] MEDS: KLONOPIN 1 MG PO (21:24)
[2025-02-15] MEDS: REMERON 15 MG PO (21:25)
[2025-02-15] MEDS: MIRAPEX 0.5 MG PO (21:26)
[2025-02-15] MEDS: SEROQUEL 50 MG PO (21:26)
[2025-02-15 23:40] LABS: Glucose - Point of Care 200 mg/dl (70-99)
[2025-02-15] MEDS: NOVOLOG FLEXPEN 4 UNITS SC (23:41)
[2025-02-16] VITALS (13 sets, daily range): BP systolic 114–153; BP diastolic 52–93; BMI 21.1
--- NOTE | 2025-02-16 | PTCARENOTE ---
sys reviewed, changes noted, CHG bath done, linens changed
[2025-02-16 03:00] LABS: Hematocrit 24.9 % (37.0-47.0); Hemoglobin 8.1 g/dL (12.0-16.0); Mean Corp Hgb Conc. 32.5 g/dL (33.0-37.0); Mean Corpuscular Hgb 29.7 pg (27.0-31.0); Mean Corpuscular Volume 91.2 fL (81.0-99.0); Mean Platelet Volume 10.6 fL (7.4-10.4); Platelet Count 165 10^3/uL (130-400); Red Blood Cell Count 2.73 10^6/uL (4.20-5.40); Red Cell Dist. Width 14.6 % (11.5-14.5); White Blood Cell Count 13.5 10^3/uL (4.8-10.8)
[2025-02-16 03:10] LABS: APTT 53.7 Sec (23.4-35.0)
[2025-02-16 03:29] LABS: ALT (SGPT) 31 U/L (0-35); AST (SGOT) 62 U/L (14-36); Albumin 2.1 g/dl (3.5-5.0); Alkaline Phosphatase 63 U/L (38-126); Blood Urea Nitrogen 64 mg/dl (7-17); Calcium 8.4 mg/dl (8.4-10.2); Carbon Dioxide 26 mmol/L (22-30); Chloride 110 mmol/L (98-107); Estimated Creatinine Clearance 29 ml/min; Glucose 179 mg/dl (70-99); Phosphorus 2.1 mg/dl (2.5-4.5); Potassium 3.5 mmol/L (3.5-5.1); Sodium 145 mmol/L (135-145); Total Bilirubin 0.5 mg/dl (0.2-1.3); Total Protein 4.8 g/dl (6.3-8.2); Triglycerides 68 mg/dl (10-149); eGFR 41.57
[2025-02-16 03:32] LABS: Vancomycin Random 15.4 ug/ml
--- NOTE | 2025-02-16 04:00 | PTCARENOTE ---
ashleighs reviewed, inc of sm amt brown soft stool, eliud care given
[2025-02-16] MEDS: TYLENOL PO ×2 (04:16→14:47)
[2025-02-16 05:22] LABS: Glucose - Point of Care 185 mg/dl (70-99)
[2025-02-16] MEDS: NOVOLOG FLEXPEN-HIGH RESISTANCE 2 UNITS SC (05:24)
[2025-02-16] MEDS: NOVOLOG FLEXPEN 4 UNITS SC (05:24)
--- NOTE | 2025-02-16 07:58 | W.PN.GS2 ---
Addendum entered and electronically signed by Andry Alfaro MD 02/16/25 11:31:
I saw and examined the patient independently.
The resident's documentation was reviewed and I agree with the note, assessment and plan except where noted below.
Comment: 79-year-old female postoperative day 4 from laparoscopic lysis of adhesions. Overall doing well. Expected postoperative course.
Will advance to clears, continue TPN.
Bowel regimen.
Out of bed and ambulate
Remainder of care per primary, general surgery will continue to follow.
Original Note:
Today's Communication / Plan
-
Clear liquid diet, cont TPN until PO intake sufficient
Assessment / Plan
-
Assessment: 79-year-old female presenting with high-grade small bowel obstruction
POD #4 Laparoscopic NICKI
TYESHA improving
Afebrile, vital signs stable
Labs stable
Passing some small stools
Plan:
--Continue on TPN, managed by nephrology
--Advance to clear liquids and see how pts tolerates
--Pain management
--Cont PPI
--ABX as per ID
--Cont medical management per primary team
No signs of bleeding, hg stable, cont heparin ggt.
Subjective Data
-
Date of Service: February 16, 2025
Waking up from sleep when I saw her. No complaints of N/V overnight and pain controlled.
Objective Data
-
Intake and Output
02/15/25 02/16/25 02/17/25
06:59 06:59 06:59
Intake Total 1707.8 / 1757.5 949.8 / 949.8
Output Total 996 / 1046 1360 / 1360
Balance 711.8 / 711.5 -410.2 / -410.2
Intake:
Oral fluids 120 / 120
IV fluids (Total) 400.8 / 417.5 296.8 / 296.8
Amiodarone 400.8 / 417.5 233.8 / 233.8
Heparin 63 / 63
IV piggybacks 350 / 350 200 / 200
TPN/PPN 777 / 810 453 / 453
Amount instilled into GI Tube ( 60
Total)
[place] Sump 60 / 60
Output:
Urine, Suero 996 / 1046 1360 / 1360
Vital Signs
Temp Pulse Resp BP Pulse Ox
98 F 58 14 128/57 94
02/16/25 07:40 02/16/25 06:00 02/16/25 06:00 02/16/25 06:00 02/16/25 06:00
Lab Results
02/16/25 02:50
02/16/25 02:50
Calcium 8.4 mg/dl (8.4-10.2) 02/16/25 02:50
Phosphorus 2.1 mg/dl (2.5-4.5) L 02/16/25 02:50
Magnesium 2.0 mg/dl (1.6-2.3) 02/16/25 02:50
Total Bilirubin 0.5 mg/dl (0.2-1.3) 02/16/25 02:50
Direct Bilirubin 0.4 mg/dl (0.0-0.4) 02/13/25 05:38
AST 62 U/L (14-36) H 02/16/25 02:50
ALT 31 U/L (0-35) 02/16/25 02:50
Alkaline Phosphatase 63 U/L (38-126) 02/16/25 02:50
Total Protein 4.8 g/dl (6.3-8.2) L 02/16/25 02:50
Albumin 2.1 g/dl (3.5-5.0) L 02/16/25 02:50
Physical Exam
-
NAD
Slight ab distension, slight tympany in RLQ, slight tenderness all improved from prior
Surgical sites healing well
[2025-02-16] MEDS: PROTONIX 40 MG PO ×2 (08:15→20:16)
[2025-02-16] MEDS: WELLBUTRIN SR (12 hour sustained release) 150 MG PO (08:15)
[2025-02-16] MEDS: FLAGYL 500 MG 100 IV ×2 (08:15→16:51)
[2025-02-16] MEDS: PACERONE 200 MG PO ×3 (08:15→21:49)
[2025-02-16] MEDS: TYLENOL 650 MG PO ×3 (08:15→20:16)
[2025-02-16] MEDS: NSS (PRESERVATIVE FREE) IV ×2 (08:16→20:16)
[2025-02-16] MEDS: SOLU-CORTEF 50 MG IV ×2 (08:16→20:17)
[2025-02-16] MEDS: COREG PO (08:16)
--- NOTE | 2025-02-16 08:51 | W.PN.CARDCBS ---
Today's Communication / Plan
-
Remains in sinus rhythm. Continue oral amiodarone and carvedilol.
Creatinine continues to improve down to 1.3.
Weight is up about 12 pounds from admission. LVEF is overall preserved.
Watch for signs of volume overload. May need a dose of Lasix.
Eventually start full anticoagulation with no plans for surgery.
Impression / Plan
-
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
Impression:
Small bowel obstruction/status post lysis of adhesions 02/12/2025
Prior bowel perforation from collagenous colitis with colostomy creation and subsequent reversal, VHR and prior small bowel obstruction
Dehydration
Newly diagnosed atrial fibrillation and rapid ventricular rates
Nonischemic troponin elevation with peak troponin 0.261
Abnormal EKG
Acute on chronic kidney disease
History of CVA
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
Sarcoidosis
Frailty
Echo 02/09/2025: Mild LVH, EF 50-55%, mild mitral regurgitation, mild aortic regurgitation, mild to moderate tricuspid regurgitation, pulmonary artery systolic pressure 27 mmHg
Plan:
-Remains in sinus rhythm and starting to tolerate p.o. meds. Continue amiodarone 200 mg p.o. 3 times daily and carvedilol 6.25 mg p.o. twice daily. Eventually would decrease amiodarone to 100 mg twice daily.
-Continue to advance diet.
-Hemoglobin overall stable at 8.1. Continue to follow.
-Creatinine continues to improve and is now down to 1.3.
- Remains on IV heparin. Hopefully start full anticoagulation over the next 24 to 48 hours.
Progress Note - Rehabilitation Liaison
Subjective
Date of Service: February 16, 2025
She is tolerating some p.o. meds. Remains in sinus rhythm. Denies chest pains.
Objective
Labs:
02/16/25 02:50
02/16/25 02:50
Labs
Hgb 8.1 g/dL (12.0-16.0) L 02/16/25 02:50
Hct 24.9 % (37.0-47.0) L 02/16/25 02:50
Plt Count 165 10^3/uL (130-400) 02/16/25 02:50
PT 17.5 Sec (11.4-14.6) H 02/09/25 09:46
INR 1.41 02/09/25 09:46
APTT 53.7 Sec (23.4-35.0) H 02/16/25 02:50
Sodium 145 mmol/L (135-145) 02/16/25 02:50
Potassium 3.5 mmol/L (3.5-5.1) 02/16/25 02:50
BUN 64 mg/dl (7-17) H 02/16/25 02:50
Creatinine 1.3 mg/dL (0.6-1.0) H 02/16/25 02:50
Glucose 179 mg/dl (70-99) H 02/16/25 02:50
Digoxin 0.7 ng/ml (0.8-2.0) L 02/11/25 04:54
Vital Signs and I&O:
Vital Signs
Temp Pulse Resp BP Pulse Ox
98 F 62 15 127/59 97
02/16/25 07:40 02/16/25 08:16 02/16/25 08:00 02/16/25 08:15 02/16/25 08:00
Vital Signs
Temp Pulse Resp BP Pulse Ox
98 F 62 15 127/59 97
02/16/25 07:40 02/16/25 08:16 02/16/25 08:00 02/16/25 08:15 02/16/25 08:00
Intake & Output
02/14/25 02/15/25 02/16/25 02/17/25
06:59 06:59 06:59 06:59
Intake Total 2048.1 / 6.8 1707.8 / 1757.5 949.8 / 988.8
Output Total 937 / 962 996 / 1046 1360 / 1360 0 / 0
Balance 1111.1 / 1134.8 711.8 / 711.5 -410.2 / -371.2
Physical Exam
Physical Exam
GEN: No distress, awake, Ox3
HEENT: supple, anicteric, mmm
LUNGS: CTA, no wheezes/rales
CV: Reg, S1/S2, 1/6 syst LSB, no gallop
ABD: soft, BS+, mild tend
EXT: No edema
NEURO: Gross non-focal
SKIN: No rash
[2025-02-16] MEDS: STERILE WATER FOR INJECTION 10 ML IV ×2 (09:42→21:52)
[2025-02-16] MEDS: BUMEX 1 MG IV (09:42)
[2025-02-16] MEDS: MAXIPIME 1000 MG IV ×2 (09:42→21:52)
--- NOTE | 2025-02-16 09:59 | W.PN.ID1 ---
Date of Service
Date of Service: February 16, 2025
Today's Communication
Last day of antibiotics today.
Assessment / Plan
# High-grade small bowel obstruction
- s/p lap NICKI (02/12/25 )
# Leukocytosis - improved today
# s/p Shock
- now off pressors
# TYESHA on CKD, improving
# A-fib - rate controlled
# PCN and sulfa allergy
-Bcx's neg, Ucx neg. CXR clear lungs.
- Last day Vancomycin (d#7) metronidazole (d#7) cefepime(d#10) for today.
- Continue to trend wbc
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
CVA
Osteoporosis
CKD3A
CAD
History of collagenous colitis status post colostomy with subsequent reversal, abdominal wall reconstruction without mesh
Lumbar radiculopathy
Depression/anxiety
Restless leg syndrome
Osteoporosis
Hysterectomy
Ventral Hernia repair
Left elbow surgery
Femur surgery
Chief Complaint
-: Leukocytosis and Other (SBO)
Subjective / Review of Systems
Abd pain stable.
Vital Signs / Physical Exam
Vital Signs
Vital Signs
Temp Pulse Resp BP Pulse Ox
98 F 61 15 129/58 97
02/16/25 07:40 02/16/25 09:42 02/16/25 08:00 02/16/25 09:42 02/16/25 08:00
Physical Exam
Constitutional: Chronically Ill
Eyes: Sclera Anicteric
Gastrointestinal: Soft, Tender (diffuse mild), Non Distended and Decreased Bowel Sounds
Genito-Urinary: Negative Suero
Extremities: Negative Edema
Objective Data
Lab Data
Lab Results
02/16/25 02:50
02/16/25 02:50
PT 17.5 Sec (11.4-14.6) H 02/09/25 09:46
INR 1.41 02/09/25 09:46
APTT 53.7 Sec (23.4-35.0) H 02/16/25 02:50
Estimated Creat Clear 29 ml/min 02/16/25 02:50
Lactic Acid Cancelled 02/09/25 10:00
Total Bilirubin 0.5 mg/dl (0.2-1.3) 02/16/25 02:50
AST 62 U/L (14-36) H 02/16/25 02:50
ALT 31 U/L (0-35) 02/16/25 02:50
Alkaline Phosphatase 63 U/L (38-126) 02/16/25 02:50
Most recent labs reviewed.
Micro Results:
02/07/25 21:41 Blood Culture - Final
Blood/Venous No Growth - Final Report
02/07/25 21:37 Blood Culture - Final
Blood/Venous No Growth - Final Report
02/08/25 05:55 Urine Culture - Final
Urine NO GROWTH
02/08/25 05:55 Nasal Screen MRSA (PCR) - Final
Nose MRSA not detected - performed by PCR methodology.
Imaging:
02/07/25 CT a/p: Small bowel obstruction with transition point in the left lower quadrant. Moderate colonic stool burden. Tree-in-bud opacities within the right middle lobe which may be infectious/inflammatory. There is mild asymmetric cutaneous
thickening and stranding in the inferior left gluteal soft tissues which may represent superficial infectious/inflammatory process or sequelae of pressure wound.
02/09/25 CT a/p: Dilated small bowel, just slightly increased in comparison to recent prior study with findings again seen suggesting small bowel obstruction as was noted on recent prior study. No free air. Nasogastric tube with tip in the stomach.
Large volume stool filling and mildly distending the rectum. Cannot exclude mild stercoral colitis.
02/09/25 CXR: . Right PICC tip projects over the central SVC. Lungs remain clear.
02/10/25 SBFT: Delayed imaging at 6 hours reveals persistent contrast throughout dilated small bowel. There is no definitive oral contrast seen in large bowel. Findings suggest high-grade small bowel obstruction.
02/11/25 AXR: Persistent dilated small bowel with persistent contrast following small bowel series of preceding day. Findings suggest high-grade small bowel obstruction.
[2025-02-16 11:01] LABS: APTT 38.3 Sec (23.4-35.0)
--- NOTE | 2025-02-16 11:24 | PHA.VAN.FU ---
Vancomycin Assessment / Plan
- Assessment
Renal Function: Stable (1.3)
WBC's are: (1.3 ~)
Concomitant Antimicrobials: Cefepime, Metronidazole
- Assessment - Therapeutic Drug Monitoring
Random Level: 15.4 ~16.5H after 500mg infusion
- Dosing Plan
Dosing by Level: Re-dose today
Dosing Comments: Vanco 500mg x1
- Monitoring Plan
Random Level: 02/17/25 0600
- Follow Up
Pharmacy will continue to follow.
Vancomycin Follow UP
- -
Patient Age: 79
Patient Sex: Female
Vancomycin Day #: 7 (re-consulted today)
Indication: Gi / Intra-Abdominal
Requesting Provider: Dr. Kovacs
Pertinent Antimicrobial Allergies:
Penicillins,sulfa
Height / Weight:
Height 5 ft 3 in
Actual Weight 53.9 kg
Pertinent Past Medical History: CKD3a
- Vital Signs / Lab Results
Temp Pulse Resp BP Pulse Ox
97.4 F 67 18 129/58 98
02/16/25 11:17 02/16/25 10:00 02/16/25 10:00 02/16/25 09:42 02/16/25 10:00
Lab Results - Hematology
02/14/25 02/14/25 02/15/25
04:07 12:45 03:08
WBC 9.7 Cancelled 15.9 H
02/16/25
02:50
WBC 13.5 H
Lab Results - Chemistry
02/14/25 02/14/25 02/15/25
04:07 05:48 03:08
BUN Cancelled 62 H 65 H
Creatinine Cancelled 1.5 H 1.4 H
Estimated Creat Clear Cancelled
Albumin Cancelled 2.1 L
02/16/25
02:50
BUN 64 H
Creatinine 1.3 H
Estimated Creat Clear 29
Albumin 2.1 L
Therapeutic Drug Monitoring
Random Vancomycin 15.4 ug/ml 02/16/25 02:50
--- NOTE | 2025-02-16 11:31 | WOUNDNOTE ---
WON RN NOTE: Followed up today with assist of nurse. Sacrum and L buttock appears signing agent red, non blanchable. Suspect stage 1 vs evolving DTI, silicone foam changed by nurse today. Remains on air mattress with turning schedule, air cushion in use
when sitting. Heels remain unchanged, foams in use. Patient starting clears and is on TPN. Will follow weekly if able and prn as needed.
[2025-02-16] MEDS: MIRALAX PO (12:03)
[2025-02-16] MEDS: NOVOLOG FLEXPEN SC (12:11)
[2025-02-16] MEDS: NOVOLOG FLEXPEN-HIGH RESISTANCE SC (12:11)
[2025-02-16] MEDS: NOVOLOG FLEXPEN-MODERATE RESISTANCE SC ×2 (12:36→17:28)
[2025-02-16] MEDS: NOVOLOG FLEXPEN 8 UNITS SC ×2 (12:36→18:06)
[2025-02-16 12:48] LABS: Glucose - Point of Care 136 mg/dl (70-99)
--- NOTE | 2025-02-16 12:58 | W.PN.NEPH.PH ---
Today's Communication / Plan
-
bumex
renew TPN
Assessment/Plan
-
Assessment
TYESHA
Azotemia
CKD 3A 1.3 baseline= follows with nephrology in [place] Dr. Land
SBO s/p laparoscopic lysis of adhesions 02/12
Nausea vomiting
Metabolic acidosis
Hyperdense renal cysts
A-fib
History of stroke
Left adrenaloma
Plan
improving renal function cr 1.3
monitor bladder scan now off rock
wt increasing- bumex 1mg, replace k in TPN
reports sulfa allergy with rash even with lasix
renewed TPN-phos is improving
BP stable
stable resp status on RA
cont supportive care
d/w nursing
-
-
Date of Service: February 16, 2025
CC / HPI / ROS
-
Chief Complaint:
Small bowel obstruction
History of Present Illness:
Presents with small bowel obstruction acute on chronic kidney disease baseline creatinine 1.4 with presenting creatinine 3.8
cr now at 1.3, non oliguric with rock
bp stable
no fever
hb low at 8.1, wt is down
Review of Systems:.
no SOB at rest on RA
no cp
feels better today
Labs
-
Labs:
WBC 13.5 10^3/uL (4.8-10.8) H 02/16/25 02:50
RBC 2.73 10^6/uL (4.20-5.40) L 02/16/25 02:50
Hgb 8.1 g/dL (12.0-16.0) L 02/16/25 02:50
Hct 24.9 % (37.0-47.0) L 02/16/25 02:50
Plt Count 165 10^3/uL (130-400) 02/16/25 02:50
Sodium 145 mmol/L (135-145) 02/16/25 02:50
Potassium 3.5 mmol/L (3.5-5.1) 02/16/25 02:50
Chloride 110 mmol/L (98-107) H 02/16/25 02:50
Carbon Dioxide 26 mmol/L (22-30) 02/16/25 02:50
BUN 64 mg/dl (7-17) H 02/16/25 02:50
Creatinine 1.3 mg/dL (0.6-1.0) H 02/16/25 02:50
eGFR 41.57 02/16/25 02:50
Glucose 179 mg/dl (70-99) H 02/16/25 02:50
Calcium 8.4 mg/dl (8.4-10.2) 02/16/25 02:50
Phosphorus 2.1 mg/dl (2.5-4.5) L 02/16/25 02:50
Albumin 2.1 g/dl (3.5-5.0) L 02/16/25 02:50
Physical Exam
-
Vital Signs:
Vital Signs
Temp Pulse Resp BP Pulse Ox
97.4 F 74 21 153/93 96
02/16/25 11:17 02/16/25 12:02 02/16/25 12:02 02/16/25 12:02 02/16/25 12:02
Cardiovascular:: Regular rate and rhythm
Respiratory:: Bilateral: Coarse
Lung Excursion:: Normal
Abdomen:: Soft
Extremity Edema:: None: Bilateral:
Rock Catheter: No
--- NOTE | 2025-02-16 13:11 | PTCARENOTE ---
Rec'd care of patient at 0700. Patient drowsy; easily arousable to verbal stimuli. Oriented. MAEx4. Assisting with Q2hr turns. NSR/SB with prolonged QT on tele monitor. 0800 Coreg dose held per parameters. +Murmur. Trace anasarca. Palpable pulses.
Lung sounds shallow/diminished throughout. Pulse ox 95-98% on RA. Hypo BS. Incontinent of a large liquid brown BM. Tolerating clears. Patient c/o difficulty with swallowing pills. Speech consult placed. Voiding large amount on bedpan s/p Bumex.
Sacral foam changed. Lap sites closed with surgical glue. TPN and Heparin currently infusing through RDL PICC. Around 0930, RN at bedside to draw PTT. Unable to get blood return from both lumens on PICC. VAT RN notified and at bedside. Blood return
regained through one lumen. PTT drawn and sent. Left wrist INT unable to be flushed and causing patient discomfort; site removed. Heparin gtt tubing changed and connected to other lumen. Vanco dose ordered. Due to incompatible medications, VAT RN
contacted for additional peripheral site. Multiple attempts unsuccessful. Plan for VAT RN to place midline catheter.
[2025-02-16] MEDS: VANCOCIN HCL 500 MG 100 IV (14:18)
--- NOTE | 2025-02-16 14:24 | PTCARENOTE ---
VAT unable to place midline catheter. Discussed with Hospitalist. TPN placed on hold for 1 hour in order to administer Vanco.
--- NOTE | 2025-02-16 14:50 | CM ---
Reviewed the chart notes. Diet now clear liquid. TPN continues. CM continues to be available to patient/family and is monitoring medical plan for needs at discharge.
Plan: Discharge plans will depend on the patient's progress.
--- NOTE | 2025-02-16 15:41 | W.PN.HOSP.TC ---
Today's Communication/Plan
-
Assessment / Plan
Assessment / Plan
General: No Apparent Distress, Comfortable and Conversant
HEENT: NormoCephalic, Moist mucous membranes, Atraumatic
Respiratory: Clear and Non Labored Respirations
Cardiac: S1/S2 and Regular Rhythm; No Rub or Gallop
GI: Soft, minimal TTP, surgical port scars clean dry intact
Musculoskeletal: No Edema, right upper extremity PICC
: NO Suero
Neuro: Awake, Alert, Nonfocal/grossly intact
Psych: Calm and cooperative
Ms. Jack is an 79-year-old female with a medical history of sarcoidosis, collagenous colitis with bowel perforation (status post colostomy and reversal at [facility]), CAD, CKD, and CVA who presented with 5 days of nausea and vomiting associated
with abdominal pain and distention. Her last bowel movement was almost 1 week prior to arrival and she has been unable to tolerate anything p.o. during the past week. CT imaging shows very distended small bowel with a transition point in the left
lower quadrant concerning for high-grade obstruction. NG tube was placed for decompression and started on low intermittent wall suction. She developed A-fib with RVR with a heart rate of 150s to 180s, no prior history of A-fib. She was given a
dose of IV Lopressor with no significant effect and so was then started on IV Cardizem drip. However she became mildly hypotensive and so was switched to IV amiodarone drip with bolus. She has been admitted for further evaluation and management of
SBO and new onset A-fib with RVR.
High-grade SBO secondary to adhesions
- Status post laparoscopic lysis of additions 02/12
- NG tube is out. Diet advanced to clears today 02/16 by surgery
- Continuing TPN for now
Sepsis
Clinical shock requiring pressors -suspected septic shock
Unclear source.
Not bacteremic
Urinalysis without pyuria
CT abdomen pelvis raised the concern of tree-in-bud opacities in the right middle lobe, mild asymmetric cutaneous thickening is stranding in the inferior left gluteal soft tissues, mild rectal wall thickening with large amount of stool in the colon.
She does have a cough and she also complains of left buttock area pain. Unclear if those are the sources of infection.
- Continue antibiotics with cefepime/flagyl/Vanco for 1 more day
- off of vasopressors
- Mild persistent leukocytosis, will monitor, remains afebrile
A-fib with RVR:
- New onset
- Continue amiodarone 200 mg p.o. 3 times daily, carvedilol 6.25 mg p.o. twice daily
- Anticoagulating with IV heparin drip, transition to oral anticoagulation as able
- Currently she is in sinus rhythm
- Cardiology following, recommendations appreciated
TYESHA on CKD 3:
- Suspect worsening due to poor perfusion in the setting of sepsis with intermittent hypotension
- Now resolving
- Given a dose of IV Bumex today due to increasing weight
- Suero discontinued
- TPN per nephrology
- Appreciate nephrology recommendations -continue with as needed diuretics.
NSTEMI:
- Suspect due to myocardial stress in the setting of SBO and rapid A-fib
- Do not suspect ACS
- Appreciate cardiology recommendations
Progressive anemia-normocytic:
-no further external bleeding.
- H&H stable
- Continue with PPI p.o. twice daily.
Abdominal aortic dilatation:
- Focal dilatation of the infrarenal abdominal aorta measuring 2.9 cm
- Ongoing outpatient monitoring recommended
Adrenal nodule:
- 1.5 centimeter hypodense left adrenal nodule noted on imaging, likely an adenoma
- Outpatient monitoring recommended
Nutrition-patient has been n.p.o. since admission. Day 7 today without diet. Will start TPN.
CODE STATUS: DNR
PT OT eval-recommending SNF
Anticipated Discharge: > 48 hours
Subjective/Interval History
-
Date of Service: February 16, 2025
Patient was seen and examined at bedside this morning. Status post OR for lysis of adhesions on Sunday. Has been moving her bowels and passing gas. Remains on TPN. Diet advanced to clears this morning. Difficulty with blood return from
peripheral IV and PICC.
Objective Data
-
Labs:
Laboratory Results
02/16/25 02/16/25
10:29 17:30
APTT 38.3 H Pending
Vital Signs:
Vital Signs
Temp Pulse Resp BP Pulse Ox
97.4 F 69 19 144/65 98
02/16/25 11:17 02/16/25 14:19 02/16/25 14:19 02/16/25 14:19 02/16/25 14:19
I&O
02/15/25 02/16/25 02/17/25
06:59 06:59 06:59
Intake Total 1707.8 / 1757.5 949.8 / 988.8 966 / 966
Output Total 996 / 1046 1360 / 1360 0 / 0
Balance 711.8 / 711.5 -410.2 / -371.2 966 / 966
Review of Systems
-
History Source: Patient
All other systems: Reviewed and negative
Physical Exam
-
General: No Apparent Distress
--- NOTE | 2025-02-16 15:55 | PTOTSP ---
Speech Therapy Evaluation:
Pt with mild oral phase impairments with brief oral holding and segmented transfers at times with puree trials. 1x immediate cough with thin liquids via cup, however pt did not demonstrate any previous or subsequent s/sx of aspiration across trials.
Pt with no dysphagia hx, however pt with multiple acute on chronic risk factors including brief intubation for OR, prolonged NPO status, and PMH (CVA, sarcoidosis). WBC currently elevated, however CXR indicates clear lungs.
Recommend:
1. Continue clear liquid diet, per general surgery
2. Essential medications crushed versus whole in puree
3. Monitor for s/sx of aspiration
4. PLASTIC PRODUCTS SALES REPRESENTATIVE to follow to monitor tolerance of diet, assess candidacy for future diet advancements once cleared by surgery, provide education, and determine if pt would benefit from instrumental assessment, however does not appear indicated at this time
given pt interested in transitioning to hospice
[2025-02-16] MEDS: FOLVITE 1 MG PO (16:51)
[2025-02-16] MEDS: VITAMIN D3 (cholecalciferol) 125 MCG PO (16:51)
[2025-02-16] MEDS: LAMICTAL 25 MG PO (17:28)
[2025-02-16 17:30] LABS: Glucose - Point of Care 84 mg/dl (70-99)
[2025-02-16 18:06] LABS: Glucose - Point of Care 111 mg/dl (70-99)
--- NOTE | 2025-02-16 19:22 | VATNOTE ---
Vascular access problematic all day. Pt has R PICC with no blood return, extremely limited access on L arm. This VAT RN was asked by pt's primary RN to obtain more access, but all attempts unsuccessful. Midline would be in pt's best interest, but
ultrasound machine used for that procedure is broken. Loaner will be available in the AM. MD aware of issues with ICC line, CXR ordered. Will continue to monitor.
[2025-02-16 19:29] LABS: APTT 186.3 Sec (23.4-35.0)
--- NOTE | 2025-02-16 19:30 | PTCARENOTE ---
Rec'd pt in bed eating dinner, son at bedside, denies pain, oriented, cooperative, SR/ 1' AV block, BP stable, hep gtt off for ptt 186.3, to restart in 1hr at 700 units, weak distal pulses, skin warm/dry, RA, lungs decr, sat 100, hypo bowel soundsm
abd soft, tender at incis sites, no n/v, jordan clear liquids, voiding on bedpan santiago urine
[2025-02-16] MEDS: COREG 6.25 MG PO (20:16)
[2025-02-16] MEDS: HEPARIN 25000 UNITS/250 ML IV (20:57)
[2025-02-16] MEDS: Parenteral Nutrition, Central 780 IV (20:57)
[2025-02-16 21:37] LABS: Glucose - Point of Care 154 mg/dl (70-99)
[2025-02-16] MEDS: LANTUS 0.1 UNITS SC (21:45)
[2025-02-16] MEDS: LIPITOR 80 MG PO (21:45)
[2025-02-16] MEDS: MIRAPEX 0.5 MG PO (21:46)
[2025-02-16] MEDS: REMERON 15 MG PO (21:47)
[2025-02-16] MEDS: SEROQUEL 50 MG PO (21:48)
[2025-02-16] MEDS: KLONOPIN 1 MG PO (21:48)
[2025-02-17] VITALS (16 sets, daily range): BP systolic 104–157; BP diastolic 50–99; PULSE 74; O2SAT 99; BMI 21.3
[2025-02-17] LABS: Glucose - Point of Care 140 mg/dl (70-99)
--- NOTE | 2025-02-17 | PTCARENOTE ---
ashleighs reviewed, inc of mod amt soft brown stool, CHG bath done, eliud care given
[2025-02-17] MEDS: TYLENOL 650 MG PO ×5 (00:06→21:01)
[2025-02-17] MEDS: NOVOLOG FLEXPEN 8 UNITS SC ×3 (00:06→11:36)
[2025-02-17] MEDS: FLAGYL 500 MG 100 IV ×2 (00:06→07:49)
[2025-02-17] MEDS: NOVOLOG FLEXPEN-MODERATE RESISTANCE SC ×3 (00:07→17:40)
[2025-02-17 03:12] LABS: Hematocrit 25.2 % (37.0-47.0); Hemoglobin 8.3 g/dL (12.0-16.0); Mean Corp Hgb Conc. 32.9 g/dL (33.0-37.0); Mean Corpuscular Hgb 30.6 pg (27.0-31.0); Mean Platelet Volume 11.4 fL (7.4-10.4); Platelet Count 193 10^3/uL (130-400); Red Blood Cell Count 2.71 10^6/uL (4.20-5.40); Red Cell Dist. Width 14.6 % (11.5-14.5); White Blood Cell Count 17.6 10^3/uL (4.8-10.8)
[2025-02-17] MEDS: TYLENOL PO ×2 (03:14→23:03)
[2025-02-17 03:25] LABS: APTT 127.6 Sec (23.4-35.0)
[2025-02-17 03:36] LABS: Blood Urea Nitrogen 56 mg/dl (7-17); Calcium 8.3 mg/dl (8.4-10.2); Carbon Dioxide 24 mmol/L (22-30); Chloride 112 mmol/L (98-107); Estimated Creatinine Clearance 31 ml/min; Glucose 152 mg/dl (70-99); Potassium 3.5 mmol/L (3.5-5.1); Sodium 144 mmol/L (135-145); eGFR 45.76
[2025-02-17 03:40] LABS: Vancomycin Random 17.1 ug/ml
--- NOTE | 2025-02-17 03:46 | PTCARENOTE ---
sys reviewed, inc lg amt loose brown stool, rectal trumpet to str drainage bag applied
[2025-02-17 05:05] LABS: Glucose - Point of Care 157 mg/dl (70-99)
[2025-02-17] MEDS: NOVOLOG FLEXPEN-MODERATE RESISTANCE 1 UNITS SC ×2 (05:05→21:30)
[2025-02-17] MEDS: SOLU-CORTEF 50 MG IV (07:49)
[2025-02-17] MEDS: PROTONIX 40 MG PO ×2 (07:50→21:06)
[2025-02-17] MEDS: DILAUDID 0.5 MG IV (07:50)
[2025-02-17] MEDS: PACERONE 200 MG PO ×3 (07:51→21:04)
[2025-02-17] MEDS: COREG PO (07:51)
[2025-02-17] MEDS: WELLBUTRIN SR (12 hour sustained release) 150 MG PO (07:51)
[2025-02-17] MEDS: NSS (PRESERVATIVE FREE) IV (07:52)
[2025-02-17] MEDS: MIRALAX PO (07:52)
--- NOTE | 2025-02-17 09:38 | W.PN.NEPH.PH ---
Today's Communication / Plan
-
Bumex 1 mg IV today
TPN provided
Assessment/Plan
-
Assessment
TYESHA
Azotemia
CKD 3A 1.3 baseline= follows with nephrology in [place] [address] [place]
SBO s/p laparoscopic lysis of adhesions 02/12
Nausea vomiting
Metabolic acidosis
Hyperdense renal cysts
A-fib
History of stroke
Left adrenaloma
Plan
improving renal function cr 1.2
monitor bladder scan now off rock
wt increasing- bumex 1mg, replace k in TPN
reports sulfa allergy with rash even with lasix
renewed TPN
BP stable
stable resp status on RA but patient appears to be aspirating on fluids during visit
cont supportive care
Free water deficit persist with sodium of 144
d/w nursing
-
-
Date of Service: February 17, 2025
CC / HPI / ROS
-
Chief Complaint:
Small bowel obstruction
History of Present Illness:
Presents with small bowel obstruction acute on chronic kidney disease baseline creatinine 1.4 with presenting creatinine 3.8
cr now at 1.2, non oliguric with rock
bp stable
no fever
Serum sodium at 144
Review of Systems:.
no SOB at rest on RA
no cp
feels better today
Patient is on clears but appears to be aspirating fluid
Weights elevated
Labs
-
Labs:
WBC 17.6 10^3/uL (4.8-10.8) H 02/17/25 02:30
RBC 2.71 10^6/uL (4.20-5.40) L 02/17/25 02:30
Hgb 8.3 g/dL (12.0-16.0) L 02/17/25 02:30
Hct 25.2 % (37.0-47.0) L 02/17/25 02:30
Plt Count 193 10^3/uL (130-400) 02/17/25 02:30
Sodium 144 mmol/L (135-145) 02/17/25 02:30
Potassium 3.5 mmol/L (3.5-5.1) 02/17/25 02:30
Chloride 112 mmol/L (98-107) H 02/17/25 02:30
Carbon Dioxide 24 mmol/L (22-30) 02/17/25 02:30
BUN 56 mg/dl (7-17) H 02/17/25 02:30
Creatinine 1.2 mg/dL (0.6-1.0) H 02/17/25 02:30
eGFR 45.76 02/17/25 02:30
Glucose 152 mg/dl (70-99) H 02/17/25 02:30
Calcium 8.3 mg/dl (8.4-10.2) L 02/17/25 02:30
Phosphorus 2.1 mg/dl (2.5-4.5) L 02/16/25 02:50
Albumin 2.1 g/dl (3.5-5.0) L 02/16/25 02:50
Physical Exam
-
Vital Signs:
Vital Signs
Temp Pulse Resp BP Pulse Ox
96.0 F L 65 19 149/62 97
02/17/25 08:20 02/17/25 08:00 02/17/25 08:00 02/17/25 08:00 02/17/25 08:57
Cardiovascular:: Regular rate and rhythm
Respiratory:: Bilateral: Coarse
Lung Excursion:: Normal
Abdomen:: Soft
Extremity Edema:: None: Bilateral:
Rock Catheter: No
[2025-02-17] MEDS: MAXIPIME 1000 MG IV (09:43)
[2025-02-17] MEDS: STERILE WATER FOR INJECTION 10 ML IV (09:44)
--- NOTE | 2025-02-17 09:55 | W.PN.ID1 ---
Addendum entered and electronically signed by Angeline Kovacs MD 02/17/25 11:29:
C. diff Ag+, toxin neg.
Treat for possible C. diff infection with po Vancomycin 125mg qid x 10d.
DC cefepime.
Original Note:
Date of Service
Date of Service: February 17, 2025
Today's Communication
Check stool for C. diff.
Assessment / Plan
# High-grade small bowel obstruction
- s/p lap NICKI (02/12/25 )
# Leukocytosis - trending up
# s/p Shock
# TYESHA on CKD, improving
# A-fib - rate controlled
# PCN and sulfa allergy
-Diarrhea. Check stool for C. diff
- Completed 7d of empiric Vancomycin/metronidazole
- Continue empiric cefepime(d#11) for now.
- Continue to trend wbc
#Conditions MANAGER ADVERTISING
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
CVA
Osteoporosis
CKD3A
CAD
History of collagenous colitis status post colostomy with subsequent reversal, abdominal wall reconstruction without mesh
Lumbar radiculopathy
Depression/anxiety
Restless leg syndrome
Osteoporosis
Hysterectomy
Ventral Hernia repair
Left elbow surgery
Femur surgery
Chief Complaint
-: Leukocytosis and Other (SBO)
Subjective / Review of Systems
Abdominal pain improving.
Tolerating liquids.
Vital Signs / Physical Exam
Vital Signs
Vital Signs
Temp Pulse Resp BP Pulse Ox
96.0 F L 65 19 149/62 97
02/17/25 08:20 02/17/25 08:00 02/17/25 08:00 02/17/25 08:00 02/17/25 08:57
Physical Exam
Constitutional: Comfortable and Chronically Ill
Eyes: Sclera Anicteric
Cardiovascular: Regular Rate and S1/S2
Pulmonary: Other (Decreased BS bases)
Gastrointestinal: Soft, Tender (mild) and Non Distended
Extremities: Negative Edema
Neurological: AO x 3
Objective Data
Lab Data
Lab Results
02/17/25 02:30
02/17/25 02:30
PT 17.5 Sec (11.4-14.6) H 02/09/25 09:46
INR 1.41 02/09/25 09:46
APTT 127.6 Sec (23.4-35.0) H 02/17/25 02:30
Estimated Creat Clear 31 ml/min 02/17/25 02:30
Lactic Acid Cancelled 02/09/25 10:00
Total Bilirubin 0.5 mg/dl (0.2-1.3) 02/16/25 02:50
AST 62 U/L (14-36) H 02/16/25 02:50
ALT 31 U/L (0-35) 02/16/25 02:50
Alkaline Phosphatase 63 U/L (38-126) 02/16/25 02:50
Most recent labs reviewed.
Micro Results:
02/07/25 21:41 Blood Culture - Final
Blood/Venous No Growth - Final Report
02/07/25 21:37 Blood Culture - Final
Blood/Venous No Growth - Final Report
02/08/25 05:55 Urine Culture - Final
Urine NO GROWTH
02/08/25 05:55 Nasal Screen MRSA (PCR) - Final
Nose MRSA not detected - performed by PCR methodology.
Imaging:
02/07/25 CT a/p: Small bowel obstruction with transition point in the left lower quadrant. Moderate colonic stool burden. Tree-in-bud opacities within the right middle lobe which may be infectious/inflammatory. There is mild asymmetric cutaneous
thickening and stranding in the inferior left gluteal soft tissues which may represent superficial infectious/inflammatory process or sequelae of pressure wound.
02/09/25 CT a/p: Dilated small bowel, just slightly increased in comparison to recent prior study with findings again seen suggesting small bowel obstruction as was noted on recent prior study. No free air. Nasogastric tube with tip in the stomach.
Large volume stool filling and mildly distending the rectum. Cannot exclude mild stercoral colitis.
02/09/25 CXR: . Right PICC tip projects over the central SVC. Lungs remain clear.
02/10/25 SBFT: Delayed imaging at 6 hours reveals persistent contrast throughout dilated small bowel. There is no definitive oral contrast seen in large bowel. Findings suggest high-grade small bowel obstruction.
02/11/25 AXR: Persistent dilated small bowel with persistent contrast following small bowel series of preceding day. Findings suggest high-grade small bowel obstruction.
02/16/25CXR: Right PICC in position as described. Small bilateral pleural effusions with associated atelectasis and/or pneumonia, new from prior.
[2025-02-17 10:22] LABS: APTT 111.1 Sec (23.4-35.0)
[2025-02-17] MEDS: BUMEX 1 MG IV (10:45)
[2025-02-17 11:33] LABS: Glucose - Point of Care 136 mg/dl (70-99)
[2025-02-17] MEDS: VITAMIN D3 (cholecalciferol) 125 MCG PO (11:36)
[2025-02-17] MEDS: FOLVITE 1 MG PO (11:37)
--- NOTE | 2025-02-17 12:13 | W.PN.GS2 ---
Today's Communication / Plan
-
--Trial of full liquids, RESIDENT CARE DIRECTOR following
--Continue on TPN, managed by Nephrology, appreciate
--ABX as per ID
--Continue Hep gtt until full dietary advancement, likely can convert to therapeutic PO in next 24-48 hrs
Assessment / Plan
-
Assessment: 79-year-old female presenting with high-grade small bowel obstruction
POD #5 Laparoscopic NICKI
Afebrile, vital signs stable
Labs notable for rising leukocytosis, stable anemia, improved TYESHA
Signs of clinical improvement with passing multiple loose stools. Plan for slow dietary advancement to full liquids today. RESIDENT CARE DIRECTOR evaluation noted.
Loose stools and leukocytosis. This is not uncommon with the usual resolution of a bowel obstruction. She does carry a history of collagenase colitis. C. difficile testing notable for positive antigen, negative toxin. ID on board with plans to
switch to PO Vancomycin. Continue to trend WBC and clinical improvement. If no improvement then would check a UA given multiple loose stools with presence of pure wick. Pulmonary edema noted on recent chest x-ray. Currently stable on room air
with no increased work of breathing or productive cough.
Malnutrition, currently on TPN per Nephrology
Plan:
--Trial of full liquids, RESIDENT CARE DIRECTOR following
--Continue on TPN, managed by Nephrology, appreciate
--Pain management: Tylenol, consider Tramadol if issues, no NSAIDs with TYESHA
--Cont PPI
--ABX as per ID
--Continue Hep gtt until full dietary advancement, likely can convert to therapeutic PO in next 24-48 hrs
--Cont medical management per primary team, OK for transfer from ICU
Subjective Data
-
Date of Service: February 17, 2025
Reports multiple loose nonbloody stools. Denies any worsening abdominal pain. No nausea or vomiting. Afebrile.
Objective Data
-
Intake and Output
02/16/25 02/17/25 02/18/25
06:59 06:59 06:59
Intake Total 949.8 / 988.8 3172 / 3551 1292 / 1292
Output Total 1360 / 1360 550 / 750 200 / 200
Balance -410.2 / -371.2 2622 / 2801 1092 / 1092
Intake:
Oral fluids 1850 / 2090 960 / 960
IV fluids (Total) 296.8 / 303.8 175 / 181 34 / 34
Amiodarone 233.8 / 233.8
Heparin 63 / 70 175 / 181 34 / 34
IV piggybacks 200 / 200 400 / 500 100 / 100
TPN/PPN 453 / 485 747 / 780 198 / 198
Output:
Liquid stool amount 150 / 150
Rectum 150 / 150
Urine, Rock 1360 / 1360
Urine, Voided 400 / 600 200 / 200
Other:
Number of approximated LARGE 1 1
amounts of urine
Vital Signs
Temp Pulse Resp BP Pulse Ox
97.9 F 74 27 157/69 99
02/17/25 12:02 02/17/25 12:00 02/17/25 12:00 02/17/25 12:00 02/17/25 12:00
Lab Results
02/17/25 02:30
02/17/25 02:30
Calcium 8.3 mg/dl (8.4-10.2) L 02/17/25 02:30
Phosphorus 2.1 mg/dl (2.5-4.5) L 02/16/25 02:50
Magnesium 2.0 mg/dl (1.6-2.3) 02/16/25 02:50
Total Bilirubin 0.5 mg/dl (0.2-1.3) 02/16/25 02:50
Direct Bilirubin 0.4 mg/dl (0.0-0.4) 02/13/25 05:38
AST 62 U/L (14-36) H 02/16/25 02:50
ALT 31 U/L (0-35) 02/16/25 02:50
Alkaline Phosphatase 63 U/L (38-126) 02/16/25 02:50
Total Protein 4.8 g/dl (6.3-8.2) L 02/16/25 02:50
Albumin 2.1 g/dl (3.5-5.0) L 02/16/25 02:50
Physical Exam
-
Gen: NAD
Abd: soft, minimal tenderness, mild distension, non-peritoneal, incisions c/d/i - no erythema, ecchymosis, or drainage
Patient has a rock catheter: No
Patient has a central line: No
[2025-02-17] MEDS: FIRVANQ 125 MG PO ×3 (12:32→23:52)
--- NOTE | 2025-02-17 12:33 | W.PN.CARDCBS ---
Today's Communication / Plan
-
Remains in sinus rhythm. Continue amiodarone and carvedilol. Decrease amiodarone to 200 mg p.o. twice daily.
Remains on IV heparin. Hopefully start Eliquis over next 24 hours.
Continue to advance diet.
Continue antibiotics for C. difficile
Impression / Plan
-
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
Impression:
Small bowel obstruction/status post lysis of adhesions 02/12/2025
Prior bowel perforation from collagenous colitis with colostomy creation and subsequent reversal, VHR and prior small bowel obstruction
Dehydration
Newly diagnosed atrial fibrillation and rapid ventricular rates
Nonischemic troponin elevation with peak troponin 0.261
Abnormal EKG
Acute on chronic kidney disease
History of CVA
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
Sarcoidosis
Frailty
C Diff
Echo 02/09/2025: Mild LVH, EF 50-55%, mild mitral regurgitation, mild aortic regurgitation, mild to moderate tricuspid regurgitation, pulmonary artery systolic pressure 27 mmHg
Plan:
-Remains in sinus rhythm and increasing diet. Continue amiodarone 200 mg p.o. 3 times daily and carvedilol 6.25 mg p.o. twice daily. Eventually would decrease amiodarone to 200 mg twice daily.
-Continue to advance diet.
-Hemoglobin overall stable at 8.3. Continue to follow.
-Creatinine continues to improve and is now down to 1.2.
-Remains on IV heparin. Hopefully start full anticoagulation over the next 24 to 48 hours.
-Continue oral vancomycin for possible C. difficile.
Progress Note - Molder Sweep
Subjective
Date of Service: February 17, 2025
Remains in sinus rhythm. Denies chest pains.
Objective
Labs:
02/17/25 02:30
02/17/25 02:30
Labs
Hgb 8.3 g/dL (12.0-16.0) L 02/17/25 02:30
Hct 25.2 % (37.0-47.0) L 02/17/25 02:30
Plt Count 193 10^3/uL (130-400) 02/17/25 02:30
PT 17.5 Sec (11.4-14.6) H 02/09/25 09:46
INR 1.41 02/09/25 09:46
APTT 111.1 Sec (23.4-35.0) H 02/17/25 09:54
Sodium 144 mmol/L (135-145) 02/17/25 02:30
Potassium 3.5 mmol/L (3.5-5.1) 02/17/25 02:30
BUN 56 mg/dl (7-17) H 02/17/25 02:30
Creatinine 1.2 mg/dL (0.6-1.0) H 02/17/25 02:30
Glucose 152 mg/dl (70-99) H 02/17/25 02:30
Digoxin 0.7 ng/ml (0.8-2.0) L 02/11/25 04:54
Vital Signs and I&O:
Vital Signs
Temp Pulse Resp BP Pulse Ox
97.9 F 74 27 157/69 99
02/17/25 12:02 02/17/25 12:00 02/17/25 12:00 02/17/25 12:00 02/17/25 12:00
Vital Signs
Temp Pulse Resp BP Pulse Ox
97.9 F 74 27 157/69 99
02/17/25 12:02 02/17/25 12:00 02/17/25 12:00 02/17/25 12:00 02/17/25 12:00
Intake & Output
02/15/25 02/16/25 02/17/25 02/18/25
06:59 06:59 06:59 06:59
Intake Total 1707.8 / 1757.5 949.8 / 988.8 3172 / 3551 1292 / 1292
Output Total 996 / 1046 1360 / 1360 550 / 750 200 / 200
Balance 711.8 / 711.5 -410.2 / -371.2 2622 / 2801 1092 / 1092
Physical Exam
Physical Exam
GEN: No distress, awake, Ox3
HEENT: supple, anicteric, mmm
LUNGS: CTA, no wheezes/rales
CV: Reg, S1/S2, 1/6 syst LSB, no gallop
ABD: soft, BS+, NT/ND
EXT: No edema
NEURO: Gross non-focal
SKIN: No rash
--- NOTE | 2025-02-17 14:39 | CM ---
CM following re: discharge planning.
Discussed in rounds, reviewed pt's chart.
Pt is POD #5 Laparoscopic NICKI, Continue on TPN, continue supportive care.
PT and OT evaluations noted - SNF level of care recommended. Pt's family has a list of SNFs and they preferred top discuss it closer top discharge.
D/C plan: preferred SNF when medically stable.
CM will follow with discharge plan updates as hospitalization progresses
--- NOTE | 2025-02-17 15:14 | W.PN.HOSP.TC ---
Addendum entered and electronically signed by Chepe Fuentes DO 02/17/25 15:45:
Additional diagnosis: DTI (Deep Tissue Injury) sacral pressure injury
Original Note:
Today's Communication/Plan
-
Assessment / Plan
Assessment / Plan
General: No Apparent Distress, Comfortable and Conversant
HEENT: NormoCephalic, Moist mucous membranes, Atraumatic
Respiratory: Clear and Non Labored Respirations
Cardiac: S1/S2 and Regular Rhythm; No Rub or Gallop
GI: Soft, minimal TTP, surgical port scars clean dry intact
Musculoskeletal: No Edema, right upper extremity PICC
: NO Suero
Neuro: Awake, Alert, Nonfocal/grossly intact
Psych: Calm and cooperative
Ms. Jack is an 79-year-old female with a medical history of sarcoidosis, collagenous colitis with bowel perforation (status post colostomy and reversal at [facility]), CAD, CKD, and CVA who presented with 5 days of nausea and vomiting associated
with abdominal pain and distention. Her last bowel movement was almost 1 week prior to arrival and she has been unable to tolerate anything p.o. during the past week. CT imaging shows very distended small bowel with a transition point in the left
lower quadrant concerning for high-grade obstruction. NG tube was placed for decompression and started on low intermittent wall suction. She developed A-fib with RVR with a heart rate of 150s to 180s, no prior history of A-fib. She was given a
dose of IV Lopressor with no significant effect and so was then started on IV Cardizem drip. However she became mildly hypotensive and so was switched to IV amiodarone drip with bolus. She was admitted for further evaluation and management of SBO
and new onset A-fib with RVR.
High-grade SBO secondary to adhesions
- Status post laparoscopic lysis of additions 02/12
- NG tube is out. Diet advanced to full liquid today 02/17 by surgery
- Continuing TPN for now
Diarrhea
- Likely due to relatively normal course of bowel recovery following lysis of adhesions
- However patient does have history of collagenous colitis, stool studies positive for C. difficile antigen but toxin negative
- Empirically treating with oral vancomycin for 10 days
- ID following
Sepsis
Clinical shock requiring pressors -suspected septic shock
Unclear source.
Not bacteremic
Urinalysis without pyuria
CT abdomen pelvis raised the concern of tree-in-bud opacities in the right middle lobe, mild asymmetric cutaneous thickening is stranding in the inferior left gluteal soft tissues, mild rectal wall thickening with large amount of stool in the colon.
She does have a cough and she also complains of left buttock area pain. Unclear if those are the sources of infection.
- Completed course of antibiotics with cefepime/flagyl/Vanco
- off of vasopressors
- Mild persistent leukocytosis, will monitor, remains afebrile
- Started today 02/17 on oral vancomycin for 10-day course of empiric treatment of possible C. difficile colitis
A-fib with RVR:
- New onset
- Continue amiodarone 200 mg p.o. 3 times daily, carvedilol 6.25 mg p.o. twice daily
- Anticoagulating with IV heparin drip, transition to oral anticoagulation hopefully in the next 24 hours
- Currently she is in sinus rhythm
- Cardiology following, recommendations appreciated
TYESHA on CKD 3:
- Suspect worsening due to poor perfusion in the setting of sepsis with intermittent hypotension
- Now resolving
- Given a dose of IV Bumex again today due to increasing weight
- Suero discontinued
- TPN per nephrology
- Appreciate nephrology recommendations -continue with as needed diuretics.
NSTEMI:
- Suspect due to myocardial stress in the setting of SBO and rapid A-fib
- Do not suspect ACS
- Appreciate cardiology recommendations
Progressive anemia-normocytic:
-no further external bleeding.
- H&H stable
- Continue with PPI p.o. twice daily.
Abdominal aortic dilatation:
- Focal dilatation of the infrarenal abdominal aorta measuring 2.9 cm
- Ongoing outpatient monitoring recommended
Adrenal nodule:
- 1.5 centimeter hypodense left adrenal nodule noted on imaging, likely an adenoma
- Outpatient monitoring recommended
Nutrition-TPN, full liquid diet to be advanced as tolerated
CODE STATUS: DNR
PT OT eval-recommending SNF
Anticipated Discharge: > 48 hours
Subjective/Interval History
-
Date of Service: February 17, 2025
Patient was seen and examined at bedside this morning. Feeling better today. Diet being advanced to full liquids.
Objective Data
-
Labs:
Laboratory Results
02/17/25 02/17/25 02/17/25
02:30 09:54 16:30
APTT 127.6 H 111.1 H Pending
Sodium 144
Potassium 3.5
Chloride 112 H
Carbon Dioxide 24
BUN 56 H
Creatinine 1.2 H
Glucose 152 H
Calcium 8.3 L
Vital Signs:
Vital Signs
Temp Pulse Resp BP Pulse Ox
97.9 F 64 15 155/57 94
02/17/25 12:02 02/17/25 14:00 02/17/25 14:00 02/17/25 14:00 02/17/25 14:00
I&O
02/16/25 02/17/25 02/18/25
06:59 06:59 06:59
Intake Total 949.8 / 988.8 3172 / 3551 1368 / 1368
Output Total 1360 / 1360 550 / 750 1095 / 1095
Balance -410.2 / -371.2 2622 / 2801 273 / 273
Review of Systems
-
History Source: Patient
All other systems: Reviewed and negative
Abdomen/GI: Reports Abdominal Pain and Diarrhea
Physical Exam
-
General: No Apparent Distress
--- NOTE | 2025-02-17 15:27 | PN.CDI ---
CDI
- -
CDI:
Physician Documentation Request
Admit Date: 02/07/25 18:40
Dear Doctor Mickey Turcios,
Patient admitted with sepsis and SBO.
02/16 Nursing skin assessment, 'DTI (Deep Tissue Injury) sacral pressure injury'
Physician documentation of the type and location of wounds is required for compliant documentation. Based on the above clinical findings and your assessment, please provide the following in your progress note:
1. Location of the ulcer/wound, including laterality.
2. Type (etiology) of ulcer/wound:
- Diabetic ulcer
- Arterial (ischemic) ulcer
- Traumatic wound
- Venous stasis ulcer
- Pressure (decubitus) ulcer
- Non-healing surgical wound
- Other
- Unable to determine
3. For a non-pressure ulcer, please indicate the depth/severity:
- Limited to the breakdown of skin
- With fat layer exposed
- With necrosis of muscle
- With necrosis of bone
- Other
- Unable to determine
4. If a pressure ulcer, please also include the stage* of the ulcer:
- Stage 1 - Skin intact, non-blanchable redness
- Stage 2 - Partial thickness loss of dermis, includes intact or open blister
- Stage 3 - Full thickness tissue not including bone, tendon or muscle
- Stage 4 - Full thickness tissue loss, including exposed bone, tendon or muscle
- Unstageable - Full thickness loss in which the base of the ulcer is covered by slough (yellow, bills, soto, green or brown) and/or eschar (bills, brown or black) in the wound bed.
- Unable to determine
Use of terms such as suspected, likely, concern for, or probable (associated with a specific diagnosis that is being evaluated, monitored, or treated as if it exists) are acceptable and can be coded in the inpatient setting, when documented at the
time of discharge.
Thank you,
Beatriz RILEY,RN,CCDS
CDI Specialist
Available via tiger text
Please use your independent medical judgment in providing your response.
*Source: National Pressure Ulcer Advisory Panel (NPUAP)
--- NOTE | 2025-02-17 15:55 | PTCARENOTE ---
0700: Rec'd care of patient. Patient alert and oriented. MAEx4. Assisting with turns in bed. NSR with prolonged QT on tele. Rate in the 60's. Coreg held per parameters. +Murmur. Trace anasarca. Palpable pulses. Lung sounds shallow/diminished
throughout with bibasilar crackles. Pulse ox 96% on RA. Hypo BS. Abdomen soft/round/tender to palpation. Abdominal pain treated with PRN Dilaudid. Incontinent of large amount of liquid brown stool. Rectal trumpet placed by previous RN. Tolerating
clears. Meds in applesauce. Placed on bedpan for large void. Rectal trumpet leaking; flushed. CHG bath provided. TPN and Heparin gtts infusing through RDL PICC. Assisted oob to chair at 0730.
0900: Repeat PTT ordered for 929. RDL PICC without blood return on 02/16. Placement confirmed by cxr. PICC reassessed for blood return. Blood return obtained from both lumens. VAT notified. PTT sent.
1000: Cdiff ordered by ID. Sample sent. Placed on enhanced precautions.
1200: Diet advanced to full liquids.
[id number]: Patient experiencing pressure in bladder. No void since administration of Bumex. Placed on BSC to try and void. Patient unable. Assisted back to bed. Bladder scan- 672 mL. Straight cath'd for 720 cc's of yellow urine. Rectal trumpet
removed due to discomfort. Svetlana care performed and repositioned for comfort.
1500: PT/OT at bedside.
[2025-02-17 17:07] LABS: APTT 62.8 Sec (23.4-35.0)
[2025-02-17] MEDS: LAMICTAL 25 MG PO (17:37)
--- NOTE | 2025-02-17 17:40 | PTCARENOTE ---
1800 glucose level 72. Hospitalist notified. 8 units standing dose placed on hold.
[2025-02-17 17:42] LABS: Glucose - Point of Care 72 mg/dl (70-99)
[2025-02-17] MEDS: Parenteral Nutrition, Central 780 IV (20:51)
[2025-02-17] MEDS: SEROQUEL 50 MG PO (20:59)
--- NOTE | 2025-02-17 21:00 | PTCARENOTE ---
Pt alert/oriented/pleasant, no c/o pain. ZEE helping turn in bed. Afebrile. NSR on monitor. IV lines flushed/patent. Heparin/TPN as ordered via RUE PICC. Pulses palpable, trace edema, SCDs. Room air, clear. Aspiration precautions appreciated,
tolerating full liquid diet. Bedpan to void. Will monitor.
[2025-02-17] MEDS: MIRAPEX 0.5 MG PO (21:03)
[2025-02-17] MEDS: LIPITOR 80 MG PO (21:03)
[2025-02-17] MEDS: REMERON 15 MG PO (21:03)
[2025-02-17] MEDS: COREG 6.25 MG PO (21:05)
[2025-02-17] MEDS: KLONOPIN 1 MG PO (21:05)
[2025-02-17] MEDS: LANTUS 0.1 UNITS SC (21:21)
[2025-02-17 21:29] LABS: Glucose - Point of Care 170 mg/dl (70-99)
[2025-02-18] VITALS (11 sets, daily range): BP systolic 106–155; BP diastolic 46–86; BMI 21.7
[2025-02-18 00:24] LABS: APTT 88.7 Sec (23.4-35.0)
[2025-02-18] MEDS: TYLENOL PO ×2 (04:20→11:32)
[2025-02-18] MEDS: FIRVANQ 125 MG PO ×4 (06:28→23:08)
[2025-02-18 06:50] LABS: APTT 71.1 Sec (23.4-35.0)
[2025-02-18] MEDS: MIRALAX PO (07:58)
[2025-02-18] MEDS: NOVOLOG FLEXPEN-MODERATE RESISTANCE SC ×4 (08:14→23:12)
[2025-02-18] MEDS: PROTONIX 40 MG PO ×2 (08:16→19:57)
[2025-02-18] MEDS: TYLENOL 650 MG PO ×4 (08:16→23:08)
[2025-02-18] MEDS: WELLBUTRIN SR (12 hour sustained release) 150 MG PO (08:16)
[2025-02-18] MEDS: PACERONE 200 MG PO ×2 (08:17→20:07)
[2025-02-18] MEDS: COREG PO (08:17)
[2025-02-18] MEDS: DELTASONE 5 MG PO (08:17)
--- NOTE | 2025-02-18 08:22 | W.PN.CARDCBS ---
Today's Communication / Plan
-
Remains in sinus.
Cont Amiodarone 200 mg BID for 2 weeks and then 200 mg daily.
Discussed with surgery, ok to stop IV Heparin and transition to Eliquis 2.5 mg BID.
H/H stable.
Cont to advance diet as per surgery.
Cr stable.
Changed parameters on Coreg as this was being held.
Impression / Plan
-
.
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
Impression:
Small bowel obstruction/status post lysis of adhesions 02/12/2025
Prior bowel perforation from collagenous colitis with colostomy creation and subsequent reversal, VHR and prior small bowel obstruction
Dehydration
Newly diagnosed atrial fibrillation and rapid ventricular rates, now in sinus
Nonischemic troponin elevation with peak troponin 0.261
Abnormal EKG
Acute on chronic kidney disease
History of CVA
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
Sarcoidosis
Frailty
C Diff
Echo 02/09/2025: Mild LVH, EF 50-55%, mild mitral regurgitation, mild aortic regurgitation, mild to moderate tricuspid regurgitation, pulmonary artery systolic pressure 27 mmHg
Plan:
Remains in sinus.
Cont Amiodarone 200 mg BID for 2 weeks and then 200 mg daily.
Discussed with surgery, ok to stop IV Heparin and transition to Eliquis 2.5 mg BID.
H/H stable.
Cont to advance diet as per surgery.
Cr stable.
Changed parameters on Coreg as this was being held.
Cont supportive care and surgical care.
She was receiving oral vanco for possible Cdiff
Discussed with surgery and with nursing
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
Subjective
Date of Service: February 18, 2025
Objective
Labs:
02/17/25 02:30
02/17/25 02:30
Labs
Hgb 8.3 g/dL (12.0-16.0) L 02/17/25 02:30
Hct 25.2 % (37.0-47.0) L 02/17/25 02:30
Plt Count 193 10^3/uL (130-400) 02/17/25 02:30
PT 17.5 Sec (11.4-14.6) H 02/09/25 09:46
INR 1.41 02/09/25 09:46
APTT 71.1 Sec (23.4-35.0) H 02/18/25 06:32
Sodium 144 mmol/L (135-145) 02/17/25 02:30
Potassium 3.5 mmol/L (3.5-5.1) 02/17/25 02:30
BUN 56 mg/dl (7-17) H 02/17/25 02:30
Creatinine 1.2 mg/dL (0.6-1.0) H 02/17/25 02:30
Glucose 152 mg/dl (70-99) H 02/17/25 02:30
Digoxin 0.7 ng/ml (0.8-2.0) L 02/11/25 04:54
Vital Signs and I&O:
Vital Signs
Temp Pulse Resp BP Pulse Ox
98 F 68 23 151/62 98
02/18/25 07:00 02/18/25 08:17 02/18/25 08:00 02/18/25 08:17 02/17/25 22:11
Vital Signs
Temp Pulse Resp BP Pulse Ox
98 F 68 23 151/62 98
02/18/25 07:00 02/18/25 08:17 02/18/25 08:00 02/18/25 08:17 02/17/25 22:11
Intake & Output
02/16/25 02/17/25 02/18/25 02/19/25
06:59 06:59 06:59 06:59
Intake Total 949.8 / 988.8 3172 / 3551 2832.5 / 2871.0 77.0 / 77.0
Output Total 1360 / 1360 550 / 750 1095 / 1095
Balance -410.2 / -371.2 2622 / 2801 1737.5 / 1776.0 77.0 / 77.0
Physical Exam
Physical Exam
General: No acute distress, AAOX3
Neck: Negative JVD
Heart: Regular, Negative S3 positive S1/S2, Negative S4, No murmur
Lungs: CTA b/l, negative wheezes/rales/rhonchi
Abd: Positive BS, NT/ND, neg rebound/rigidity/guarding
Ext: Negative cyanosis/clubbing/edema
Neuro: nonfocal
[2025-02-18 08:24] LABS: Glucose - Point of Care 120 mg/dl (70-99)
--- NOTE | 2025-02-18 08:42 | W.PN.GS2 ---
Today's Communication / Plan
-
Check UA
Adv to LRD
Cont TPN for today
Convert to PO A/C
PT/OT/LEVI MAKER
Assessment / Plan
-
Assessment: 79-year-old female presenting with high-grade small bowel obstruction
POD #6 Laparoscopic NICKI
Afebrile, vital signs stable
Labs notable for rising leukocytosis, stable anemia, improving Cr
Signs of clinical improvement with passing multiple loose stools. Plan for slow dietary advancement to full liquids today. LEVI MAKER evaluation noted.
Loose stools and leukocytosis. This is not uncommon with the usual resolution of a bowel obstruction. She does carry a history of collagenase colitis. C. difficile testing notable for positive antigen, negative toxin. ID on board with plans to
switch to PO Vancomycin. Continue to trend WBC and clinical improvement. Pulmonary edema noted on recent chest x-ray. Currently stable on room air with no increased work of breathing or productive cough.
Malnutrition, currently on TPN per Nephrology, would cont for now as her intake is limited
Given retention and rising WBC rec rpt UA, ID is following
Plan:
--Adv to LRD, advised to go slow, LEVI MAKER following
--Continue on TPN, managed by Nephrology, appreciate, would cont for today pending improved PO intake
--Pain management: Tylenol, consider Tramadol if issues, no NSAIDs with TYESHA
--Cont PPI
--ABX as per ID
--OK to convert to PO A/C
--Cont medical management per primary team, OK for step down from ICU
Subjective Data
-
Date of Service: February 18, 2025
AFVSS, jordan fulls, denies nausea, endorses abd pain, controlled, urinary retention requiring st cath
Objective Data
-
Intake and Output
02/17/25 02/18/25 02/19/25
06:59 06:59 06:59
Intake Total 3172 / 3551 2832.5 / 2871.0 77.0 / 77.0
Output Total 550 / 750 1095 / 1095
Balance 2622 / 2801 1737.5 / 1776.0 77.0 / 77.0
Intake:
Oral fluids 1849 / 2089 181 / 1810
IV fluids (Total) 175 / 181 130.5 / 136.0 11.0 / 11.0
Heparin 175 / 181 130.5 / 136.0 11.0 / 11.0
IV piggybacks 400 / 500 100 / 100
TPN/PPN 747 / 780 792 / 825 66 / 66
Output:
Liquid stool amount 150 / 150 175 / 175
Rectum 150 / 150 175 / 175
Urine, Voided 400 / 600 200 / 200
Straight cath output 720 / 720
Other:
Number of approximated LARGE 1 1
amounts of urine
How many times incontinent 1
MODERATE amount urine
Number of unmeasured liquid
stools
Rectum 1
Vital Signs
Temp Pulse Resp BP Pulse Ox
98 F 68 23 151/62 98
02/18/25 07:00 02/18/25 08:17 02/18/25 08:00 02/18/25 08:17 02/17/25 22:11
Lab Results
02/17/25 02:30
02/17/25 02:30
Calcium 8.3 mg/dl (8.4-10.2) L 02/17/25 02:30
Magnesium 2.0 mg/dl (1.6-2.3) 02/16/25 02:50
Phosphorus 2.0 mg/dl (2.5-4.5) L 02/18/25 06:32
Total Bilirubin 0.5 mg/dl (0.2-1.3) 02/16/25 02:50
Direct Bilirubin 0.4 mg/dl (0.0-0.4) 02/13/25 05:38
AST 62 U/L (14-36) H 02/16/25 02:50
ALT 31 U/L (0-35) 02/16/25 02:50
Alkaline Phosphatase 63 U/L (38-126) 02/16/25 02:50
Total Protein 4.8 g/dl (6.3-8.2) L 02/16/25 02:50
Albumin 2.1 g/dl (3.5-5.0) L 02/16/25 02:50
Physical Exam
-
Gen: NAD
Abd: softly distended, incisions cdi, mild ttp diffusely
Patient has a rock catheter: No
Patient has a central line: Yes
[2025-02-18] MEDS: ELIQUIS 2.5 MG PO ×2 (09:47→19:57)
[2025-02-18] MEDS: COREG 6.25 MG PO ×2 (09:47→20:10)
--- NOTE | 2025-02-18 10:23 | PTCARENOTE ---
pt received at change of shift from previous RN. pt resting comfortably in bed. AAOx3. generalized weakness throughout. SR on telemetry heart rate 60-70s. pulses palpable. pt on room air, sat 97%. lung sounds diminished, fine crackles in bases.
hypoactive bowel sounds, tolerating full liquid diet. rectal trumpet in place, draining liquid stool. pt using bedpan to void. lap sites BUDGET ASSISTANT with surgical adhesive, CDI. pt updated on plan of care. see worklist for full nursing assessment and
interventions.
--- NOTE | 2025-02-18 10:32 | W.PN.NEPH.PH ---
Today's Communication / Plan
-
TPN
Assessment/Plan
-
Assessment
TYESHA
Azotemia
CKD 3A 1.3 baseline= follows with nephrology in [place] [address]
SBO s/p laparoscopic lysis of adhesions 02/12
Nausea vomiting
Metabolic acidosis
Hyperdense renal cysts
A-fib
History of stroke
Left adrenaloma
Plan
improving renal function cr 1.2
monitor bladder scan now off rock
wt increasing- bumex 1mg, replace k in TPN
reports sulfa allergy with rash even with lasix
renewed TPN
BP stable
cont supportive care
Sodium stable mildly elevated. She is on clears and advancing
d/w nursing
Total Time Spent with Patient (in minutes): 31
-
-
Date of Service: February 18, 2025
CC / HPI / ROS
-
Chief Complaint:
Small bowel obstruction
History of Present Illness:
Presents with small bowel obstruction acute on chronic kidney disease baseline creatinine 1.4 with presenting creatinine 3.8
cr now at 1.2, non oliguric with rock
bp stable
no fever
Serum sodium at 144
Review of Systems:.
no SOB at rest on RA
no cp
feels better today
Patient is on clears
Weights elevated since admission but stable over the last 4 days
Labs
-
Labs:
WBC 17.6 10^3/uL (4.8-10.8) H 02/17/25 02:30
RBC 2.71 10^6/uL (4.20-5.40) L 02/17/25 02:30
Hgb 8.3 g/dL (12.0-16.0) L 02/17/25 02:30
Hct 25.2 % (37.0-47.0) L 02/17/25 02:30
Plt Count 193 10^3/uL (130-400) 02/17/25 02:30
Sodium 144 mmol/L (135-145) 02/17/25 02:30
Potassium 3.5 mmol/L (3.5-5.1) 02/17/25 02:30
Chloride 112 mmol/L (98-107) H 02/17/25 02:30
Carbon Dioxide 24 mmol/L (22-30) 02/17/25 02:30
BUN 56 mg/dl (7-17) H 02/17/25 02:30
Creatinine 1.2 mg/dL (0.6-1.0) H 02/17/25 02:30
eGFR 45.76 02/17/25 02:30
Glucose 152 mg/dl (70-99) H 02/17/25 02:30
Calcium 8.3 mg/dl (8.4-10.2) L 02/17/25 02:30
Phosphorus 2.0 mg/dl (2.5-4.5) L 02/18/25 06:32
Albumin 2.1 g/dl (3.5-5.0) L 02/16/25 02:50
Physical Exam
-
Vital Signs:
Vital Signs
Temp Pulse Resp BP Pulse Ox
98 F 81 16 137/86 97
02/18/25 07:00 02/18/25 10:00 02/18/25 10:00 02/18/25 10:00 02/18/25 08:00
Cardiovascular:: Regular rate and rhythm
Respiratory:: Bilateral: Coarse
Lung Excursion:: Normal
Abdomen:: Soft
Extremity Edema:: None: Bilateral:
Rock Catheter: No
[2025-02-18] MEDS: VITAMIN D3 (cholecalciferol) 125 MCG PO (11:33)
[2025-02-18] MEDS: FOLVITE 1 MG PO (11:33)
[2025-02-18 11:55] LABS: Glucose - Point of Care 128 mg/dl (70-99)
--- NOTE | 2025-02-18 12:49 | W.PN.ID1 ---
Date of Service
Date of Service: February 18, 2025
Today's Communication
Continue po Vancomycin for now.
Follow WBC.
Assessment / Plan
# High-grade small bowel obstruction
- s/p lap NICKI (02/12/25 )
- Completed 7d of empiric Vancomycin/metronidazole til 02/17
- Completed 11d empiric cefepime till 02/17
# Leukocytosis - trending up, no labs today
-Diarrhea.
- C. diff antigen positive, toxin negative
- Likely colonization. However, to err on side of caution, treating for possible infection with Vancomycin po 125 mg qid (d2 of 10)
- Ordered CBC with diff for am.
# s/p Shock
# TYESHA on CKD, improving
# A-fib - rate controlled
# PCN and sulfa allergy
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
CVA
Osteoporosis
CKD3A
CAD
History of collagenous colitis status post colostomy with subsequent reversal, abdominal wall reconstruction without mesh
Lumbar radiculopathy
Depression/anxiety
Restless leg syndrome
Osteoporosis
Hysterectomy
Ventral Hernia repair
Left elbow surgery
Femur surgery
Chief Complaint
-: Leukocytosis and Other (SBO)
Subjective / Review of Systems
No new complaints. Feeling better.
Vital Signs / Physical Exam
Vital Signs
Vital Signs
Temp Pulse Resp BP Pulse Ox
97.7 F 81 16 137/86 97
02/18/25 11:00 02/18/25 10:00 02/18/25 10:00 02/18/25 10:00 02/18/25 08:00
Physical Exam
Constitutional: No Acute Distress
Eyes: Sclera Anicteric
Cardiovascular: Regular Rate and S1/S2
Pulmonary: Other (Decreased BS bases)
Gastrointestinal: Soft, Tender (mild) and Non Distended
Extremities: Negative Edema
Neurological: AO x 3
Objective Data
Lab Data
Lab Results
02/17/25 02:30
02/17/25 02:30
PT 17.5 Sec (11.4-14.6) H 02/09/25 09:46
INR 1.41 02/09/25 09:46
APTT 71.1 Sec (23.4-35.0) H 02/18/25 06:32
Estimated Creat Clear 31 ml/min 02/17/25 02:30
Lactic Acid Cancelled 02/09/25 10:00
Total Bilirubin 0.5 mg/dl (0.2-1.3) 02/16/25 02:50
AST 62 U/L (14-36) H 02/16/25 02:50
ALT 31 U/L (0-35) 02/16/25 02:50
Alkaline Phosphatase 63 U/L (38-126) 02/16/25 02:50
Most recent labs reviewed.
Micro Results:
02/17/25 10:07 C. difficile GDH Antigen & Toxins - Final
Feces/Stool C. difficile antigen positive, toxin negative.
Clostridium difficile present, but toxin not detected.
Patient may be a carrier, colonized with nontoxinogenic
strain or the level of toxin in sample is below detection
limits. This information should be used in conjunction with
the patient's clinical history.
02/07/25 21:41 Blood Culture - Final
Blood/Venous No Growth - Final Report
02/07/25 21:37 Blood Culture - Final
Blood/Venous No Growth - Final Report
02/08/25 05:55 Urine Culture - Final
Urine NO GROWTH
02/08/25 05:55 Nasal Screen MRSA (PCR) - Final
Nose MRSA not detected - performed by PCR methodology.
Imaging:
02/07/25 CT a/p: Small bowel obstruction with transition point in the left lower quadrant. Moderate colonic stool burden. Tree-in-bud opacities within the right middle lobe which may be infectious/inflammatory. There is mild asymmetric cutaneous
thickening and stranding in the inferior left gluteal soft tissues which may represent superficial infectious/inflammatory process or sequelae of pressure wound.
02/09/25 CT a/p: Dilated small bowel, just slightly increased in comparison to recent prior study with findings again seen suggesting small bowel obstruction as was noted on recent prior study. No free air. Nasogastric tube with tip in the stomach.
Large volume stool filling and mildly distending the rectum. Cannot exclude mild stercoral colitis.
02/09/25 CXR: . Right PICC tip projects over the central SVC. Lungs remain clear.
02/10/25 SBFT: Delayed imaging at 6 hours reveals persistent contrast throughout dilated small bowel. There is no definitive oral contrast seen in large bowel. Findings suggest high-grade small bowel obstruction.
02/11/25 AXR: Persistent dilated small bowel with persistent contrast following small bowel series of preceding day. Findings suggest high-grade small bowel obstruction.
02/16/25CXR: Right PICC in position as described. Small bilateral pleural effusions with associated atelectasis and/or pneumonia, new from prior.
--- NOTE | 2025-02-18 14:22 | CM ---
CM following re: discharge planning.
Discussed in rounds, reviewed pt's chart, met with pt and pt's daughter Tanmay at bedside.
Pt is POD #6 Laparoscopic NICKI, Continue on TPN, continue supportive care.
Both pt and her daughter are aware that PT and OT recommend SNF level of care and they expressed their agreement. pt's daughter stated she has a list and as of today she is requested only [facility] SNF. Per daughter she will discuss with her 4
siblings additional option and she will notify assigned CM.
A referral to [facility] made.
D/C plan: preferred SNF when medically stable.
CM will follow with discharge plan updates as hospitalization progresses
--- NOTE | 2025-02-18 15:33 | W.PN.HOSP.TC ---
Today's Communication/Plan
-
Assessment / Plan
Assessment / Plan
General: No Apparent Distress, Comfortable and Conversant
HEENT: NormoCephalic, Moist mucous membranes, Atraumatic
Respiratory: Clear and Non Labored Respirations
Cardiac: S1/S2 and Regular Rhythm; No Rub or Gallop
GI: Soft, minimal TTP, surgical port scars clean dry intact
Musculoskeletal: No Edema, right upper extremity PICC with TPN running
: NO Suero
Neuro: Awake, Alert, Nonfocal/grossly intact
Psych: Calm and cooperative
Ms. Jack is an 79-year-old female with a medical history of sarcoidosis, collagenous colitis with bowel perforation (status post colostomy and reversal at [facility]), CAD, CKD, and CVA who presented with 5 days of nausea and vomiting associated
with abdominal pain and distention. Her last bowel movement was almost 1 week prior to arrival and she has been unable to tolerate anything p.o. during the past week. CT imaging shows very distended small bowel with a transition point in the left
lower quadrant concerning for high-grade obstruction. NG tube was placed for decompression and started on low intermittent wall suction. She developed A-fib with RVR with a heart rate of 150s to 180s, no prior history of A-fib. She was given a
dose of IV Lopressor with no significant effect and so was then started on IV Cardizem drip. However she became mildly hypotensive and so was switched to IV amiodarone drip with bolus. She was admitted for further evaluation and management of SBO
and new onset A-fib with RVR.
High-grade SBO secondary to adhesions
- Status post laparoscopic lysis of additions 02/12
- Tolerating full liquid, will advance per surgery recommendations
- Continuing TPN for now
Diarrhea
- Likely due to relatively normal course of bowel recovery following lysis of adhesions
- However patient does have history of collagenous colitis, stool studies positive for C. difficile antigen but toxin negative
- Empirically treating with oral vancomycin for 10 days
- ID following
Sepsis
Clinical shock requiring pressors -suspected septic shock
Unclear source.
Not bacteremic
Urinalysis without pyuria
CT abdomen pelvis raised the concern of tree-in-bud opacities in the right middle lobe, mild asymmetric cutaneous thickening is stranding in the inferior left gluteal soft tissues, mild rectal wall thickening with large amount of stool in the colon.
She does have a cough and she also complains of left buttock area pain. Unclear if those are the sources of infection.
- Completed course of antibiotics with cefepime/flagyl/Vanco
- off of vasopressors
- Mild persistent leukocytosis, will monitor, remains afebrile
- Started on oral vancomycin 02/17 for 10-day course of empiric treatment of possible C. difficile colitis
A-fib with RVR:
- New onset
- Continue amiodarone 200 mg p.o. 3 times daily, carvedilol 6.25 mg p.o. twice daily
- Transitioned to low-dose Eliquis today 02/18
- Currently she is in sinus rhythm
- Cardiology following, recommendations appreciated
TYESHA on CKD 3:
- Suspect due to poor perfusion in the setting of sepsis with intermittent hypotension
- Now resolving
- Suero discontinued
- TPN per nephrology
- Appreciate nephrology recommendations -continue with as needed diuretics.
NSTEMI:
- Suspect due to myocardial stress in the setting of SBO and rapid A-fib
- Do not suspect ACS
- Appreciate cardiology recommendations
Progressive anemia-normocytic:
-no further external bleeding.
- H&H stable
- Continue with PPI p.o. twice daily.
Abdominal aortic dilatation:
- Focal dilatation of the infrarenal abdominal aorta measuring 2.9 cm
- Ongoing outpatient monitoring recommended
Adrenal nodule:
- 1.5 centimeter hypodense left adrenal nodule noted on imaging, likely an adenoma
- Outpatient monitoring recommended
Nutrition-TPN, full liquid diet to be advanced as tolerated
CODE STATUS: DNR
PT OT eval-recommending SNF
Anticipated Discharge: > 48 hours
Subjective/Interval History
-
Date of Service: February 18, 2025
Patient was seen and examined at bedside this morning. Feeling well and tolerating p.o. diet. Remains on TPN.
Objective Data
-
Labs:
Laboratory Results
02/18/25
06:32
APTT 71.1 H
Vital Signs:
Vital Signs
Temp Pulse Resp BP Pulse Ox
98.0 F 74 17 132/57 94
02/18/25 15:04 02/18/25 15:04 02/18/25 15:04 02/18/25 15:04 02/18/25 15:04
I&O
02/17/25 02/18/25 02/19/25
06:59 06:59 06:59
Intake Total 3172 / 3551 2832.5 / 2871.0 280.5 / 280.5
Output Total 550 / 750 1095 / 1095
Balance 2622 / 2801 1737.5 / 1776.0 280.5 / 280.5
Review of Systems
-
History Source: Patient
All other systems: Reviewed and negative
Abdomen/GI: Reports Abdominal Pain
Physical Exam
-
General: No Apparent Distress
[2025-02-18] MEDS: LAMICTAL 25 MG PO (17:27)
[2025-02-18 18:16] LABS: Glucose - Point of Care 124 mg/dl (70-99)
[2025-02-18] MEDS: REMERON 15 MG PO (21:30)
[2025-02-18] MEDS: KLONOPIN 1 MG PO (21:30)
[2025-02-18] MEDS: LIPITOR 80 MG PO (21:30)
[2025-02-18] MEDS: MIRAPEX 0.5 MG PO (21:30)
[2025-02-18] MEDS: SEROQUEL 50 MG PO (21:31)
[2025-02-18 21:37] LABS: Glucose - Point of Care 109 mg/dl (70-99)
[2025-02-18] MEDS: LANTUS 0.1 UNITS SC (21:37)
[2025-02-18] MEDS: Parenteral Nutrition, Central 780 IV (21:53)
[2025-02-18 23:19] LABS: Glucose - Point of Care 133 mg/dl (70-99)
[2025-02-19] VITALS (7 sets, daily range): BP systolic 104–167; BP diastolic 46–80; PULSE 76; O2SAT 100
[2025-02-19] MEDS: TYLENOL PO (03:23)
[2025-02-19 05:56] LABS: Glucose - Point of Care 94 mg/dl (70-99)
[2025-02-19] MEDS: FIRVANQ 125 MG PO ×3 (05:59→17:59)
[2025-02-19] MEDS: NOVOLOG FLEXPEN-MODERATE RESISTANCE SC ×2 (05:59→12:27)
[2025-02-19 07:33] LABS: Glucose - Point of Care 79 mg/dl (70-99)
[2025-02-19] MEDS: COREG 6.25 MG PO ×2 (07:53→20:30)
[2025-02-19] MEDS: MIRALAX PO (07:53)
[2025-02-19] MEDS: ELIQUIS 2.5 MG PO ×2 (07:53→20:31)
[2025-02-19] MEDS: WELLBUTRIN SR (12 hour sustained release) 150 MG PO (07:53)
[2025-02-19] MEDS: PROTONIX 40 MG PO ×2 (07:54→20:31)
[2025-02-19] MEDS: PACERONE 200 MG PO ×2 (07:54→20:30)
[2025-02-19] MEDS: DELTASONE 5 MG PO (07:54)
[2025-02-19] MEDS: TYLENOL 650 MG PO ×4 (07:54→20:31)
--- NOTE | 2025-02-19 08:17 | W.PN.GS2 ---
Addendum entered and electronically signed by Mikey Moss MD 02/19/25 09:44:
Patient seen and examined in follow-up with surgical scrub technician. Agree with documented progress note.
Patient feeling satisfactorily at the moment. Shortness of breath improved.
Denies significant abdominal pain.
Ongoing diarrhea/loose stools with fecal containment bag in place.
Tolerating full liquids; appetite marginal but no nausea or vomiting
AF VSS
WBC down to 12
NAD AAO x 3
ABD: Softly protuberant with some tympany but not tensely distended. Minimal incisional tenderness. No diffuse tenderness. Incisions with surgical glue dressings.
A/P: POD #7 status post lap NICKI for high-grade SBO
Low residue diet with Ensure supplement
Encourage PT/OT and improving mobility
Discontinue TPN after this bag
Original Note:
Today's Communication / Plan
-
LRD
dc TPN
Appreciate primary team for further management
Assessment / Plan
-
Assessment: 79-year-old female presenting with high-grade small bowel obstruction
POD #7 Laparoscopic NICKI
Afebrile, vital signs stable on 2L O2
WBC downtrending, Cr downtrending
Plan:
--Adv to LRD
--d/c TPN
--Pain management: Tylenol, consider Tramadol if issues, no NSAIDs with TYESHA
--Cont PPI
--ABX as per ID
--Cont medical management per primary team
Subjective Data
-
Date of Service: February 19, 2025
Pt feels SOB after being moved this morning around 6am and started on 2 L O2. Otherwise able to tolerate liquids well yesterday with no nausea or vomiting. Diarrhea ongoing, but no sig ab pain.
Objective Data
-
Intake and Output
04/02/19/25 02/20/25
06:59 06:59 06:59
Intake Total 2832.5 / 2871.0 640.5 / 640.5
Output Total 1095 / 1095 300 / 300
Balance 1737.5 / 1776.0 340.5 / 340.5
Intake:
Oral fluids 1810 / 1810 360 / 360
IV fluids (Total) 130.5 / 136.0 16.5 / 16.5
Heparin 130.5 / 136.0 16.5 / 16.5
IV piggybacks 100 / 100
TPN/PPN 792 / 825 264 / 264
Output:
Liquid stool amount 175 / 175 300 / 300
Rectum 175 / 175 300 / 300
Urine, Voided 200 / 200
Straight cath output 720 / 720
Other:
Number of approximated LARGE 1 1
amounts of urine
How many times incontinent 1
MODERATE amount urine
How many times incontinent 1
SATURATED amount urine
Number of unmeasured liquid
stools
Rectum 1
Vital Signs
Temp Pulse Resp BP Pulse Ox
97.6 F 74 22 150/71 100
02/19/25 07:30 02/19/25 07:30 02/19/25 07:30 02/19/25 07:30 02/19/25 07:30
Lab Results
02/17/25 02:30
Calcium 8.3 mg/dl (8.4-10.2) L 02/17/25 02:30
Magnesium 2.0 mg/dl (1.6-2.3) 02/16/25 02:50
Phosphorus 2.0 mg/dl (2.5-4.5) L 02/18/25 06:32
Total Bilirubin 0.5 mg/dl (0.2-1.3) 02/16/25 02:50
Direct Bilirubin 0.4 mg/dl (0.0-0.4) 02/13/25 05:38
AST 62 U/L (14-36) H 02/16/25 02:50
ALT 31 U/L (0-35) 02/16/25 02:50
Alkaline Phosphatase 63 U/L (38-126) 02/16/25 02:50
Total Protein 4.8 g/dl (6.3-8.2) L 02/16/25 02:50
Albumin 2.1 g/dl (3.5-5.0) L 02/16/25 02:50
Physical Exam
-
NAD
Ab slight distended, tympanic, slightly tender
Surgical incisions healing well
[2025-02-19 08:18] LABS: % Basophils 0.1 % (0-2); % Immature Granulocytes 1.2 % (0-0.5); % Lymphocytes 9.9 % (20.5-51.1); % Monocytes 7.4 % (1.7-9.3); % Neutrophils 81.4 % (42.2-75.2); Absolute Immature Granulocytes 0.2 10^3/uL (0-0.05); Absolute Lymphocytes 1.3 10^3/uL (1.2-3.4); Absolute Neutrophils 10.5 10^3/uL (1.4-6.5); Hematocrit 26.9 % (37.0-47.0); Hemoglobin 8.5 g/dL (12.0-16.0); Mean Corp Hgb Conc. 31.6 g/dL (33.0-37.0); Mean Corpuscular Hgb 30.4 pg (27.0-31.0); Mean Corpuscular Volume 96.1 fL (81.0-99.0); Mean Platelet Volume 11.5 fL (7.4-10.4); Nucleated Red Blood Cells % 0 %; Platelet Count 314 10^3/uL (130-400); Red Cell Dist. Width 15.8 % (11.5-14.5); White Blood Cell Count 12.9 10^3/uL (4.8-10.8)
--- NOTE | 2025-02-19 09:30 | WOUNDNOTE ---
[facility] RN note: Spoke with 3W RN Natalya who will coodinate switching patient's bed to a Centrella Max air bed. t/c Spoke with jackelyn Ayers who will bring over a Centrella Max air bed.
--- NOTE | 2025-02-19 09:55 | W.PN.ID1 ---
Date of Service
Date of Service: February 19, 2025
Today's Communication
Continue enteric Vancomycin.
Assessment / Plan
# High-grade small bowel obstruction
- s/p lap NICKI (02/12/25 )
- Completed 7d of empiric Vancomycin/metronidazole til 02/17
- Completed 11d empiric cefepime till 02/17
# Leukocytosis - trending down
- C. diff antigen positive, toxin negative
- Likely colonization. However, to err on side of caution, treating for possible infection with Vancomycin po 125 mg qid (d3 of 10)
# s/p Shock
# TYESHA on CKD, improving
# A-fib - rate controlled
# PCN and sulfa allergy
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
CVA
Osteoporosis
CKD3A
CAD
History of collagenous colitis status post colostomy with subsequent reversal, abdominal wall reconstruction without mesh
Lumbar radiculopathy
Depression/anxiety
Restless leg syndrome
Osteoporosis
Hysterectomy
Ventral Hernia repair
Left elbow surgery
Femur surgery
Chief Complaint
-: Leukocytosis and Other (SBO)
Subjective / Review of Systems
Abd discomfort stable.
Vital Signs / Physical Exam
Vital Signs
Vital Signs
Temp Pulse Resp BP Pulse Ox
97.6 F 74 22 150/71 100
02/19/25 07:30 02/19/25 07:30 02/19/25 07:30 02/19/25 07:30 02/19/25 07:30
Physical Exam
Constitutional: Chronically Ill
Eyes: Sclera Anicteric
Cardiovascular: Regular Rate and S1/S2
Pulmonary: Other (Decreased BS bases)
Gastrointestinal: Soft, Non Tender, Non Distended, Decreased Bowel Sounds and Other (FMS: liquid dark brown stool)
Genito-Urinary: Negative CVA Tenderness
Neurological: AO x 3
Lines: PICC (RUE )
Objective Data
Lab Data
Lab Results
02/19/25 06:14
02/17/25 02:30
PT 17.5 Sec (11.4-14.6) H 02/09/25 09:46
INR 1.41 02/09/25 09:46
APTT 71.1 Sec (23.4-35.0) H 02/18/25 06:32
Estimated Creat Clear 31 ml/min 02/17/25 02:30
Lactic Acid Cancelled 02/09/25 10:00
Total Bilirubin 0.5 mg/dl (0.2-1.3) 02/16/25 02:50
AST 62 U/L (14-36) H 02/16/25 02:50
ALT 31 U/L (0-35) 02/16/25 02:50
Alkaline Phosphatase 63 U/L (38-126) 02/16/25 02:50
Most recent labs reviewed.
Micro Results:
02/17/25 10:07 C. difficile GDH Antigen & Toxins - Final
Feces/Stool C. difficile antigen positive, toxin negative.
Clostridium difficile present, but toxin not detected.
Patient may be a carrier, colonized with nontoxinogenic
strain or the level of toxin in sample is below detection
limits. This information should be used in conjunction with
the patient's clinical history.
02/07/25 21:41 Blood Culture - Final
Blood/Venous No Growth - Final Report
02/07/25 21:37 Blood Culture - Final
Blood/Venous No Growth - Final Report
02/08/25 05:55 Urine Culture - Final
Urine NO GROWTH
02/08/25 05:55 Nasal Screen MRSA (PCR) - Final
Nose MRSA not detected - performed by PCR methodology.
Imaging:
02/07/25 CT a/p: Small bowel obstruction with transition point in the left lower quadrant. Moderate colonic stool burden. Tree-in-bud opacities within the right middle lobe which may be infectious/inflammatory. There is mild asymmetric cutaneous
thickening and stranding in the inferior left gluteal soft tissues which may represent superficial infectious/inflammatory process or sequelae of pressure wound.
02/09/25 CT a/p: Dilated small bowel, just slightly increased in comparison to recent prior study with findings again seen suggesting small bowel obstruction as was noted on recent prior study. No free air. Nasogastric tube with tip in the stomach.
Large volume stool filling and mildly distending the rectum. Cannot exclude mild stercoral colitis.
02/09/25 CXR: . Right PICC tip projects over the central SVC. Lungs remain clear.
02/10/25 SBFT: Delayed imaging at 6 hours reveals persistent contrast throughout dilated small bowel. There is no definitive oral contrast seen in large bowel. Findings suggest high-grade small bowel obstruction.
02/11/25 AXR: Persistent dilated small bowel with persistent contrast following small bowel series of preceding day. Findings suggest high-grade small bowel obstruction.
02/16/25CXR: Right PICC in position as described. Small bilateral pleural effusions with associated atelectasis and/or pneumonia, new from prior.
[2025-02-19 10:46] LABS: Glucose - Point of Care 100 mg/dl (70-99)
--- NOTE | 2025-02-19 12:27 | W.PN.NEPH.PH ---
Today's Communication / Plan
-
Discontinue TPN
Assessment/Plan
-
Assessment
TYESHA
Azotemia
CKD 3A 1.3 baseline= follows with nephrology in [place] Dr. Land
SBO s/p laparoscopic lysis of adhesions 02/12
Nausea vomiting
Metabolic acidosis
Hyperdense renal cysts
A-fib
History of stroke
Left adrenaloma
Plan
improving renal function cr 1.2
monitor bladder scan now off rock
reports sulfa allergy with rash even with lasix
Tolerating diet
Discontinue TPN after today
Bumex as needed
d/w nursing
-
-
Date of Service: February 19, 2025
CC / HPI / ROS
-
Chief Complaint:
Small bowel obstruction
History of Present Illness:
Presents with small bowel obstruction acute on chronic kidney disease baseline creatinine 1.4 with presenting creatinine 3.8
cr now at 1.2, non oliguric with rock
bp stable
no fever
Serum sodium at 144
Review of Systems:.
no SOB at rest on RA
no cp
feels better today
Tolerating p.o.
Labs
-
Labs:
WBC 12.9 10^3/uL (4.8-10.8) H 02/19/25 06:14
RBC 2.80 10^6/uL (4.20-5.40) L 02/19/25 06:14
Hgb 8.5 g/dL (12.0-16.0) L 02/19/25 06:14
Hct 26.9 % (37.0-47.0) L 02/19/25 06:14
Plt Count 314 10^3/uL (130-400) D 02/19/25 06:14
Sodium 144 mmol/L (135-145) 02/17/25 02:30
Potassium 3.5 mmol/L (3.5-5.1) 02/17/25 02:30
Chloride 112 mmol/L (98-107) H 02/17/25 02:30
Carbon Dioxide 24 mmol/L (22-30) 02/17/25 02:30
BUN 56 mg/dl (7-17) H 02/17/25 02:30
Creatinine 1.2 mg/dL (0.6-1.0) H 02/17/25 02:30
eGFR 45.76 02/17/25 02:30
Glucose 152 mg/dl (70-99) H 02/17/25 02:30
Calcium 8.3 mg/dl (8.4-10.2) L 02/17/25 02:30
Phosphorus 2.0 mg/dl (2.5-4.5) L 02/18/25 06:32
Albumin 2.1 g/dl (3.5-5.0) L 02/16/25 02:50
Physical Exam
-
Vital Signs:
Vital Signs
Temp Pulse Resp BP Pulse Ox
97.5 F 71 20 151/66 93
02/19/25 11:12 02/19/25 11:12 02/19/25 11:12 02/19/25 11:12 02/19/25 11:12
Cardiovascular:: Regular rate and rhythm
Respiratory:: Bilateral: Coarse
Lung Excursion:: Normal
Abdomen:: Soft
Extremity Edema:: None: Bilateral:
Rock Catheter: No
[2025-02-19] MEDS: FOLVITE 1 MG PO (12:35)
--- NOTE | 2025-02-19 12:45 | CM ---
Patient seen at bedside.
TPN discontinued
low residue diet
Spoke with daughter Nalini & requested additional SNF referrals to [facility]
States [facility] would be 1st choice - she & sibling plan to tour
no pre-auth needed
PLAN: SNF, pending bed availability when medically stable
[2025-02-19] MEDS: VITAMIN D3 (cholecalciferol) 125 MCG PO (12:53)
--- NOTE | 2025-02-19 13:53 | W.PN.UPDATE ---
Update Note
Progress Note Update
Eliquis 2.5 mg BID restarted 02/18/25 AM. Cont Amiodarone 200 mg BID for 2 weeks and then 200 mg daily. Med changes outlined on d/c instructions. Patient will follow up with her primary personal care assistant at [facility]. Patient lives in [place] and this was her
first ever visit to [facility].
--- NOTE | 2025-02-19 14:38 | W.PN.HOSP.TC ---
Today's Communication/Plan
-
Assessment / Plan
Assessment / Plan
General: No Apparent Distress, Comfortable and Conversant
HEENT: NormoCephalic, Moist mucous membranes, Atraumatic
Respiratory: Clear and Non Labored Respirations
Cardiac: S1/S2 and Regular Rhythm; No Rub or Gallop
GI: Soft, minimal TTP, surgical port scars clean dry intact, rectal tube with brown stool output
Musculoskeletal: No Edema, right upper extremity PICC with TPN running
: NO Suero
Neuro: Awake, Alert, Nonfocal/grossly intact
Psych: Calm and cooperative
Ms. Jack is an 79-year-old female with a medical history of sarcoidosis, collagenous colitis with bowel perforation (status post colostomy and reversal at [facility]), CAD, CKD, and CVA who presented with 5 days of nausea and vomiting associated
with abdominal pain and distention. Her last bowel movement was almost 1 week prior to arrival and she has been unable to tolerate anything p.o. during the past week. CT imaging shows very distended small bowel with a transition point in the left
lower quadrant concerning for high-grade obstruction. NG tube was placed for decompression and started on low intermittent wall suction. She developed A-fib with RVR with a heart rate of 150s to 180s, no prior history of A-fib. She was given a
dose of IV Lopressor with no significant effect and so was then started on IV Cardizem drip. However she became mildly hypotensive and so was switched to IV amiodarone drip with bolus. She was admitted for further evaluation and management of SBO
and new onset A-fib with RVR.
High-grade SBO secondary to adhesions
- Status post laparoscopic lysis of additions 02/12
- Tolerating full liquid, advancing to low residue diet with Ensure
- Discontinuing TPN
- Further recommendations per surgery
Diarrhea
- Continues to have loose stools, fecal management system in place
- Stool studies positive for C. difficile antigen but toxin negative
- Empirically treating with oral vancomycin for 10 days (today is day 01/05)
- ID following
- Patient does have history of collagenous colitis
Septic shock
- Now resolved, off vasopressors
- Unclear source, possibly due to C. difficile with antigen positive by PCR but toxin negative
- Not bacteremic, no evidence of UTI
- CT abdomen pelvis raised the concern of tree-in-bud opacities in the right middle lobe, mild asymmetric cutaneous thickening is stranding in the inferior left gluteal soft tissues, mild rectal wall thickening with large amount of stool in the
colon.
- Completed course of antibiotics with cefepime/flagyl/IV Vanco
- Mild persistent leukocytosis which is resolving, will monitor, remains afebrile
- Started on oral vancomycin 02/17 for 10-day course of empiric treatment of possible C. difficile colitis
A-fib with RVR:
- New onset
- Continue amiodarone 200 mg p.o. 2 times daily for 2 weeks (through 03/18) then convert to 200 mg daily, carvedilol 6.25 mg p.o. twice daily
- Transitioned to low-dose Eliquis 02/18
- Currently she is in sinus rhythm
- Cardiology following, recommendations appreciated
TYESHA on CKD 3:
- Suspect due to poor perfusion in the setting of sepsis with intermittent hypotension
- Now resolving
- Suero discontinued
- Appreciate nephrology recommendations -continue with as needed diuretics.
NSTEMI:
- Suspect due to myocardial stress in the setting of SBO and rapid A-fib
- Do not suspect ACS
- Appreciate cardiology recommendations
Progressive anemia-normocytic:
-no further external bleeding.
- H&H stable
- Continue with PPI p.o. twice daily.
Abdominal aortic dilatation:
- Focal dilatation of the infrarenal abdominal aorta measuring 2.9 cm
- Ongoing outpatient monitoring recommended
Adrenal nodule:
- 1.5 centimeter hypodense left adrenal nodule noted on imaging, likely an adenoma
- Outpatient monitoring recommended
Nutrition-low residue diet, TPN discontinued
CODE STATUS: DNR
PT OT eval-recommending SNF
Anticipated Discharge: > 48 hours
Subjective/Interval History
-
Date of Service: February 19, 2025
Patient was seen and examined at bedside this morning. She is excited that her diet is being advanced and she can be discontinued from TPN. Continues to clinically improve.
Objective Data
-
Labs:
Laboratory Results
02/19/25
06:14
WBC 12.9 H
Hgb 8.5 L
Hct 26.9 L
Plt Count 314 D
Vital Signs:
Vital Signs
Temp Pulse Resp BP Pulse Ox
97.5 F 71 20 151/66 93
02/19/25 11:12 02/19/25 11:12 02/19/25 11:12 02/19/25 11:12 02/19/25 11:12
I&O
02/18/25 02/19/25 02/20/25
06:59 06:59 06:59
Intake Total 2832.5 / 2871.0 640.5 / 640.5
Output Total 1095 / 1095 300 / 300
Balance 1737.5 / 1776.0 340.5 / 340.5
Review of Systems
-
History Source: Patient
All other systems: Reviewed and negative
Abdomen/GI: Reports Abdominal Pain
Physical Exam
-
General: No Apparent Distress
--- NOTE | 2025-02-19 16:33 | PTOTSP ---
Speech Language Pathology
Pt seen for dysphagia tx. Advanced to low residue diet. Seen with regular solids and thin liquids. Adequate mastication, bolus formation, and A-P transit noted. Pt taking sip of liquid with each bite of food while food still in oral cavity.
Suspect this is a compensatory strategy that pt has been doing for some time. She reported history of esophageal dilation approximately 4 years ago. She endorsed globus sensation at times with solids. Suspect esophageal etiology given hx. With
very first sip of liquid, cough noted. This was not noted with any other sips of liquids or solids, so question first swallow phenomenon. Discussed option of instrumental swallowing assessment as needed.
Recommend:
(1) Regular solids/thin liquids
(2) Esophageal precautions
(3) Meds 1 at a time with liquid
(4) PHYSICIAN INTERNIST to continue to follow. Will consider VSE/FEES as needed
[2025-02-19 16:39] LABS: Glucose - Point of Care 112 mg/dl (70-99)
[2025-02-19] MEDS: NOVOLOG FLEXPEN-LOW RESISTANCE SC (17:10)
[2025-02-19] MEDS: LAMICTAL 25 MG PO (17:59)
[2025-02-19] MEDS: MIRAPEX 0.5 MG PO (22:09)
[2025-02-19] MEDS: LIPITOR 80 MG PO (22:09)
[2025-02-19] MEDS: KLONOPIN 1 MG PO (22:09)
[2025-02-19] MEDS: SEROQUEL 50 MG PO (22:09)
[2025-02-19] MEDS: REMERON 15 MG PO (22:09)
[2025-02-20] MEDS: TYLENOL 650 MG PO ×5 (00:51→22:33)
[2025-02-20] MEDS: FIRVANQ 125 MG PO ×5 (00:51→23:23)
[2025-02-20 00:56] LABS: Glucose - Point of Care 85 mg/dl (70-99)
[2025-02-20] MEDS: TYLENOL PO ×2 (03:31→23:23)
[2025-02-20 03:44] VITALS: BP 130/54
[2025-02-20 06:00] VITALS: BMI 21.6
[2025-02-20 07:29] VITALS: BP 149/65
[2025-02-20 07:36] LABS: Glucose - Point of Care 68 mg/dl (70-99)
[2025-02-20 07:57] LABS: Glucose - Point of Care 53 mg/dl (70-99)
[2025-02-20] MEDS: MIRALAX 17 GRAMS PO (08:04)
[2025-02-20] MEDS: ELIQUIS 2.5 MG PO ×2 (08:04→22:33)
[2025-02-20] MEDS: PROTONIX 40 MG PO ×2 (08:07→22:33)
[2025-02-20] MEDS: COREG 6.25 MG PO (08:08)
[2025-02-20] MEDS: WELLBUTRIN SR (12 hour sustained release) 150 MG PO (08:09)
[2025-02-20] MEDS: DELTASONE 5 MG PO (08:09)
[2025-02-20] MEDS: PACERONE 200 MG PO ×2 (08:09→22:33)
[2025-02-20] MEDS: NOVOLOG FLEXPEN-LOW RESISTANCE SC ×3 (08:13→18:04)
[2025-02-20 08:22] LABS: Glucose - Point of Care 55 mg/dl (70-99)
[2025-02-20] MEDS: DEXTROSE 50% SYRINGE 12.5 GRAMS IV (08:23)
[2025-02-20 08:52] LABS: Glucose - Point of Care 110 mg/dl (70-99)
--- NOTE | 2025-02-20 09:01 | W.PN.GS2 ---
Addendum entered and electronically signed by Junior Cunningham MD 02/20/25 10:04:
Patient seen examined. Agree with assessment plan as documented below.
Mild distention throughout the day yesterday. No nausea or vomiting. Continues to pass flatus and multiple loose stools. Bowel habits appear to be back to baseline from preoperatively with multiple loose stools that have been previously
attributed to collagenase colitis. She also reports some nasal congestion and a cough productive of green phlegm. Afebrile. Denies any shortness of breath or chest pain.
Gen: NAD
Abd: soft, NT, mild soft distension, non-peritoneal, incisions c/d/i - no erythema, ecchymosis or drainage
Patient is an 79 yo F p/w SBO
POD#8 s/p laparoscopic NICKI
AVSS
Labs notable for persistent though down trending leukocytosis, stable anemia, improving TYESHA
Diarrhea ongoing - rectal trumpet present
Cough with green phlegm - potential URI
No significant changes from a surgical perspective
Plan:
--Cont LRD as tolerating well, encourage small frequent meals as likely has component of dysmotility with age and duration of obstruction
--Pain management: Tylenol, consider Tramadol if issues, no NSAIDs with TYESHA
--Cont PPI
--ABX as per ID
--Cont medical management per primary team
Original Note:
Today's Communication / Plan
-
Cont LRD
Assessment / Plan
-
Assessment: 79-year-old female presenting with high-grade small bowel obstruction
POD #8 Laparoscopic NICKI
Afebrile, vital signs stable
Diarrhea ongoing - rectal trumpet present
Cough with green phlegm - potential URI
Plan:
--Cont LRD as tolerating well
--Pain management: Tylenol, consider Tramadol if issues, no NSAIDs with TYESHA
--Cont PPI
--ABX as per ID
--Cont medical management per primary team
Subjective Data
-
Date of Service: February 20, 2025
Ab pain controlled and no N/V after eating yesterday. Does endorse productive cough with green phlegm and slight runny nose. Denies sore throat, body aches, fevers, chills. Thankful for her care.
Objective Data
-
Intake and Output
02/19/25 02/20/25 02/21/25
06:59 06:59 06:59
Intake Total 640.5 / 640.5 450 / 450
Output Total 300 / 300 250 / 250
Balance 340.5 / 340.5 200 / 200
Intake:
Oral fluids 360 / 360 450 / 450
IV fluids (Total) 16.5 / 16.5
Heparin 16.5 / 16.5
TPN/PPN 264 / 264
Output:
Liquid stool amount 300 / 300 250 / 250
Rectum 300 / 300 250 / 250
Other:
Number of approximated LARGE 1
amounts of urine
How many times incontinent 1
MODERATE amount urine
How many times incontinent 1 1
SATURATED amount urine
Vital Signs
Temp Pulse Resp BP Pulse Ox
98.2 F 74 17 149/65 95
02/20/25 07:29 02/20/25 08:08 02/20/25 07:29 02/20/25 08:08 02/20/25 07:29
Lab Results
02/19/25 06:14
02/17/25 02:30
Calcium 8.3 mg/dl (8.4-10.2) L 02/17/25 02:30
Magnesium 2.0 mg/dl (1.6-2.3) 02/16/25 02:50
Phosphorus 2.0 mg/dl (2.5-4.5) L 02/18/25 06:32
Total Bilirubin 0.5 mg/dl (0.2-1.3) 02/16/25 02:50
Direct Bilirubin 0.4 mg/dl (0.0-0.4) 02/13/25 05:38
AST 62 U/L (14-36) H 02/16/25 02:50
ALT 31 U/L (0-35) 02/16/25 02:50
Alkaline Phosphatase 63 U/L (38-126) 02/16/25 02:50
Total Protein 4.8 g/dl (6.3-8.2) L 02/16/25 02:50
Albumin 2.1 g/dl (3.5-5.0) L 02/16/25 02:50
Physical Exam
-
NAD
Ab distended, slight tender, incision sites healing well
[2025-02-20 10:44] VITALS: BP 140/61
[2025-02-20 11:16] LABS: Glucose - Point of Care 75 mg/dl (70-99)
[2025-02-20] MEDS: FOLVITE 1 MG PO (12:52)
[2025-02-20] MEDS: VITAMIN D3 (cholecalciferol) 125 MCG PO (12:55)
--- NOTE | 2025-02-20 13:31 | W.PN.HOSP.TC ---
Today's Communication/Plan
-
Assessment / Plan
Assessment / Plan
General: No Apparent Distress, Comfortable and Conversant
HEENT: NormoCephalic, Moist mucous membranes, Atraumatic
Respiratory: Clear and Non Labored Respirations
Cardiac: S1/S2 and Regular Rhythm; No Rub or Gallop
GI: Soft, minimal TTP, surgical port scars clean dry intact, rectal tube with brown stool output
Musculoskeletal: No Edema, no deformity
: NO Suero
Neuro: Awake, Alert, Nonfocal/grossly intact
Psych: Calm and cooperative
Ms. Jack is an 79-year-old female with a medical history of sarcoidosis, collagenous colitis with bowel perforation (status post colostomy and reversal at [facility]), CAD, CKD, and CVA who presented with 5 days of nausea and vomiting associated
with abdominal pain and distention. Her last bowel movement was almost 1 week prior to arrival and she has been unable to tolerate anything p.o. during the past week. CT imaging shows very distended small bowel with a transition point in the left
lower quadrant concerning for high-grade obstruction. NG tube was placed for decompression and started on low intermittent wall suction. She developed A-fib with RVR with a heart rate of 150s to 180s, no prior history of A-fib. She was given a
dose of IV Lopressor with no significant effect and so was then started on IV Cardizem drip. However she became mildly hypotensive and so was switched to IV amiodarone drip with bolus. She was admitted for further evaluation and management of SBO
and new onset A-fib with RVR.
High-grade SBO secondary to adhesions
- Status post laparoscopic lysis of additions 02/12
- Tolerating low residue diet with Ensure
- Discontinuing TPN
- Further recommendations per surgery
Diarrhea
- Continues to have loose stools, fecal management system in place
- Stool studies positive for C. difficile antigen but toxin negative
- Empirically treating with oral vancomycin for 10 days (today is day 02/05)
- ID following
- Patient does have history of collagenous colitis, will ask for GI evaluation
Septic shock
- Now resolved, off vasopressors
- Unclear source, possibly due to C. difficile with antigen positive by PCR but toxin negative
- Not bacteremic, no evidence of UTI
- CT abdomen pelvis raised the concern of tree-in-bud opacities in the right middle lobe, mild asymmetric cutaneous thickening is stranding in the inferior left gluteal soft tissues, mild rectal wall thickening with large amount of stool in the
colon.
- Completed course of antibiotics with cefepime/flagyl/IV Vanco
- Mild persistent leukocytosis which is resolving, will monitor, remains afebrile
- Started on oral vancomycin 02/17 for 10-day course of empiric treatment of possible C. difficile colitis
A-fib with RVR:
- New onset
- Continue amiodarone 200 mg p.o. 2 times daily for 2 weeks (through 03/18) then convert to 200 mg daily, carvedilol 6.25 mg p.o. twice daily
- Transitioned to low-dose Eliquis 02/18
- Currently she is in sinus rhythm
- Cardiology following, recommendations appreciated
TYESHA on CKD 3:
- Suspect due to poor perfusion in the setting of sepsis with intermittent hypotension
- Now resolving
- Suero discontinued
- Appreciate nephrology recommendations -continue with as needed diuretics.
NSTEMI:
- Suspect due to myocardial stress in the setting of SBO and rapid A-fib
- Do not suspect ACS
- Appreciate cardiology recommendations
Progressive anemia-normocytic:
-no further external bleeding.
- H&H stable
- Continue with PPI p.o. twice daily.
Abdominal aortic dilatation:
- Focal dilatation of the infrarenal abdominal aorta measuring 2.9 cm
- Ongoing outpatient monitoring recommended
Adrenal nodule:
- 1.5 centimeter hypodense left adrenal nodule noted on imaging, likely an adenoma
- Outpatient monitoring recommended
Nutrition-low residue diet, TPN discontinued
CODE STATUS: DNR
PT OT eval-recommending SNF
Anticipated Discharge: > 48 hours
Subjective/Interval History
-
Date of Service: February 20, 2025
Patient was seen and examined at bedside this morning. Leukocytosis has been improving. Clinically she feels better. Does have intermittent cough.
Objective Data
-
Vital Signs:
Vital Signs
Temp Pulse Resp BP Pulse Ox
97.8 F 71 17 140/61 96
02/20/25 10:44 02/20/25 10:44 02/20/25 10:44 02/20/25 10:44 02/20/25 10:44
I&O
02/19/25 02/20/25 02/21/25
06:59 06:59 06:59
Intake Total 640.5 / 640.5 450 / 450
Output Total 300 / 300 250 / 250
Balance 340.5 / 340.5 200 / 200
Review of Systems
-
History Source: Patient
All other systems: Reviewed and negative
Respiratory: Reports Cough
Physical Exam
-
General: No Apparent Distress
[2025-02-20 15:15] VITALS: BP 138/68
--- NOTE | 2025-02-20 15:31 | CON.GI ---
Addendum entered and electronically signed by Juan Jose Thacker MD 02/20/25 18:36:
The patient was seen and examined by me independently in collaboration with the nurse practitioner.
Past medical history/social history/medications/allergies/family history reviewed.
Lab data and imaging data reviewed.
80-year-old female past medical history as below including a distant history of collagenous colitis followed by longstanding history of chronic constipation including a bowel perforation requiring colostomy. She now was admitted with a small bowel
obstruction on February 07 and underwent a lysis of adhesions on February 12. She had a long period of constipation from February 02 to February 17 when her diet was advanced to full liquids. Of note, C. difficile was checked at that time and toxin was
negative and antigen was positive which infectious disease is treating. GIs been consulted for diarrhea. She is found to have about 875 mL in the last 4 days with a fecal management system in. She did receive MiraLAX this morning but has not
received it the prior days.
We got an x-ray to further evaluate as we were concerned that perhaps this is due to overflow. She does have some small bowel loop distention which is improved from prior. There is no increased volume of stool in the colon suggestive of
constipation.
For now, we will monitor her bowel movements and hold her bowel regiment to see if diarrhea improves. My suspicion this is collagenous colitis is low as she has gone many years without a recurrence she is also on low-dose prednisone for unclear
etiology.
She did ask to transfer her GI care going forward to GI which we will arrange follow up outpatient on sd.
Original Note:
Consultation
-
Date/Time Consultation Requested: 02/20/250
Date/Time Consultation Performed: 02/20/25 1440
Requesting Provider: Dr. Fuentes
Performing Provider: Dr. Thacker/ROD Oquendo
Reason for Consultation: loose stools
Medical History
Chief Complaint / HPI
Chief Complaint: n/v
History of Present Illness:
Leonila is a pleasant 80-year-old female with past medical history of CAD, CVA with loop recorder, A-fib status post ablation, hysterectomy, CKD, depression, sarcoidosis, history of collagenous colitis diagnosed in the late by Dr. Quinteros "Mima"Allyson in [place] treated with budesonide in the past with subsequent resolution of diarrhea and chronic constipation ever since. The patient had severe constipation with bowel perforation in the mid/early with colostomy with Dr. Smith
at [facility]. This was reversed at [facility] by Dr.Cary Damon around with ventral hernia repair. She states that she has not followed up with a lean sensei since that time. she does have chronic
constipation with pebble-like stool requiring the use of Colace daily. She was admitted on 02/07/2025 with a small bowel obstruction. We are asked to evaluate for loose stools after having lysis of adhesions on 02/12/2025. The patient presents to
the emergency room on 02/07/2025 with nausea/vomiting/abdominal distention and abdominal tenderness. Her last bowel movement was on 02/02/2025. She states that she had brown vomiting. She had NG tube placed at that time for small bowel obstruction.
She was also found to be in rapid A-fib with elevated troponin. CT imaging on 02/07/2025 showed small bowel obstruction with transition point in the left lower quadrant with moderate colonic stool burden. She did receive oral contrast. She did
require ICU level care for A-fib with RVR and hypotension on 02/09/2025. The patient did develop a leukocytosis, TYESHA and shock requiring pressor support. She had a small bowel study with 500 mL of contrast that did not progress into the large bowel
on 02/10/2025. The patient finally did consent to surgery on 02/12/2025 for high-grade small bowel obstruction due to adhesions. She had a laparoscopic lysis of adhesions. On 02/14/2025 she had a small smear of stools. On 02/15/2025 she was allowed
p.o. meds. She started to pass some flatus with small stools. On 02/16/2025 she started clear liquid diet. On 02/17/2025 she was started on a full liquid diet and had multiple stools at that time. These were loose. Since that time she was placed
on a low residue diet on 02/18/2025. During this time she was empirically on vancomycin/Flagyl and cefepime. Given the loose stools on 02/17/2025 her stool was checked for C. difficile. This was antigen positive but toxin negative. Treatment for
possible C. difficile infection with p.o. vancomycin 125 mg 4 times daily for 10 days was initiated by infectious disease. The cefepime was discontinued. We are asked to see the patient because of the persistent loose stools. She has a fecal
management device in place. She did receive a dose of MiraLAX this morning. She is currently feeling well. She is tolerating diet and she was eating an omelette when I saw her. She denies any nausea, vomiting, abdominal discomfort. She is
passing gas within the fecal management system. Currently there is loose brown stool within the system. Since she started having bowel movements in the past 4 days there has been a total output of 875 mL.
Past Medical History
Past Medical History: Other (CAD, CVA, loop recorder, A-fib, CKD, depression, sarcoidosis, collagenous colitis)
Past Surgical History: Other (Bilateral shoulder surgery, loop recorder, colostomy status post reversal, ventral hernia repair, hysterectomy, femur surgery)
Social History
Tobacco: Former Smoker
Alcohol: None
Drug: None
Personal:
Living: Alone
Employment: Retired
Family History
Family History: Other (No family history of gastrointestinal malignancy or IBD)
Allergies / Home Medications
Allergy/AdvReac Type Severity Reaction Status Date / Time
Penicillins Allergy Mild Hives Verified 02/07/25 14:00
Sulfa (Sulfonamide Allergy Mild Hives Verified 02/07/25 14:00
Antibiotics)
hydrochlorothiazide Allergy Hives Verified 02/07/25 14:00
Iodinated Contrast Media Allergy Hives Verified 02/07/25 14:00
�Medication �Instructions �Recorded
amlodipine 5 mg tablet 5 mg PO NOON Blood Pressure 02/07/25
atorvastatin 80 mg tablet 80 mg PO HS High Cholesterol 02/07/25
bupropion HCl 150 mg tablet,12 hr 150 mg PO DAILY Mental 02/07/25
sustained-release Health/Anxiety
cholecalciferol (vitamin D3) 125 125 mcg PO NOON Supplement 02/07/25
mcg (5,000 unit) tablet (Vitamin
D3)
clonazepam 1 mg tablet 1 mg PO HS Mental Health/Anxiety 02/07/25
denosumab 60 mg/mL subcutaneous 60 mg SC [id number] OSTEOPOROSIS 02/07/25
syringe (Prolia)
ferrous sulfate 325 mg (65 mg 325 mg PO NOON Supplement 02/07/25
iron) tablet
folic acid 1 mg tablet 1 mg PO NOON Supplement 02/07/25
lamotrigine 100 mg tablet 100 mg PO QPM Mental Health/Anxiety 02/07/25
meclizine 25 mg tablet 25 mg PO DAILY VERTIGO 02/07/25
mirtazapine 15 mg tablet 15 mg PO HS Mental Health/Anxiety 02/07/25
nitroglycerin 0.2 mg/hr 1 patch transdermal HS Blood 02/07/25
transdermal 24 hour patch Pressure
omeprazole 20 mg capsule,delayed 20 mg PO DAILY Gastrointestinal 02/07/25
release Issue
pramipexole 0.25 mg tablet 0.5 mg PO HS Neurological Condition 02/07/25
quetiapine 100 mg tablet 100 mg PO HS Mental Health/Anxiety 02/07/25
sodium bicarbonate 650 mg tablet 1,300 mg PO BID Electrolyte 02/07/25
Repletion
Review of Systems
-
All other systems: A 12 pt ROS was Negative except as stated above in HPI
Vital Signs
Temp Pulse Resp BP Pulse Ox
97.8 F 79 17 138/68 97
02/20/25 15:15 02/20/25 15:15 02/20/25 15:15 02/20/25 15:15 02/20/25 15:15
Physical Exam
Exam
General: No Apparent Distress
HEENT: Anicteric
Respiratory: Clear (Anterior)
Cardiac: Regular Rhythm
GI: Soft, Non Tender, Non Distended and Normal Bowel Sounds
Rectal: Other (Fecal management bag in place, small amount of stool loose, brown)
Skin: Warm and Dry
Neuro: AO x 3
Psych: Calm
Results
WBC 12.9 10^3/uL (4.8-10.8) H 02/19/25 06:14
Hgb 8.5 g/dL (12.0-16.0) L 02/19/25 06:14
Hct 26.9 % (37.0-47.0) L 02/19/25 06:14
MCV 96.1 fL (81.0-99.0) 02/19/25 06:14
Plt Count 314 10^3/uL (130-400) D 02/19/25 06:14
Absolute Neuts (auto) 10.5 10^3/uL (1.4-6.5) H 02/19/25 06:14
PT 17.5 Sec (11.4-14.6) H 02/09/25 09:46
INR 1.41 02/09/25 09:46
APTT 71.1 Sec (23.4-35.0) H 02/18/25 06:32
Sodium 144 mmol/L (135-145) 02/17/25 02:30
Potassium 3.5 mmol/L (3.5-5.1) 02/17/25 02:30
Chloride 112 mmol/L (98-107) H 02/17/25 02:30
Carbon Dioxide 24 mmol/L (22-30) 02/17/25 02:30
BUN 56 mg/dl (7-17) H 02/17/25 02:30
Creatinine 1.2 mg/dL (0.6-1.0) H 02/17/25 02:30
Calcium 8.3 mg/dl (8.4-10.2) L 02/17/25 02:30
Total Bilirubin 0.5 mg/dl (0.2-1.3) 02/16/25 02:50
AST 62 U/L (14-36) H 02/16/25 02:50
ALT 31 U/L (0-35) 02/16/25 02:50
Alkaline Phosphatase 63 U/L (38-126) 02/16/25 02:50
Lipase 50 U/L (23-300) 02/07/25 14:11
Diagnostic Image Results:
Abd XR 02/11/25:
IMPRESSION:
Persistent dilated small bowel with persistent contrast following small bowel series of preceding day. Findings suggest high-grade small bowel obstruction
SB XR 02/09/25:
Delayed imaging at 6 hours reveals persistent contrast throughout dilated small bowel.
There is no definitive oral contrast seen in large bowel.
Findings suggest high-grade small bowel obstruction.
Confirmed [employer] communication with Dr. Copeland at 2012 hours on February 10, 2025.
CT Abd/Pelvis with oral contrast 02/09/25:
Dilated small bowel, just slightly increased in comparison to recent prior study with findings again seen suggesting small bowel obstruction as was noted on recent prior study. No free air.
Nasogastric tube with tip in the stomach.
Large volume stool filling and mildly distending the rectum. Cannot exclude mild stercoral colitis
Prior GI Procedures:
EGD:
Colonoscopy: Prior to 1999, Dr. Aldair Valadez ([place]) per patient 'collagenous colitis'. Records unavailable to us.
Assessment / Plan
-
Leonila is a pleasant 80-year-old female with past medical history of CAD, CVA with loop recorder, A-fib status post ablation, hysterectomy, CKD, depression, sarcoidosis, history of collagenous colitis diagnosed in the late by Dr. Quinteros
Allyson in [place] treated with budesonide in the past with subsequent resolution of diarrhea and chronic constipation ever since. The patient had severe constipation with bowel perforation in the mid/early 1999's with colostomy with Dr. Smith
at [facility]. This was reversed at [facility] by Dr.Cary Damon around with ventral hernia repair. She states that she has not followed up with a lean sensei since that time. she does have chronic
constipation with pebble-like stool requiring the use of Colace daily. She was admitted on 02/07/2025 with a small bowel obstruction. We are asked to evaluate for loose stools after having lysis of adhesions on 02/12/2025. Patient with 875 mL of
loose brown stool after lysis of adhesion. This is following CT of abdomen and pelvis with oral contrast as well as small bowel series with oral contrast as well. Also in the setting of severe constipation. Patient currently eating. Was also
given 1 dose of MiraLAX this morning. Not a significant volume of solid or liquid stool post considering the contrast that was given to her. She was also given 2 doses of prednisone 5 mg for the past 2 days therefore if this was collagenous
colitis theoretically this could potentially be somewhat treated. She is also on vancomycin orally to treat antigen positive toxin negative potential C. difficile. However doubt this is active C. difficile. Would continue to treat as per ID
recommendations.
Impression:
SBO s/p NICKI 02/12/25
Chronic constipation
Hx Collagenous colitis in the late /early 1999 treated with budesonide in the past with complete resolution of symptoms
C. difficile antigen positive, toxin negative currently on treatment with oral vancomycin
Plan:
-Continue low residue diet as per Surgery recommendations
-Stop Miralax
-[place] Text sent to Medicine Attending about Prednisone, if for possible Collagenous colitis treatment would stop.
-Will obtain abdominal x-ray to evaluate fecal burden. Reviewed prior x-rays/CT with significant prior stool burden.
-Continue to monitor fecal output.
-Further recommendations to be forthcoming.
-
-
Thank you for consultation and allowing me to participate in the patient's care. Please call the operational risk analyst GI physician during the after hours with any questions or concerns.
--- NOTE | 2025-02-20 15:33 | W.PN.NEPH.PH ---
Today's Communication / Plan
-
Follow-up BMP
Patient now off TPN
May need diuretics if weights continue to rise
Assessment/Plan
-
Assessment
TYESHA
Azotemia
CKD 3A 1.3 baseline= follows with nephrology in [place] Dr. Land
SBO s/p laparoscopic lysis of adhesions 02/12
Nausea vomiting
Metabolic acidosis
Hyperdense renal cysts
A-fib
History of stroke
Left adrenaloma
Plan
improving renal function cr 1.2
monitor bladder scan now off rock
reports sulfa allergy with rash even with lasix
Tolerating diet
TPN off
Bumex as needed
follow up labs tomorrow
d/w nursing
-
-
Date of Service: February 20, 2025
CC / HPI / ROS
-
Chief Complaint:
Small bowel obstruction
History of Present Illness:
Presents with small bowel obstruction acute on chronic kidney disease baseline creatinine 1.4 with presenting creatinine 3.8
cr now at 1.2, non oliguric with rock
bp stable
no fever
Review of Systems:.
no SOB at rest on RA
no cp
feels better today
Tolerating p.o.
Labs
-
Labs:
WBC 12.9 10^3/uL (4.8-10.8) H 02/19/25 06:14
RBC 2.80 10^6/uL (4.20-5.40) L 02/19/25 06:14
Hgb 8.5 g/dL (12.0-16.0) L 02/19/25 06:14
Hct 26.9 % (37.0-47.0) L 02/19/25 06:14
Plt Count 314 10^3/uL (130-400) D 02/19/25 06:14
Sodium 144 mmol/L (135-145) 02/17/25 02:30
Potassium 3.5 mmol/L (3.5-5.1) 02/17/25 02:30
Chloride 112 mmol/L (98-107) H 02/17/25 02:30
Carbon Dioxide 24 mmol/L (22-30) 02/17/25 02:30
BUN 56 mg/dl (7-17) H 02/17/25 02:30
Creatinine 1.2 mg/dL (0.6-1.0) H 02/17/25 02:30
eGFR 45.76 02/17/25 02:30
Glucose 152 mg/dl (70-99) H 02/17/25 02:30
Calcium 8.3 mg/dl (8.4-10.2) L 02/17/25 02:30
Phosphorus 2.0 mg/dl (2.5-4.5) L 02/18/25 06:32
Albumin 2.1 g/dl (3.5-5.0) L 02/16/25 02:50
Physical Exam
-
Vital Signs:
Vital Signs
Temp Pulse Resp BP Pulse Ox
97.8 F 79 17 138/68 97
02/20/25 15:15 02/20/25 15:15 02/20/25 15:15 02/20/25 15:15 02/20/25 15:15
Cardiovascular:: Regular rate and rhythm
Respiratory:: Bilateral: Coarse
Lung Excursion:: Normal
Abdomen:: Soft
Extremity Edema:: None: Bilateral:
Rock Catheter: No
--- NOTE | 2025-02-20 16:39 | CM ---
chart reviewed
off TPN, bladder scan now off rock
PT rec SNF
[facility] [place]
PLAN: SNF, pending bed availability when medically stable
[2025-02-20 16:52] LABS: Glucose - Point of Care 50 mg/dl (70-99)
[2025-02-20 17:45] LABS: Glucose - Point of Care 102 mg/dl (70-99)
[2025-02-20] MEDS: LAMICTAL 25 MG PO (18:05)
[2025-02-20 20:31] VITALS: BP 105/69
[2025-02-20 21:38] LABS: Glucose - Point of Care 130 mg/dl (70-99)
[2025-02-20] MEDS: REMERON 15 MG PO (22:33)
[2025-02-20] MEDS: KLONOPIN 1 MG PO (22:33)
[2025-02-20] MEDS: COREG PO (22:33)
[2025-02-20] MEDS: MIRAPEX 0.5 MG PO (22:33)
[2025-02-20] MEDS: LIPITOR 80 MG PO (22:33)
[2025-02-20] MEDS: SEROQUEL 50 MG PO (22:33)
[2025-02-20 23:35] VITALS: BP 103/60
[2025-02-21 04:00] VITALS: BP 132/64
[2025-02-21] MEDS: TYLENOL 650 MG PO ×5 (05:18→23:37)
[2025-02-21] MEDS: FIRVANQ 125 MG PO ×4 (05:21→23:38)
[2025-02-21 06:00] VITALS: BMI 21.1
[2025-02-21 07:00] VITALS: BP 123/56
[2025-02-21 08:20] LABS: Glucose - Point of Care 103 mg/dl (70-99)
[2025-02-21] MEDS: NOVOLOG FLEXPEN-LOW RESISTANCE SC ×2 (08:45→16:50)
[2025-02-21] MEDS: COREG 6.25 MG PO ×2 (08:49→20:26)
[2025-02-21] MEDS: WELLBUTRIN SR (12 hour sustained release) 150 MG PO (08:49)
[2025-02-21] MEDS: PACERONE 200 MG PO ×2 (08:50→20:27)
[2025-02-21] MEDS: ELIQUIS 2.5 MG PO ×2 (08:50→20:32)
[2025-02-21] MEDS: PROTONIX 40 MG PO ×2 (08:50→20:26)
[2025-02-21 09:09] LABS: Hematocrit 29.2 % (37.0-47.0); Hemoglobin 9.2 g/dL (12.0-16.0); Mean Corp Hgb Conc. 31.5 g/dL (33.0-37.0); Mean Corpuscular Hgb 29.6 pg (27.0-31.0); Mean Corpuscular Volume 93.9 fL (81.0-99.0); Mean Platelet Volume 10.9 fL (7.4-10.4); Platelet Count 363 10^3/uL (130-400); Red Blood Cell Count 3.11 10^6/uL (4.20-5.40); White Blood Cell Count 8.5 10^3/uL (4.8-10.8)
[2025-02-21 10:17] LABS: Blood Urea Nitrogen 32 mg/dl (7-17); Calcium 8.2 mg/dl (8.4-10.2); Carbon Dioxide 20 mmol/L (22-30); Chloride 114 mmol/L (98-107); Estimated Creatinine Clearance 33 ml/min; Glucose 79 mg/dl (70-99); Potassium 4.6 mmol/L (3.5-5.1); Sodium 140 mmol/L (135-145); eGFR 50.48
[2025-02-21 11:00] VITALS: BP 124/65
--- NOTE | 2025-02-21 11:13 | W.PN.GS2 ---
Addendum entered and electronically signed by Mikey Moss MD 02/21/25 12:02:
Patient seen and examined. Overall states that she feels tired and deconditioned.
Tolerating p.o. intake without nausea or vomiting.
Bowel movements but now without fecal containment system
AFVSS
NAD AAO x 3
ABD: Softly distended/tympanitic, minimal incisional tenderness. Incisions with glue dressings.
A/P: POD 9 status post lap lyse adhesions for high-grade PSBO
Given the chronicity of obstructive findings and degree of small bowel dilation not uncommon for postoperative diarrhea. Agree with GI recommendations for expectant management.
Leukocytosis improved/resolved
10-day treatment with p.o. vancomycin -last day 02/27/2025
Will follow peripherally
Stable for discharge planning likely will require SNF/rehab
Original Note:
Today's Communication / Plan
-
LRD as tolerated
Assessment / Plan
-
Assessment: 79-year-old female presenting with high-grade small bowel obstruction
POD #9 Laparoscopic NICKI
Afebrile, vital signs stable
Diarrhea ongoing but slowing down
Tolerating diet
Leukocytosis resolved. H/H remains stable on Eliquis
Cr continues to improved
Plan:
--Cont LRD
--Pain management with PO analgesics
--Oral vancomycin as per ID
--PT/OT following, anticipate rehab upon d/c
--Cont medical management per primary team
Doing well from surgical standpoint. Surgery to follow peripherally, please call with questions/concerns
Subjective Data
-
Date of Service: February 21, 2025
Patient seen and examined at bedside with Dr. Moss. Denies n/v. Tolerating diet. Diarrhea has slowed somewhat and rectal tube removed. She does pass small liquid stools with cough. Passing flatus. Minimal pain.
Objective Data
-
Intake and Output
02/20/25 02/21/25 02/22/25
06:59 06:59 06:59
Intake Total 450 / 450 1040 / 1040
Output Total 250 / 250
Balance 200 / 200 1040 / 1040
Intake:
Oral fluids 450 / 450 1040 / 1040
Output:
Liquid stool amount 250 / 250
Rectum 250 / 250
Other:
Number of approximated MODERATE 1
amounts of urine
Number of approximated LARGE 1
amounts of urine
How many times incontinent 1
MODERATE amount urine
How many times incontinent 1 2
SATURATED amount urine
Number of unmeasured liquid
stools
Rectum 9
Vital Signs
Temp Pulse Resp BP Pulse Ox
97.9 F 76 16 123/56 96
02/21/25 07:00 02/21/25 07:00 02/21/25 07:00 02/21/25 07:00 02/21/25 04:00
Lab Results
02/21/25 08:53
02/21/25 09:56
Calcium 8.2 mg/dl (8.4-10.2) L 02/21/25 09:56
Magnesium 2.0 mg/dl (1.6-2.3) 02/16/25 02:50
Phosphorus 2.0 mg/dl (2.5-4.5) L 02/18/25 06:32
Total Bilirubin 0.5 mg/dl (0.2-1.3) 02/16/25 02:50
Direct Bilirubin 0.4 mg/dl (0.0-0.4) 02/13/25 05:38
AST 62 U/L (14-36) H 02/16/25 02:50
ALT 31 U/L (0-35) 02/16/25 02:50
Alkaline Phosphatase 63 U/L (38-126) 02/16/25 02:50
Total Protein 4.8 g/dl (6.3-8.2) L 02/16/25 02:50
Albumin 2.1 g/dl (3.5-5.0) L 02/16/25 02:50
Physical Exam
-
NAD
Abd nd, nt, incision sites healing well
--- NOTE | 2025-02-21 11:14 | W.PN.NEPH.PH ---
Today's Communication / Plan
-
Creatinine 1.1 better than baseline sign off
Assessment/Plan
-
Assessment
TYESHA
Azotemia
CKD 3A 1.3 baseline= follows with nephrology in [place] Dr. Land
SBO s/p laparoscopic lysis of adhesions 02/12
Nausea vomiting
Metabolic acidosis
Hyperdense renal cysts
A-fib
History of stroke
Left adrenaloma
Plan
improving renal function cr 1.1
monitor bladder scan now off rock
reports sulfa allergy with rash even with lasix
Tolerating diet
TPN off
we will sign off
-
-
Date of Service: February 21, 2025
CC / HPI / ROS
-
Chief Complaint:
Small bowel obstruction
History of Present Illness:
Presents with small bowel obstruction acute on chronic kidney disease baseline creatinine 1.4 with presenting creatinine 3.8
cr now at 1.1, non oliguric with rock
bp stable
no fever
Review of Systems:.
no SOB at rest on RA
no cp
feels better today
Tolerating p.o.
Labs
-
Labs:
WBC 8.5 10^3/uL (4.8-10.8) 02/21/25 08:53
RBC 3.11 10^6/uL (4.20-5.40) L 02/21/25 08:53
Hgb 9.2 g/dL (12.0-16.0) L 02/21/25 08:53
Hct 29.2 % (37.0-47.0) L 02/21/25 08:53
Plt Count 363 10^3/uL (130-400) 02/21/25 08:53
Sodium 140 mmol/L (135-145) 02/21/25 09:56
Potassium 4.6 mmol/L (3.5-5.1) 02/21/25 09:56
Chloride 114 mmol/L (98-107) H 02/21/25 09:56
Carbon Dioxide 20 mmol/L (22-30) L 02/21/25 09:56
BUN 32 mg/dl (7-17) H 02/21/25 09:56
Creatinine 1.1 mg/dL (0.6-1.0) H 02/21/25 09:56
eGFR 50.48 02/21/25 09:56
Glucose 79 mg/dl (70-99) 02/21/25 09:56
Calcium 8.2 mg/dl (8.4-10.2) L 02/21/25 09:56
Phosphorus 2.0 mg/dl (2.5-4.5) L 02/18/25 06:32
Albumin 2.1 g/dl (3.5-5.0) L 02/16/25 02:50
Physical Exam
-
Vital Signs:
Vital Signs
Temp Pulse Resp BP Pulse Ox
97.9 F 76 16 123/56 96
02/21/25 07:00 02/21/25 07:00 02/21/25 07:00 02/21/25 07:00 02/21/25 04:00
Cardiovascular:: Regular rate and rhythm
Respiratory:: Bilateral: Coarse
Lung Excursion:: Normal
Abdomen:: Soft
Extremity Edema:: None: Bilateral:
Rock Catheter: No
--- NOTE | 2025-02-21 11:43 | W.PN.GI.CBS2 ---
Addendum entered and electronically signed by Juan Jose Thacker MD 02/21/25 14:44:
I saw and examined the patient.
The STOCK TAKER or PA's note was reviewed and I agree with the note.
Comment: 80-year-old female past medical history as below including a distant history of collagenous colitis followed by longstanding history of chronic constipation including a bowel perforation requiring colostomy. She now was admitted with a
small bowel obstruction on February 07 and underwent a lysis of adhesions on February 12. She had a long period of constipation from February 02 to February 17 when her diet was advanced to full liquids. Of note, C. difficile was checked at that time and toxin
was negative and antigen was positive which infectious disease is treating. GIs been consulted for diarrhea.
I discussed with the daughter, there was correlation with her diarrhea with TPN which could be related. Could have been overflow although x-ray did not show appreciable amount of stool. The diarrhea today has resolved. She does have lifelong
issues with her bowels. But at this time, her diarrhea seems to be resolved. Recommend MiraLAX as needed if and when her constipation returns. There was a question of C. difficile and infectious disease was following for this. I gave her our
card if she does want to transfer her care in the future as outpatient. GI will sign off. Please call with any questions.
Original Note:
Today's Communication / Plan
-
as per plan
Assessment / Plan
-
Leonila is a pleasant 80-year-old female with past medical history of CAD, CVA with loop recorder, A-fib status post ablation, hysterectomy, CKD, depression, sarcoidosis, history of collagenous colitis diagnosed in the late by Dr. Quinteros
[facility] in [place] treated with budesonide in the past with subsequent resolution of diarrhea and chronic constipation ever since. The patient had severe constipation with bowel perforation in the mid/early s with colostomy with Dr. Smith
at [facility]. This was reversed at [facility] by Dr.Cary Damon around with ventral hernia repair. She states that she has not followed up with a reed press feeder since that time. she does have chronic
constipation with pebble-like stool requiring the use of Colace daily. She was admitted on 02/07/2025 with a small bowel obstruction. We are asked to evaluate for loose stools after having lysis of adhesions on 02/12/2025. Patient with 875 mL of
loose brown stool after lysis of adhesion. This is following CT of abdomen and pelvis with oral contrast as well as small bowel series with oral contrast as well. Also in the setting of severe constipation. Patient currently eating. Was also
given 1 dose of MiraLAX this morning. Not a significant volume of solid or liquid stool post considering the contrast that was given to her. She was also given 2 doses of prednisone 5 mg for the past 2 days therefore if this was collagenous
colitis theoretically this could potentially be somewhat treated. She is also on vancomycin orally to treat antigen positive toxin negative potential C. difficile. However doubt this is active C. difficile. Would continue to treat as per ID
recommendations.
Impression:
SBO s/p NICKI 02/12/25
Chronic constipation
Hx Collagenous colitis in the late /early 1999 treated with budesonide in the past with complete resolution of symptoms
C. difficile antigen positive, toxin negative currently on treatment with oral vancomycin
Plan:
-Continue low residue diet, recommend decreasing amount of lactose in her diet.
-Miralax was stopped yesterday. She did get a dose inadvertently.
-X-ray imaging from yesterday without any significant stool.
-Continues on vancomycin as per ID recommendations for antigen positive, toxin negative C. difficile.
-No bowel movements this morning. She does have a history of chronic constipation at home.
-He would like to transfer her GI care to [facility], she can call the office for follow-up after discharge.
- Nothing further to add at this point. We will be available as needed by request.
Subjective
Subjective
Date of Service: February 21, 2025
Patient with fecal management device removed yesterday. Stopped having loose stools yesterday. No bowel movements today. Tolerating low residue diet. Had Austrian toast, pudding, chocolate milk and ice cream this morning. No abdominal pain. I
did discuss with her she might want to decrease the amount of lactose as this can sometimes worsen diarrheal symptoms. Otherwise doing well. Passing flatus.
Objective
Data Reviewed
Laboratory Data:
Laboratory Results
02/21/25 08:53
02/21/25 09:56
Laboratory Results
PT 17.5 Sec (11.4-14.6) H 02/09/25 09:46
INR 1.41 02/09/25 09:46
APTT 71.1 Sec (23.4-35.0) H 02/18/25 06:32
Magnesium 2.0 mg/dl (1.6-2.3) 02/16/25 02:50
Phosphorus 2.0 mg/dl (2.5-4.5) L 02/18/25 06:32
Total Bilirubin 0.5 mg/dl (0.2-1.3) 02/16/25 02:50
AST 62 U/L (14-36) H 02/16/25 02:50
ALT 31 U/L (0-35) 02/16/25 02:50
Alkaline Phosphatase 63 U/L (38-126) 02/16/25 02:50
Lipase 50 U/L (23-300) 02/07/25 14:11
Vital Signs and I&O:
Vital Signs
Temp Pulse Resp BP Pulse Ox
97.9 F 76 16 123/56 96
02/21/25 07:00 02/21/25 07:00 02/21/25 07:00 02/21/25 07:00 02/21/25 04:00
I&O
02/20/25 02/21/25 02/22/25
06:59 06:59 06:59
Intake Total 450 / 450 1040 / 1040
Output Total 250 / 250
Balance 200 / 200 1040 / 1040
Physical Exam
Physical Exam
HEENT: Anicteric
Cardiology: Normal Sinus Rhythm
Pulmonary: Clear
GI: Soft, Non Distended, Non Tender and Normal Bowel Sounds
Neuro: Non Focal
[2025-02-21 12:12] LABS: Glucose - Point of Care 168 mg/dl (70-99)
[2025-02-21] MEDS: VITAMIN D3 (cholecalciferol) 125 MCG PO (12:39)
[2025-02-21] MEDS: NOVOLOG FLEXPEN-LOW RESISTANCE 1 UNITS SC (12:39)
[2025-02-21] MEDS: FOLVITE 1 MG PO (12:39)
--- NOTE | 2025-02-21 13:57 | PTCARENOTE ---
Pt very weak, whispers to talk, and appears very deconditions, frail, and cachectic. Pt with nutrition on board and gets ensure daily. She stated she has been working with PT and she was able to walk to window the day prior. Pt verbally agreed
she needs to get stronger and agreed to get OOB to chair and use the BSC. To date she has been using bedpan and primarily staying in bed. Pt has been having incontinence with stool and urine with urgency and any coughing. the patient and I agreed we
would start to bowel and bladder train while OOB to use the BSC every other hour to reduce the incontinence, improve bowel control, improve bladder control and to strengthen her muscles. Pt was able to get to side of bed with a tremendous amount
of assistance from me. her upper arm strength was decreased and I had to get her from lying to sitting on edge of bed. she wave very dizzy with vertigo. I sat with her until it resolved (three minutes). then we stood up , again i had to do most of
this work. She was only dizzy for 30seconds and felt strong enough to move a couple of steps to stand and pivot onto BSC. She required alot of ques for safety but was able to sit on BSC. She was not able to move her bowels or void. When she was
standing, to get into recliner, she had no dizziness. She was sitting in chair, had lunch there . Pt got on and off BSC since but is fatigued. she agreed to use bed thomas nex time. will continue to work encourage bowel regime. . daughter at
bedside.
--- NOTE | 2025-02-21 14:21 | W.PN.HOSP.TC ---
Today's Communication/Plan
-
Assessment / Plan
Assessment / Plan
General: No Apparent Distress, Comfortable and Conversant
HEENT: NormoCephalic, Moist mucous membranes, Atraumatic
Respiratory: Clear and Non Labored Respirations
Cardiac: S1/S2 and Regular Rhythm; No Rub or Gallop
GI: Soft, minimal TTP, surgical port scars clean dry intact
Musculoskeletal: No Edema, no deformity
: NO Suero
Neuro: Awake, Alert, Nonfocal/grossly intact
Psych: Calm and cooperative
Ms. Jack is an 79-year-old female with a medical history of sarcoidosis, collagenous colitis with bowel perforation (status post colostomy and reversal at [facility]), CAD, CKD, and CVA who presented with 5 days of nausea and vomiting associated
with abdominal pain and distention. Her last bowel movement was almost 1 week prior to arrival and she has been unable to tolerate anything p.o. during the past week. CT imaging shows very distended small bowel with a transition point in the left
lower quadrant concerning for high-grade obstruction. NG tube was placed for decompression and started on low intermittent wall suction. She developed A-fib with RVR with a heart rate of 150s to 180s, no prior history of A-fib. She was given a
dose of IV Lopressor with no significant effect and so was then started on IV Cardizem drip. However she became mildly hypotensive and so was switched to IV amiodarone drip with bolus. She was admitted for further evaluation and management of SBO
and new onset A-fib with RVR.
High-grade SBO secondary to adhesions
- Status post laparoscopic lysis of additions 02/12
- Tolerating low residue diet with Ensure
- Discontinuing TPN
- Further recommendations per surgery
Diarrhea
- Improving, FMS discontinued, MiraLAX discontinued
- Stool studies positive for C. difficile antigen but toxin negative
- Empirically treating with oral vancomycin for 10 days (today is day 03/07)
- ID following
- Evaluated by GI, do not feel this is related to her collagenous colitis
Septic shock
- Now resolved, off vasopressors
- Unclear source, possibly due to C. difficile with antigen positive by PCR but toxin negative
- Not bacteremic, no evidence of UTI
- CT abdomen pelvis raised the concern of tree-in-bud opacities in the right middle lobe, mild asymmetric cutaneous thickening is stranding in the inferior left gluteal soft tissues, mild rectal wall thickening with large amount of stool in the
colon.
- Completed course of antibiotics with cefepime/flagyl/IV Vanco
- Leukocytosis resolved, remains afebrile
- Started on oral vancomycin 02/17 for 10-day course of empiric treatment of possible C. difficile colitis
Dysphagia
- Tolerating low residue diet cautiously but still having cough with sips of water
- Has a reported history of esophageal dilatation
- EXHIBITS CURATOR following, possible video swallow on Sunday
A-fib with RVR:
- New onset
- Continue amiodarone 200 mg p.o. 2 times daily for 2 weeks (through 03/18) then convert to 200 mg daily, carvedilol 6.25 mg p.o. twice daily
- Transitioned to low-dose Eliquis 02/18
- Currently she is in sinus rhythm
- Cardiology following, recommendations appreciated
TYESHA on CKD 3:
- Suspect due to poor perfusion in the setting of sepsis with intermittent hypotension
- Now resolving
- Suero discontinued
- Appreciate nephrology recommendations -continue with as needed diuretics.
NSTEMI:
- Suspect due to myocardial stress in the setting of SBO and rapid A-fib
- Do not suspect ACS
- Appreciate cardiology recommendations
Progressive anemia-normocytic:
-no further external bleeding.
- H&H stable
- Continue with PPI p.o. twice daily.
Abdominal aortic dilatation:
- Focal dilatation of the infrarenal abdominal aorta measuring 2.9 cm
- Ongoing outpatient monitoring recommended
Adrenal nodule:
- 1.5 centimeter hypodense left adrenal nodule noted on imaging, likely an adenoma
- Outpatient monitoring recommended
Nutrition-low residue diet, TPN discontinued
CODE STATUS: DNR
PT OT eval-recommending SNF
Anticipated Discharge: 24 - 48 hours
Subjective/Interval History
-
Date of Service: February 21, 2025
Patient was seen and examined at bedside this morning. Frequency of bowel movements has decreased after her MiraLAX was stopped yesterday by GI. She still has ongoing cough especially with eating. Planning video swallow on Sunday.
Objective Data
-
Labs:
Laboratory Results
02/21/25 02/21/25 02/21/25
06:43 08:53 09:56
WBC Cancelled 8.5
Hgb Cancelled 9.2 L
Hct Cancelled 29.2 L
Plt Count Cancelled 363
Sodium 140
Potassium 4.6
Chloride 114 H
Carbon Dioxide 20 L
BUN 32 H
Creatinine 1.1 H
Glucose 79
Calcium 8.2 L
Vital Signs:
Vital Signs
Temp Pulse Resp BP Pulse Ox
98.1 F 88 18 124/65 95
02/21/25 11:00 02/21/25 11:00 02/21/25 11:00 02/21/25 11:00 02/21/25 11:00
I&O
02/20/25 02/21/25 02/22/25
06:59 06:59 06:59
Intake Total 450 / 450 1040 / 1040
Output Total 250 / 250
Balance 200 / 200 1040 / 1040
Review of Systems
-
History Source: Patient
All other systems: Reviewed and negative
Respiratory: Reports Cough
Abdomen/GI: Reports Abdominal Pain
Genitourinary: Reports Incontinence
Physical Exam
-
General: No Apparent Distress
[2025-02-21 15:00] VITALS: BP 123/55
--- NOTE | 2025-02-21 15:18 | W.PN.ID1 ---
Date of Service
Date of Service: February 21, 2025
Today's Communication
Continue Vancomycin po 125 mg qid x 10d through 02/27/25 am.
ID will sign off.
Assessment / Plan
# High-grade small bowel obstruction
- s/p lap NICKI (02/12/25 )
- Completed 7d of empiric Vancomycin/metronidazole til 02/17
- Completed 11d empiric cefepime till 02/17
# Leukocytosis - resolved
- C. diff antigen positive, toxin negative
- Likely colonization. However, to err on side of caution, treating for possible infection with Vancomycin po 125 mg qid x 10d through 02/27/25 am.
# s/p Shock
# TYESHA on CKD, improving
# A-fib - rate controlled
# PCN and sulfa allergy
ID will sign off.
#Conditions PATIENT SAFETY SITTER
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
CVA
Osteoporosis
CKD3A
CAD
History of collagenous colitis status post colostomy with subsequent reversal, abdominal wall reconstruction without mesh
Lumbar radiculopathy
Depression/anxiety
Restless leg syndrome
Osteoporosis
Hysterectomy
Ventral Hernia repair
Left elbow surgery
Femur surgery
Chief Complaint
-: Other (SBO)
Subjective / Review of Systems
Diarrhea slowing down.
Vital Signs / Physical Exam
Vital Signs
Vital Signs
Temp Pulse Resp BP Pulse Ox
98.1 F 88 18 124/65 95
02/21/25 11:00 02/21/25 11:00 02/21/25 11:00 02/21/25 11:00 02/21/25 11:00
Physical Exam
Constitutional: Chronically Ill
Eyes: Sclera Anicteric
Cardiovascular: Regular Rate and S1/S2
Pulmonary: Clear
Gastrointestinal: Soft, Non Tender, Non Distended, Decreased Bowel Sounds and Other (FMS: liquid dark brown stool)
Genito-Urinary: Negative CVA Tenderness
Neurological: AO x 3
Objective Data
Lab Data
Lab Results
02/21/25 08:53
02/21/25 09:56
PT 17.5 Sec (11.4-14.6) H 02/09/25 09:46
INR 1.41 02/09/25 09:46
APTT 71.1 Sec (23.4-35.0) H 02/18/25 06:32
Estimated Creat Clear 33 ml/min 02/21/25 09:56
Lactic Acid Cancelled 02/09/25 10:00
Total Bilirubin 0.5 mg/dl (0.2-1.3) 02/16/25 02:50
AST 62 U/L (14-36) H 02/16/25 02:50
ALT 31 U/L (0-35) 02/16/25 02:50
Alkaline Phosphatase 63 U/L (38-126) 02/16/25 02:50
Most recent labs reviewed.
Micro Results:
02/20/25 15:12 Influenza Types A & B (JAYSHREE) - Final
Nasal Swab Negative for Influenza A & B, NAAT
Negative results must be combined with clinical observations
and patient history.
Nucleic Acid Amplification test (NAAT)performed on the
[employer] platform.
02/17/25 10:07 C. difficile GDH Antigen & Toxins - Final
Feces/Stool C. difficile antigen positive, toxin negative.
Clostridium difficile present, but toxin not detected.
Patient may be a carrier, colonized with nontoxinogenic
strain or the level of toxin in sample is below detection
limits. This information should be used in conjunction with
the patient's clinical history.
02/07/25 21:41 Blood Culture - Final
Blood/Venous No Growth - Final Report
02/07/25 21:37 Blood Culture - Final
Blood/Venous No Growth - Final Report
02/08/25 05:55 Urine Culture - Final
Urine NO GROWTH
02/08/25 05:55 Nasal Screen MRSA (PCR) - Final
Nose MRSA not detected - performed by PCR methodology.
Imaging:
02/07/25 CT a/p: Small bowel obstruction with transition point in the left lower quadrant. Moderate colonic stool burden. Tree-in-bud opacities within the right middle lobe which may be infectious/inflammatory. There is mild asymmetric cutaneous
thickening and stranding in the inferior left gluteal soft tissues which may represent superficial infectious/inflammatory process or sequelae of pressure wound.
02/09/25 CT a/p: Dilated small bowel, just slightly increased in comparison to recent prior study with findings again seen suggesting small bowel obstruction as was noted on recent prior study. No free air. Nasogastric tube with tip in the stomach.
Large volume stool filling and mildly distending the rectum. Cannot exclude mild stercoral colitis.
02/09/25 CXR: . Right PICC tip projects over the central SVC. Lungs remain clear.
02/10/25 SBFT: Delayed imaging at 6 hours reveals persistent contrast throughout dilated small bowel. There is no definitive oral contrast seen in large bowel. Findings suggest high-grade small bowel obstruction.
02/11/25 AXR: Persistent dilated small bowel with persistent contrast following small bowel series of preceding day. Findings suggest high-grade small bowel obstruction.
02/16/25CXR: Right PICC in position as described. Small bilateral pleural effusions with associated atelectasis and/or pneumonia, new from prior.
[2025-02-21] MEDS: TYLENOL PO (16:38)
[2025-02-21 16:50] LABS: Glucose - Point of Care 118 mg/dl (70-99)
[2025-02-21] MEDS: LAMICTAL 25 MG PO (16:50)
[2025-02-21 20:22] VITALS: BP 143/70
[2025-02-21 21:52] LABS: Glucose - Point of Care 133 mg/dl (70-99)
[2025-02-21 22:36] VITALS: BP 148/66
[2025-02-21] MEDS: KLONOPIN 1 MG PO (22:37)
[2025-02-21] MEDS: MIRAPEX 0.5 MG PO (22:37)
[2025-02-21] MEDS: LIPITOR 80 MG PO (22:37)
[2025-02-21] MEDS: REMERON 15 MG PO (22:38)
[2025-02-21] MEDS: SEROQUEL 50 MG PO (22:38)
[2025-02-22 03:00] VITALS: BP 119/57
[2025-02-22] MEDS: TYLENOL PO (04:00)
[2025-02-22] MEDS: FIRVANQ 125 MG PO ×4 (05:28→23:15)
[2025-02-22 06:00] VITALS: BMI 21.1
[2025-02-22 07:00] VITALS: BP 105/64
[2025-02-22] MEDS: ELIQUIS 2.5 MG PO ×2 (09:52→20:22)
[2025-02-22] MEDS: TYLENOL 650 MG PO ×5 (09:52→23:15)
[2025-02-22] MEDS: WELLBUTRIN SR (12 hour sustained release) 150 MG PO (09:53)
[2025-02-22] MEDS: PACERONE 200 MG PO ×2 (09:53→20:23)
[2025-02-22] MEDS: PROTONIX 40 MG PO ×2 (09:53→20:23)
[2025-02-22] MEDS: COREG PO (09:53)
[2025-02-22 10:15] LABS: Glucose - Point of Care 63 mg/dl (70-99)
[2025-02-22] MEDS: NOVOLOG FLEXPEN-LOW RESISTANCE SC ×3 (10:24→17:01)
[2025-02-22 10:35] LABS: Glucose - Point of Care 50 mg/dl (70-99)
[2025-02-22 10:35] LABS: Glucose - Point of Care 33 mg/dl (70-99)
[2025-02-22 10:35] LABS: Glucose - Point of Care 62 mg/dl (70-99)
[2025-02-22 10:50] LABS: Glucose - Point of Care 73 mg/dl (70-99)
[2025-02-22 11:00] VITALS: BP 121/61
[2025-02-22 11:33] LABS: Blood Urea Nitrogen 25 mg/dl (7-17); Carbon Dioxide 21 mmol/L (22-30); Chloride 112 mmol/L (98-107); Estimated Creatinine Clearance 33 ml/min; Glucose 128 mg/dl (70-99); Potassium 4.4 mmol/L (3.5-5.1); Sodium 142 mmol/L (135-145); eGFR 50.48
--- NOTE | 2025-02-22 11:55 | CM ---
Anticipated Discharge: 24 - 48 hours
[facility] accepted referrals; [facility] accepted pending bed availability at time of discharge
Patient's SNF preference is [facility]
[2025-02-22 12:10] LABS: Glucose - Point of Care 116 mg/dl (70-99)
[2025-02-22 12:10] LABS: Glucose - Point of Care 46 mg/dl (70-99)
--- NOTE | 2025-02-22 13:35 | W.PN.HOSP.TC ---
Today's Communication/Plan
-
Assessment / Plan
Assessment / Plan
General: No Apparent Distress, Comfortable and Conversant
HEENT: NormoCephalic, Moist mucous membranes, Atraumatic
Respiratory: Clear and Non Labored Respirations
Cardiac: S1/S2 and Regular Rhythm; No Rub or Gallop
GI: Soft, minimal TTP, surgical port scars clean dry intact
Musculoskeletal: No Edema, no deformity
: NO Suero
Neuro: Awake, Alert, Nonfocal/grossly intact
Psych: Calm and cooperative
Ms. Jack is an 79-year-old female with a medical history of sarcoidosis, collagenous colitis with bowel perforation (status post colostomy and reversal at [facility]), CAD, CKD, and CVA who presented with 5 days of nausea and vomiting associated
with abdominal pain and distention. Her last bowel movement was almost 1 week prior to arrival and she has been unable to tolerate anything p.o. during the past week. CT imaging shows very distended small bowel with a transition point in the left
lower quadrant concerning for high-grade obstruction. NG tube was placed for decompression and started on low intermittent wall suction. She developed A-fib with RVR with a heart rate of 150s to 180s, no prior history of A-fib. She was given a
dose of IV Lopressor with no significant effect and so was then started on IV Cardizem drip. However she became mildly hypotensive and so was switched to IV amiodarone drip with bolus. She was admitted for further evaluation and management of SBO
and new onset A-fib with RVR.
Diarrhea
- Improving, FMS discontinued, MiraLAX discontinued
- Stool studies positive for C. difficile antigen but toxin negative
- Empirically treating with oral vancomycin for 10 days through 02/27
- ID signed off
- Evaluated by GI, do not feel this is related to her collagenous colitis
- Patient is still incontinent occasionally especially with cough, improving with scheduled toileting
Dysphagia
- Tolerating low residue diet cautiously but still having cough with sips of water
- Has a reported history of esophageal dilatation
- BOBBIN STRIPPER following, possible video swallow on Sunday
High-grade SBO secondary to adhesions
- Status post laparoscopic lysis of additions 02/12
- Tolerating low residue diet with Ensure
- Discontinuing TPN
- Further recommendations per surgery
Septic shock
- Now resolved, off vasopressors
- Unclear source, possibly due to C. difficile with antigen positive by PCR but toxin negative
- Not bacteremic, no evidence of UTI
- CT abdomen pelvis raised the concern of tree-in-bud opacities in the right middle lobe, mild asymmetric cutaneous thickening is stranding in the inferior left gluteal soft tissues, mild rectal wall thickening with large amount of stool in the
colon.
- Completed course of antibiotics with cefepime/flagyl/IV Vanco
- Leukocytosis resolved, remains afebrile
- Started on oral vancomycin 02/17 for 10-day course of empiric treatment of possible C. difficile colitis
A-fib with RVR:
- New onset
- Continue amiodarone 200 mg p.o. 2 times daily for 2 weeks (through 03/18) then convert to 200 mg daily, carvedilol 6.25 mg p.o. twice daily
- Transitioned to low-dose Eliquis 02/18
- Currently she is in sinus rhythm
- Cardiology following, recommendations appreciated
TYESHA on CKD 3:
- Suspect due to poor perfusion in the setting of sepsis with intermittent hypotension
- Now resolving
- Suero discontinued
- Appreciate nephrology recommendations -continue with as needed diuretics.
NSTEMI:
- Suspect due to myocardial stress in the setting of SBO and rapid A-fib
- Do not suspect ACS
- Appreciate cardiology recommendations
Progressive anemia-normocytic:
-no further external bleeding.
- H&H stable
- Continue with PPI p.o. twice daily.
Abdominal aortic dilatation:
- Focal dilatation of the infrarenal abdominal aorta measuring 2.9 cm
- Ongoing outpatient monitoring recommended
Adrenal nodule:
- 1.5 centimeter hypodense left adrenal nodule noted on imaging, likely an adenoma
- Outpatient monitoring recommended
Nutrition-low residue diet, TPN discontinued
CODE STATUS: DNR
PT OT eval-recommending SNF
Anticipated Discharge: 24 - 48 hours
Subjective/Interval History
-
Date of Service: February 22, 2025
Patient was seen and examined at bedside this morning. Fecal and urinary incontinence improving with scheduled toileting. Patient still has frequent cough, Mucinex ordered. Speech therapy following.
Objective Data
-
Labs:
Laboratory Results
02/22/25
11:12
Sodium 142
Potassium 4.4
Chloride 112 H
Carbon Dioxide 21 L
BUN 25 H
Creatinine 1.1 H
Glucose 128 H
Calcium 8.0 L
Vital Signs:
Vital Signs
Temp Pulse Resp BP Pulse Ox
97.9 F 83 16 121/61 96
02/22/25 11:00 02/22/25 11:00 02/22/25 11:00 02/22/25 11:00 02/22/25 11:00
I&O
02/21/25 02/22/25 02/23/25
06:59 06:59 06:59
Intake Total 1040 / 1040 120 / 120
Balance 1040 / 1040 120 / 120
Review of Systems
-
History Source: Patient
All other systems: Reviewed and negative
Respiratory: Reports Cough
Genitourinary: Reports Incontinence
Physical Exam
-
General: No Apparent Distress
[2025-02-22] MEDS: MUCINEX 600 MG PO ×2 (13:43→20:23)
[2025-02-22] MEDS: FOLVITE 1 MG PO (13:43)
[2025-02-22] MEDS: VITAMIN D3 (cholecalciferol) 125 MCG PO (13:50)
--- NOTE | 2025-02-22 14:23 | PTCARENOTE ---
Pt assisted OOB to chair today. Pt stronger today than yesterday. When she got on the side of the bed she was a little dizzy but it lasted ONly a minute today. She stood much easier and was able to transition to the chair with moderate assist. For
safety we did utilize two nurses. the patient agreed to continue toilet training again today. This morning after we got her to the chair we took her blood sugar, Using right hand she was 63, gave orange juice and ten minutes later she had
increased tremors. BS was 50 from right. I gave her another OJ andpt perked up no tremors and rechecked BS using the left hand. the bs was 33. the hand was so much colder than right and blood was dark on this side. i quickly rechecked on the right
hand BS was 62. Perplexed, i did get order for stat glucose to ensure accuracy of her glucose. Venous blood draw from right forarm was 128. I did put a pink braclet to not check sugar on left hand . PT on and off bedpan without any incontience so
far. Pt with intermittent cough, mucinex ordered ang given. Pt still sitting OOB and enjoying herself. no signs of hypoglycemia at this time. Sacral wound dressing was soiled (from bed pain, we removed it and stage 2 pressure ulcer noted.
site was cleansed and foam dressing re applied. we applied a air mattress to bed, chair air cushion as well.
[2025-02-22 15:00] VITALS: BP 111/59
[2025-02-22 16:07] LABS: Glucose - Point of Care 57 mg/dl (70-99)
[2025-02-22 16:24] LABS: Glucose - Point of Care 74 mg/dl (70-99)
[2025-02-22] MEDS: LAMICTAL 25 MG PO (17:04)
[2025-02-22 19:00] VITALS: BP 119/61
[2025-02-22] MEDS: COREG 6.25 MG PO (20:22)
[2025-02-22 21:42] LABS: Glucose - Point of Care 142 mg/dl (70-99)
[2025-02-22 23:00] VITALS: BP 119/56
[2025-02-22] MEDS: LIPITOR 80 MG PO (23:14)
[2025-02-22] MEDS: KLONOPIN 1 MG PO (23:14)
[2025-02-22] MEDS: MIRAPEX 0.5 MG PO (23:14)
[2025-02-22] MEDS: REMERON 15 MG PO (23:14)
[2025-02-22] MEDS: SEROQUEL 50 MG PO (23:14)
[2025-02-23 03:59] VITALS: BP 118/53
[2025-02-23] MEDS: TYLENOL PO (04:45)
[2025-02-23] MEDS: FIRVANQ 125 MG PO ×3 (05:50→17:02)
[2025-02-23 06:00] VITALS: BMI 22.0
[2025-02-23 07:03] LABS: ALT (SGPT) 32 U/L (0-35); AST (SGOT) 48 U/L (14-36); Albumin 1.9 g/dl (3.5-5.0); Alkaline Phosphatase 73 U/L (38-126); Blood Urea Nitrogen 25 mg/dl (7-17); Calcium 7.4 mg/dl (8.4-10.2); Carbon Dioxide 21 mmol/L (22-30); Chloride 114 mmol/L (98-107); Estimated Creatinine Clearance 33 ml/min; Glucose 73 mg/dl (70-99); Magnesium 1.4 mg/dl (1.6-2.3); Phosphorus 3.1 mg/dl (2.5-4.5); Potassium 4.5 mmol/L (3.5-5.1); Sodium 138 mmol/L (135-145); Total Bilirubin 0.8 mg/dl (0.2-1.3); Total Protein 4.4 g/dl (6.3-8.2); Triglycerides 106 mg/dl (10-149); eGFR 50.48
[2025-02-23 07:05] VITALS: BP 134/60
[2025-02-23 08:05] LABS: Glucose - Point of Care 80 mg/dl (70-99)
[2025-02-23 09:22] LABS: Hematocrit 25.3 % (37.0-47.0); Hemoglobin 8.3 g/dL (12.0-16.0); Mean Corp Hgb Conc. 32.8 g/dL (33.0-37.0); Mean Corpuscular Hgb 29.9 pg (27.0-31.0); Mean Platelet Volume 10.9 fL (7.4-10.4); Platelet Count 343 10^3/uL (130-400); Red Blood Cell Count 2.78 10^6/uL (4.20-5.40); Red Cell Dist. Width 16.1 % (11.5-14.5); White Blood Cell Count 6.8 10^3/uL (4.8-10.8)
[2025-02-23] MEDS: NOVOLOG FLEXPEN-LOW RESISTANCE SC ×3 (10:19→16:55)
[2025-02-23] MEDS: MUCINEX 600 MG PO ×2 (10:56→20:35)
[2025-02-23] MEDS: ELIQUIS 2.5 MG PO ×2 (10:56→20:34)
[2025-02-23] MEDS: WELLBUTRIN SR (12 hour sustained release) 150 MG PO (10:56)
[2025-02-23] MEDS: PROTONIX 40 MG PO ×2 (10:56→20:35)
[2025-02-23] MEDS: COREG 6.25 MG PO ×2 (10:57→20:34)
[2025-02-23] MEDS: TYLENOL 650 MG PO ×4 (10:57→20:35)
[2025-02-23] MEDS: PACERONE 200 MG PO ×2 (10:57→20:35)
[2025-02-23 11:05] VITALS: BP 143/58
[2025-02-23 11:52] LABS: Glucose - Point of Care 76 mg/dl (70-99)
[2025-02-23] MEDS: FOLVITE 1 MG PO (13:20)
[2025-02-23] MEDS: VITAMIN D3 (cholecalciferol) 125 MCG PO (13:20)
--- NOTE | 2025-02-23 14:11 | CM ---
Patient seen at bedside
[facility]
no pre-auth
PLAN: SNF, pending bed availability when medically stable
[2025-02-23 15:05] VITALS: BP 120/52
--- NOTE | 2025-02-23 16:23 | W.PN.HOSP.TC ---
Today's Communication/Plan
-
Continue supportive care.
Tolerates diet.
Has been off TPN.
Discharge planing/SNF.
Assessment / Plan
Assessment / Plan
Ms. Jack is an 79-year-old female with a medical history of sarcoidosis, collagenous colitis with bowel perforation (status post colostomy and reversal at [facility]), CAD, CKD, and CVA who presented with 5 days of nausea and vomiting associated
with abdominal pain and distention. Her last bowel movement was almost 1 week prior to arrival and she has been unable to tolerate anything p.o. during the past week. CT imaging shows very distended small bowel with a transition point in the left
lower quadrant concerning for high-grade obstruction. NG tube was placed for decompression and started on low intermittent wall suction. She developed A-fib with RVR with a heart rate of 150s to 180s, no prior history of A-fib. She was given a
dose of IV Lopressor with no significant effect and so was then started on IV Cardizem drip. However she became mildly hypotensive and so was switched to IV amiodarone drip with bolus. She was admitted for further evaluation and management of SBO
and new onset A-fib with RVR.
Diarrhea
- Improving, FMS discontinued, MiraLAX discontinued
- Stool studies positive for C. difficile antigen but toxin negative
- Empirically treating with oral vancomycin for 10 days through 02/27
- ID signed off
- Evaluated by GI, do not feel this is related to her collagenous colitis
- Patient is still incontinent occasionally especially with cough, improving with scheduled toileting
Dysphagia
- Tolerating low residue diet cautiously but still having cough with sips of water
- Has a reported history of esophageal dilatation
- PODODERMATOLOGIST following, possible video swallow on Sunday
High-grade SBO secondary to adhesions
- Status post laparoscopic lysis of additions 02/12
- Tolerating low residue diet with Ensure
- Discontinuing TPN
- Further recommendations per surgery
Septic shock
- Now resolved, off vasopressors
- Unclear source, possibly due to C. difficile with antigen positive by PCR but toxin negative
- Not bacteremic, no evidence of UTI
- CT abdomen pelvis raised the concern of tree-in-bud opacities in the right middle lobe, mild asymmetric cutaneous thickening is stranding in the inferior left gluteal soft tissues, mild rectal wall thickening with large amount of stool in the
colon.
- Completed course of antibiotics with cefepime/flagyl/IV Vanco
- Leukocytosis resolved, remains afebrile
- Started on oral vancomycin 02/17 for 10-day course of empiric treatment of possible C. difficile colitis
A-fib with RVR:
- New onset
- Continue amiodarone 200 mg p.o. 2 times daily for 2 weeks (through 03/18) then convert to 200 mg daily, carvedilol 6.25 mg p.o. twice daily
- Transitioned to low-dose Eliquis 02/18
- Currently she is in sinus rhythm
- Cardiology following, recommendations appreciated
TYESHA on CKD 3:
- Suspect due to poor perfusion in the setting of sepsis with intermittent hypotension
- Now resolving
- Suero discontinued
- Appreciate nephrology recommendations -continue with as needed diuretics.
NSTEMI:
- Suspect due to myocardial stress in the setting of SBO and rapid A-fib
- Do not suspect ACS
- Appreciate cardiology recommendations
Progressive anemia-normocytic:
-no further external bleeding.
- H&H stable
- Continue with PPI p.o. twice daily.
Abdominal aortic dilatation:
- Focal dilatation of the infrarenal abdominal aorta measuring 2.9 cm
- Ongoing outpatient monitoring recommended
Adrenal nodule:
- 1.5 centimeter hypodense left adrenal nodule noted on imaging, likely an adenoma
- Outpatient monitoring recommended
Nutrition-low residue diet, TPN discontinued
CODE STATUS: DNR
PT OT eval-recommending SNF
Anticipated Discharge: Within 24 hours
Subjective/Interval History
-
Date of Service: February 23, 2025
Objective Data
-
Labs:
Laboratory Results
02/23/25 02/23/25
06:22 08:58
WBC 6.8
Hgb 8.3 L
Hct 25.3 L
Plt Count 343
Sodium 138
Potassium 4.5
Chloride 114 H
Carbon Dioxide 21 L
BUN 25 H
Creatinine 1.1 H
Glucose 73
Calcium 7.4 L
Total Bilirubin 0.8
AST 48 H
ALT 32
Alkaline Phosphatase 73
Vital Signs:
Vital Signs
Temp Pulse Resp BP Pulse Ox
97.7 F 77 17 120/52 95
02/23/25 15:05 02/23/25 15:05 02/23/25 15:05 02/23/25 15:05 02/23/25 15:33
I&O
02/22/25 02/23/25 02/24/25
06:59 06:59 06:59
Intake Total 120 / 120 720 / 720 240 / 240
Balance 120 / 120 720 / 720 240 / 240
Physical Exam
-
General: Well Developed and No Apparent Distress
HEENT: Normocephalic, Atraumatic and Moist Mucous Membranes
Respiratory: Clear to Auscultation
Cardiac: Regular Rhythm and S1/S2; Negative Murmur, Rub or Gallop
GI: Soft, Nontender, Nondistended and Normal Bowel Sounds; Negative Organomegaly
Rectal: Deferred by Provider
Musculoskeletal: No Clubbing, No Cyanosis and No Edema
Skin: Negative Rash
Neuro: Nonfocal/Grossly Intact
[2025-02-23] MEDS: LAMICTAL 25 MG PO (17:03)
[2025-02-23 19:50] VITALS: BP 130/56
[2025-02-23] MEDS: MIRAPEX 0.5 MG PO (22:23)
[2025-02-23] MEDS: KLONOPIN 1 MG PO (22:23)
[2025-02-23] MEDS: SEROQUEL 50 MG PO (22:23)
[2025-02-23] MEDS: REMERON 15 MG PO (22:23)
[2025-02-23] MEDS: LIPITOR 80 MG PO (22:23)
[2025-02-23 23:31] VITALS: BP 104/51
[2025-02-24] MEDS: FIRVANQ 125 MG PO ×4 (00:40→17:39)
[2025-02-24] MEDS: TYLENOL 650 MG PO ×5 (00:40→20:44)
[2025-02-24 03:28] VITALS: BP 128/63
[2025-02-24] MEDS: TYLENOL PO (04:10)
[2025-02-24 06:00] VITALS: BMI 22.1
[2025-02-24 07:05] VITALS: BP 122/54
[2025-02-24] MEDS: PACERONE 200 MG PO ×2 (09:04→20:45)
[2025-02-24] MEDS: ELIQUIS 2.5 MG PO ×2 (09:05→20:44)
[2025-02-24] MEDS: MUCINEX 600 MG PO ×2 (09:05→20:44)
[2025-02-24] MEDS: COREG 6.25 MG PO ×2 (09:05→20:46)
[2025-02-24] MEDS: WELLBUTRIN SR (12 hour sustained release) 150 MG PO (09:05)
[2025-02-24] MEDS: PROTONIX 40 MG PO ×2 (09:06→20:44)
[2025-02-24 11:05] VITALS: BP 96/72
[2025-02-24] MEDS: FOLVITE 1 MG PO (12:28)
[2025-02-24] MEDS: VITAMIN D3 (cholecalciferol) 125 MCG PO (12:31)
--- NOTE | 2025-02-24 12:55 | CM ---
Addendum entered by Lesley Carmona 02/24/25 15:14:
Daughter wanted [facility] referral added as well. Entered in [facility]
Addendum entered by Lesley Carmona 02/24/25 15:08:
Patient would like referral sent to [facility] - referral sent in [facility]
Addendum entered by Lesley Carmona 02/24/25 13:12:
Nalini called back from [facility] - she spoke with BRANDY and cannot accept the patient no private room.
Original Note:
Patient seen at bedside
spoke with Nalini from [facility] - bed available today
LM with daughter Nalini
IMM explained & signed
PLAN: [facility]
Report #: [phone]
Fax #: [phone]
--- NOTE | 2025-02-24 13:56 | W.PN.HOSP.TC ---
Today's Communication/Plan
-
Supportive care.
Placement to [facility] facility
Assessment / Plan
Assessment / Plan
Ms. Jack is an 79-year-old female with a medical history of sarcoidosis, collagenous colitis with bowel perforation (status post colostomy and reversal at [facility]), CAD, CKD, and CVA who presented with 5 days of nausea and vomiting associated
with abdominal pain and distention. Her last bowel movement was almost 1 week prior to arrival and she has been unable to tolerate anything p.o. during the past week. CT imaging shows very distended small bowel with a transition point in the left
lower quadrant concerning for high-grade obstruction. NG tube was placed for decompression and started on low intermittent wall suction. She developed A-fib with RVR with a heart rate of 150s to 180s, no prior history of A-fib. She was given a
dose of IV Lopressor with no significant effect and so was then started on IV Cardizem drip. However she became mildly hypotensive and so was switched to IV amiodarone drip with bolus. She was admitted for further evaluation and management of SBO
and new onset A-fib with RVR.
Diarrhea
- Improving, FMS discontinued, MiraLAX discontinued
- Stool studies positive for C. difficile antigen but toxin negative
- Empirically treating with oral vancomycin for 10 days through 02/27
- ID signed off
- Evaluated by GI, do not feel this is related to her collagenous colitis
- Patient is still incontinent occasionally especially with cough, improving with scheduled toileting
Dysphagia
- Tolerating low residue diet cautiously but still having cough with sips of water
- Has a reported history of esophageal dilatation
- PRIVACY DIRECTOR following, possible video swallow on Sunday
High-grade SBO secondary to adhesions
- Status post laparoscopic lysis of additions 02/12
- Tolerating low residue diet with Ensure
- Discontinuing TPN
- Further recommendations per surgery
Septic shock
- Now resolved, off vasopressors
- Unclear source, possibly due to C. difficile with antigen positive by PCR but toxin negative
- Not bacteremic, no evidence of UTI
- CT abdomen pelvis raised the concern of tree-in-bud opacities in the right middle lobe, mild asymmetric cutaneous thickening is stranding in the inferior left gluteal soft tissues, mild rectal wall thickening with large amount of stool in the
colon.
- Completed course of antibiotics with cefepime/flagyl/IV Vanco
- Leukocytosis resolved, remains afebrile
- Started on oral vancomycin 02/17 for 10-day course of empiric treatment of possible C. difficile colitis
A-fib with RVR:
- New onset
- Continue amiodarone 200 mg p.o. 2 times daily for 2 weeks (through 03/18) then convert to 200 mg daily, carvedilol 6.25 mg p.o. twice daily
- Transitioned to low-dose Eliquis 02/18
- Currently she is in sinus rhythm
- Cardiology following, recommendations appreciated
TYESHA on CKD 3:
- Suspect due to poor perfusion in the setting of sepsis with intermittent hypotension
- Now resolving
- Suero discontinued
- Appreciate nephrology recommendations -continue with as needed diuretics.
NSTEMI:
- Suspect due to myocardial stress in the setting of SBO and rapid A-fib
- Do not suspect ACS
- Appreciate cardiology recommendations
Progressive anemia-normocytic:
-no further external bleeding.
- H&H stable
- Continue with PPI p.o. twice daily.
Abdominal aortic dilatation:
- Focal dilatation of the infrarenal abdominal aorta measuring 2.9 cm
- Ongoing outpatient monitoring recommended
Adrenal nodule:
- 1.5 centimeter hypodense left adrenal nodule noted on imaging, likely an adenoma
- Outpatient monitoring recommended
Nutrition-low residue diet, TPN discontinued
CODE STATUS: DNR
PT OT eval-recommending SNF
Anticipated Discharge: Within 24 hours
Subjective/Interval History
-
Date of Service: February 24, 2025
Objective Data
-
Vital Signs:
Vital Signs
Temp Pulse Resp BP Pulse Ox
97.6 F 73 17 96/72 92
02/24/25 11:05 02/24/25 11:05 02/24/25 11:05 02/24/25 11:05 02/24/25 11:05
I&O
02/23/25 02/24/25 02/25/25
06:59 06:59 06:59
Intake Total 720 / 720 1320 / 1320
Balance 720 / 720 1320 / 1320
Physical Exam
-
General: Well Developed and No Apparent Distress
HEENT: Normocephalic, Atraumatic and Moist Mucous Membranes
Respiratory: Clear to Auscultation
Cardiac: Regular Rhythm and S1/S2; Negative Murmur, Rub or Gallop
GI: Soft, Nontender, Nondistended and Normal Bowel Sounds; Negative Organomegaly
Rectal: Deferred by Provider
Musculoskeletal: No Clubbing, No Cyanosis and No Edema
Skin: Negative Rash
Neuro: Nonfocal/Grossly Intact
[2025-02-24 15:05] VITALS: BP 115/53
[2025-02-24] MEDS: LAMICTAL 25 MG PO (17:45)
[2025-02-24] MEDS: MIRAPEX 0.5 MG PO (21:30)
[2025-02-24] MEDS: KLONOPIN 1 MG PO (21:30)
[2025-02-24] MEDS: SEROQUEL 50 MG PO (21:30)
[2025-02-24] MEDS: LIPITOR 80 MG PO (21:30)
[2025-02-24] MEDS: REMERON 15 MG PO (21:31)
[2025-02-24 23:00] VITALS: BP 118/51
[2025-02-25] MEDS: FIRVANQ 125 MG PO ×3 (00:28→12:03)
[2025-02-25] MEDS: TYLENOL 650 MG PO ×3 (00:28→12:03)
[2025-02-25] MEDS: TYLENOL PO (04:50)
[2025-02-25 06:00] VITALS: BMI 21.7
[2025-02-25 07:19] LABS: Hematocrit 24.2 % (37.0-47.0); Hemoglobin 7.7 g/dL (12.0-16.0); Mean Corp Hgb Conc. 31.8 g/dL (33.0-37.0); Mean Corpuscular Hgb 29.8 pg (27.0-31.0); Mean Corpuscular Volume 93.8 fL (81.0-99.0); Mean Platelet Volume 10.2 fL (7.4-10.4); Platelet Count 408 10^3/uL (130-400); Red Blood Cell Count 2.58 10^6/uL (4.20-5.40); Red Cell Dist. Width 16.7 % (11.5-14.5)
[2025-02-25] MEDS: PACERONE 200 MG PO (07:55)
[2025-02-25] MEDS: COREG 6.25 MG PO (07:55)
[2025-02-25] MEDS: ELIQUIS 2.5 MG PO (07:55)
[2025-02-25] MEDS: PROTONIX 40 MG PO (07:55)
[2025-02-25] MEDS: MUCINEX 600 MG PO (07:55)
[2025-02-25] MEDS: WELLBUTRIN SR (12 hour sustained release) 150 MG PO (07:55)
[2025-02-25 08:01] VITALS: BP 131/55
--- NOTE | 2025-02-25 09:50 | CM ---
Addendum entered by Lesley Carmona 02/25/25 12:13:
Covid test negative, transport time 2:45 - updated Amy at [facility]
Original Note:
Spoke with Amy at [facility]
bed available - will accept today
tt hospitalist/nurse
COVID test needs to be done before discharge to SNF
spoke with ronald Gayle [phone]
IMM explained & signed yesterday - in chart
PLAN: [facility] SN[facility]
Report #: [phone]
Fax #: [phone]
Transportation forms on chart
--- NOTE | 2025-02-25 10:59 | W.DS.TRANS ---
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
-
Discharge Instructions:
Discharge Diagnosis/Procedures SBO, status post laparoscopic lesion of
adhesions on 02/12
SIRS/sepsis with septic shock. Empirically
treated with antibiotics with no identifiable
source.
Diarrhea C. difficile toxin negative antigen
positive empirically treated with vancomycin 2 5
/2
Atrial fibrillation, new onset. Rate controlled
with amiodarone. Initiated anticoagulation
with Eliquis.
TYESHA on CKD 3.
Non-STEMI
Anemia of chronic disease
Adrenal nodule 1.5 cm on the left adrenal gland.
Need to be followed as outpatient
Diet As tolerated
Activity No strenuous activity
Additional Activity Do not lift over 15lbs for 2-3 weeks
Bathing Restrictions OK to Shower
Wound Care Allow the glue to flake off your incisions on
its own over the next 2-3 weeks. Avoid soaking
in pools and tubs during this time
Instructions:
Stand-Alone Forms:
Changes to Home Medications: Yes
Discharge Medications:
DC Medications w/original date entered in [facility]
atorvastatin 80 mg tablet 80 mg PO HS High Cholesterol 02/07/25
bupropion HCl 150 mg tablet,12 hr sustained-release 150 mg PO DAILY Mental Health/Anxiety 02/07/25
cholecalciferol (vitamin D3) 125 mcg (5,000 unit) tablet (Vitamin D3) 125 mcg PO NOON Supplement 02/07/25
denosumab 60 mg/mL subcutaneous syringe (Prolia) 60 mg SC [id number] OSTEOPOROSIS 02/07/25
ferrous sulfate 325 mg (65 mg iron) tablet 325 mg PO NOON Supplement 02/07/25
folic acid 1 mg tablet 1 mg PO NOON Supplement 02/07/25
lamotrigine 100 mg tablet 100 mg PO QPM Mental Health/Anxiety 02/07/25
mirtazapine 15 mg tablet 15 mg PO HS Mental Health/Anxiety 02/07/25
nitroglycerin 0.2 mg/hr transdermal 24 hour patch 1 patch transdermal HS Blood Pressure 02/07/25
omeprazole 20 mg capsule,delayed release 20 mg PO DAILY Gastrointestinal Issue 02/07/25
pramipexole 0.25 mg tablet 0.5 mg PO HS Neurological Condition 02/07/25
quetiapine 100 mg tablet 100 mg PO HS Mental Health/Anxiety 02/07/25
amiodarone 200 mg tablet 200 mg PO BID #90 tabs 02/25/25
apixaban 2.5 mg tablet (Eliquis) 2.5 mg PO BID #60 tabs 02/25/25
carvedilol 6.25 mg tablet 6.25 mg PO BID #60 tabs 02/25/25
clonazepam 1 mg tablet 1 mg PO HS Mental Health/Anxiety #10 tabs 02/25/25
oxycodone 5 mg tablet 5 mg PO Q4HPRN PRN severe pain #10 tabs 02/25/25
vancomycin 50 mg/mL oral solution 125 mg (2.5 mL) PO Q6 #8 mL 02/25/25
Home Medication Changes
Oral bicarbonate discontinued
Amlodipine discontinued
Amiodarone, Coreg, Eliquis initiated for new onset of A-fib.
Pending Results: No
[2025-02-25 11:30] LABS: COVID-19 Antigen Negative (Negative)
--- NOTE | 2025-02-25 11:41 | W.DCSUMMARY ---
Discharge Summary
Discharge Data
Date of Admission: 02/07/25
Date of Discharge: 02/25/25
-
Pending Results: No
Hospital Course
Ms. Jack is an 79-year-old female with a medical history of sarcoidosis, collagenous colitis with bowel perforation (status post colostomy and reversal at [facility]), CAD, CKD, and CVA who presented with 5 days of nausea and vomiting associated
with abdominal pain and distention. Her last bowel movement was almost 1 week prior to arrival and she has been unable to tolerate anything p.o. during the past week. CT imaging shows very distended small bowel with a transition point in the left
lower quadrant concerning for high-grade obstruction. NG tube was placed for decompression and started on low intermittent wall suction. She developed A-fib with RVR with a heart rate of 150s to 180s, no prior history of A-fib. She was given a
dose of IV Lopressor with no significant effect and so was then started on IV Cardizem drip. However she became mildly hypotensive and so was switched to IV amiodarone drip with bolus. She was admitted for further evaluation and management of SBO
and new onset A-fib with RVR.
Diarrhea
- Improving, FMS discontinued, MiraLAX discontinued
- Stool studies positive for C. difficile antigen but toxin negative
- Empirically treating with oral vancomycin for 10 days through 02/27
- ID signed off
- Evaluated by GI, do not feel this is related to her collagenous colitis
- Patient is still incontinent occasionally especially with cough, improving with scheduled toileting
Dysphagia
- Tolerating low residue diet cautiously but still having cough with sips of water
- Has a reported history of esophageal dilatation
- SUPPORT STAFF following, possible video swallow on Sunday
High-grade SBO secondary to adhesions
- Status post laparoscopic lysis of additions 02/12
- Tolerating low residue diet with Ensure
- Discontinuing TPN
- Further recommendations per surgery
Septic shock
- Now resolved, off vasopressors
- Unclear source, possibly due to C. difficile with antigen positive by PCR but toxin negative
- Not bacteremic, no evidence of UTI
- CT abdomen pelvis raised the concern of tree-in-bud opacities in the right middle lobe, mild asymmetric cutaneous thickening is stranding in the inferior left gluteal soft tissues, mild rectal wall thickening with large amount of stool in the
colon.
- Completed course of antibiotics with cefepime/flagyl/IV Vanco
- Leukocytosis resolved, remains afebrile
- Started on oral vancomycin 02/17 for 10-day course of empiric treatment of possible C. difficile colitis
A-fib with RVR:
- New onset
- Continue amiodarone 200 mg p.o. 2 times daily for 2 weeks (through 03/18) then convert to 200 mg daily, carvedilol 6.25 mg p.o. twice daily
- Transitioned to low-dose Eliquis 02/18
- Currently she is in sinus rhythm
- Cardiology following, recommendations appreciated
TYESHA on CKD 3:
- Suspect due to poor perfusion in the setting of sepsis with intermittent hypotension
- Now resolving
- Suero discontinued
- Appreciate nephrology recommendations -continue with as needed diuretics.
NSTEMI:
- Suspect due to myocardial stress in the setting of SBO and rapid A-fib
- Do not suspect ACS
- Appreciate cardiology recommendations
Progressive anemia-normocytic:
-no further external bleeding.
- H&H stable
- Continue with PPI p.o. twice daily.
Abdominal aortic dilatation:
- Focal dilatation of the infrarenal abdominal aorta measuring 2.9 cm
- Ongoing outpatient monitoring recommended
Adrenal nodule:
- 1.5 centimeter hypodense left adrenal nodule noted on imaging, likely an adenoma
- Outpatient monitoring recommended
Nutrition-low residue diet, TPN discontinued
CODE STATUS: DNR
Discharge Plan
-
Patient Disposition: Halfway/SNF
Discharge Diagnosis/Procedures: SBO, status post laparoscopic lesion of adhesions on 02/12
SIRS/sepsis with septic shock. Empirically treated with antibiotics with no identifiable source.
Diarrhea C. difficile toxin negative antigen positive empirically treated with vancomycin 2 02/27
Atrial fibrillation, new onset. Rate controlled with amiodarone. Initiated anticoagulation with Eliquis.
TYESHA on CKD 3.
Non-STEMI
Anemia of chronic disease
Adrenal nodule 1.5 cm on the left adrenal gland. Need to be followed as outpatient
Diet: As tolerated
Activity: No strenuous activity
Additional Activity: Do not lift over 15lbs for 2-3 weeks
Bathing Restrictions: OK to Shower
Wound Care: Allow the glue to flake off your incisions on its own over the next 2-3 weeks. Avoid soaking in pools and tubs during this time
Activity Restrictions/Additional Instructions:
Wound Care Instructions
Coccyx/L buttock:Clean with soap and water, silicone foam to Coccyx and L buttock change q other day and prn soilage
Heels and elbows: skin prep and adhesive foams change q 3 days and prn soilage
Air mattress turning schedule
air chair cushion when sitting
increase protein in diet
Follow up at wound care center call for an appointment.
-Follow up with your grain sacker at [facility]
Referrals:
Phillip Jaquez Jr., MD [Family Provider] -
Mikey Moss MD [Active] - in two to four weeks
Additional Discharge Medication Instructions: -Take amiodarone 200 mg twice a day until 03/04/25 then decrease to 200 mg once a day thereafter to help control your heart's rhythm and reduce the risk of recurrent atrial fibrillation
-Take Eliquis 2.5 mg twice a day to help reduce risk of blood clot and stroke due to atrial fibrillation
Prescriptions:
New
carvedilol 6.25 mg Tablet
6.25 mg PO BID Qty: 60 0RF
Eliquis 2.5 mg Tablet
2.5 mg PO BID Qty: 60 0RF
amiodarone 200 mg Tablet
200 mg PO BID Qty: 90 0RF
Rx Instructions:
Take 200 mg twice a day through 03/18, then changed to 200 mg daily.
vancomycin 50 mg/mL Recon Soln
125 mg PO Q6 Qty: 8 0RF
oxycodone 5 mg Tablet
5 mg PO Q4HPRN PRN (Reason: severe pain) Qty: 10 0RF
Continued
bupropion HCl 150 mg Tablet Sustained-Release 12 Hr
150 mg PO DAILY
atorvastatin 80 mg Tablet
80 mg PO HS
nitroglycerin 0.2 mg/hr Patch 24 Hour
1 patch TRANSDERMAL HS
Patient Comments:
02/07/25: Patient switches between each arm, has patch on now
quetiapine 100 mg Tablet
100 mg PO HS
ferrous sulfate 325 mg (65 mg iron) Tablet
325 mg PO NOON
pramipexole 0.25 mg Tablet
0.5 mg PO HS
omeprazole 20 mg Capsule,Delayed Release(Dr/Ec)
20 mg PO DAILY
folic acid 1 mg Tablet
1 mg PO NOON
mirtazapine 15 mg Tablet
15 mg PO HS
lamotrigine 100 mg Tablet
100 mg PO QPM
cholecalciferol (vitamin D3) [Vitamin D3] 125 mcg (5,000 unit) Tablet
125 mcg PO NOON
Prolia 60 mg/mL Syringe
60 mg SC [id number]
clonazepam 1 mg Tablet
1 mg PO HS Qty: 10 0RF
Discontinued
amlodipine 5 mg Tablet
5 mg PO NOON
sodium bicarbonate 650 mg Tablet
1,300 mg PO BID
meclizine 25 mg Tablet
25 mg PO DAILY
Discharge Orders:
Discharge Patient (As Directed); Ordered 02/25/25
Ordered By: Marco A Robbins
Discharge Date and Time
Print Language: [id number]
[2025-02-25] MEDS: VITAMIN D3 (cholecalciferol) 125 MCG PO (12:03)
[2025-02-25] MEDS: FOLVITE 1 MG PO (12:03)
[2025-02-25 14:07] VITALS: BP 136/58
== END 2025-02-25 15:39 | DRG 853 ==
LOC: 3 WEST ACU 18:40
PROVIDERS: Internal Medicine; Internal Medicine Cardiovascular Disease; Nurse Practitioner Family; Physician Assistant; Radiology Vascular & Interventional Radiology; Registered Nurse; Specialist; Surgery; ADMITTING PHYSICIAN Internal Medicine; ATTENDING PHYSICIAN Internal Medicine; CONSULT PHYSICIAN Internal Medicine Gastroenterology; CONSULT PHYSICIAN Internal Medicine Infectious Disease; CONSULT PHYSICIAN Specialist; CONSULT PHYSICIAN Surgery; EMERGENCY PHYSICIAN Emergency Medicine; FAMILY PHYSICIAN Internal Medicine; OTHER PHYSICIAN Internal Medicine Cardiovascular Disease; OTHER PHYSICIAN Internal Medicine Critical Care Medicine
PROC: 0D9670Z Drainage of Stomach with Drainage Device, Via Natural or Artificial Opening (ICD-10-PCS; 2025-02-07)
PROC: 02HV33Z Insertion of Infusion Device into Superior Vena Cava, Percutaneous Approach (ICD-10-PCS; 2025-02-09)
PROC: 30233N1 Transfusion of Nonautologous Red Blood Cells into Peripheral Vein, Percutaneous Approach (ICD-10-PCS; 2025-02-12)
PROC: 0DN84ZZ Release Small Intestine, Percutaneous Endoscopic Approach (ICD-10-PCS; 2025-02-12)
PROC: 0DNU4ZZ Release Omentum, Percutaneous Endoscopic Approach (ICD-10-PCS; 2025-02-12)
PROC: 3E0336Z Introduction of Nutritional Substance into Peripheral Vein, Percutaneous Approach (ICD-10-PCS; 2025-02-13)
DX: A41.9 Sepsis, unspecified organism (principal); I21.4 Non-ST elevation (NSTEMI) myocardial infarction; R65.21 Severe sepsis with septic shock; E87.20 Acidosis, unspecified; K56.52 Intestinal adhesions [bands] with complete obstruction; J98.11 Atelectasis; N17.9 Acute kidney failure, unspecified; E87.1 Hypo-osmolality and hyponatremia; E44.0 Moderate protein-calorie malnutrition; Z68.1 Body mass index [BMI] 19.9 or less, adult; A04.72 Enterocolitis due to Clostridium difficile, not specified as recurrent; I25.10 Atherosclerotic heart disease of native coronary artery without angina pectoris; F32.A Depression, unspecified; N18.31 Chronic kidney disease, stage 3a; E78.00 Pure hypercholesterolemia, unspecified; I12.9 Hypertensive chronic kidney disease with stage 1 through stage 4 chronic kidney disease, or unspecified chronic kidney disease; E27.8 Other specified disorders of adrenal gland; I70.0 Atherosclerosis of aorta; N28.1 Cyst of kidney, acquired; F41.9 Anxiety disorder, unspecified; G25.81 Restless legs syndrome; D50.9 Iron deficiency anemia, unspecified; K52.831 Collagenous colitis; M54.16 Radiculopathy, lumbar region; M81.0 Age-related osteoporosis without current pathological fracture; E86.0 Dehydration; I07.1 Rheumatic tricuspid insufficiency; L89.151 Pressure ulcer of sacral region, stage 1; I48.91 Unspecified atrial fibrillation; E83.51 Hypocalcemia; E87.8 Other disorders of electrolyte and fluid balance, not elsewhere classified; R13.10 Dysphagia, unspecified; E87.6 Hypokalemia; D63.8 Anemia in other chronic diseases classified elsewhere; I77.811 Abdominal aortic ectasia; R62.7 Adult failure to thrive; D86.9 Sarcoidosis, unspecified; Z66 Do not resuscitate; Z86.73 Personal history of transient ischemic attack (TIA), and cerebral infarction without residual deficits; Z79.02 Long term (current) use of antithrombotics/antiplatelets; Z87.891 Personal history of nicotine dependence; Z91.041 Radiographic dye allergy status; Z88.2 Allergy status to sulfonamides; Z88.0 Allergy status to penicillin; Z88.8 Allergy status to other drugs, medicaments and biological substances; Z11.52 Encounter for screening for COVID-19; Z90.710 Acquired absence of both cervix and uterus
CPT/HCPCS: 51701; 71045; 71046; 74018; 74019; 74176; 74250; 80048; 80053; 80069; 80162; 80202; 81003; 81015; 82248; 82330; 82533; 82570; 82607; 82746; 82805; 82962; 83036; 83605; 83690; 83735; 84100; 84134; 84145; 84300; 84439; 84443; 84478; 84484; 85025; 85027; 85610; 85730; 86850; 86900; 86901; 86920; 87040; 87086; 87324; 87449; 87502; 87641; 87811; 92526; 92610; 93005; 93306; 96361; 96365; 96375; 96376; 97116; 97163; 97167; 97530; 97535; 99285; C1776; J1160; P9016

== ENCOUNTER 2025-03-06 16:25 | Inpatient (IN) | payer MEDICARE, BC, SELFPAY ==
[2025-03-06] VITALS (10 sets, daily range): BP systolic 98–141; BP diastolic 50–69; BMI 22.3; BMI 21.7; BMI 21.9
--- NOTE | 2025-03-06 13:42 | ED.GENMED ---
History of Present Illness
General
Chief Complaint: Blood Pressure Problem
Source: patient
Exam Limitations: none
Time Seen by Provider: 03/06/25 12:26
Nursing documentation reviewed up to this point in time: agreed with
History of Present Illness
History of Present Illness:
Patient is a 80-year-old female with history of A-fib, on Eliquis sarcoidosis collagenous colitis with bowel perforation status post colostomy and reversal at [facility]) hypertension hyperlipidemia SD chronic renal failure presents to the ER for
hypertension and hypoxia. Patient was recently admitted February 07 and discharged February 25. Patient had diarrhea at that time which was positive for C. difficile antigen but toxin was negative however she was empirically treated for C. difficile on
vancomycin. In addition patient had laparoscopic lysis of adhesions February 12.
Patient reports at times her breathing feels a little labored.
Past History
Past History
ED Past Medical History: CAD, HTN and Hypercholesterolemia
Review of Systems
Review of Systems
Allergies reviewed?: Yes
All Other Systems: ROS reviewed and negative except as documented in HPI and ROS
Constitutional: Reports no symptoms; Denies fever, fatigue or chills
Respiratory: Reports trouble breathing; Denies cough
Cardiac: Reports no symptoms
ABD/GI: Reports no symptoms
Musculoskeletal: Reports no symptoms
Skin: Reports no symptoms
Neurological: Reports no symptoms
Psychiatric: Reports no symptoms
Phy Exam
General Physical Exam
General Presentation: no apparent distress
General age: appears stated age
General Skin: warm and dry
General Habitus: elderly
General Mental: alert
General Hydration: dry mucous membranes
Cardiovascular Exam
Cardiovascular Exam: regular rate/rhythm, no murmur and normal peripheral pulses
Pulmonary Exam
Pulmonary Exam: no respiratory distress and other (decreased throughout )
Gastrointestinal Exam
Gastrointestinal Exam: other (abd soft non tender + healing incision to abdomen )
Neurological Exam
Neurological Exam: alert
Musculoskeletal Exam
Musculoskeletal Exam: full ROM
Skin Exam
Skin Exam: normal color and warm/dry
Psychiatric Exam
Psychiatric Exam: normal mood/affect
Course
Orders/Labs/Results
Orders:
Orders
03/06/25 12:16
Electrocardiogram (*1) Urgent
Reason for Study: Shortness of Breath
EKG- Treatment ONCE
03/06/25 13:22
CMP [Comprehensive Metabolic Panel] Urgent
Complete Blood Count/With Diff Urgent
03/06/25 13:44
Chest [CR Chest - 2 Views ] Urgent
Comment:
Reason For Exam: sob
03/06/25 14:45
0.9% Sodium Chloride 500 ml [Nss] 500 ml IV BOLUS
03/06/25 15:24
CefTRIAXone [Rocephin] 1,000 mg IV NOW STA
03/06/25 15:38
Doxycycline Hyclate [Vibramycin] 100 mg 0.9% Sodium Chloride 250 ml [Nss] 250 ml IV NOW
03/06/25 15:54
Lactic Acid Q4H
Comment: CANCEL 2nd LACTIC ACID IF 1st LACTIC ACID IS LESS THAN 2
Blood Culture Q30M
CHRISTINA Source: Blood/Venous
Specimen Description:
Blood Culture Q30M
CHRISTINA Source: Blood/Venous
Specimen Description:
03/06/25 16:00
Admit/Transfer Patient As Directed
Co-Sign Provider:
Level of Care: Inpatient admission
Assign to:: IMU- Intermediate Care
Physician / Group: rama,sher
Diagnosis: RUL peumonia, hypoxi resp insuff , anemia unclear,bry
Reason for Hospitalization: RUL peumonia, hypoxi resp insuff , anemia unclear,bry
Expected length of stay greater than two midnights?: Yes
ELOS- Estimated Length of Stay in days: 5
I certify the patient meets the requirements for IP care: Yes
Code Status As Directed
Resuscitation Status: Do not resuscitate
Reached after discussion with pt or family/Healthcare POA: Yes
Based on pt advanced directive or healthcare POA form: Yes
03/06/25 16:16
DNR Bracelet Application ONCE
03/06/25 16:17
PRN Pain Medication Management As Directed
May give lesser potent ordered pain med per pt: Yes
preference::
Protocol:: Medication orders for pain may be administered in a
manner that supports deferring to patient preference
when the pt is:
- Requesting an ordered lesser potent pain medication.
Least to most potent pain medications are defined
as: acetaminophen < NSAID < tramadol < opioids
(morphine, oxycodone, hydromorphone).
- Requesting a lesser dose of the same medication IF
ORDERED.
- Requesting a less intrusive route of administration
if both routes are prescribed by the provider (PO <
IV).
03/06/25 19:45
Lactic Acid Q4H
Comment: CANCEL 2nd LACTIC ACID IF 1st LACTIC ACID IS LESS THAN 2
Abnormal Lab Results
03/06/25
13:22
RBC 2.67 L 10^6/uL
(4.20-5.40)
Hgb 7.9 L g/dL
(12.0-16.0)
Hct 24.8 L %
(37.0-47.0)
MCHC 31.9 L g/dL
(33.0-37.0)
RDW 17.6 H %
(11.5-14.5)
Abs Immat Gran (auto) 0.1 H 10^3/uL
(0-0.05)
Absolute Neuts (auto) 6.9 H 10^3/uL
(1.4-6.5)
Absolute Lymphs (auto) 1.1 L 10^3/uL
(1.2-3.4)
Absolute Monos (auto) 0.9 H 10^3/uL
(0.1-0.6)
Immature Gran % 0.9 H %
(0-0.5)
Neutrophils % 75.9 H %
(42.2-75.2)
Lymphocytes % 12.4 L %
(20.5-51.1)
Monocytes % 10.3 H %
(1.7-9.3)
Chloride 110 H mmol/L
(98-107)
BUN 36 H mg/dl
(7-17)
Creatinine 1.6 H mg/dL
(0.6-1.0)
Total Protein 5.6 L g/dl
(6.3-8.2)
Albumin 2.5 L g/dl
(3.5-5.0)
03/06/25 13:22
03/06/25 13:22
Vital Signs
Initial and Last Documented VS:
Initial Vital Signs
Temp Pulse Resp BP Pulse Ox
97.7 F 67 18 107/59 93
03/06/25 12:17 03/06/25 12:17 03/06/25 12:17 03/06/25 12:17 03/06/25 12:17
Last Documented Vital Signs
Temp Pulse Resp BP Pulse Ox
97.7 F 67 14 115/66 98
03/06/25 12:17 03/06/25 17:00 03/06/25 15:30 03/06/25 17:00 03/06/25 16:30
Beater Out consulted with Physician
Beater Out consulted with physician?: Yes
Name of Physician Consulted: Hai
MDM/Problems Addressed
Differential Diagnosis Includes:
not limited to: pneumonia
MDM/Problems Addressed:
As documented patient is an 80-year-old female from group home sent for hypertension hypoxia. Patient presents awake alert she tells me at times her breathing is labored and she was sent to rule out possible pneumonia. She does have a room air
pulse ox around 85%. She is afebrile with normal white count. Her hemoglobin is baseline at 7.9 patient does have chronic kidney disease stage III, creatinine slightly elevated 1.6. 500 cc of fluids ordered. Chest ray does show a right upper
lobe pneumonia. Given the fact of hypoxia and pneumonia would recommend IV antibiotics and admission. Pt requiring Oxygen.
*Radiology
Radiology exam reviewed: radiology read reviewed
*Pulse Oximetry
Patient hypoxic: yes
*Critical Care Note
Total Time (30-74mins, 75-104mins- exclusive of procedures): Not Applicable
Data Reviewed
Review of Other/Old Records Reveals: Labs and Discharge Summary
Source: patient
ED Attending Note
-
Portions of this chart may have been created with voice recognition software.� Occasional wrong word or��sound alike� substitutions may have occurred due to the inherent limitations of voice recognition software.
Discharge Plan
Departure
Patient Disposition: Admit
Date of Disposition: 03/06/25
Time of Disposition: 15:27
Admit to: Med/Surg
Admit to doctor: hospitalist
Presentation/result/management discussed w/ accepting MD/DO: Hospitalist
Patient with high blood pressure during this ER visit?: No
Condition: Fair
Discharge Problem:
Pneumonia, Hypoxia
Interventions
Interventions:
*Risk Screen - Suicide Last Done: 03/06/25 12:17
*General Assessment Last Done: 03/06/25 12:17
*Neglect/Abuse Screening Last Done: 03/06/25 12:17
*ED- Fall Risk Assessment Last Done: 03/06/25 12:17
*ED COVID-19 Vaccine History Last Done: 03/06/25 12:17
ED- Cardiac Assessment Last Done: 03/06/25 12:17
ED- Neurological Assessment Last Done: 03/06/25 12:17
ED- Pulmonary Assessment Last Done: 03/06/25 12:17
[2025-03-06 13:53] LABS: % Basophils 0.4 % (0-2); % Eosinophils 0.1 % (0-6); % Immature Granulocytes 0.9 % (0-0.5); % Lymphocytes 12.4 % (20.5-51.1); % Monocytes 10.3 % (1.7-9.3); % Neutrophils 75.9 % (42.2-75.2); Absolute Immature Granulocytes 0.1 10^3/uL (0-0.05); Absolute Lymphocytes 1.1 10^3/uL (1.2-3.4); Absolute Monocytes 0.9 10^3/uL (0.1-0.6); Absolute Neutrophils 6.9 10^3/uL (1.4-6.5); Hematocrit 24.8 % (37.0-47.0); Hemoglobin 7.9 g/dL (12.0-16.0); Mean Corp Hgb Conc. 31.9 g/dL (33.0-37.0); Mean Corpuscular Hgb 29.6 pg (27.0-31.0); Mean Corpuscular Volume 92.9 fL (81.0-99.0); Mean Platelet Volume 9.6 fL (7.4-10.4); Nucleated Red Blood Cells % 0 %; Platelet Count 333 10^3/uL (130-400); Red Blood Cell Count 2.67 10^6/uL (4.20-5.40); Red Cell Dist. Width 17.6 % (11.5-14.5); White Blood Cell Count 9.1 10^3/uL (4.8-10.8)
[2025-03-06 14:03] LABS: ALT (SGPT) 19 U/L (0-35); AST (SGOT) 33 U/L (14-36); Albumin 2.5 g/dl (3.5-5.0); Alkaline Phosphatase 85 U/L (38-126); Blood Urea Nitrogen 36 mg/dl (7-17); Calcium 8.7 mg/dl (8.4-10.2); Carbon Dioxide 22 mmol/L (22-30); Chloride 110 mmol/L (98-107); Estimated Creatinine Clearance 21 ml/min; Glucose 85 mg/dl (70-99); Potassium 4.9 mmol/L (3.5-5.1); Sodium 140 mmol/L (135-145); Total Bilirubin 0.7 mg/dl (0.2-1.3); Total Protein 5.6 g/dl (6.3-8.2)
[2025-03-06] MEDS: NSS 500 IV (15:17)
[2025-03-06] MEDS: ROCEPHIN 1000 MG IV (15:29)
[2025-03-06] MEDS: VIBRAMYCIN 260 MG IV (15:52)
--- NOTE | 2025-03-06 16:13 | HPS.HSE ---
Family Physician
-
Family Physician: Andry Cuba MD
Chief Complaint
-
hypertension and hypoxia.
History of Present Illness
HPI
80F HX A-fib, on Eliquis, HX sarcoidosis, collagenous colitis with bowel perforation status post colostomy and reversal at [facility], hypertension hyperlipidemia, DC, CKD3 HX seen at ER for hypertension and hypoxia.
- was recently admitted February 07 and discharged February 25.
- Patient had diarrhea at that time which was positive for C. difficile antigen but toxin was negative however she was empirically treated for C. difficile on vancomycin.
- In addition patient had laparoscopic lysis of adhesions February 12.
- Patient reports at times her breathing feels a little labored.
Medical History
Past Medical History
Past Medical History: Reports Other
Additional Past Medical History:
Trochanteric bursitis of bilateral hip
Bilateral lumbar radiculopathy
Impingement syndrome bilateral shoulder
Osteoporosis
Depression
Sarcoidosis
CVA
loop recorder
Past Surgical History: Reports Other
Additional Past Surgical History:
Hernia surgery
Reverse colostomy
Left elbow surgery
Hysterectomy
Femur surgery
Social History
Tobacco: Former Smoker
Alcohol: None
Drug: None
Living: With Family
Family History
Family History: Not pertinent
Allergies / Home Medications
Allergies reflects when Allergies were last updated in [facility].
Home Medications with original date entered in [facility]
Allergy/Medication List:
Allergies
Allergy/AdvReac Type Severity Reaction Status Date / Time
Penicillins Allergy Mild Hives Verified 02/07/25 14:00
Sulfa (Sulfonamide Allergy Mild Hives Verified 02/07/25 14:00
Antibiotics)
hydrochlorothiazide Allergy Hives Verified 02/07/25 14:00
Iodinated Contrast Media Allergy Hives Verified 02/07/25 14:00
Home Medications
amlodipine 5 mg tablet 5 mg PO NOON 02/07/25
atorvastatin 80 mg tablet 80 mg PO HS 02/07/25
bupropion HCl 150 mg tablet,12 hr sustained-release 150 mg PO DAILY 02/07/25
cholecalciferol (vitamin D3) 125 mcg (5,000 unit) tablet (Vitamin D3) 125 mcg PO NOON 02/07/25
clonazepam 1 mg tablet 1 mg PO HS 02/07/25
denosumab 60 mg/mL subcutaneous syringe (Prolia) 60 mg SC [id number] 02/07/25
ferrous sulfate 325 mg (65 mg iron) tablet 325 mg PO NOON 02/07/25
folic acid 1 mg tablet 1 mg PO NOON 02/07/25
lamotrigine 100 mg tablet 100 mg PO QPM 02/07/25
meclizine 25 mg tablet 25 mg PO DAILY 02/07/25
mirtazapine 15 mg tablet 15 mg PO HS 02/07/25
nitroglycerin 0.2 mg/hr transdermal 24 hour patch 1 patch transdermal HS 02/07/25
omeprazole 20 mg capsule,delayed release 20 mg PO DAILY 02/07/25
pramipexole 0.25 mg tablet 0.5 mg PO HS 02/07/25
quetiapine 100 mg tablet 100 mg PO HS 02/07/25
sodium bicarbonate 650 mg tablet 1,300 mg PO BID 02/07/25
Review of Systems
-
Constitutional: Reports Chills
EENT: Reports No Symptoms
Respiratory: Reports Cough
Cardiac: Reports Chest Pain
Abdomen/GI: Reports Abdominal Pain, Nausea, Vomiting and Constipated
: Reports No Symptoms
Musculoskeletal: Reports No Symptoms
Skin: Reports No Symptoms
Neurological: Reports No Symptoms
Endocrine: Reports No Symptoms
Hematologic/Lymphatic: Reports No Symptoms
Psych: Reports No Symptoms
Physical Exam
Vital Signs
Vital Signs
Temp Pulse Resp BP Pulse Ox
97.7 F 67 16 98/56 86
03/06/25 12:17 03/06/25 15:00 03/06/25 15:00 03/06/25 15:00 03/06/25 15:00
Physical Exam
General: No Apparent Distress, Comfortable, Conversant and Other (pale complexion )
HEENT: NormoCephalic, Moist mucous membranes and Atraumatic
Respiratory: Clear
Cardiac: S1/S2 and Regular Rhythm; No Murmur or Rub
GI: Soft, Non Tender, Tender and Distended; No Organomegaly
Rectal: Deferred by Provider
Musculoskeletal: No Clubbing, No Cyanosis and No Edema
Skin: No Rash
Neuro: AO x 3 and Nonfocal/grossly intact
Psych: Calm
Laboratory Results
-
03/06/25 13:22
03/06/25 13:22
Laboratory Results
Total Bilirubin 0.7 mg/dl (0.2-1.3) 03/06/25 13:22
AST 33 U/L (14-36) 03/06/25 13:22
ALT 19 U/L (0-35) 03/06/25 13:22
Alkaline Phosphatase 85 U/L (38-126) 03/06/25 13:22
Data Reviewed
-
Diagnostic Radiology: Report Reviewed by me
Lab Data: Labs Reviewed by me
Old Records: Reviewed
Impression/Plan
-
Selected Entries
03/06/25
12:17 03/06/25
15:00
Temp 97.7 F
Pulse 67
Resp Rate 18
Blood pressure 107/59 98/56
SaO2 93
Oxygen Mode of Delivery Room air
Laboratory Tests
02/23/25 02/23/25 02/25/25
06:22 08:58 06:37
WBC
Hgb 8.3 L 7.7 L
MCV
Plt Count
Chloride
Carbon Dioxide
BUN
Creatinine 1.1 H
eGFR
Lactic Acid
AST
ALT
Albumin
03/06/25 03/06/25
13:22 19:45
WBC 9.1
Hgb 7.9 L
MCV 92.9
Plt Count 333
Chloride 110 H
Carbon Dioxide 22
BUN 36 H
Creatinine 1.6 H
eGFR 32.20
Lactic Acid Pending
AST 33
ALT 19
Albumin 2.5 L
Pending LA
BCx
CXR
- focus of patchy small nodular opacity within the right upper lobe, which is likely pneumonia.
- No convincing evidence for active vascular congestion.
- Loop recorder device projects over the left lower anterior chest wall.
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
EKG
NORMAL SINUS RHYTHM
LOW VOLTAGE QRS
ANTERIOR INFARCT (CITED ON OR BEFORE 07-FEB-2025)
ABNORMAL ECG
WHEN COMPARED WITH ECG OF 16-FEB-2025 00:34,
NO SIGNIFICANT CHANGE WAS FOUND
Last hospitalist admission: Date of Admission: 02/07/25 - Date of Discharge: 02/25/25
ASSESSMENT & PLAN
CXR suspected RUL PNA
Associated Hypoxic RI POx as low as 86% on RA
No evidence of SIRS
NEG CXR for CHF
Afebrila. No Leucocytosis
- Pending LA
- Empiric IV CFTX and PO Doxy
- f/u BCx
- O2 supplement to keep POx above > 93
Recent HX C. difficile with antigen positive by PCR but toxin negative
- No Leukocytosis , remains afebrile
- c/w oral vancomycin 02/17 especially current ABx on admission
TYESHA on CKD 3:
Hypotensive
HX LVEF 50-55 %
- Hold carvedilol
- IV NS 60/H x 1 L
- trend Cr
Progressive anemia-normocytic: Hgb 7.9 , 7.7 on 02/25
HX Iron deficiency anemia
- Blood consented at ER
- on chr Eliquis
- Trend H&H
- H2 B in place of PPI due to hi risk for C Diff
In NSR
HX Prx AF
Jimenez Loop recorder
- cont amiodarone
- Hold carvedilol carvedilol 6.25 mg p.o. twice daily
- on low-dose Eliquis 02/18
Status post laparoscopic lysis of additions 02/12
Recent High-grade SBO secondary to adhesions
- low residue diet with Ensure
Essential HTN
- Hypotensive in ER
- to hold Norvasc and carvedilol
Hyperlipidemia
- on statin
Abdominal aortic dilatation:
- Focal dilatation of the infrarenal abdominal aorta measuring 2.9 cm
- Ongoing outpatient monitoring recommended
Adrenal nodule:
- 1.5 centimeter hypodense left adrenal nodule noted on imaging, likely an adenoma
- Outpatient monitoring recommended
Anxiety
- On Wellbutrin and clonazepam Lamictal, Seroquel as outpatient
Restless leg syndrome
- Hold the pramipexole
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
- Wd care consult
DVT Px: Hold Eliquis and SCDs
DNR confirmed by patient in the presence of ER SUPERVISOR TELEPHONE CLERKS
IMU
[2025-03-06 16:31] LABS: Lactic Acid 1.1 mmol/L (0.7-2.0)
[2025-03-06] MEDS: PACERONE 200 MG PO (19:54)
[2025-03-06] MEDS: LAMICTAL 100 MG PO (19:54)
[2025-03-06] MEDS: NSS 1000 IV (19:55)
[2025-03-06] MEDS: ROXICODONE 5 MG PO (20:10)
[2025-03-06] MEDS: LIPITOR 80 MG PO (20:10)
[2025-03-06] MEDS: REMERON 15 MG PO (20:10)
[2025-03-06] MEDS: KLONOPIN 1 MG PO (20:10)
--- NOTE | 2025-03-06 21:00 | PTCARENOTE ---
Pt received from ED with Nitro patch on ES.
[2025-03-06] MEDS: FIRVANQ PO ×2 (21:36→21:40)
[2025-03-06 21:39] LABS: Hematocrit 23.9 % (37.0-47.0); Hemoglobin 7.8 g/dL (12.0-16.0)
[2025-03-06] MEDS: MIRAPEX, GENERIC 0.5 MG PO (21:39)
[2025-03-06] MEDS: SEROQUEL 100 MG PO (21:39)
[2025-03-06] MEDS: FIRVANQ 250 MG PO (21:40)
[2025-03-07] VITALS (30 sets, daily range): BP systolic 77–159; BP diastolic 37–115; PULSE 65; O2SAT 96; BMI 21.9
--- NOTE | 2025-03-07 03:16 | PTCARENOTE ---
Pt received to IMU from ED approx 1999 last evening. AAOx3. Drowsy. Easily falls asleep but arousable. Admits to chronic back pain 05/07. Medicated with pain med as ordered. Left eye droop from previous CVA. HX blindness but makes eye contact. Lungs
diminished throughout. 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 2L NC 94-98%. Pt received with Nitro patch on right upper arm. Purewick placed from ED. Wound care completed and documented. Knee scd's on and working. HS Hgb 7.8. VSS. Afebrile. SR on CM. Rest of
assessment as documented. Maintained on Q2hr turns. Call álvarez remains within reach. Will continue to monitor.
[2025-03-07 04:41] LABS: % Basophils 0.4 % (0-2); % Eosinophils 0.3 % (0-6); % Immature Granulocytes 0.7 % (0-0.5); % Monocytes 10.9 % (1.7-9.3); % Neutrophils 69.7 % (42.2-75.2); Absolute Immature Granulocytes 0.1 10^3/uL (0-0.05); Absolute Lymphocytes 1.3 10^3/uL (1.2-3.4); Absolute Monocytes 0.8 10^3/uL (0.1-0.6); Absolute Neutrophils 5.2 10^3/uL (1.4-6.5); Hematocrit 24.7 % (37.0-47.0); Hemoglobin 7.6 g/dL (12.0-16.0); Mean Corp Hgb Conc. 30.8 g/dL (33.0-37.0); Mean Corpuscular Hgb 29.2 pg (27.0-31.0); Mean Platelet Volume 9.5 fL (7.4-10.4); Nucleated Red Blood Cells % 0 %; Platelet Count 303 10^3/uL (130-400); Red Cell Dist. Width 17.5 % (11.5-14.5); White Blood Cell Count 7.5 10^3/uL (4.8-10.8)
--- NOTE | 2025-03-07 04:46 | PTCARENOTE ---
Pt without urine output for shift. Pt did not feel need to void. Bladder scanned for 570. Straight cath ordered and pt straight cathed x 1 for 600ml straw/cloudy urine. Order entered for UA. Urine sample sent to lab. Will continue to monitor.
[2025-03-07 05:04] LABS: ALT (SGPT) 16 U/L (0-35); AST (SGOT) 24 U/L (14-36); Albumin 2.1 g/dl (3.5-5.0); Alkaline Phosphatase 75 U/L (38-126); Blood Urea Nitrogen 31 mg/dl (7-17); Calcium 8.4 mg/dl (8.4-10.2); Carbon Dioxide 21 mmol/L (22-30); Chloride 113 mmol/L (98-107); Estimated Creatinine Clearance 22 ml/min; Glucose 65 mg/dl (70-99); Potassium 4.4 mmol/L (3.5-5.1); Sodium 142 mmol/L (135-145); Total Bilirubin 0.5 mg/dl (0.2-1.3); Total Protein 4.8 g/dl (6.3-8.2); eGFR 34.79
[2025-03-07 05:30] LABS: Urine Albumin 1+ (Neg - Trace); Urine Bilirubin Negative (Negative); Urine Character Cloudy (Clear); Urine Glucose Negative (Negative); Urine Ketone Negative (Negative); Urine Leukocyte 3+ (Negative); Urine Nitrite Negative (Negative); Urine Occult Blood 2+ (Negative); Urine Specific Gravity 1.015 (<1.030); Urine Urobilinogen Negative (Neg - 1+)
[2025-03-07 05:31] LABS: Urine Color Straw
[2025-03-07] MEDS: VIBRAMYCIN 260 MG IV ×2 (05:54→18:23)
[2025-03-07 06:04] LABS: Urine Red Blood Cell None Seen /HPF (0-2); Urine White Cell >100 /HPF (0-5)
[2025-03-07 06:05] LABS: Urine Yeast Many (Negative)
[2025-03-07] MEDS: ROXICODONE 5 MG PO ×3 (06:31→21:08)
[2025-03-07 06:43] LABS: Glucose - Point of Care 74 mg/dl (70-99)
[2025-03-07] MEDS: DUONEB 3 ML INH ×2 (07:13→21:25)
[2025-03-07] MEDS: PEPCID 20 MG PO (08:47)
[2025-03-07] MEDS: PACERONE 200 MG PO ×2 (08:47→21:09)
[2025-03-07] MEDS: WELLBUTRIN SR (12 hour sustained release) 150 MG PO (08:48)
[2025-03-07] MEDS: FIRVANQ 250 MG PO ×4 (08:48→21:08)
[2025-03-07] MEDS: PROTONIX 40 MG PO (08:48)
[2025-03-07] MEDS: TYLENOL 650 MG PO (08:52)
[2025-03-07] MEDS: ZOFRAN 4 MG PO (13:06)
[2025-03-07] MEDS: VITAMIN D3 (cholecalciferol) 125 MCG PO (14:39)
[2025-03-07] MEDS: FOLVITE 1 MG PO (14:39)
[2025-03-07] MEDS: FEOSOL 325 MG PO (14:40)
--- NOTE | 2025-03-07 15:06 | CM ---
Initial assessment completed with children and pt at bedside.
Pt is an 80yr old female admitted with PNA/hypoxic respiratory insufficiency.
Pt was recently admitted and discharged from [place] in January to [facility]
Pt at baseline lives with her daughter and grandchildren.
The family's goal is for her to return to [facility] when medically cleared.
PLAN; Return to [facility]
--- NOTE | 2025-03-07 15:19 | W.PN.HOSP.TC ---
Today's Communication/Plan
-
continue IVF
continue Abx
wean O2
Therapy evals
pain control
Assessment / Plan
Assessment / Plan
Assessment:
Right upper lobe pneumonia
Acute hypoxic respiratory insufficiency on 2L NC
- continue IV Rocephin, doxycycline
- follow cultures
Possible acute UTI
- await culture
- continue Rocephin
Recent C. Diff Ag+, toxin negative status
- continue Vancomycin prophylaxis
TYESHA on CKD 3b
HX LVEF 50-55 %
- hold BP meds
- IVF
- monitor BMP and BP
Progressive anemia-normocytic:
HX Iron deficiency anemia
- follow serial Hb
- heme test stools
- check anemia workup
- holding Eliquis
Hx of Parox A. Fib (hx of Loop recorder)
- currently in NSR
- holding Coreg
- continue Amio
- hold Eliquis
Hx of SBO with NICKI 02/12
- continue LRD with supplements
Essential HTN
- holding BP Meds
Hyperlipidemia
- on statin
Abdominal aortic dilatation
- Focal dilatation of the infrarenal abdominal aorta measuring 2.9 cm
- Ongoing outpatient monitoring recommended
Adrenal nodule:
- 1.5 centimeter hypodense left adrenal nodule noted on imaging, likely an adenoma
- Outpatient monitoring recommended
Anxiety
- On Wellbutrin and clonazepam Lamictal, Seroquel as outpatient
Restless leg syndrome
- Hold the pramipexole
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
- Wound care eval
DVT ppx: SCDs
Code: DNR/DNI
Anticipated Discharge: > 48 hours
Subjective/Interval History
-
Date of Service: March 07, 2025
reports abdominal discomfort, chronic back discomfort
breathing 'ok'
no chest pain
no fever/chills
Objective Data
-
Labs:
Laboratory Results
03/07/25 03/07/25
04:06 15:16
WBC 7.5
Hgb 7.6 L Pending
Hct 24.7 L Pending
Plt Count 303
Sodium 142
Potassium 4.4
Chloride 113 H
Carbon Dioxide 21 L
BUN 31 H
Creatinine 1.5 H
Glucose 65 L
Calcium 8.4
Total Bilirubin 0.5
AST 24
ALT 16
Alkaline Phosphatase 75
Vital Signs:
Vital Signs
Temp Pulse Resp BP Pulse Ox
97.5 F 62 18 86/39 93
03/07/25 07:59 03/07/25 14:15 03/07/25 14:15 03/07/25 14:01 03/07/25 14:15
I&O
03/06/25 03/07/25 03/08/25
06:59 06:59 06:59
Intake Total 860 / 860
Output Total 600 / 600
Balance 260 / 260
Physical Exam
-
General: No Apparent Distress and Appears Chronically Ill
HEENT: Normocephalic
Respiratory: Rhonchi (RUL) and Decreased Breath Sounds; Negative Wheezes
Cardiac: Regular Rhythm and S1/S2
GI: Soft
Genito-urinary: No Costovertebral Tender
Neuro: AO x 3
Psych: Calm
Data Reviewed
-
Total Time Spent with Patient (in minutes): 44
Labs: Labs Reviewed by me
[2025-03-07 15:48] LABS: Hematocrit 30.3 % (37.0-47.0); Hemoglobin 9.1 g/dL (12.0-16.0)
[2025-03-07] MEDS: ROCEPHIN 1000 MG IV (16:03)
[2025-03-07] MEDS: NSS 1000 IV (16:03)
[2025-03-07] MEDS: STERILE WATER FOR INJECTION 10 ML IV (16:03)
--- NOTE | 2025-03-07 16:41 | PTCARENOTE ---
Patient AAOx2, drowsy, quiet speech, weak. Bed alarm for recent falls at home. L eye ptosis noted, patient tremors with holding things in her hands. C/o back pain on wound and abdominal discomfort. Nausea resolved with PRN zofran. Weaned to 2L NC,
sats 94%. Monitoring decreased urine output, no void this shift, see bladder scan documentation. Patient stated that she urinates 1x a day in morning at home. Patient with 2 small loose BMs today, heme negative. Still with poor appetite, eating ~50%
of meals, states due to nausea and stomach discomfort. Patient had episode of dizziness and weakness on BSC, could not hold her own upper body weight, transferred back to bed. Had brief period (30minutes) of afib after this, converted to NSR/NSB and
remains in NSR/NSB. BPs increasingly soft this afternoon, home nitro patch which was dated 03/05/25 removed. BPs now improved. All assessments discussed at bedside with MD Schroeder. Children updated at bedside. Will continue to closely monitor.
[2025-03-07] MEDS: LAMICTAL 100 MG PO (18:23)
--- NOTE | 2025-03-07 20:40 | PTCARENOTE ---
Pt received at beginning of shift just back to bed after sitting in chair for dinner. New IV site recently placed not working. VAT team called and came to room to place new right midline. Pt admits to chronic back pain. Using bedpan to void
intermittently. IVF/antibiotics infusing as ordered. Wound care as documented. Rest of assessment as documented. VSS. Afebrile SR/SB on CM. Call álvarez remains within reach. Will continue to monitor.
[2025-03-07] MEDS: LIPITOR 80 MG PO (21:09)
[2025-03-07] MEDS: MIRAPEX, GENERIC 0.5 MG PO (21:09)
[2025-03-07] MEDS: KLONOPIN 1 MG PO (21:09)
[2025-03-07] MEDS: SEROQUEL 100 MG PO (21:09)
[2025-03-07] MEDS: REMERON 15 MG PO (21:09)
[2025-03-07 21:14] LABS: Hematocrit 26.9 % (37.0-47.0); Hemoglobin 8.1 g/dL (12.0-16.0)
[2025-03-08] VITALS (11 sets, daily range): BP systolic 96–129; BP diastolic 47–105
[2025-03-08 04:27] LABS: % Basophils 0.5 % (0-2); % Eosinophils 0.2 % (0-6); % Immature Granulocytes 0.7 % (0-0.5); % Lymphocytes 20.6 % (20.5-51.1); % Monocytes 10.9 % (1.7-9.3); % Neutrophils 67.1 % (42.2-75.2); Absolute Lymphocytes 1.2 10^3/uL (1.2-3.4); Absolute Monocytes 0.7 10^3/uL (0.1-0.6); Hematocrit 21.3 % (37.0-47.0); Hemoglobin 6.5 g/dL (12.0-16.0); Mean Corp Hgb Conc. 30.5 g/dL (33.0-37.0); Mean Corpuscular Hgb 28.8 pg (27.0-31.0); Mean Corpuscular Volume 94.2 fL (81.0-99.0); Mean Platelet Volume 9.1 fL (7.4-10.4); Nucleated Red Blood Cells % 0 %; Platelet Count 291 10^3/uL (130-400); Red Blood Cell Count 2.26 10^6/uL (4.20-5.40); Red Cell Dist. Width 17.2 % (11.5-14.5)
[2025-03-08 04:51] LABS: ALT (SGPT) 14 U/L (0-35); AST (SGOT) 23 U/L (14-36); Albumin 1.9 g/dl (3.5-5.0); Alkaline Phosphatase 68 U/L (38-126); Blood Urea Nitrogen 27 mg/dl (7-17); Calcium 8.2 mg/dl (8.4-10.2); Carbon Dioxide 24 mmol/L (22-30); Chloride 115 mmol/L (98-107); Estimated Creatinine Clearance 24 ml/min; Glucose 79 mg/dl (70-99); Iron 28 ug/dl (37-170); Potassium 4.3 mmol/L (3.5-5.1); Sodium 142 mmol/L (135-145); Total Bilirubin 0.3 mg/dl (0.2-1.3); Total Protein 4.4 g/dl (6.3-8.2)
--- NOTE | 2025-03-08 04:57 | PTCARENOTE ---
Hgb 6.5 this am. Checked twice. Last evening Hgb was 8.1. VSS. Blood consent signed. No type and screen. Rosibel VELASCO TT and made aware. Order entered for stat type and screen and one unit PRBC. Type and screen sent and waiting on lab.
Currently pt resting comfortably. Will continue to monitor.
[2025-03-08 05:02] LABS: Percent Saturation 20 % (20-50); Total Iron Binding Capacity 135 ug/dl (265-497)
[2025-03-08] MEDS: VIBRAMYCIN 260 MG IV ×2 (05:29→17:08)
--- NOTE | 2025-03-08 05:56 | PTCARENOTE ---
Received call from lab - pt has + antibody for type and screen that needs to be isolated. Will take approx 45 mins. Pt currently receiving scheduled am antibiotic. Will pass on to day shift ANUP [place]
[2025-03-08 05:58] LABS: Folate > 20.0 ng/ml (2.76-20); Vitamin B12 704 pg/ml (239-931)
[2025-03-08] MEDS: FIRVANQ 250 MG PO ×4 (08:10→21:11)
[2025-03-08] MEDS: ZOFRAN 4 MG PO (08:10)
[2025-03-08] MEDS: WELLBUTRIN SR (12 hour sustained release) 150 MG PO (08:22)
[2025-03-08] MEDS: PACERONE 200 MG PO ×2 (08:22→20:27)
[2025-03-08] MEDS: PROTONIX 40 MG PO (08:22)
[2025-03-08] MEDS: DUONEB 3 ML INH ×3 (08:35→20:09)
--- NOTE | 2025-03-08 11:25 | CON.GI ---
Consultation
-
Date/Time Consultation Performed: 03/08/25
Performing Provider: Tru Yanes MD
Reason for Consultation: anemia, abdominal pain
Medical History
Chief Complaint / HPI
Chief Complaint: Shortness of breath
History of Present Illness:
The patient is an 80-year-old female past medical history as noted who presents with shortness of breath, found to have hypoxia and pneumonia. Reconsulted for abdominal pain and anemia. She has had longstanding abdominal pain with complicated GI
history including recent bowel obstruction with lysis of adhesions. Previous to that she had constipation with what sounds like diverting colostomy with reversal years ago, and remote history of collagenous colitis. She has had baseline anemia,
and on discharge from here on February 25 hemoglobin was 7.7, then 7.9 on admission, now 6.5. There have been no reports of melena or hematochezia. The patient has had some nausea though no vomiting, and does admit to some left upper
quadrant/epigastric tenderness. She also has back pain that radiates as well. She is currently feeling slightly short of breath though still has dyspnea.
Past Medical History
Past Medical History: Other (Sarcoidosis, CVA, coronary disease, CVA, A-fib status post ablation, hysterectomy, chronic renal sufficiency, history of collagenous colitis in the past, chronic constipation with bowel perforation and colostomy, recent
small bowel obstruction with lysis of adhesions)
Past Surgical History: Other (Ventral hernia repair, colostomy with reversal, lysis of adhesions)
Social History
Tobacco: Former Smoker
Alcohol: None
Family History
Family History: Reviewed & Not Pertinent
Allergies / Home Medications
Allergy/AdvReac Type Severity Reaction Status Date / Time
Penicillins Allergy Mild Hives Verified 02/07/25 14:00
Sulfa (Sulfonamide Allergy Mild Hives Verified 02/07/25 14:00
Antibiotics)
hydrochlorothiazide Allergy Hives Verified 02/07/25 14:00
Iodinated Contrast Media Allergy Hives Verified 02/07/25 14:00
�Medication �Instructions �Recorded
atorvastatin 80 mg tablet 80 mg PO HS High Cholesterol 02/07/25
bupropion HCl 150 mg tablet,12 hr 150 mg PO DAILY Mental 02/07/25
sustained-release Health/Anxiety
cholecalciferol (vitamin D3) 125 125 mcg PO NOON Supplement 02/07/25
mcg (5,000 unit) tablet (Vitamin
D3)
ferrous sulfate 325 mg (65 mg 325 mg PO NOON Supplement 02/07/25
iron) tablet
folic acid 1 mg tablet 1 mg PO NOON Supplement 02/07/25
lamotrigine 100 mg tablet 100 mg PO QPM Mental Health/Anxiety 02/07/25
mirtazapine 15 mg tablet 15 mg PO HS Mental Health/Anxiety 02/07/25
nitroglycerin 0.2 mg/hr 1 patch transdermal HS Blood 02/07/25
transdermal 24 hour patch Pressure
omeprazole 20 mg capsule,delayed 20 mg PO DAILY Gastrointestinal 02/07/25
release Issue
pramipexole 0.25 mg tablet 0.5 mg PO HS Neurological Condition 02/07/25
quetiapine 100 mg tablet 100 mg PO HS Mental Health/Anxiety 02/07/25
amiodarone 200 mg tablet 200 mg PO BID #90 tabs 02/25/25
apixaban 2.5 mg tablet (Eliquis) 2.5 mg PO BID #60 tabs 02/25/25
carvedilol 6.25 mg tablet 6.25 mg PO BID #60 tabs 02/25/25
clonazepam 1 mg tablet 1 mg PO HS Mental Health/Anxiety 02/25/25
#10 tabs
oxycodone 5 mg tablet 5 mg PO Q4HPRN PRN severe pain #10 02/25/25
tabs
bisacodyl 10 mg rectal suppository 10 mg VT DAILYPRN PRN IF NO BM 03/06/25
(Dulcolax (bisacodyl)) AFTR MOM
guaifenesin 100 mg/5 mL oral liquid 200 mg PO Q4HPRN PRN COUGH 03/06/25
ipratropium 0.5 mg-albuterol 3 mg 3 ml inhalation R Q4HPRN PRN SOB 03/06/25
(2.5 mg base)/3 mL nebulization
soln
magnesium hydroxide 400 mg/5 mL 2,400 mg PO A40URPN PRN 03/06/25
oral suspension (Milk of Magnesia) CONSTIPATION
ondansetron HCl 4 mg tablet 4 mg PO Q6HPRN PRN NAUSEA 03/06/25
sodium hypochlorite 0.125 % 1 applic topical DAILY SACRUM 03/06/25
solution (Dakin's Solution)
sodium hypochlorite 0.125 % 1 applic topical DAILYPRN PRN 03/06/25
solution (Dakin's Solution) SACRUM
sodium phosphates 19 gram-7 118 ml VT DAILYPRN PRN IF NO BM 03/06/25
gram/118 mL enema (Fleet Enema) AFTR DULOLCAX
vancomycin 250 mg capsule 250 mg PO QID 03/06/25
Review of Systems
-
All other systems: A 12 pt ROS was Negative except as stated above in HPI
Vital Signs
Temp Pulse Resp BP Pulse Ox
97.5 F 74 24 113/68 95
03/08/25 07:35 03/08/25 08:35 03/08/25 08:35 03/08/25 08:22 03/08/25 09:44
Physical Exam
Exam
General: NAD
HEENT: MMM, anicteric, no lymphadenopathy
Heart: Regular, no murmurs
Lungs: CTA anteriorly
Abdomen: normal bowel sounds, soft, mild epigastric tenderness, no rebound or guarding, no masses, bruits or ascites
Extremeties: no edema
Skin: no rashes
Results
WBC 6.0 10^3/uL (4.8-10.8) 03/08/25 04:13
Hgb 6.5 g/dL (12.0-16.0) L* 03/08/25 04:13
Hct 21.3 % (37.0-47.0) L 03/08/25 04:13
MCV 94.2 fL (81.0-99.0) 03/08/25 04:13
Plt Count 291 10^3/uL (130-400) 03/08/25 04:13
Absolute Neuts (auto) 4.0 10^3/uL (1.4-6.5) 03/08/25 04:13
Sodium 142 mmol/L (135-145) 03/08/25 04:13
Potassium 4.3 mmol/L (3.5-5.1) 03/08/25 04:13
Chloride 115 mmol/L (98-107) H 03/08/25 04:13
Carbon Dioxide 24 mmol/L (22-30) 03/08/25 04:13
BUN 27 mg/dl (7-17) H 03/08/25 04:13
Creatinine 1.4 mg/dL (0.6-1.0) H 03/08/25 04:13
Calcium 8.2 mg/dl (8.4-10.2) L 03/08/25 04:13
Total Bilirubin 0.3 mg/dl (0.2-1.3) 03/08/25 04:13
AST 23 U/L (14-36) 03/08/25 04:13
ALT 14 U/L (0-35) 03/08/25 04:13
Alkaline Phosphatase 68 U/L (38-126) 03/08/25 04:13
Diagnostic Image Results:
Prior GI Procedures:
EGD:
Colonoscopy:
Assessment / Plan
-
1. Anemia: In the setting of anticoagulation, with normal iron studies, likely underlying anemia of chronic disease. She has dropped a bit from her admission, though again no gross bleeding. At this point would continue supportive care, is for
blood transfusion. Given her epigastric discomfort we will start PPI twice daily and continue close observation, though could be some component of radicular pain given her back pain. Will hold on endoscopy for now pending her clinical course and
will continue to observe for signs of bleeding. Her exam is otherwise unremarkable and doubt recurrent bowel obstruction, will hold on cross-sectional imaging for now, though will check CT scan if pain worsens.
-
-
Thank you for consultation and allowing me to participate in the patient's care. Please call the satellite installation technician GI physician during the after hours with any questions or concerns.
[2025-03-08] MEDS: FEOSOL 325 MG PO (12:58)
[2025-03-08] MEDS: FOLVITE 1 MG PO (12:58)
[2025-03-08] MEDS: VITAMIN D3 (cholecalciferol) 125 MCG PO (12:58)
--- NOTE | 2025-03-08 13:11 | W.PN.HOSP.TC ---
Today's Communication/Plan
-
1 unit blood
continue IV abx
wean O2
appreciate GI input
Assessment / Plan
Assessment / Plan
Assessment:
Right upper lobe pneumonia
Acute hypoxic respiratory insufficiency on 2L NC
- continue IV Rocephin, doxycycline, day 2
- follow cultures
abnormal UA
- growing Yeast - no indication for treatment
Recent C. Diff Ag+, toxin negative status
- continue Vancomycin prophylaxis
TYESHA on CKD 3b
HX LVEF 50-55 %
- hold BP meds
- s/p IVF
- monitor BMP and BP
- Cr 1.4
Progressive anemia-normocytic:
HX Iron deficiency anemia
- follow serial Hb
- heme test stools
- AOCD per labs - likely from chronic illness and malnutrition (severe protein caloric)
- holding Eliquis
- 6.5 today - 1 unit PRBC ordered
Epigastric pain
- continue PPI BID
- GI eval appreciated; holding off EGD. Consider CT if pain continues
Hx of Parox A. Fib (hx of Loop recorder)
- currently in NSR
- holding Coreg
- continue Amio
- hold Eliquis
Hx of SBO with NICKI 02/12
- continue LRD with supplements
Essential HTN
- holding BP Meds
Hyperlipidemia
- on statin
Abdominal aortic dilatation
- Focal dilatation of the infrarenal abdominal aorta measuring 2.9 cm
- Ongoing outpatient monitoring recommended
Adrenal nodule:
- 1.5 centimeter hypodense left adrenal nodule noted on imaging, likely an adenoma
- Outpatient monitoring recommended
Anxiety
- On Wellbutrin and clonazepam Lamictal, Seroquel as outpatient
Restless leg syndrome
- pramipexole
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
- Wound care eval
DVT ppx: SCDs
Code: DNR/DNI
Anticipated Discharge: > 48 hours
Subjective/Interval History
-
Date of Service: March 08, 2025
resting comfortably
no evidence of bleeding
Objective Data
-
Labs:
Laboratory Results
03/08/25 03/08/25
03:30 04:13
WBC Cancelled 6.0
Hgb Cancelled 6.5 L*
Hct Cancelled 21.3 L
Plt Count Cancelled 291
Sodium Cancelled 142
Potassium Cancelled 4.3
Chloride Cancelled 115 H
Carbon Dioxide Cancelled 24
BUN Cancelled 27 H
Creatinine Cancelled 1.4 H
Glucose Cancelled 79
Calcium Cancelled 8.2 L
Total Bilirubin Cancelled 0.3
AST Cancelled 23
ALT Cancelled 14
Alkaline Phosphatase Cancelled 68
Vital Signs:
Vital Signs
Temp Pulse Resp BP Pulse Ox
97.5 F 74 24 113/68 95
03/08/25 07:35 03/08/25 08:35 03/08/25 08:35 03/08/25 08:22 03/08/25 09:44
I&O
03/07/25 03/08/25 03/09/25
06:59 06:59 06:59
Intake Total 860 / 860 1300 / 1300
Output Total 600 / 600
Balance 260 / 260 1300 / 1300
Physical Exam
-
General: No Apparent Distress
HEENT: Normocephalic
Respiratory: Rhonchi; Negative Wheezes
Cardiac: Regular Rhythm and S1/S2
GI: Soft
Musculoskeletal: No Edema
Neuro: AO x 3
Psych: Calm
Data Reviewed
-
Total Time Spent with Patient (in minutes): 41
Labs: Labs Reviewed by me
--- NOTE | 2025-03-08 14:08 | CHAP ---
Leonila welcomed a visit - she said she was 'not doing too well today.' She mentioned how grateful she is for her prayer blanket. Emotional and spiritual support provided.
[2025-03-08] MEDS: ROCEPHIN 1000 MG IV (15:17)
[2025-03-08] MEDS: STERILE WATER FOR INJECTION 10 ML IV (15:17)
[2025-03-08] MEDS: LAMICTAL 100 MG PO (17:08)
--- NOTE | 2025-03-08 19:39 | PTOTSP ---
ST Acute Care Evaluation
Pt currently presents with clinical signs of fairly functional oropharyngeal swallowing parameters. Pt would benefit from a diet consistency modification for her solids for energy conservation purposes, as she often gets tired from chewing solids
and is currently requiring a significant amount of supplemental oxygen. Pt is at an increased risk for aspiration given her increased oxygen requirements at this time. Pt does present with clinical signs of suspected esophageal dysfunction. Pt
indicated that her current swallowing difficulties (e.g. with pills, epigastric discomfort, feeling like she needs to belch, etc.) feel similar to when she had a 'shelf' in her esophagus that required a GI doc to perform a procedure during an EGD at
[facility]. Additionally, given that pt is currently presenting with a RUL PNA, there is a possibility that this PNA could have been caused by post-prandial aspiration from retrograde content due to esophageal dysfunction.
Recommendations:
- Change diet to SOFT BITE SIZED SOLIDS and continue with THIN LIQUIDS with meds CRUSHED IN PUREE.
- Aspiration and REFLUX precautions: HOB Upright for all PO intake and for at least 60 minutes after all PO intake; chew food thoroughly; eat/drink slowly; take breaks to breathe; alternate solids/liquids.
- Consider consult to nutrition for supplement drinks, which may be easier to consume while she is dyspneic and too tired to chew solids.
- Consider GI assess esophageal dysfunction.
- SOLAR THERMAL TECHNICIAN to f/u re: diet tolerance, use of compensatory strategies, and to determine if pt would benefit from an instrumental swallow study.
--- NOTE | 2025-03-08 20:10 | PTCARENOTE ---
cannot verify vitals before 1900.
[2025-03-08] MEDS: LIPITOR 80 MG PO (20:27)
[2025-03-08] MEDS: SEROQUEL 100 MG PO (20:27)
[2025-03-08] MEDS: KLONOPIN 1 MG PO (20:27)
[2025-03-08] MEDS: REMERON 15 MG PO (20:27)
[2025-03-08] MEDS: PROTONIX IV 40 MG IV (20:28)
[2025-03-08] MEDS: ROBITUSSIN 200 MG PO (20:28)
[2025-03-08] MEDS: MIRAPEX, GENERIC 0.5 MG PO (20:28)
--- NOTE | 2025-03-08 23:17 | PTCARENOTE ---
assumed care of patient. pt is AAOx3, drowsy, forgetful, legally blind. bed alarm on. NSR on the monitor. 10L midflow, 96%. pt can be tachypneic, SOB on exertion and rest. SOB increases with coughing. productive, moist cough noted, sputum
brown/bloody. meds crushed in applesauce. diet changed to soft and bite sized per speech recs. pt getting very orthopneic and SOB with any movement, PW placed at this time d/t patients breathing. pt does have stress incontinence as well especially
when she coughs. PRN robitussin given. q2t. care ongoing.
[2025-03-09] VITALS (34 sets, daily range): BP systolic 69–183; BP diastolic 44–127; BMI 22.4
--- NOTE | 2025-03-09 00:31 | PTCARENOTE ---
pt intermittently confused throughout shift. knows she is in [facility] and using call álvarez appropriately, but asking for her breakfast tray thinking it is the morning. pt reoriented to time. bed alarm on. pt's oxygen also waxes and wanes.
87% 10L MF. oxygen increased to 12L, now 97%. pt does not have much reserve and takes awhile to recover. care ongoing.
--- NOTE | 2025-03-09 01:17 | PTCARENOTE ---
pt feeling like she has to urinate but unable to go. bladder scanned for 484ml. notified covering CLINICAL SUPERVISOR- orders placed, pt then straight cath'd for 600ml. pt tolerated well and said she felt better.
[2025-03-09 04:14] LABS: % Basophils 0.5 % (0-2); % Immature Granulocytes 0.5 % (0-0.5); % Lymphocytes 16.6 % (20.5-51.1); % Monocytes 12.2 % (1.7-9.3); % Neutrophils 70.2 % (42.2-75.2); Absolute Monocytes 0.7 10^3/uL (0.1-0.6); Hemoglobin 6.4 g/dL (12.0-16.0); Mean Corp Hgb Conc. 30.5 g/dL (33.0-37.0); Mean Corpuscular Hgb 28.7 pg (27.0-31.0); Mean Corpuscular Volume 94.2 fL (81.0-99.0); Mean Platelet Volume 9.2 fL (7.4-10.4); Nucleated Red Blood Cells % 0 %; Platelet Count 302 10^3/uL (130-400); Red Blood Cell Count 2.23 10^6/uL (4.20-5.40); Red Cell Dist. Width 17.2 % (11.5-14.5); White Blood Cell Count 5.7 10^3/uL (4.8-10.8)
--- NOTE | 2025-03-09 04:16 | PTCARENOTE ---
this AM blood work, hgb came back critical 6.4, was 6.5 yesterday. one unit of PRBC's is ordered, still [facility] blood bank is aware and will call when ready. pt is stable at this time, BP-141/96 P-75. notified covering SLITTER SCORER CUT OFF OPERATOR of
the above. care ongoing.
[2025-03-09 04:28] LABS: ALT (SGPT) 16 U/L (0-35); AST (SGOT) 30 U/L (14-36); Alkaline Phosphatase 73 U/L (38-126); Blood Urea Nitrogen 21 mg/dl (7-17); Calcium 8.2 mg/dl (8.4-10.2); Carbon Dioxide 22 mmol/L (22-30); Chloride 116 mmol/L (98-107); Estimated Creatinine Clearance 26 ml/min; Glucose 83 mg/dl (70-99); Potassium 4.4 mmol/L (3.5-5.1); Sodium 142 mmol/L (135-145); Total Bilirubin 0.4 mg/dl (0.2-1.3); Total Protein 4.6 g/dl (6.3-8.2); eGFR 41.31
--- NOTE | 2025-03-09 05:25 | W.PN.GI.CBS2 ---
Today's Communication / Plan
-
Please see assessment and plan for details.
Assessment / Plan
-
1. Anemia: In the setting of anticoagulation, with normal iron studies, likely underlying anemia of chronic disease. She has dropped a bit from her admission, though again no gross bleeding and remained stable today. At this point would continue
supportive care, is still awaiting blood transfusion given multiple antibodies. Will continue PPI twice daily empirically for now given left upper quadrant discomfort, continue to watch for signs of active bleeding, though again hemoglobin has
remained stable and no gross bleeding. Eliquis has been held since admission.
2. Abdominal pain: Chronic, with chronic underlying constipation, recent bowel obstruction with lysis of adhesions, with normal bowel sounds and soft exam now. Her abdominal tenderness is mostly at the incision site. Again we will continue PPI
twice daily empirically for now, hold on repeat imaging unless symptoms worsen.
Subjective
Subjective
Date of Service: March 09, 2025
Patient complaining of some regurgitation, though no vomiting, no melena or other signs of bleeding. Shortness of breath stable, no worsened. Has not received blood transfusion given multiple antibodies, awaiting blood from the [place].
Objective
Data Reviewed
Laboratory Data:
Laboratory Results
03/09/25 03:46
03/09/25 03:46
Laboratory Results
Total Bilirubin 0.4 mg/dl (0.2-1.3) 03/09/25 03:46
AST 30 U/L (14-36) 03/09/25 03:46
ALT 16 U/L (0-35) 03/09/25 03:46
Alkaline Phosphatase 73 U/L (38-126) 03/09/25 03:46
Vital Signs and I&O:
Vital Signs
Temp Pulse Resp BP Pulse Ox
97.6 F 75 19 141/96 99
03/09/25 03:50 03/09/25 04:00 03/09/25 04:00 03/09/25 04:00 03/09/25 04:00
I&O
03/07/25 03/08/25 03/09/25
06:59 06:59 06:59
Intake Total 860 / 860 1300 / 1300 250 / 250
Output Total 600 / 600 600 / 600
Balance 260 / 260 1300 / 1300 -350 / -350
Physical Exam
Physical Exam
General: NAD
Abdomen: normal bowel sounds, soft, minimal left upper quadrant tenderness, mostly at incision site, no masses or bruits, no ascites
[2025-03-09] MEDS: VIBRAMYCIN 260 MG IV (05:33)
[2025-03-09] MEDS: DUONEB 3 ML INH ×3 (05:48→15:30)
--- NOTE | 2025-03-09 06:40 | PTCARENOTE ---
pt continuously complaining of SOB despite a neb treatment. 94% 12L. tachypneic 25-35. notified covering WALLPAPER HANGER- orders entered for IV morphine, CXR, and proBNP. labs sent down. pt did admit to feeling better after morphine. care ongoing.
[2025-03-09] MEDS: MORPHINE SULFATE 1 MG IV (06:41)
[2025-03-09 07:16] LABS: NT-proBNP 15200 pg/ml
--- NOTE | 2025-03-09 08:13 | W.PN.HOSP.TC ---
Today's Communication/Plan
-
Diuresis
continue antibiotics
1 unit PRBC - will obtain blood consent
Assessment / Plan
Assessment / Plan
Assessment:
Right upper lobe pneumonia
Acute hypoxic respiratory insufficiency on 2L NC
- continue IV Rocephin, doxycycline, day 4
-F/U cultures
Heart Failure preserved EF, Acute exacerbation
Mild MR, Mild AR
-s/p TTE 02/09/25
-she received IVF earlier in hospital course
-lasix 40mg IV x 1 now and monitor response
abnormal UA
- growing Yeast - no indication for treatment
Recent C. Diff Ag+, toxin negative status
- continue Vancomycin prophylaxis
TYESHA on CKD 3b
HX LVEF 50-55 %
- monitor BMP and BP
- Cr 1.4
Progressive anemia-normocytic:
HX Iron deficiency anemia
- follow serial Hb
- heme test stools
- AOCD per labs - likely from chronic illness and malnutrition (severe protein caloric)
- holding Eliquis
- 6.5 today - 1 unit PRBC ordered
Epigastric pain
- continue PPI BID
- GI eval appreciated; holding off EGD. Consider CT if pain continues
Hx of Parox A. Fib (hx of Loop recorder)
- currently in NSR
- resume Coreg this evening
- continue Amio
- hold Eliquis
Hx of SBO with NICKI 02/12
- continue LRD with supplements
Essential HTN
- holding BP Meds
Hyperlipidemia
- on statin
Abdominal aortic dilatation
- Focal dilatation of the infrarenal abdominal aorta measuring 2.9 cm
- Ongoing outpatient monitoring recommended
Adrenal nodule:
- 1.5 centimeter hypodense left adrenal nodule noted on imaging, likely an adenoma
- Outpatient monitoring recommended
Anxiety
- On Wellbutrin and clonazepam Lamictal, Seroquel as outpatient
Restless leg syndrome
- pramipexole
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
- Wound care eval
DVT ppx: SCDs
Code: DNR/DNI
51 minutes spent on patient care
Anticipated Discharge: > 48 hours
Subjective/Interval History
-
Date of Service: March 09, 2025
patient reports feeling short of breath
states abdominal pain is improved
Objective Data
-
Labs:
Laboratory Results
03/09/25
03:46
WBC 5.7
Hgb 6.4 L*
Hct 21.0 L
Plt Count 302
Sodium 142
Potassium 4.4
Chloride 116 H
Carbon Dioxide 22
BUN 21 H
Creatinine 1.3 H
Glucose 83
Calcium 8.2 L
Total Bilirubin 0.4
AST 30
ALT 16
Alkaline Phosphatase 73
Vital Signs:
Vital Signs
Temp Pulse Resp BP Pulse Ox
97.8 F 68 25 116/91 100
03/09/25 06:38 03/09/25 06:00 03/09/25 06:00 03/09/25 06:00 03/09/25 06:00
I&O
03/08/25 03/09/25 03/10/25
06:59 06:59 06:59
Intake Total 1300 / 1300 250 / 250
Output Total 600 / 600
Balance 1300 / 1300 -350 / -350
Review of Systems
-
History Source: Patient
All other systems: Reviewed and negative
Physical Exam
-
General: No Apparent Distress
HEENT: Normocephalic
Respiratory: Rhonchi
Cardiac: Regular Rhythm, S1/S2 and JVD
GI: Soft
Musculoskeletal: No Edema
Neuro: AO x 3
Psych: Calm
Data Reviewed
-
Diagnostic Radiology: Report Reviewed by me
Labs: Labs Reviewed by me
[2025-03-09] MEDS: FIRVANQ 250 MG PO ×4 (08:31→20:49)
[2025-03-09] MEDS: LASIX 40 MG IV (08:32)
[2025-03-09] MEDS: PROTONIX IV 40 MG IV ×2 (08:34→20:49)
[2025-03-09] MEDS: PEPCID 20 MG PO (08:34)
[2025-03-09] MEDS: WELLBUTRIN SR (12 hour sustained release) 150 MG PO (08:34)
[2025-03-09] MEDS: PACERONE 200 MG PO ×2 (08:34→20:49)
[2025-03-09] MEDS: ZOFRAN 4 MG PO (08:56)
--- NOTE | 2025-03-09 09:37 | W.PN.UPDATE ---
Addendum entered and electronically signed by Karey Marques MD 03/09/25 09:39:
patient retaining urine, rock catheter ordered
Original Note:
Update Note
Progress Note Update
blood is ready. consent signed. Patient is working hard to breathe 2/2 volume overload. Plan is to allow a couple of more hours of diuresis; Hg stable from yesterday and there is certainly a component of dilution. We will monitor UO this morning
and clinical exam before giving more volume. discussed plan with RN
--- NOTE | 2025-03-09 09:56 | WOUNDNOTE ---
WOC RN note: Patient admitted with HTN and hypoxia
See H&P for complete history.
PMH: Depression, Sarcoidosis, bowl perf with colostomy and reversal, MS, CKD-3
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 The wound is covered in thin sloughy tissue , surrounding skin is fungal appearing with MASD and blanchable red. See worklist for details and measurements. Stage 1 PI
to heels and elbow. Pictures not taken of heels and elbows as patient could not tolerate due to nausea and SOB.
Appetite: Poor at this time due to nausea
Pressure redistribution devices in place: Centrella Max Air, heels off-loaded with pillows under calves. Patient currently upright due to severe SOB.
Plan: Will recommend Santyl to sacrum and Desenex powder to fungal appearing skin. Keep heels and elbows covered with foam for protection. Will confirm orders with hospitalist and update nurse. Updated care plan and will follow as needed.
Note to case management of equipment requested for discharge:
Recommend follow up at wound care center upon discharge.
--- NOTE | 2025-03-09 10:42 | PTCARENOTE ---
Patient is tachypneic, labored breathing, discussed with Dr. Marques. IV Lasix 40 mg administered. Patient has been having issues urinating, multiple bladder scans completed with straight cath as needed. Post void residual discussed with Dr. Marques.
[place] #14 catheter placed as per orders.
--- NOTE | 2025-03-09 11:07 | PTCARENOTE ---
Pulse ox 87% on 15 liters mid flow. Nonrebreather applied and respiratory and Dr. Marques notified. High flow to be initiated. Nonproductive cough. Respiratory rate 30.
--- NOTE | 2025-03-09 11:14 | PTCARENOTE ---
Blood transfusion on hold at this time as per discussed with Dr. Marques.
--- NOTE | 2025-03-09 11:32 | CON.CAR ---
Addendum entered and electronically signed by Parish Bearden DO 03/09/25 14:30:
I saw and examined the patient.
The [employer] Superintendent's note was reviewed and I agree with the note.
Comment:
Plan:
-Presented 03/06/2025 with hypoxia and was found to have right upper lobe pneumonia and now on antibiotics. Today with worsening resp distress and hypoxia.
Received IV lasix this AM 40 mg and receiving another 60 mg IV this afternoon then Lasix 40 mg IV twice daily starting tomorrow.
Check limited echo to reevaluate for effusion and LV function.
Check proBNP
Receiving Nitropaste for afterload reduction. Consider resuming beta-ashkan.
Patient receiving high flow O2.
Agree with transfusion to maintain hemoglobin closer to 10. Hemoglobin is less than 7.1. Eliquis is on hold.
Hospitalist discussed with patient. She is a DNR and does not want to be intubated and if her respiratory status worsens.
She remains in sinus rhythm with stable QTc. Plan was to continue amiodarone 200 mg twice a day through March 18 then reduce to once daily.
Plan discussed with patient, nursing, hospitalist
Original Note:
Consultation
Consultation Request
Date/Time Consultation Requested: 03/09/2025
Date/Time Consultation Performed: 03/09/2025
Requesting Provider: Dr. Marques
Performing Provider: Abena Ruiz PA-C for Parish Bearden
Reason for Consultation: Pulmonary edema
Medical History
-
History of Present Illness:
She has a complex medical history which includes history of CVA, CKD, sarcoidosis, prior bowel perforation (collagenous colitis) with colostomy creation and subsequent reversal, VHR and recent small bowel obstruction requiring prolonged admission
from 02/07/2025 to 02/25/2025. Patient underwent laparoscopic lysis of lesions on 02/12/2025. During that hospitalization she developed paroxysmal atrial fibrillation with rapid ventricular response and ultimately was placed on amiodarone with load.
Patient converted to sinus rhythm. She presented back to emergency department on 03/06/2025 with worsening shortness of breath with chest x-ray showing right upper lobe pneumonia. Patient also noted to be anemic with hemoglobin of 7.9 on admission.
Patient was initially hypotensive and was given IV fluids with improvement of blood pressure. Patient now having worsening shortness of breath requiring high flow oxygen, is hypertensive and complaining of nausea. Concern for pulmonary edema.
Past medical history:
Paroxysmal atrial fibrillation
CVA
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
Chronic kidney disease
Sarcoidosis
Bowel perforation from collagenous colitis with colostomy creation and subsequent reversal, VHR and prior small bowel obstruction
Laparoscopic lysis of adhesions 02/12/2025
Bilateral lumbar radiculopathy
Impingement syndrome bilateral shoulder
Osteoporosis
Depression
Past Medical History
Past Medical History: Other (See HPI)
Past Surgical History: Bowel Resection (Reverse colostomy, laparoscopic lysis of adhesions for 2024), Gynecological (Hysterectomy), Orthopedic (Elbow surgery, femur surgery) and Other (Hernia surgery)
Social History
Tobacco: Former Smoker
Alcohol: None
Drug: None
Living: With Family
Employment: Retired
Family History
Family History: Reviewed & Not Pertinent
Allergies / Home Medications
Allergy/AdvReac Type Severity Reaction Status Date / Time
Penicillins Allergy Mild Hives Verified 02/07/25 14:00
Sulfa (Sulfonamide Allergy Mild Hives Verified 02/07/25 14:00
Antibiotics)
hydrochlorothiazide Allergy Hives Verified 02/07/25 14:00
Iodinated Contrast Media Allergy Hives Verified 02/07/25 14:00
�Medication �Instructions �Recorded �Confirmed �Type
atorvastatin 80 mg tablet 80 mg PO HS High Cholesterol 02/07/25 03/06/25 History
bupropion HCl 150 mg tablet,12 hr 150 mg PO DAILY Mental 02/07/25 03/06/25 History
sustained-release Health/Anxiety
cholecalciferol (vitamin D3) 125 125 mcg PO NOON Supplement 02/07/25 03/06/25 History
mcg (5,000 unit) tablet (Vitamin
D3)
ferrous sulfate 325 mg (65 mg 325 mg PO NOON Supplement 02/07/25 03/06/25 History
iron) tablet
folic acid 1 mg tablet 1 mg PO NOON Supplement 02/07/25 03/06/25 History
lamotrigine 100 mg tablet 100 mg PO QPM Mental Health/Anxiety 02/07/25 03/06/25 History
mirtazapine 15 mg tablet 15 mg PO HS Mental Health/Anxiety 02/07/25 03/06/25 History
nitroglycerin 0.2 mg/hr 1 patch transdermal HS Blood 02/07/25 03/06/25 History
transdermal 24 hour patch Pressure
omeprazole 20 mg capsule,delayed 20 mg PO DAILY Gastrointestinal 02/07/25 03/06/25 History
release Issue
pramipexole 0.25 mg tablet 0.5 mg PO HS Neurological Condition 02/07/25 03/06/25 History
quetiapine 100 mg tablet 100 mg PO HS Mental Health/Anxiety 02/07/25 03/06/25 History
amiodarone 200 mg tablet 200 mg PO BID #90 tabs 02/25/25 03/06/25 Rx
apixaban 2.5 mg tablet (Eliquis) 2.5 mg PO BID #60 tabs 02/25/25 03/06/25 Rx
carvedilol 6.25 mg tablet 6.25 mg PO BID #60 tabs 02/25/25 03/06/25 Rx
clonazepam 1 mg tablet 1 mg PO HS Mental Health/Anxiety 02/25/25 03/06/25 Rx
#10 tabs
oxycodone 5 mg tablet 5 mg PO Q4HPRN PRN severe pain #10 02/25/25 03/06/25 Rx
tabs
bisacodyl 10 mg rectal suppository 10 mg ND DAILYPRN PRN IF NO BM 03/06/25 03/06/25 History
(Dulcolax (bisacodyl)) AFTR MOM
guaifenesin 100 mg/5 mL oral liquid 200 mg PO Q4HPRN PRN COUGH 03/06/25 03/06/25 History
ipratropium 0.5 mg-albuterol 3 mg 3 ml inhalation R Q4HPRN PRN SOB 03/06/25 03/06/25 History
(2.5 mg base)/3 mL nebulization
soln
magnesium hydroxide 400 mg/5 mL 2,400 mg PO [id number] PRN 03/06/25 03/06/25 History
oral suspension (Milk of Magnesia) CONSTIPATION
ondansetron HCl 4 mg tablet 4 mg PO Q6HPRN PRN NAUSEA 03/06/25 03/06/25 History
sodium hypochlorite 0.125 % 1 applic topical DAILY SACRUM 03/06/25 03/06/25 History
solution (Dakin's Solution)
sodium hypochlorite 0.125 % 1 applic topical DAILYPRN PRN 03/06/25 03/06/25 History
solution (Dakin's Solution) SACRUM
sodium phosphates 19 gram-7 118 ml ND DAILYPRN PRN IF NO BM 03/06/25 03/06/25 History
gram/118 mL enema (Fleet Enema) AFTR DULOLCAX
vancomycin 250 mg capsule 250 mg PO QID 03/06/25 03/06/25 History
Review of Systems
-
History Source: Patient and Coordinating Provider
All other systems: Negative unless noted
Physical Exam
Vital Signs
Temp Pulse Resp BP Pulse Ox
97.8 F 80 28 149/63 93
03/09/25 06:38 03/09/25 11:22 03/09/25 11:22 03/09/25 08:34 03/09/25 11:22
GEN: Sitting in bed on high flow oxygen, appears tachypneic
HEENT: supple, anicteric, mmm
LUNGS: Coarse breath sounds bilaterally, diminished breath sounds; requiring high flow oxygen
CV: Reg, S1/S2, no murmur, rub or gallop
ABD: soft, BS+, NT/ND
EXT: No edema, clubbing or cyanosis
NEURO: Gross non-focal
SKIN: No rash, warm, dry, pink
Lab Results
03/09/25 03:46
03/09/25 03:46
Exu-P-Ukugtvwszvc Pept 60736 pg/ml 03/09/25 06:38
Impression / Plan
-
.
Family Physician: Andry Cuba MD
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
Impression:
Presented 03/06/2025 with shortness of breath and hypotension
Acute hypoxic respiratory failure
Right upper lobe pneumonia
Acute on chronic anemia
TYESHA on CKD
Paroxysmal atrial fibrillation
Small bowel obstruction/status post lysis of adhesions 02/12/2025
Prior bowel perforation from collagenous colitis with colostomy creation and subsequent reversal, VHR and prior small bowel obstruction
Abnormal EKG
Acute on chronic kidney disease
History of CVA
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
Sarcoidosis
Frailty
C Diff
Echo 02/09/2025: Mild LVH, EF 50-55%, mild mitral regurgitation, mild aortic regurgitation, mild to moderate tricuspid regurgitation, pulmonary artery systolic pressure 27 mmHg
Plan:
-Presented 03/06/2025 with hypoxia and was found to have right upper lobe pneumonia and now on antibiotics.
-Patient was noted to be transiently hypotensive early on in admission requiring IV fluids. Patient blood pressure has improved. Now running on higher side with worsening respiratory distress.
-Acute hypoxic respiratory failure with worsening respiratory demand placed on high flow oxygen
-Repeat chest x-ray 03/09/2025 opacification of lower half of left hemithorax, combination of pleural effusion and adjacent atelectasis/consolidation. Small right effusion with abnormal interstitial opacity over right upper lobe suspicious for
pneumonia
-Patient given IV Lasix 40 mg 03/09/2025, given increased oxygen demand and respiratory status give an additional 60 mg IV now given. Plan is for Lasix 40 mg IV twice daily starting 03/10/2025
-Check proBNP
-Check limited echo
-Paroxysmal atrial fibrillation on prior admission. Patient remains in sinus rhythm with first-degree AV block. QTc stable at 448 ms. Plan was to continue amiodarone 200 mg twice daily through 03/18/2025 then reduce to once daily
-Need to monitor QTc with EKG daily given patient is on amiodarone and antibiotics
-Eliquis currently on hold given acute on chronic anemia. Will continue to monitor patient on telemetry and if patient should have recurrent A-fib may need to consider resumption of Eliquis
-Acute on chronic anemia with hemoglobin 6.4. Plan is for blood later today once patient has undergone diuresis
-Hypertensive now. Patient with Nitropaste. If patient able to tolerate orals consider resuming carvedilol at 6.25 mg daily
- Of note patient is DNR and does not want to be intubated
Plan discussed with patient, nursing, hospitalist
HPI 03/09/2025:
She has a complex medical history which includes history of CVA, CKD, sarcoidosis, prior bowel perforation (collagenous colitis) with colostomy creation and subsequent reversal, VHR and recent small bowel obstruction requiring prolonged admission
from 02/07/2025 to 02/25/2025. Patient underwent laparoscopic lysis of lesions on 02/12/2025. During that hospitalization she developed paroxysmal atrial fibrillation with rapid ventricular response and ultimately was placed on amiodarone with load.
Patient converted to sinus rhythm. She presented back to emergency department on 03/06/2025 with worsening shortness of breath with chest x-ray showing right upper lobe pneumonia. Patient also noted to be anemic with hemoglobin of 7.9 on admission.
Patient was initially hypotensive and was given IV fluids with improvement of blood pressure. Patient now having worsening shortness of breath requiring high flow oxygen, is hypertensive and complaining of nausea. Concern for pulmonary edema.
Data Reviewed
-
EKG: Report Reviewed by me, Discussed with Physician, Discussed with Nurse, Discussed with Patient and Discussed with Family
Radiology: Report Reviewed by me, Discussed with Physician, Discussed with Nurse, Discussed with Patient and Discussed with Family
Labs: Labs Reviewed by me, Discussed with Physician, Discussed with Nurse, Discussed with Patient and Discussed with Family
Old Records: Reviewed
[2025-03-09] MEDS: NITRO-BID 1 INCH TOPICAL (11:34)
[2025-03-09 12:04] LABS: Troponin I < 0.012 ng/ml
[2025-03-09 12:17] LABS: COVID-19 Antigen Negative (Negative)
[2025-03-09] MEDS: LASIX 60 MG IV (12:21)
[2025-03-09 12:57] LABS: Magnesium 1.4 mg/dl (1.6-2.3)
[2025-03-09] MEDS: STERILE WATER FOR INJECTION 10 ML IV ×2 (14:18→20:49)
[2025-03-09] MEDS: FEOSOL 325 MG PO (14:18)
[2025-03-09] MEDS: MAGNESIUM SULFATE 50 IV (14:18)
[2025-03-09] MEDS: VITAMIN D3 (cholecalciferol) 125 MCG PO (14:18)
[2025-03-09] MEDS: FOLVITE 1 MG PO (14:18)
[2025-03-09] MEDS: MAXIPIME 1000 MG IV (14:18)
[2025-03-09] MEDS: ROXICODONE 5 MG PO ×2 (14:34→20:48)
--- NOTE | 2025-03-09 15:33 | W.PN.UPDATE ---
Update Note
Progress Note Update
Re-examined patient and breathing much improved. She is no longer in respiratory distress. She urinated > 1L more.
-OK for blood transfusion now, discussed with RN
-given rapid response to Lasix, no longer need for broadened antibiotics
-repeat Hg and electrolytes later this evening given significant diuresis
patient's right pupil larger than left
reactive but sluggish
EOMI
she has a hx retinal detachment and CVA in right eye per daughter. patient has no change in vision or pain. suspect this is chronic and no need for urgent work-up here. She has follow up with an opthalmologist.
--- NOTE | 2025-03-09 15:34 | PTCARENOTE ---
Patients right pupil is twice the size of her left. Discussed with family, they stated that patient has a history of CVA and retinal detachment on right. Discussed with Dr. Marques.
--- NOTE | 2025-03-09 15:36 | CM ---
Patient from [facility] with Dx pneumonia, HF, progressive anemia- transfusion ordered. High flow O2. Receiving IV & PO Abx, IV Lasix. ST Eval. Seen by wound care nurse. PT recommends skilled rehab. PT/OT held today.
Spoke with Amarilis, [facility];
the patient was there for Short Term rehab and not on a bed hold, however they will accept her back to complete rehab pending bed availability. Referral placed.
CM continuing to follow.
Plan probable return to [facility] when medically ready and bed available.
[2025-03-09] MEDS: SANTYL OINTMENT 1 APPLIC TOPICAL (15:59)
[2025-03-09] MEDS: DESENEX/MITRAZOL/ZEASORB 1 APPLIC TOPICAL ×2 (15:59→20:47)
--- NOTE | 2025-03-09 17:40 | PTCARENOTE ---
Patient received two doses of IV Lasix today, so far diuresed 1600ml. Patient is on 40 liters, 50% high flow. Tolerating blood transfusion.
[2025-03-09] MEDS: LAMICTAL 100 MG PO (18:21)
[2025-03-09] MEDS: LIPITOR 80 MG PO (20:48)
[2025-03-09] MEDS: KLONOPIN 1 MG PO (20:48)
[2025-03-09] MEDS: MIRAPEX, GENERIC 0.5 MG PO (20:48)
[2025-03-09] MEDS: REMERON 15 MG PO (20:48)
[2025-03-09] MEDS: ROCEPHIN 1000 MG IV (20:49)
[2025-03-09] MEDS: SEROQUEL 100 MG PO (20:49)
[2025-03-09] MEDS: VIBRAMYCIN 100 MG PO (20:49)
[2025-03-09 22:21] LABS: Hemoglobin 7.7 g/dL (12.0-16.0)
[2025-03-09 22:23] LABS: Blood Urea Nitrogen 20 mg/dl (7-17); Calcium 8.1 mg/dl (8.4-10.2); Carbon Dioxide 23 mmol/L (22-30); Chloride 115 mmol/L (98-107); Estimated Creatinine Clearance 26 ml/min; Glucose 100 mg/dl (70-99); Potassium 4.1 mmol/L (3.5-5.1); Sodium 143 mmol/L (135-145); eGFR 41.31
[2025-03-09 22:27] LABS: Troponin I < 0.012 ng/ml
--- NOTE | 2025-03-09 22:48 | PTCARENOTE ---
assumed care of patient. pt is AAOx3 but forgetful at times. remains on HFNC, 97%. breathing less labored, lungs course throughout. incontinent of liquid stool. rock intact draining cloudy urine. q2t. able to take pills whole with applesauce
without issues. PRBC's infusing. hgb rechecked 7.7. BMP resulted. 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 no new orders at this time. PRN jessica given for back pain. care ongoing.
[2025-03-10] VITALS (52 sets, daily range): BP systolic 82–146; BP diastolic 38–108; BMI 21.4
[2025-03-10] MEDS: ProAmatine 5 MG PO (00:22)
--- NOTE | 2025-03-10 00:49 | PTCARENOTE ---
pt's BP soft, 70s-80s/60s. pt asymptomatic, just drowsy but easily arousable. notified covering EDGE STRIPPER, PO midodrine given. right after, pt tele alarming a-fib, EKG done, confirming a-fib with RVR. notified covering EDGE STRIPPER of the above.
--- NOTE | 2025-03-10 02:16 | W.PN.UPDATE ---
Update Note
Progress Note Update
levophed
[2025-03-10 02:36] LABS: % Basophils 0.3 % (0-2); % Eosinophils 0.2 % (0-6); % Immature Granulocytes 0.6 % (0-0.5); % Lymphocytes 18.8 % (20.5-51.1); % Monocytes 12.1 % (1.7-9.3); Absolute Lymphocytes 1.2 10^3/uL (1.2-3.4); Absolute Monocytes 0.8 10^3/uL (0.1-0.6); Absolute Neutrophils 4.5 10^3/uL (1.4-6.5); Hematocrit 23.3 % (37.0-47.0); Hemoglobin 7.4 g/dL (12.0-16.0); Mean Corp Hgb Conc. 31.8 g/dL (33.0-37.0); Mean Corpuscular Hgb 27.7 pg (27.0-31.0); Mean Corpuscular Volume 87.3 fL (81.0-99.0); Mean Platelet Volume 9.1 fL (7.4-10.4); Nucleated Red Blood Cells % 0 %; Platelet Count 280 10^3/uL (130-400); Red Blood Cell Count 2.67 10^6/uL (4.20-5.40); White Blood Cell Count 6.6 10^3/uL (4.8-10.8)
[2025-03-10 03:09] LABS: ALT (SGPT) 21 U/L (0-35); AST (SGOT) 41 U/L (14-36); Albumin 1.9 g/dl (3.5-5.0); Alkaline Phosphatase 64 U/L (38-126); Blood Urea Nitrogen 21 mg/dl (7-17); Calcium 8.2 mg/dl (8.4-10.2); Carbon Dioxide 24 mmol/L (22-30); Chloride 116 mmol/L (98-107); Estimated Creatinine Clearance 26 ml/min; Glucose 80 mg/dl (70-99); Magnesium 1.7 mg/dl (1.6-2.3); Potassium 4.1 mmol/L (3.5-5.1); Sodium 141 mmol/L (135-145); Total Bilirubin 0.8 mg/dl (0.2-1.3); Total Protein 4.6 g/dl (6.3-8.2); eGFR 41.31
--- NOTE | 2025-03-10 05:30 | PTCARENOTE ---
pt's BP still on the soft side but maintained MAP >65. 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
--- NOTE | 2025-03-10 07:27 | W.PN.HOSP.TC ---
Today's Communication/Plan
-
diuresis
IV Metop 5mg x 1; follow up further Cardiology recommendations
continue ceftriaxone/doxy
monitor Hg
further discussions on Eliquis
Assessment / Plan
Assessment / Plan
TTE 03/09/25
CONCLUSIONS
Normal left ventricular size, wall thickness and systolic function. No regional
wall motion abnormalities are seen. LV ejection fraction is 55-60%.
Severely dilated left atrium.
Moderate mitral regurgitation.
Moderate aortic regurgitation.
Mild to moderate tricuspid regurgitation. Estimated pulmonary artery pressure
of 42 mmHg.
Right and Left pleural effusion present.
Compared to the previous echo from January 2025, AR, MR and TR were mild at that
time and no pleural effusions were noted.
Flast Pulmonary Edema
Heart Failure preserved EF, Acute exacerbation
-patient with respiratory distress morning of 03/09 requiring high flow. s/p aggressive diuresis with improvement
-s/p TTE 02/09/25 with preserved EF; repeat 03/09 with moderate AR and MR; mild to moderate TR (were mild on prior echo)
-she received IVF earlier in hospital course
-s/p lasix 40mg IV x 1 then 60mg IV x 1
-continue Lasix 40mg IV BID
Hypoxic Respiratory Failure 2/2 Above
-continue high flow and wean O2 as able
Paroxysmal Atrial Fibrillation
-patient is on home amiodarone 200mg PO BID with plan to decrease to daily on 03/18
-patient with return of afib with RVR overnight; she again appears in respiratory distress this morning
-holding Coreg 2/2 low blood pressures
-Metoprolol 5mg IV x 1, follow up further cardiology recommendations
-holding Eliquis given low Hg and long delay for transfusions 2/2 antibodies - will have further discussions with cardiology and patient today
Right upper lobe pneumonia
Acute hypoxic respiratory insufficiency on 2L NC
- continue IV Rocephin, doxycycline, day 5
- antibiotics were broadened briefly on 03/09 but patient with significant clinical improvement post diuresis; do not suspect untreated infection
-F/U cultures
Progressive anemia-normocytic:
HX Iron deficiency anemia
- AOCD per labs - likely from chronic illness and malnutrition (severe protein caloric)
- holding Eliquis
- s/p 1 unit PRBC on 03/09 with improvement
-appreciate GI eval
abnormal UA
- growing Yeast - no indication for treatment
Recent C. Diff Ag+, toxin negative status
- continue Vancomycin prophylaxis
TYESHA on CKD 3b
HX LVEF 50-55 %
-creatinine stable post diuresis
Epigastric pain
- continue PPI BID
- GI eval appreciated; holding off EGD. Consider CT if pain continues
Hx of SBO with NICKI 02/12
- continue LRD with supplements
Essential HTN
- holding BP Meds
Hyperlipidemia
- on statin
Abdominal aortic dilatation
- Focal dilatation of the infrarenal abdominal aorta measuring 2.9 cm
- Ongoing outpatient monitoring recommended
Adrenal nodule:
- 1.5 centimeter hypodense left adrenal nodule noted on imaging, likely an adenoma
- Outpatient monitoring recommended
Anxiety
- On Wellbutrin and clonazepam Lamictal, Seroquel as outpatient
Restless leg syndrome
- pramipexole
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
- Wound care eval
DVT ppx: SCDs
Code: DNR/DNI
51 minutes spent on patient care
Anticipated Discharge: > 48 hours
Subjective/Interval History
-
Date of Service: March 10, 2025
she is short of breath again this morning
converted to afib overnight
Objective Data
-
Labs:
Laboratory Results
03/09/25 03/10/25
21:53 02:24
WBC 6.6
Hgb 7.7 L D 7.4 L
Hct 23.3 L
Plt Count 280
Sodium 143 141
Potassium 4.1 4.1
Chloride 115 H 116 H
Carbon Dioxide 23 24
BUN 20 H 21 H
Creatinine 1.3 H 1.3 H
Glucose 100 H 80
Calcium 8.1 L 8.2 L
Total Bilirubin 0.8
AST 41 H
ALT 21
Alkaline Phosphatase 64
Vital Signs:
Vital Signs
Temp Pulse Resp BP Pulse Ox
97.9 F 111 20 111/68 93
03/10/25 03:07 03/10/25 06:00 03/10/25 06:00 03/10/25 06:00 03/10/25 07:21
I&O
03/09/25 03/10/25 03/11/25
06:59 06:59 06:59
Intake Total 250 / 250 470 / 470
Output Total 600 / 600 3450 / 3450
Balance -350 / -350 -2980 / -2980
Review of Systems
-
History Source: Patient
All other systems: Reviewed and negative
Physical Exam
-
General: Other (tachypneic )
HEENT: Normocephalic and PERRLA
Respiratory: Rales and Rhonchi
Cardiac: S1/S2, Irregular Rhythm and JVD
GI: Soft
Musculoskeletal: No Edema
Neuro: AO x 3
Psych: Anxious
Data Reviewed
-
Diagnostic Radiology: Report Reviewed by me
Labs: Labs Reviewed by me
[2025-03-10] MEDS: LOPRESSOR 5 MG IV (08:28)
[2025-03-10] MEDS: LASIX 40 MG IV ×2 (08:30→17:20)
[2025-03-10] MEDS: PACERONE 200 MG PO ×2 (08:35→19:56)
[2025-03-10] MEDS: VIBRAMYCIN 100 MG PO ×2 (08:36→19:56)
[2025-03-10] MEDS: WELLBUTRIN SR (12 hour sustained release) 150 MG PO (08:36)
[2025-03-10] MEDS: DESENEX/MITRAZOL/ZEASORB 1 APPLIC TOPICAL ×2 (08:45→19:56)
[2025-03-10] MEDS: PROTONIX IV 40 MG IV ×2 (08:45→19:56)
[2025-03-10] MEDS: FIRVANQ 250 MG PO ×2 (08:45→12:20)
--- NOTE | 2025-03-10 09:18 | W.PN.GI.CBS2 ---
Today's Communication / Plan
-
Hgb has come up with transfusion (difficult getting blood with Abs)
No signs of active bleeding
Hold off on EGD if no signs of bleeding given SOB, high flow O2
Monitor bowel function. If n/v or decreased BM, check OBS series
Eliquis on hold currently
Cont PPI
Assessment / Plan
-
Impression:
Anemia- likely AOCD with slight drop since admission. s/p PRBC 03/09
Abd pain
s/p recent NICKI for SBO
Subjective
Subjective
Date of Service: March 10, 2025
c/o nausea. Passing flatus and leaking stool when coughing. On high flow
Objective
Data Reviewed
Laboratory Data:
Laboratory Results
03/10/25 02:24
03/10/25 02:24
Laboratory Results
Magnesium 1.7 mg/dl (1.6-2.3) 03/10/25 02:24
Total Bilirubin 0.8 mg/dl (0.2-1.3) 03/10/25 02:24
AST 41 U/L (14-36) H 03/10/25 02:24
ALT 21 U/L (0-35) 03/10/25 02:24
Alkaline Phosphatase 64 U/L (38-126) 03/10/25 02:24
Vital Signs and I&O:
Vital Signs
Temp Pulse Resp BP Pulse Ox
98.1 F 100 20 113/79 94
03/10/25 07:05 03/10/25 08:35 03/10/25 06:00 03/10/25 08:35 03/10/25 08:15
I&O
03/09/25 03/10/25 03/11/25
06:59 06:59 06:59
Intake Total 250 / 250 470 / 470
Output Total 600 / 600 3450 / 3450
Balance -350 / -350 -2980 / -2980
Physical Exam
Physical Exam
GI: Soft and Tender (mild)
--- NOTE | 2025-03-10 09:57 | W.PN.CARDCBS ---
Today's Communication / Plan
-
Back in A-fib. Continue amiodarone 200 mg p.o. twice daily. QTc overall stable at 499 ms. Continue to follow
Restart Coreg 3.125 mg p.o. twice daily.
Hemoglobin at 7.4. Continue to hold Eliquis for now.
Continue doxycycline and ceftriaxone.
Continue IV Lasix. Would diurese as much as possible. Creatinine stable at 1.3
Agree with DNR. Long-term prognosis very poor
Impression / Plan
-
.
Family Physician: Andry Cuba MD
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
Impression:
Presented 03/06/2025 with shortness of breath and hypotension
Acute hypoxic respiratory failure
Right upper lobe pneumonia
Acute on chronic anemia
TYESHA on CKD
Paroxysmal atrial fibrillation
Small bowel obstruction/status post lysis of adhesions 02/12/2025
Prior bowel perforation from collagenous colitis with colostomy creation and subsequent reversal, VHR and prior small bowel obstruction
Abnormal EKG
Acute on chronic kidney disease
History of CVA
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
Sarcoidosis
Frailty
C Diff
Echo 02/09/2025: Mild LVH, EF 50-55%, mild mitral regurgitation, mild aortic regurgitation, mild to moderate tricuspid regurgitation, pulmonary artery systolic pressure 27 mmHg
Plan:
-Presented 03/06/2025 with hypoxia and was found to have right upper lobe pneumonia and now on antibiotics.
-Continue IV Lasix. Would diurese as much as creatinine allows. Creatinine currently 1.3.
-Back in A-fib today. Ventricular rates are adequately rate controlled. Will continue amiodarone 200 mg p.o. twice daily. QTc 490 ms.
-Eliquis currently on hold given acute on chronic anemia. Will continue to monitor patient on telemetry and if patient should have recurrent A-fib may need to consider resumption of Eliquis
-Acute on chronic anemia with hemoglobin 6.4. Now up to 7.4 status posttransfusion.
-BP is currently stable. Will try to add back Coreg 3.125 mg twice daily.
- Of note patient is DNR and does not want to be intubated
Plan discussed with patient, nursing, hospitalist
HPI 03/09/2025:
She has a complex medical history which includes history of CVA, CKD, sarcoidosis, prior bowel perforation (collagenous colitis) with colostomy creation and subsequent reversal, VHR and recent small bowel obstruction requiring prolonged admission
from 02/07/2025 to 02/25/2025. Patient underwent laparoscopic lysis of lesions on 02/12/2025. During that hospitalization she developed paroxysmal atrial fibrillation with rapid ventricular response and ultimately was placed on amiodarone with load.
Patient converted to sinus rhythm. She presented back to emergency department on 03/06/2025 with worsening shortness of breath with chest x-ray showing right upper lobe pneumonia. Patient also noted to be anemic with hemoglobin of 7.9 on admission.
Patient was initially hypotensive and was given IV fluids with improvement of blood pressure. Patient now having worsening shortness of breath requiring high flow oxygen, is hypertensive and complaining of nausea. Concern for pulmonary edema.
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
Subjective
Date of Service: March 10, 2025
She is back in A-fib today. Breathing about the same. Remains on high flow oxygen
Objective
Labs:
03/10/25 02:24
03/10/25 02:24
Labs
Hgb 7.4 g/dL (12.0-16.0) L 03/10/25 02:24
Hct 23.3 % (37.0-47.0) L 03/10/25 02:24
Plt Count 280 10^3/uL (130-400) 03/10/25 02:24
Sodium 141 mmol/L (135-145) 03/10/25 02:24
Potassium 4.1 mmol/L (3.5-5.1) 03/10/25 02:24
BUN 21 mg/dl (7-17) H 03/10/25 02:24
Creatinine 1.3 mg/dL (0.6-1.0) H 03/10/25 02:24
Glucose 80 mg/dl (70-99) 03/10/25 02:24
Troponins
03/09/25 03/09/25 03/09/25
11:21 21:53 21:53
Troponin I < 0.012 Cancelled < 0.012
Vital Signs and I&O:
Vital Signs
Temp Pulse Resp BP Pulse Ox
98.1 F 100 20 113/79 94
03/10/25 07:05 03/10/25 08:35 03/10/25 06:00 03/10/25 08:35 03/10/25 08:15
Vital Signs
Temp Pulse Resp BP Pulse Ox
98.1 F 100 20 113/79 94
03/10/25 07:05 03/10/25 08:35 03/10/25 06:00 03/10/25 08:35 03/10/25 08:15
Intake & Output
03/08/25 03/09/25 03/10/25 03/11/25
06:59 06:59 06:59 06:59
Intake Total 1300 / 1300 250 / 250 470 / 470
Output Total 600 / 600 3450 / 3450
Balance 1300 / 1300 -350 / -350 -2980 / -2980
Physical Exam
Physical Exam
GEN: No distress, awake, Ox3
HEENT: supple, anicteric, mmm
LUNGS: Scattered rhonchi
CV: Reg, S1/S2, 1/6 syst LSB, no gallop
ABD: soft, BS+, NT/ND
EXT: No edema
NEURO: Gross non-focal
SKIN: No rash
[2025-03-10] MEDS: SANTYL OINTMENT 1 APPLIC TOPICAL (12:19)
[2025-03-10] MEDS: ROXICODONE 5 MG PO ×2 (12:20→17:29)
[2025-03-10] MEDS: VITAMIN D3 (cholecalciferol) 125 MCG PO (12:20)
[2025-03-10] MEDS: FOLVITE 1 MG PO (12:20)
[2025-03-10] MEDS: FEOSOL 325 MG PO (12:20)
--- NOTE | 2025-03-10 12:47 | PN.CDI ---
CDI
- -
CDI:
Physician Documentation Request
Admit Date: 03/06/25 16:25
Dear Doctor Shelli,
Patient admitted with pneumonia.
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
WOCN note states 'Patient admitted with Stage 2 PI to sacrum'
Physician documentation of the type and location of wounds is required for compliant documentation. Based on the above clinical findings and your assessment, please provide the following in your progress note:
Type (etiology) of ulcer/wound:
- Traumatic wound
- Pressure (decubitus) ulcer
- Other
Use of terms such as suspected, likely, concern for, or probable (associated with a specific diagnosis that is being evaluated, monitored, or treated as if it exists) are acceptable and can be coded in the inpatient setting, when documented at the
time of discharge.
Thank you,
Wendy Mathew RN, BSN
CDI Specialist
tiger text
Please use your independent medical judgment in providing your response.
*Source: National Pressure Ulcer Advisory Panel (NPUAP)
--- NOTE | 2025-03-10 12:51 | PN.CDI ---
CDI
- -
CDI:
Physician Documentation Request
Admit Date: 03/06/25 16:25
Dear Doctor Shelli,
Hospitalist progress notes include a diagnosis of severe protein caloric malnutrition.
RD note and assessment state 'Assessment-subcutaneous loss over rib cage-moderate. Assessment- Muscle loss over Temporal Moderate, Clavicle - moderate.
During visit RD able to visualize temporal wasting, apparent ribs, protrusion of clavical. With observed muscle and fat wasting and < 75% energy intake > 7 days, Pt meets criteria for moderate protein calorie malnutrition of acute illness'
To ensure the quality of the medical record, based on the above information and the recognized standards for malnutrition , could you please verify in your progress notes which of the following responses best reflects the patient's nutritional
status:
Severe Malnutrition is/was present and is a clinical diagnosis (please provide additional support in the medical record)
Moderate malnutrition is present
Other (please specify)
[place] Criteria (ACP Hospitalist 2017)
2 or more criteria must be present for either
non severe or severe malnutrition
Note that the criteria differs related to the
presence of an acute or chronic illness
Acute Illness Chronic Illness
Energy Intake Non Severe: <75% for >7 days Non Severe: <75% for >1 month
Severe: <50% for >5 days Severe: <75% for >1 month
Weight Loss Non Severe: 1-2% over 1 week Non Severe: 5% over 1 month
5% over 1 month 7.5% over 3 months
7.5% over 3 months 10% over 6 months
1 year N/A 20% over 1 year
Severe: >2% over 1 week Severe: >5% over 1 month
>5% over 1 month >7.5% over 3 months
>7.5% over 3 months >10% over 6 months
1 year N/A >20% over 1 year
Body Fat Non Severe: Mild Decrease Non Severe: Mild Loss
Severe: Moderate Decrease Severe: Severe Loss
Muscle Mass Non Severe: Mild Decrease Non Severe: Mild Loss
Severe: Moderate Decrease Severe: Severe Loss
Fluid Accumulation Non Severe: Mild Accumulation Non Severe: Mild Accumulation
Severe: Moderate to severe Severe: Moderate to severe
accumulation accumulation
Reduced Sustainability Director Strength Non Severe: N/A Non Severe: N/A
Severe: Measurably reduced Severe: Measurably reduced
Use of terms such as suspected, likely, concern for, or probable (associated with a specific diagnosis that is being evaluated, monitored, or treated as if it exists) are acceptable and can be coded in the inpatient setting, when documented at the
time of discharge.
Thank you,
Wendy Mathew RN, BSN
CDI Specialist
tiger text
Please use your independent medical judgment in providing your response.
--- NOTE | 2025-03-10 13:05 | PTCARENOTE ---
Patient was in uncontrolled afib at the start of the shift, tachypneic. Lopressor 5mg IV administered along with all scheduled medications. Patient diuresed 725 and converted back to sinus rhythm.
[2025-03-10] MEDS: LAMICTAL 100 MG PO (17:21)
[2025-03-10] MEDS: FIRVANQ 125 MG PO ×2 (17:58→21:44)
[2025-03-10] MEDS: LIPITOR 80 MG PO (21:45)
[2025-03-10] MEDS: MIRAPEX, GENERIC 0.5 MG PO (21:45)
[2025-03-10] MEDS: ROCEPHIN 1000 MG IV (21:45)
[2025-03-10] MEDS: SEROQUEL 100 MG PO (21:45)
[2025-03-10] MEDS: REMERON 15 MG PO (21:45)
[2025-03-10] MEDS: STERILE WATER FOR INJECTION 10 ML IV (21:45)
[2025-03-10] MEDS: KLONOPIN 1 MG PO (21:45)
[2025-03-11] VITALS (27 sets, daily range): BP systolic 85–141; BP diastolic 47–90; PULSE 61–77; O2SAT 96–98; BMI 20.4
--- NOTE | 2025-03-11 01:37 | PTCARENOTE ---
assumed care of patient. pt is AAOx3 but forgetful at times. bed alarm on but rings appropriately. on 40L 50% HFNC, 97%. pt does dip down to low 80s when oxygen comes out of nose. sometimes inc of stool, other times asking for bedpan. rock intact.
q2t. able to take pills whole with applesauce without issues. care ongoing.
[2025-03-11 05:10] LABS: Hematocrit 23.8 % (37.0-47.0); Hemoglobin 7.6 g/dL (12.0-16.0); Mean Corp Hgb Conc. 31.9 g/dL (33.0-37.0); Mean Corpuscular Hgb 27.7 pg (27.0-31.0); Mean Corpuscular Volume 86.9 fL (81.0-99.0); Platelet Count 272 10^3/uL (130-400); Red Blood Cell Count 2.74 10^6/uL (4.20-5.40); Red Cell Dist. Width 19.5 % (11.5-14.5)
[2025-03-11 05:31] LABS: Blood Urea Nitrogen 22 mg/dl (7-17); Carbon Dioxide 23 mmol/L (22-30); Chloride 110 mmol/L (98-107); Estimated Creatinine Clearance 24 ml/min; Glucose 75 mg/dl (70-99); Magnesium 1.5 mg/dl (1.6-2.3); Potassium 3.6 mmol/L (3.5-5.1); Sodium 140 mmol/L (135-145)
--- NOTE | 2025-03-11 07:08 | W.PN.HOSP.TC ---
Today's Communication/Plan
-
continue amio, Coreg
IV Lasix
Wean O2 as able
PT/OT consults
appreciate Cardiology
Assessment / Plan
Assessment / Plan
TTE 03/09/25
CONCLUSIONS
Normal left ventricular size, wall thickness and systolic function. No regional
wall motion abnormalities are seen. LV ejection fraction is 55-60%.
Severely dilated left atrium.
Moderate mitral regurgitation.
Moderate aortic regurgitation.
Mild to moderate tricuspid regurgitation. Estimated pulmonary artery pressure
of 42 mmHg.
Right and Left pleural effusion present.
Compared to the previous echo from January 2025, AR, MR and TR were mild at that
time and no pleural effusions were noted.
Flast Pulmonary Edema
Heart Failure preserved EF, Acute exacerbation
-patient with respiratory distress morning of 03/09 requiring high flow. s/p aggressive diuresis with improvement
-s/p TTE 02/09/25 with preserved EF; repeat 03/09 with moderate AR and MR; mild to moderate TR (were mild on prior echo)
-she received IVF earlier in hospital course
-s/p lasix 40mg IV x 1 then 60mg IV x 1
-continue Lasix 40mg IV BID
Hypoxic Respiratory Failure 2/2 Above
-continue high flow and wean O2 as able
Paroxysmal Atrial Fibrillation
-patient is on home amiodarone 200mg PO BID with plan to decrease to daily on 03/18
-patient with return of afib with RVR overnight 03/09-03/10; now back in sinus
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
-holding Eliquis given low Hg and long delay for transfusions 2/2 antibodies - further discussions with cardiology and patient
Right upper lobe pneumonia
Acute hypoxic respiratory insufficiency on 2L NC
- continue IV Rocephin, doxycycline, day 04/04
- antibiotics were broadened briefly on 03/09 but patient with significant clinical improvement post diuresis; do not suspect untreated infection
-F/U cultures
Progressive anemia-normocytic:
HX Iron deficiency anemia
- AOCD per labs - likely from chronic illness and malnutrition (severe protein caloric)
- holding Eliquis
- s/p 1 unit PRBC on 03/09 with improvement
-appreciate GI eval
Patient admitted with Stage 2 PI to sacrum - pressure injury
-apprecaite wound care
Moderate malnutrition is present - appreciate dietary
abnormal UA
- growing Yeast - no indication for treatment
Recent C. Diff Ag+, toxin negative status
- continue Vancomycin prophylaxis
TYESHA on CKD 3b
HX LVEF 50-55 %
-creatinine stable post diuresis
Epigastric pain
- continue PPI BID
- GI eval appreciated; holding off EGD. Consider CT if pain continues
-pain now resolved
Hx of SBO with NICKI 02/12
- continue LRD with supplements
Essential HTN
- holding BP Meds
Hyperlipidemia
- on statin
Abdominal aortic dilatation
- Focal dilatation of the infrarenal abdominal aorta measuring 2.9 cm
- Ongoing outpatient monitoring recommended
Adrenal nodule:
- 1.5 centimeter hypodense left adrenal nodule noted on imaging, likely an adenoma
- Outpatient monitoring recommended
Anxiety
- On Wellbutrin and clonazepam Lamictal, Seroquel as outpatient
Restless leg syndrome
- pramipexole
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
- Wound care eval
DVT ppx: SCDs
Code: DNR/DNI
51 minutes spent on patient care
Anticipated Discharge: > 48 hours
Subjective/Interval History
-
Date of Service: March 11, 2025
feeling better today
less short of breath
Objective Data
-
Labs:
Laboratory Results
03/11/25
04:55
WBC 7.0
Hgb 7.6 L
Hct 23.8 L
Plt Count 272
Sodium 140
Potassium 3.6
Chloride 110 H
Carbon Dioxide 23
BUN 22 H
Creatinine 1.4 H
Glucose 75
Calcium 8.0 L
Vital Signs:
Vital Signs
Temp Pulse Resp BP Pulse Ox
97.6 F 69 17 101/55 97
03/11/25 04:08 03/11/25 06:00 03/11/25 06:00 03/11/25 06:00 03/11/25 06:00
I&O
03/10/25 03/11/25 03/12/25
06:59 06:59 06:59
Intake Total 470 / 470 120 / 120
Output Total 3450 / 3450 1825 / 1825
Balance -2980 / -2980 -1705 / -1705
Review of Systems
-
History Source: Patient
All other systems: Reviewed and negative
Physical Exam
-
General: Other (breathing more comfortably today )
HEENT: Normocephalic and PERRLA
Respiratory: Rales and Rhonchi
Cardiac: S1/S2, Irregular Rhythm and JVD
GI: Soft
Musculoskeletal: No Edema
Neuro: AO x 3
Psych: Calm and Anxious
Data Reviewed
-
Diagnostic Radiology: Report Reviewed by me
Labs: Labs Reviewed by me
[2025-03-11] MEDS: KCL 40 MEQ PO (08:12)
[2025-03-11] MEDS: WELLBUTRIN SR (12 hour sustained release) 150 MG PO (08:14)
[2025-03-11] MEDS: VIBRAMYCIN 100 MG PO ×2 (08:14→19:50)
[2025-03-11] MEDS: PEPCID 20 MG PO (08:14)
[2025-03-11] MEDS: PACERONE 200 MG PO ×2 (08:14→19:50)
[2025-03-11] MEDS: SANTYL OINTMENT 1 APPLIC TOPICAL (08:15)
[2025-03-11] MEDS: PROTONIX IV 40 MG IV ×2 (08:15→19:50)
[2025-03-11] MEDS: LASIX 40 MG IV ×2 (08:15→17:33)
[2025-03-11] MEDS: DESENEX/MITRAZOL/ZEASORB 1 APPLIC TOPICAL ×2 (08:21→19:50)
[2025-03-11] MEDS: MAGNESIUM SULFATE 50 IV (08:21)
[2025-03-11] MEDS: FIRVANQ 125 MG PO ×4 (08:21→21:08)
[2025-03-11] MEDS: ROXICODONE 5 MG PO ×2 (08:35→13:38)
[2025-03-11] MEDS: NSS (PRESERVATIVE FREE) 10 ML IV ×2 (08:43→19:50)
--- NOTE | 2025-03-11 08:45 | PTCARENOTE ---
Patient received from weight shifter. Patient resting comfortably in bed. AAO, VSS. No events noted at this time. Complaints of pain in sacral area, see MAR. Currently on High Flow N/C 40% @ 50L, will attempt to wean. No fluids through IV.
Continuing ABX. Wound care to be done. No testing scheduled at this time. Call álvarez in reach.
--- NOTE | 2025-03-11 08:52 | W.PN.GI.CBS2 ---
Today's Communication / Plan
-
Improved with BMs. Will order miralax prn (having multiple loose BMs currently)
Hgb stable after PRBC 03/09
No indication for EGD at this time
Will sign off for now. Please call back if needed
Assessment / Plan
-
Impression:
Abd pain- improved
Recent SBO/NICKI
Anemia, no signs of active bleeding
CHF/flash pulmonary edema
Afib
PNA
Subjective
Subjective
Date of Service: March 11, 2025
Lying on bedpain passing BM. Had several BMs overnight brown/green. Abd pain improved
Objective
Data Reviewed
Laboratory Data:
Laboratory Results
03/11/25 04:55
03/11/25 04:55
Laboratory Results
Magnesium 1.5 mg/dl (1.6-2.3) L 03/11/25 04:55
Total Bilirubin 0.8 mg/dl (0.2-1.3) 03/10/25 02:24
AST 41 U/L (14-36) H 03/10/25 02:24
ALT 21 U/L (0-35) 03/10/25 02:24
Alkaline Phosphatase 64 U/L (38-126) 03/10/25 02:24
Vital Signs and I&O:
Vital Signs
Temp Pulse Resp BP Pulse Ox
97.6 F 71 17 118/61 98
03/11/25 04:08 03/11/25 08:14 03/11/25 06:00 03/11/25 08:14 03/11/25 07:17
I&O
03/10/25 03/11/25 03/12/25
06:59 06:59 06:59
Intake Total 470 / 470 120 / 120
Output Total 3450 / 3450 1825 / 1825
Balance -2980 / -2980 -1705 / -1705
Physical Exam
Physical Exam
GI: Soft and Non Tender
[2025-03-11] MEDS: VITAMIN D3 (cholecalciferol) 125 MCG PO (13:32)
[2025-03-11] MEDS: FOLVITE 1 MG PO (13:32)
[2025-03-11] MEDS: FEOSOL 325 MG PO (13:39)
--- NOTE | 2025-03-11 13:54 | W.PN.CARDCBS ---
Addendum entered and electronically signed by Reji Veliz MD 03/11/25 16:04:
I saw and examined the patient.
The Mailroom Associate's note was reviewed and I agree with the note.
Comment:
GEN: No distress, awake, Ox3
HEENT: supple, anicteric, mmm
LUNGS: Bilateral rhonchi
CV: Reg, S1/S2, 1/6 syst LSB,
ABD: soft, BS+, NT/ND
EXT: No edema
NEURO: Gross non-focal
SKIN: No rash
PLan:
Remains in sinus rhythm. Continue amiodarone 200 mg p.o. twice daily then decrease to daily 03/18/25.
Continue Coreg and IV Lasix.
Her hemoglobin is overall stable at 7.6 but she remains very frail and very tenuous. She obviously is high risk for stroke. Will continue to hold Eliquis for now but would reconsider starting as outpatient with primary doll dresser at [facility].
Original Note:
Today's Communication / Plan
-
Cont amiodarone 200 mg BID until 03/18/25 and then decrease to daily thereafter
Impression / Plan
-
Family Physician: Andry Cuba MD
Primary doll dresser is at [facility]
Impression:
Presented with shortness of breath and hypotension 03/06/2025
Recent admission for C diff diarrhea, SBO with NICKI, spesis and new Afib with RVR 02/07/25 until 02/25/25
Acute multifactorial hypoxic respiratory failure
Right upper lobe pneumonia
Acute on chronic anemia
TYESHA on CKD 3b
Acute on chronic HFpEF
Paroxysmal atrial fibrillation
Chronic Eliquis OAC
h/o SOB with NICKI 02/12/25
Prior bowel perforation from collagenous colitis with colostomy creation and subsequent reversal, VHR and prior small bowel obstruction
Abnormal EKG
Acute on chronic kidney disease
History of CVA
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
Sarcoidosis
Frailty
Echo 02/09/25: Mild LVH, EF 50-55%, mild mitral regurgitation, mild aortic regurgitation, mild to moderate tricuspid regurgitation, pulmonary artery systolic pressure 27 mmHg
Plan:
-Patient admitted with multifactorial hypoxia. RUL PNA being managed with Rocephin and doxycycline.
-From a cardiac standpoint, patient diuresing with Lasix 40 mg IV BID. Patient was not taking a loop diuretic prior to admission. Weight is down 5 lbs overnight and overall down 14 lbs compared to last admission. Dry weight unknown and will
establish at time of d/c.
-CHF is a new diagnosis and patient with TYESHA last admission.
-EF 50-55% by echo.
-Outpatient dose of Coreg 6.25 mg BID on hold due to hypotension. Will start Coreg 3.125 mg BID with hold parameters, ordered by me.
-Patient is not chronically on DORIS/ARB/ARNI/aldosterone antagonist due to hypotension and CKD 3b
-Patient with known paroxysmal Afib and has been in and out of rhythm this admission. ECG and tele reviewed by me 03/11/25 are SR.
-Remains on outpatient dose of amiodarone 200 mg BID, will decreased to amiodarone 200 mg daily starting 03/18/25. QTc 458 ms on ECG 03/11/25 reviewed by me
-Eliquis currently on hold given acute on chronic anemia. Eventually resume Eliquis, GI has signed off. Patient is being managed as anemia of chronic disease
HPI 03/09/2025: She has a complex medical history which includes history of CVA, CKD, sarcoidosis, prior bowel perforation (collagenous colitis) with colostomy creation and subsequent reversal, VHR and recent small bowel obstruction requiring
prolonged admission from 02/07/2025 to 02/25/2025. Patient underwent laparoscopic lysis of lesions on 02/12/2025. During that hospitalization she developed paroxysmal atrial fibrillation with rapid ventricular response and ultimately was placed on
amiodarone with load. Patient converted to sinus rhythm. She presented back to emergency department on 03/06/2025 with worsening shortness of breath with chest x-ray showing right upper lobe pneumonia. Patient also noted to be anemic with
hemoglobin of 7.9 on admission. Patient was initially hypotensive and was given IV fluids with improvement of blood pressure. Patient now having worsening shortness of breath requiring high flow oxygen, is hypertensive and complaining of nausea.
Concern for pulmonary edema.
Progress Note - Mechanical Engineering Advisor
Subjective
Date of Service: March 11, 2025
Feels tired
Objective
Labs:
03/11/25 04:55
03/11/25 04:55
Labs
Hgb 7.6 g/dL (12.0-16.0) L 03/11/25 04:55
Hct 23.8 % (37.0-47.0) L 03/11/25 04:55
Plt Count 272 10^3/uL (130-400) 03/11/25 04:55
Sodium 140 mmol/L (135-145) 03/11/25 04:55
Potassium 3.6 mmol/L (3.5-5.1) 03/11/25 04:55
BUN 22 mg/dl (7-17) H 03/11/25 04:55
Creatinine 1.4 mg/dL (0.6-1.0) H 03/11/25 04:55
Glucose 75 mg/dl (70-99) 03/11/25 04:55
Troponins
03/09/25 03/09/25 03/09/25
11:21 21:53 21:53
Troponin I < 0.012 Cancelled < 0.012
Vital Signs and I&O:
Vital Signs
Temp Pulse Resp BP Pulse Ox
98.1 F 71 17 118/61 99
03/11/25 07:50 03/11/25 08:14 03/11/25 06:00 03/11/25 08:14 03/11/25 12:45
Vital Signs
Temp Pulse Resp BP Pulse Ox
98.1 F 71 17 118/61 99
03/11/25 07:50 03/11/25 08:14 03/11/25 06:00 03/11/25 08:14 03/11/25 12:45
Intake & Output
03/09/25 03/10/25 03/11/25 03/12/25
06:59 06:59 06:59 06:59
Intake Total 250 / 250 470 / 470 120 / 120
Output Total 600 / 600 3450 / 3450 1825 / 1825
Balance -350 / -350 -2980 / -2980 -1705 / -1705
[2025-03-11] MEDS: LAMICTAL 100 MG PO (17:34)
[2025-03-11] MEDS: COREG 3.125 MG PO (19:50)
[2025-03-11] MEDS: LIPITOR 80 MG PO (21:06)
[2025-03-11] MEDS: SEROQUEL 100 MG PO (21:06)
[2025-03-11] MEDS: ROCEPHIN 1000 MG IV (21:06)
[2025-03-11] MEDS: MIRAPEX, GENERIC 0.5 MG PO (21:06)
[2025-03-11] MEDS: STERILE WATER FOR INJECTION 10 ML IV (21:07)
[2025-03-11] MEDS: KLONOPIN 1 MG PO (21:07)
[2025-03-11] MEDS: REMERON 15 MG PO (21:07)
--- NOTE | 2025-03-11 22:25 | PTCARENOTE ---
Remains AAOx3, continues with forgetfulness at times. Demonstrates appropriate use of call álvarez. O2 weaned to 3L, sat 94%. Reports some SLOAN, but none at rest. Tolerated medications whole with applesauce. Suero catheter maintained. Q2T schedule in
place to prevent further skin breakdown. Care ongoing.
[2025-03-12] VITALS (26 sets, daily range): BP systolic 78–160; BP diastolic 48–93
--- NOTE | 2025-03-12 00:13 | PTCARENOTE ---
Pt hypotensive, drowsy but arousable. 85/54 (62), HR 65 NSR. CNRP Mery notified via TT, awaiting new orders.
[2025-03-12] MEDS: ProAmatine 5 MG PO (00:33)
[2025-03-12 05:31] LABS: Blood Urea Nitrogen 24 mg/dl (7-17); Calcium 8.1 mg/dl (8.4-10.2); Carbon Dioxide 28 mmol/L (22-30); Chloride 107 mmol/L (98-107); Estimated Creatinine Clearance 21 ml/min; Glucose 87 mg/dl (70-99); Sodium 141 mmol/L (135-145)
[2025-03-12] MEDS: LASIX IV (08:15)
--- NOTE | 2025-03-12 08:15 | W.PN.HOSP.TC ---
Today's Communication/Plan
-
follow up repeat CXR
hold further Lasix with mild creatinine bump
last day antibiotics
appreciate Cardiology
possible medically ready for DC to SNF over the weekend
Assessment / Plan
Assessment / Plan
Ms. Shahrzad Jack is a 80 yo woman with hx atrial fibrillation on Eliquis, sarcoidosis, collagenous colitis with bowel perforation status post colostomy and reversal at [facility], hypertension hyperlipidemia, CAD, CKD3 presents to the ER with low
pulse ox, admitted for pneumonia. Hospital course complicated by flash pulmonary edema morning of 03/09 requiring high flow, significantly improved post diuresis.
TTE 03/09/25
CONCLUSIONS
Normal left ventricular size, wall thickness and systolic function. No regional
wall motion abnormalities are seen. LV ejection fraction is 55-60%.
Severely dilated left atrium.
Moderate mitral regurgitation.
Moderate aortic regurgitation.
Mild to moderate tricuspid regurgitation. Estimated pulmonary artery pressure
of 42 mmHg.
Right and Left pleural effusion present.
Compared to the previous echo from January 2025, AR, MR and TR were mild at that
time and no pleural effusions were noted.
Flast Pulmonary Edema
Heart Failure preserved EF, Acute exacerbation
-patient with respiratory distress morning of 03/09 requiring high flow. s/p aggressive diuresis with improvement
-s/p TTE 02/09/25 with preserved EF; repeat 03/09 with moderate AR and MR; mild to moderate TR (were mild on prior echo)
-she received IVF earlier in hospital course
-s/p lasix 40mg IV x 1 then 60mg IV x 1
-s/p lasix 40mg IV BID with significant output and weight loss. Hold Lasix today (03/12) with mild creatinine bump
-repeat CXR today
Hypoxic Respiratory Failure 2/2 Above
-requiring high flow earlier in hospital course, now down to 3L
Paroxysmal Atrial Fibrillation
-patient is on home amiodarone 200mg PO BID with plan to decrease to daily on 03/18
-patient with return of afib with RVR overnight 03/09-03/10; now back in sinus
-TURN SEWER Coreg resumed
-holding Eliquis given low Hg and long delay for transfusions 2/2 antibodies - further discussions with cardiology and patient. Per Dr. Veliz note - patient to continue having discussions with outpatient Video Control Operator at [place] [facility]
Right upper lobe pneumonia
Acute hypoxic respiratory insufficiency on 2L NC
- continue IV Rocephin, doxycycline, day 05/04
- antibiotics were broadened briefly on 03/09 but patient with significant clinical improvement post diuresis; do not suspect untreated infection
Recent C. Diff Ag+, toxin negative status
- continue Vancomycin prophylaxis --> continue for one week post antibiotic completion
Progressive anemia-normocytic:
HX Iron deficiency anemia
- AOCD per labs - likely from chronic illness and malnutrition (severe protein caloric)
- holding Eliquis
- s/p 1 unit PRBC on 03/09 with improvement
- appreciate GI eval
Patient admitted with Stage 2 PI to sacrum - pressure injury
-appreciate wound care
Moderate malnutrition is present - appreciate dietary
abnormal UA
- growing Yeast - no indication for treatment
TYESHA on CKD 3b
HX LVEF 50-55 %
-hold further lasix today with mild creatinine bump
Epigastric pain
- continue PPI BID
-may have been related to constipation
- GI eval appreciated; holding off EGD. Consider CT if pain continues
-pain now resolved
-continue Miralax PRN
Hx of SBO with NICKI 02/12
- continue LRD with supplements
Essential HTN
-TURN SEWER Coreg at 1/2 dose for now
Hyperlipidemia
- on statin
Abdominal aortic dilatation
- Focal dilatation of the infrarenal abdominal aorta measuring 2.9 cm
- Ongoing outpatient monitoring recommended
Adrenal nodule:
- 1.5 centimeter hypodense left adrenal nodule noted on imaging, likely an adenoma
- Outpatient monitoring recommended
Anxiety
- On Wellbutrin and clonazepam Lamictal, Seroquel as outpatient
Restless leg syndrome
- pramipexole
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
- Wound care eval
DVT ppx: SCDs
Code: DNR/DNI
51 minutes spent on patient care
Anticipated Discharge: 24 - 48 hours
Subjective/Interval History
-
Date of Service: March 12, 2025
Objective Data
-
Labs:
Laboratory Results
03/12/25
04:48
Sodium 141
Potassium 4.0
Chloride 107
Carbon Dioxide 28
BUN 24 H
Creatinine 1.6 H
Glucose 87
Calcium 8.1 L
Vital Signs:
Vital Signs
Temp Pulse Resp BP Pulse Ox
97.7 F 74 17 123/84 96
03/12/25 07:00 03/12/25 07:00 03/12/25 07:00 03/12/25 07:00 03/12/25 07:00
I&O
03/11/25 03/12/25 03/13/25
06:59 06:59 06:59
Intake Total 120 / 120 500 / 500
Output Total 1825 / 1825 2049 850 / 850
Balance -1705 / -1705 -1550 / -1550 -850 / -850
[2025-03-12] MEDS: PACERONE 200 MG PO ×2 (08:33→19:51)
[2025-03-12] MEDS: VIBRAMYCIN 100 MG PO ×2 (08:33→19:51)
[2025-03-12] MEDS: FIRVANQ 125 MG PO ×4 (08:33→21:20)
[2025-03-12] MEDS: SANTYL OINTMENT 1 APPLIC TOPICAL (08:33)
[2025-03-12] MEDS: PROTONIX IV 40 MG IV ×2 (08:33→19:52)
[2025-03-12] MEDS: NSS (PRESERVATIVE FREE) 10 ML IV ×2 (08:33→19:51)
[2025-03-12] MEDS: COREG 3.125 MG PO ×2 (08:33→19:51)
[2025-03-12] MEDS: WELLBUTRIN SR (12 hour sustained release) 150 MG PO (08:34)
[2025-03-12] MEDS: DESENEX/MITRAZOL/ZEASORB 1 APPLIC TOPICAL ×2 (08:41→21:20)
--- NOTE | 2025-03-12 12:51 | W.PN.CARDCBS ---
Addendum entered and electronically signed by Aidee Blanco DO 03/12/25 14:39:
Contacted patient's outpatient cardiac group, [facility]. Patient sees Dr. Fernandez as well as dip brazier, Dr. Markel Rodriguez.
Original Note:
Today's Communication / Plan
-
Hold diuresis and monitor renal function
Continue amiodarone and telemetry monitoring
Will need to determine outpatient cardiac follow-up, ? MBC
Impression / Plan
-
Family Physician: Andry Cuba MD
Primary integrity engineer is at [facility]
Impression:
Presented with shortness of breath and hypotension 03/06/2025
Recent admission for C diff diarrhea, SBO with NICKI, spesis and new Afib with RVR 02/07/25 until 02/25/25
Acute multifactorial hypoxic respiratory failure
Right upper lobe pneumonia
Acute on chronic anemia
TYESHA on CKD 3b
Acute on chronic HFpEF
Paroxysmal atrial fibrillation
Chronic Eliquis OAC
h/o SOB with NICKI 02/12/25
Prior bowel perforation from collagenous colitis with colostomy creation and subsequent reversal, VHR and prior small bowel obstruction
Abnormal EKG
Acute on chronic kidney disease
History of CVA
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
Sarcoidosis
Frailty
Echo 02/09/25: Mild LVH, EF 50-55%, mild mitral regurgitation, mild aortic regurgitation, mild to moderate tricuspid regurgitation, pulmonary artery systolic pressure 27 mmHg
Plan:
Medically complex 80-year-old female admitted with acute hypoxic respiratory distress/heart failure with preserved ejection fraction requiring high flow O2 the morning of 03/09/2025 found to have right upper lobe pneumonia, rapid atrial fibrillation,
and progressive anemia
-Volume status and shortness of breath have improved with IV diuretics; patient was not taking loop diuretics prior to admission
-Remains on nasal cannula O2 currently at 3 L
-10 pound weight loss this admission, 108pounds yesterday with bed scale. Her weights have fluctuated during her hospitalization with unknown dry weight. She has had lower weights in the setting of sepsis/small bowel obstruction and dehydration
with acute renal insufficiency. Will have her reweighed. I suspect that she is likely near her dry weight with increasing creatinine. Reported I's and O's last 24-hour was -2400 cc
-Will hold further Lasix today euvolemic with increased renal insufficiency and reassess long-term diuretic needs once renal function has stabilized.
-2D echocardiogram 02/09/2025 with EF 50-55% with mild mitral, aortic insufficiency and mild to moderate tricuspid insufficiency with estimated pulmonary artery systolic pressure 27 mmHg and no pericardial effusion. Repeat 2D echocardiogram
03/09/2025 with a EF 55-60% with moderate mitral and aortic insufficiency and mild to moderate tricuspid insufficiency with increased estimated pulmonary artery systolic pressure to 42 mmHg. There was also bilateral pleural effusions present.
-Repeat proBNP.
-Optimize medical therapy with normal blood pressure and maintenance of sinus rhythm.
-Patient is not chronically on DORIS/ARB/ARNI/aldosterone antagonist due to hypotension and CKD 3b
- Would not start SGLT2 inhibitor at this time but could reconsider as an outpatient
Right upper lobe pneumonia�antibiotics and O2 supplementation per primary. Consider speech evaluation if not previously done.
Acute on chronic renal insufficiency�hold Lasix and monitor
Paroxysmal atrial fibrillation with rapid atrial fibrillation 03/09/2025 now back in sinus rhythm
- Continue amiodarone 200 mg twice daily with plan to decrease to daily on 03/18/2025
-EKG today sinus rhythm with first-degree AV block with evidence of age-indeterminate anteroseptal infarct and NSST. QTc 470
- Continue carvedilol which was dose reduced for hypotension, 3.125 mg twice daily
- Patient was previously on Eliquis anticoagulation which is being held due to transfusion dependent anemia. Consider evaluation for watchman as an outpatient once recovered
Coronary artery disease with a history of inferior STEMI in 2020 status post POBA to the RCA
- Elevated troponins back in January admission with undetectable troponin this admission
- Continue medical therapy with blood pressure/heart rate control and maintenance of hemoglobin greater than 10 g/dL
- Would add aspirin if not prohibitive by GI medicine
- Continue atorvastatin
History of stroke status post loop recorder implant with [facility] cardiology 12/2023
- Difficult situation high risk for oral anticoagulation given transfusion dependent anemia; high risk [id number] score with history of prior stroke now with paroxysmal atrial fibrillation
- Would have her return to outpatient cardiology to discuss future watchman once more clinically stable
Abdominal aortic dilatation
- Focal dilatation of the infrarenal abdominal aorta measuring 2.9 cm
- Ongoing outpatient monitoring recommended
Transfusion dependent anemia/iron deficiency status post 1 unit packed red blood cells 03/09/2025. GI was consulted and has signed off. No procedures planned.
History of small bowel obstruction with prior bowel perforation (collagenous colitis) with colostomy creation and subsequent reversal, VHR and recent small bowel obstruction requiring prolonged admission from 02/07/2025 to 02/25/2025. Patient
underwent laparoscopic lysis of lesions on 02/12/2025.
Multiple prolonged hospitalizations with interruption of nutrition now malnourished.
-Dietary has been consulted
-PPI
-Iron supplementation
HPI 03/09/2025: She has a complex medical history which includes history of CVA, CKD, sarcoidosis, prior bowel perforation (collagenous colitis) with colostomy creation and subsequent reversal, VHR and recent small bowel obstruction requiring
prolonged admission from 02/07/2025 to 02/25/2025. Patient underwent laparoscopic lysis of lesions on 02/12/2025. During that hospitalization she developed paroxysmal atrial fibrillation with rapid ventricular response and ultimately was placed on
amiodarone with load. Patient converted to sinus rhythm. She presented back to emergency department on 03/06/2025 with worsening shortness of breath with chest x-ray showing right upper lobe pneumonia. Patient also noted to be anemic with
hemoglobin of 7.9 on admission. Patient was initially hypotensive and was given IV fluids with improvement of blood pressure. Patient now having worsening shortness of breath requiring high flow oxygen, is hypertensive and complaining of nausea.
Concern for pulmonary edema.
Progress Note - Ophthalmic Surgical Assistant
Subjective
Date of Service: March 12, 2025
Seen and examined. Chart/telemetry reviewed. No new complaints.
Objective
Labs:
03/11/25 04:55
03/12/25 04:48
Labs
Hgb 7.6 g/dL (12.0-16.0) L 03/11/25 04:55
Hct 23.8 % (37.0-47.0) L 03/11/25 04:55
Plt Count 272 10^3/uL (130-400) 03/11/25 04:55
Sodium 141 mmol/L (135-145) 03/12/25 04:48
Potassium 4.0 mmol/L (3.5-5.1) 03/12/25 04:48
BUN 24 mg/dl (7-17) H 03/12/25 04:48
Creatinine 1.6 mg/dL (0.6-1.0) H 03/12/25 04:48
Glucose 87 mg/dl (70-99) 03/12/25 04:48
Troponins
03/09/25 03/09/25
21:53 21:53
Troponin I Cancelled < 0.012
Vital Signs and I&O:
Vital Signs
Temp Pulse Resp BP Pulse Ox
98.2 F 75 16 153/74 95
03/12/25 11:00 03/12/25 11:00 03/12/25 11:00 03/12/25 11:00 03/12/25 11:00
Vital Signs
Temp Pulse Resp BP Pulse Ox
98.2 F 75 16 153/74 95
03/12/25 11:00 03/12/25 11:00 03/12/25 11:00 03/12/25 11:00 03/12/25 11:00
Intake & Output
05/13/25 05/14/25 05/15/25 05/16/25
06:59 06:59 06:59 06:59
Intake Total 470 / 470 120 / 120 500 / 500
Output Total 3450 / 3450 1825 / 1825 2049 / 2049 850 / 850
Balance -2980 / -2980 -1705 / -1705 -1550 / -1550 -850 / -850
Physical Exam
Physical Exam
GEN: NAD on nasal cannula O2
HEENT: supple, anicteric, mmm
LUNGS: Bronchovesicular breath sounds with scattered rhonchi.
CV: Regular. Positive S1-S2. 2/6 SM
ABD: Soft. Nontender.
EXt: No significant edema
[2025-03-12] MEDS: FOLVITE 1 MG PO (13:17)
[2025-03-12] MEDS: VITAMIN D3 (cholecalciferol) 125 MCG PO (13:17)
[2025-03-12] MEDS: FEOSOL 325 MG PO (13:17)
--- NOTE | 2025-03-12 13:29 | CM ---
Patient from [facility] with Dx flash pulmonary edema, HF, pneumonia, progressive anemia. Receiving IV & PO Abx. [facility]. Seen by wound care nurse. PT/OT recommends skilled rehab.
Spoke with Amy, [facility]; provided clinical update O2 needs improved. [facility] can probably accept her over the weekend however needs to know by tomorrow which day we want them to reserve the bed for.
Met with patient and spoke with daughter Nalini by phone; provided update [facility] accepted, and both agree to [facility] when medically ready.
Plan contact [facility] 03/13 re; probable discharge date.
Plan return to [facility] when medically ready.
--- NOTE | 2025-03-12 14:21 | PTCARENOTE ---
Pt presents as assessed. Aox3; forgetful at times. NSR on tele monitor with 1st degree heart block. Sating mid 90's on 4L NC. Incontinent of liquid stool, eliud care completed. Bladder scan after no urine output, result of 187ml. Q2T maintained.
Updated on plan of care. Bed alarm in place for safety. Ringing appropriately, call álvarez within reach.
[2025-03-12] MEDS: LAMICTAL 100 MG PO (17:52)
[2025-03-12] MEDS: SEROQUEL 100 MG PO (21:20)
[2025-03-12] MEDS: LIPITOR 80 MG PO (21:20)
[2025-03-12] MEDS: REMERON 15 MG PO (21:20)
[2025-03-12] MEDS: MIRAPEX, GENERIC 0.5 MG PO (21:20)
[2025-03-12] MEDS: KLONOPIN 1 MG PO (21:20)
[2025-03-12] MEDS: ROCEPHIN 1000 MG IV (21:21)
[2025-03-12] MEDS: STERILE WATER FOR INJECTION 10 ML IV (21:21)
[2025-03-12] MEDS: ROBITUSSIN 200 MG PO (21:30)
[2025-03-13] VITALS (28 sets, daily range): BP systolic 82–164; BP diastolic 44–97; PULSE 70–80; O2SAT 96; BMI 19.3
--- NOTE | 2025-03-13 00:43 | PTCARENOTE ---
Pt remains AAOx3, c/o persistent cough, medicated per DEC. Assessment as documented. Maintained on 4L O2. Care ongoing.
[2025-03-13 04:24] LABS: Hematocrit 25.7 % (37.0-47.0); Hemoglobin 8.2 g/dL (12.0-16.0); Mean Corp Hgb Conc. 31.9 g/dL (33.0-37.0); Mean Corpuscular Volume 87.7 fL (81.0-99.0); Mean Platelet Volume 8.9 fL (7.4-10.4); Platelet Count 263 10^3/uL (130-400); Red Blood Cell Count 2.93 10^6/uL (4.20-5.40); Red Cell Dist. Width 18.4 % (11.5-14.5); White Blood Cell Count 5.9 10^3/uL (4.8-10.8)
[2025-03-13 04:55] LABS: Blood Urea Nitrogen 25 mg/dl (7-17); Calcium 7.8 mg/dl (8.4-10.2); Carbon Dioxide 28 mmol/L (22-30); Chloride 107 mmol/L (98-107); Estimated Creatinine Clearance 20 ml/min; Glucose 77 mg/dl (70-99); Potassium 3.6 mmol/L (3.5-5.1); Sodium 139 mmol/L (135-145)
--- NOTE | 2025-03-13 09:00 | PTOTSP ---
Speech Language Pathology
Pt seen for dysphagia tx. Constant cough at rest. Able to stop coughing long enough for P.O. trials with [facility] and meds with RN. Took meds 1-2 at a time with small bite of applesauce and liquid wash. Slow rate, but able to clear oral cavity.
Provided trials of puree, regular solids, and thin liquids. Adequate mastication, bolus formation, and A-P transit noted with no oral residue. No overt signs of aspiration. No change in respiratory status. WBC WNL with CXR showing improvement in
RUL PNA. Pt with poor appetite and states that current modified diet negatively impacting desire to eat.
Recommend:
(1) Upgrade to regular solids/thin liquids
(2) Aspiration precautions: sit upright, eat only when alert, breaks when fatigued
(3) Meds as tolerated
(4) [facility] to continue to follow
[2025-03-13] MEDS: TYLENOL 650 MG PO ×2 (09:08→15:28)
[2025-03-13] MEDS: WELLBUTRIN SR (12 hour sustained release) 150 MG PO (09:08)
[2025-03-13] MEDS: FIRVANQ 125 MG PO ×2 (09:09→18:01)
[2025-03-13] MEDS: COREG 3.125 MG PO ×2 (09:09→20:16)
[2025-03-13] MEDS: PEPCID 20 MG PO (09:09)
[2025-03-13] MEDS: PACERONE 200 MG PO ×2 (09:09→20:16)
[2025-03-13] MEDS: ROBITUSSIN 200 MG PO ×2 (09:09→13:18)
[2025-03-13] MEDS: SANTYL OINTMENT 1 APPLIC TOPICAL (09:09)
[2025-03-13] MEDS: DESENEX/MITRAZOL/ZEASORB 1 APPLIC TOPICAL ×2 (09:10→20:20)
[2025-03-13] MEDS: PROTONIX IV 40 MG IV ×2 (09:10→20:17)
[2025-03-13] MEDS: NSS (PRESERVATIVE FREE) 10 ML IV ×2 (09:10→20:18)
--- NOTE | 2025-03-13 10:59 | W.PN.CARDCBS ---
Today's Communication / Plan
-
Continue to monitor volume status; will likely need to resume Lasix, possibly tomorrow.
Maintaining sinus rhythm; continue amiodarone
Impression / Plan
-
Family Physician: Andry Cuba MD
Primary research director: Dr. Fernandez; home therapy clinician Dr. Rodriguez
Impression:
Presented with shortness of breath and hypotension 03/06/2025
Recent admission for C diff diarrhea, SBO with NICKI, spesis and new Afib with RVR 02/07/25 until 02/25/25
Acute multifactorial hypoxic respiratory failure
Right upper lobe pneumonia
Acute on chronic anemia
TYESHA on CKD 3b
Acute on chronic HFpEF
Paroxysmal atrial fibrillation
Chronic Eliquis OAC
h/o SOB with NICKI 02/12/25
Prior bowel perforation from collagenous colitis with colostomy creation and subsequent reversal, VHR and prior small bowel obstruction
Abnormal EKG
Acute on chronic kidney disease
History of CVA
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
Sarcoidosis
Frailty
Echo 02/09/25: Mild LVH, EF 50-55%, mild mitral regurgitation, mild aortic regurgitation, mild to moderate tricuspid regurgitation, pulmonary artery systolic pressure 27 mmHg
Plan:
Medically complex 80-year-old female admitted with acute hypoxic respiratory distress/heart failure with preserved ejection fraction requiring high flow O2 the morning of 03/09/2025 found to have right upper lobe pneumonia, rapid atrial fibrillation,
and progressive anemia.
-Volume status and shortness of breath have improved with IV diuretics; patient was not taking loop diuretics prior to admission
-Remains on nasal cannula O2 currently at 3 L
-10 pound weight loss this admission, 108pounds yesterday with bed scale. Her weights have fluctuated during her hospitalization with unknown dry weight. She has had lower weights in the setting of sepsis/small bowel obstruction and dehydration
with acute renal insufficiency. Will have her reweighed. I suspect that she is likely near her dry weight with increasing creatinine. Reported I's and O's last 24-hour was -2400 cc
-Will hold further Lasix today euvolemic with increased renal insufficiency and reassess long-term diuretic needs once renal function has stabilized.
-2D echocardiogram 02/09/2025 with EF 50-55% with mild mitral, aortic insufficiency and mild to moderate tricuspid insufficiency with estimated pulmonary artery systolic pressure 27 mmHg and no pericardial effusion. Repeat 2D echocardiogram
03/09/2025 with a EF 55-60% with moderate mitral and aortic insufficiency and mild to moderate tricuspid insufficiency with increased estimated pulmonary artery systolic pressure to 42 mmHg. There was also bilateral pleural effusions present.
-Repeat proBNP.
-Optimize medical therapy with normal blood pressure and maintenance of sinus rhythm.
-Patient is not chronically on DORIS/ARB/ARNI/aldosterone antagonist due to hypotension and CKD 3b
- Would not start SGLT2 inhibitor at this time but could reconsider as an outpatient
Right upper lobe pneumonia with dysphagia/aspiration
- antibiotics and O2 supplementation per primary.
- Speech evaluation/therapy ongoing
Acute on chronic renal insufficiency�hold Lasix and monitor
Paroxysmal atrial fibrillation with rapid atrial fibrillation 03/09/2025 now back in sinus rhythm
- Continue amiodarone 200 mg twice daily with plan to decrease to daily on 03/18/2025
- EKG today sinus rhythm with first-degree AV block with evidence of age-indeterminate anteroseptal infarct and NSST. QTc 470
- Continue carvedilol which was dose reduced for hypotension, 3.125 mg twice daily
- Patient was previously on Eliquis anticoagulation which is being held due to transfusion dependent anemia. Consider evaluation for watchman as an outpatient once recovered
Coronary artery disease with a history of inferior STEMI in 2020 status post POBA to the RCA with reportedly moderate diffuse disease in the LAD and circumflex
-Patient's outpatient research director, Dr. Fernandez as well as home therapy clinician Dr. Rodriguez.
- Elevated troponins back in January admission with undetectable troponin this admission
- Continue medical therapy with blood pressure/heart rate control and maintenance of hemoglobin greater than 10 g/dL
- Would add aspirin if not prohibitive by GI medicine
- Continue atorvastatin
History of stroke status post loop recorder implant with [facility] cardiology 12/2023
- Difficult situation high risk for oral anticoagulation given transfusion dependent anemia; high risk [id number] score with history of prior stroke now with paroxysmal atrial fibrillation
- Would have her return to outpatient cardiology to discuss future watchman once more clinically stable
Abdominal aortic dilatation
- Focal dilatation of the infrarenal abdominal aorta measuring 2.9 cm
- Ongoing outpatient monitoring recommended
Transfusion dependent anemia/iron deficiency status post 1 unit packed red blood cells 03/09/2025. GI was consulted and has signed off. No procedures planned.
History of small bowel obstruction with prior bowel perforation (collagenous colitis) with colostomy creation and subsequent reversal, VHR and recent small bowel obstruction requiring prolonged admission from 02/07/2025 to 02/25/2025. Patient
underwent laparoscopic lysis of lesions on 02/12/2025.
Multiple prolonged hospitalizations with interruption of nutrition now malnourished.
-Dietary has been consulted
-PPI
-Iron supplementation
HPI 03/09/2025: She has a complex medical history which includes history of CVA, CKD, sarcoidosis, prior bowel perforation (collagenous colitis) with colostomy creation and subsequent reversal, VHR and recent small bowel obstruction requiring
prolonged admission from 02/07/2025 to 02/25/2025. Patient underwent laparoscopic lysis of lesions on 02/12/2025. During that hospitalization she developed paroxysmal atrial fibrillation with rapid ventricular response and ultimately was placed on
amiodarone with load. Patient converted to sinus rhythm. She presented back to emergency department on 03/06/2025 with worsening shortness of breath with chest x-ray showing right upper lobe pneumonia. Patient also noted to be anemic with
hemoglobin of 7.9 on admission. Patient was initially hypotensive and was given IV fluids with improvement of blood pressure. Patient now having worsening shortness of breath requiring high flow oxygen, is hypertensive and complaining of nausea.
Concern for pulmonary edema.
Progress Note - Software Development Test Engineer
Subjective
Date of Service: March 13, 2025
Patient seen and examined during breakfast found to be coughing. Continues to have shortness of breath. No chest pain or pressure.
Objective
Labs:
03/13/25 04:17
03/13/25 04:17
Labs
Hgb 8.2 g/dL (12.0-16.0) L 03/13/25 04:17
Hct 25.7 % (37.0-47.0) L 03/13/25 04:17
Plt Count 263 10^3/uL (130-400) 03/13/25 04:17
Sodium 139 mmol/L (135-145) 03/13/25 04:17
Potassium 3.6 mmol/L (3.5-5.1) 03/13/25 04:17
BUN 25 mg/dl (7-17) H 03/13/25 04:17
Creatinine 1.6 mg/dL (0.6-1.0) H 03/13/25 04:17
Glucose 77 mg/dl (70-99) 03/13/25 04:17
Vital Signs and I&O:
Vital Signs
Temp Pulse Resp BP Pulse Ox
98.3 F 80 22 163/87 91
03/13/25 08:00 03/13/25 09:09 03/13/25 07:00 03/13/25 09:09 03/13/25 07:00
Vital Signs
Temp Pulse Resp BP Pulse Ox
98.3 F 80 22 163/87 91
03/13/25 08:00 03/13/25 09:09 03/13/25 07:00 03/13/25 09:09 03/13/25 07:00
Intake & Output
03/11/25 03/12/25 03/13/25 03/14/25
06:59 06:59 06:59 06:59
Intake Total 120 / 120 500 / 500
Output Total 1825 / 1825 2049 / 2049 1100 / 1100
Balance -1705 / -1705 -1550 / -1550 -1100 / -1100
Physical Exam
Physical Exam
GEN: Frail 80-year-old female on nasal cannula O2
HEENT: supple, anicteric, mmm
LUNGS: Bronchovesicular breath sounds with scattered rhonchi.
CV: Regular. Positive S1-S2. 2/6 SM
ABD: Soft. Distended positive bowel
EXt: No significant edema
--- NOTE | 2025-03-13 11:39 | W.PN.HOSP.TC ---
Today's Communication/Plan
-
Possible restart of Laxis tomorrow
? Start ASA in 1 week if Hb stable.
Discharge to rehab tomorrow if Ok with Cardiology also
Assessment / Plan
Assessment / Plan
80-year-old female was admitted on February 072024 and discharged on February 25, 2025. Was treated for C. difficile antigen positive but toxin negative. She has a longstanding history of abdominal pain and collagenous colitis with colostomy
creation and subsequent reversal at [facility]. She underwent laparoscopic lysis of adhesions on 02/12/2025 secondary to small bowel obstruction.
Echo 03/09/2025-EF 55 to 60%. Moderate mitral regurgitation, moderate aortic insufficiency, mild to moderate tricuspid insufficiency, pulmonary artery pressure 42 mmHg.
CVS: S1-S2 normal, SM at apex
Chest: CTA B/L
Abdomen: Soft, NT , Bowel sounds present
Extremities: No edema
Sacral decub - no discharge
# Acute hypoxic respiratory failure secondary to pneumonia and pulmonary edema-Wean oxygen as tolerated (On 1L now)
# Pneumonia-Completed ceftriaxone and doxycycline. Add Tessalon and Robitussin.
# Recent admission for C. difficile, SBO with lysis of adhesions and sepsis
# Acute on chronic chronic HFpEF-
Patient with respiratory distress morning of 03/09 requiring high flow. s/p aggressive diuresis with improvement
Not on DORIS/ARB/Arni/aldosterone antagonist secondary to hypotension and CKD
Consider SGLT2 inhibitors as outpatient
Status post IV Lasix 40 mg twice daily, On hold
Start Lasix PO tomorrow.
# Coronary artery disease with history of STEMI in 2019-continue statin. Eliquis. May need antiplatelets?
# Paroxysmal atrial fibrillation-on amiodarone, Coreg
Eliquis held secondary to severe anemia
Consider evaluation for watchman as an outpatient.
A-fib diagnosed 02/07/2025
Follows with [facility]-Dr. Fernandez and EP Dr. Markel Rodriguez
# Hyperlipidemia-continue atorvastatin
# History of CVA-continue statin.Start Antiplatelets as OP
# CKD stage III
# Hypomagnesemia-replace
# Epigastric pain-continue PPI twice daily. GI evaluated. No procedures planned.
# Abnormal urinalysis-not UTI
# Sarcoidosis
# Loop recorder
# Anemia-likely secondary to CKD-continue PPI and iron supplementation. Status post 1 unit of PRBC on 03/09/2025
# Collagenous colitis
(history of collagenous colitis diagnosed in the late by Dr. Aldair Valadez in [place] treated with budesonide in the past with subsequent resolution of diarrhea and chronic constipation ever since.)
Had severe constipation with bowel perforation in the mid/early s with colostomy with Dr. Smith at [facility].
This was reversed at [facility] by Dr.Cary Damon around with ventral hernia repair.
She has not seen GI since then.
# Laparoscopic lysis of adhesions on 02/12/2025
# Bilateral lumbar radiculopathy
# Osteoporosis
# Depression-continue Wellbutrin, clonazepam, Lamictal, Remeron
# Moderate protein calorie malnutrition
# Adrenal nodule 1.5 cm left side- Outpatient monitoring
# Restless leg syndrome-continue pramipexole
# Sacral wound- stage 3-PI- present prior to arrival
# C. difficile positive recently-continue p.o. vancomycin while on antibiotics for 1 more week
# Hypoalbuminemia
# Ex-smoker
# DVT prophylaxis-SCD
# DNR
D/W Case management
D/W RN
time spent over 52 min
Anticipated Discharge: Within 24 hours
Subjective/Interval History
-
Date of Service: March 13, 2025
Objective Data
-
Labs:
Laboratory Results
03/13/25
04:17
WBC 5.9
Hgb 8.2 L
Hct 25.7 L
Plt Count 263
Sodium 139
Potassium 3.6
Chloride 107
Carbon Dioxide 28
BUN 25 H
Creatinine 1.6 H
Glucose 77
Calcium 7.8 L
Vital Signs:
Vital Signs
Temp Pulse Resp BP Pulse Ox
98.3 F 80 22 163/87 91
03/13/25 08:00 03/13/25 09:09 03/13/25 07:00 03/13/25 09:09 03/13/25 07:00
I&O
03/12/25 03/13/25 03/14/25
06:59 06:59 06:59
Intake Total 500 / 500
Output Total 2049 / 2049 1100 / 1100
Balance -1550 / -1550 -1100 / -1100
[2025-03-13 11:41] LABS: Magnesium 1.6 mg/dl (1.6-2.3)
--- NOTE | 2025-03-13 11:45 | CM ---
Addendum entered by Josefina Crespo RN 03/13/25 13:27:
Met with patient and daughter Nalini; discussed possible d/c tomorrow to [facility]. Patient currently coughing a lot and nauseated. IMM completed.
Original Note:
Patient from [facility] with Dx flash pulmonary edema, HF, pneumonia, progressive anemia. O2 1L. Receiving PO Vanco. Seen by ST - diet upgraded. Seen by wound care nurse - stage 3 sacrum. PT/OT recommends skilled rehab.
Per nurse Wallace; patient currently on O2 1L with attempts to wean off. Has persistant cough and taking Robitussin. Her loose stools have lessened. Her sacral decubitus is causing some discomfort, and air chair cushion is being used as well as
turning schedule.
Spoke with patient's son Jayy; family agrees with the patient returning to [facility] however he expressed concern that they would have less staff to care for her there then she is currently receiving at - provided update that MD suggests
patient may be ready for d/c this weekend. Advised he could check with CM tomorrow if patient is ready for discharge.
Spoke with Amy, [facility]; they are able to accept the patient tomorrow if medically ready. [facility] only has an available bed for this patient on Sunday, otherwise no bed on Sunday and not likely on Sunday. Covid test will be
needed. The for report [phone], fax [phone].
Spoke with patient's son Jayy; provided update that if his mother is ready for d/c tomorrow [facility] could accept her, otherwise CM can check back with the SNF on Sunday for bed availability.
Plan return to [facility] when medically ready.
[2025-03-13] MEDS: VITAMIN D3 (cholecalciferol) 125 MCG PO (12:20)
[2025-03-13] MEDS: FOLVITE 1 MG PO (12:20)
[2025-03-13] MEDS: CLARITIN 10 MG PO (12:20)
[2025-03-13] MEDS: FEOSOL 325 MG PO (12:20)
--- NOTE | 2025-03-13 12:57 | PTCARENOTE ---
Patient with lack of motivation today, reports tired, c/o aggravating cough, PRNs given. VSS, NSR on monitor. Weaned to 1L NC, sats 93%. Q2T to relieve sacral wound pain. Patient using call álvarez appropriately, bed alarm on for frequent falls
history. Closely monitoring patient.
[2025-03-13] MEDS: ZOFRAN 4 MG PO (13:18)
[2025-03-13] MEDS: TESSALON PERLES 200 MG PO ×2 (15:28→21:17)
[2025-03-13] MEDS: LAMICTAL 100 MG PO (17:58)
[2025-03-13] MEDS: REMERON 15 MG PO (21:17)
[2025-03-13] MEDS: KLONOPIN 1 MG PO (21:17)
[2025-03-13] MEDS: LIPITOR 80 MG PO (21:17)
[2025-03-13] MEDS: STERILE WATER FOR INJECTION IV (21:17)
[2025-03-13] MEDS: SEROQUEL 100 MG PO (21:17)
[2025-03-13] MEDS: MIRAPEX, GENERIC 0.5 MG PO (21:17)
[2025-03-14] VITALS (16 sets, daily range): BP systolic 96–144; BP diastolic 48–100; BMI 19.1
[2025-03-14] MEDS: FIRVANQ 125 MG PO ×3 (02:55→17:14)
[2025-03-14 05:11] LABS: Blood Urea Nitrogen 28 mg/dl (7-17); Calcium 8.1 mg/dl (8.4-10.2); Carbon Dioxide 28 mmol/L (22-30); Chloride 106 mmol/L (98-107); Estimated Creatinine Clearance 18 ml/min; Glucose 83 mg/dl (70-99); Sodium 140 mmol/L (135-145); eGFR 27.96
--- NOTE | 2025-03-14 06:28 | PTCARENOTE ---
Caring for pt overnight. aaox3, flat, drowsy. NSR. OOB to chair. R midline. VSS. No events overnight.
[2025-03-14] MEDS: TESSALON PERLES 200 MG PO ×3 (09:00→19:31)
[2025-03-14] MEDS: CLARITIN 10 MG PO (09:00)
[2025-03-14] MEDS: WELLBUTRIN SR (12 hour sustained release) 150 MG PO (09:00)
[2025-03-14] MEDS: SANTYL OINTMENT 1 APPLIC TOPICAL (09:01)
[2025-03-14] MEDS: COREG 3.125 MG PO ×2 (09:01→19:33)
[2025-03-14] MEDS: PACERONE 200 MG PO ×2 (09:01→19:31)
[2025-03-14 09:02] LABS: Magnesium 1.6 mg/dl (1.6-2.3)
[2025-03-14] MEDS: PROTONIX IV 40 MG IV ×2 (09:02→19:34)
[2025-03-14] MEDS: NSS (PRESERVATIVE FREE) 10 ML IV ×2 (09:02→19:33)
[2025-03-14] MEDS: DESENEX/MITRAZOL/ZEASORB 1 APPLIC TOPICAL ×2 (09:02→19:34)
[2025-03-14] MEDS: ROBITUSSIN 200 MG PO ×4 (09:08→19:33)
--- NOTE | 2025-03-14 09:35 | W.PN.HOSP.TC ---
Today's Communication/Plan
-
Encourage Acapella
Head of bed elevation
Encourage out of bed
Add Florastor
Change Robitussin to standing
Hold Lasix
Labs in the morning
Assessment / Plan
Assessment / Plan
80-year-old female was admitted on February 072024 and discharged on February 25, 2025. Was treated for C. difficile antigen positive but toxin negative. She has a longstanding history of abdominal pain and collagenous colitis with colostomy
creation and subsequent reversal at [place]. She underwent laparoscopic lysis of adhesions on 02/12/2025 secondary to small bowel obstruction.
Echo 03/09/2025-EF 55 to 60%. Moderate mitral regurgitation, moderate aortic insufficiency, mild to moderate tricuspid insufficiency, pulmonary artery pressure 42 mmHg.
CVS: S1-S2 normal, SM at apex
Chest: CTA B/L
Abdomen: Soft, NT , Bowel sounds present
Extremities: No edema
Sacral decub - no discharge
# Acute hypoxic respiratory failure secondary to pneumonia and pulmonary edema- Off O2
# Pneumonia-Completed ceftriaxone and doxycycline. Continue Tessalon and Robitussin.
# Recent admission for C. difficile, SBO with lysis of adhesions and sepsis
# Acute on chronic chronic HFpEF-
Patient with respiratory distress morning of 03/09 requiring high flow. s/p aggressive diuresis with improvement
Not on DORIS/ARB/Arni/aldosterone antagonist secondary to hypotension and CKD
Consider SGLT2 inhibitors as outpatient
Status post IV Lasix 40 mg twice daily, On hold
Hold Lasix today
# Coronary artery disease with history of STEMI in 2019-continue statin. Eliquis. May need antiplatelets?
# Paroxysmal atrial fibrillation-on amiodarone, Coreg
Eliquis held secondary to severe anemia
Consider evaluation for watchman as an outpatient.
A-fib diagnosed 02/07/2025
Follows with [facility]-Dr. Fernandez and EP Dr. Markel Rodriguez
# Hyperlipidemia-continue atorvastatin
# History of CVA-continue statin.Start Antiplatelets as OP
# CKD stage III
# Hypomagnesemia-replace
# Epigastric pain-continue PPI twice daily. GI evaluated. No procedures planned.
# Abnormal urinalysis-not UTI
# Sarcoidosis
# Loop recorder
# Anemia-likely secondary to CKD-continue PPI and iron supplementation. Status post 1 unit of PRBC on 03/09/2025
# Collagenous colitis
(history of collagenous colitis diagnosed in the late by Dr. Aldair Valadez in [place] treated with budesonide in the past with subsequent resolution of diarrhea and chronic constipation ever since.)
Had severe constipation with bowel perforation in the mid/early s with colostomy with Dr. Smith at [facility].
This was reversed at [facility] by Dr.Cary Damon around with ventral hernia repair.
She has not seen GI since then.
# Laparoscopic lysis of adhesions on 02/12/2025
# Bilateral lumbar radiculopathy
# Osteoporosis
# Depression-continue Wellbutrin, clonazepam, Lamictal, Remeron
# Moderate protein calorie malnutrition
# Adrenal nodule 1.5 cm left side- Outpatient monitoring
# Restless leg syndrome-continue pramipexole
# Sacral wound- stage 3-PI- present prior to arrival
# C. difficile positive recently-continue p.o. vancomycin while on antibiotics for 1 more week
# Hypoalbuminemia
# Ex-smoker
# DVT prophylaxis-SCD
# DNR
D/W RN at bed side
Has a bed at rehab tomorrow
D/W Son and updated.
Anticipated Discharge: Within 24 hours
Subjective/Interval History
-
Date of Service: March 14, 2025
Objective Data
-
Labs:
Laboratory Results
03/14/25 03/14/25
04:35 09:20
Hgb Pending
Hct Pending
Sodium 140
Potassium 4.0
Chloride 106
Carbon Dioxide 28
BUN 28 H
Creatinine 1.8 H
Glucose 83
Calcium 8.1 L
Vital Signs:
Vital Signs
Temp Pulse Resp BP Pulse Ox
98.9 F 71 23 112/53 99
03/14/25 06:27 03/14/25 09:01 03/14/25 06:00 03/14/25 09:01 03/14/25 06:00
I&O
03/13/25 03/14/25 03/15/25
06:59 06:59 06:59
Output Total 1100 / 1100
Balance -1100 / -1100
[2025-03-14 09:40] LABS: Hematocrit 27.7 % (37.0-47.0); Hemoglobin 8.6 g/dL (12.0-16.0)
[2025-03-14] MEDS: FLORASTOR 250 MG PO ×2 (10:06→19:33)
[2025-03-14] MEDS: MAGNESIUM SULFATE 50 IV (10:06)
[2025-03-14] MEDS: VITAMIN D3 (cholecalciferol) 125 MCG PO (11:03)
[2025-03-14] MEDS: FOLVITE 1 MG PO (11:04)
[2025-03-14] MEDS: FEOSOL 325 MG PO (11:04)
[2025-03-14] MEDS: DUONEB 3 ML INH (13:04)
--- NOTE | 2025-03-14 15:51 | W.PN.CARDCBS ---
Today's Communication / Plan
-
Hold Lasix today but likely will need to resume soon
Impression / Plan
-
Family Physician: Andry Cuba MD
Primary tube sizer and cutter operator: Dr. Fernandez; cyber security specialist Dr. Rodriguez
Impression:
Presented with shortness of breath and hypotension 03/06/2025
Recent admission for C diff diarrhea, SBO with NICKI, spesis and new Afib with RVR 02/07/25 until 02/25/25
Acute multifactorial hypoxic respiratory failure
Right upper lobe pneumonia
Acute on chronic anemia
TYESHA on CKD 3b
Acute on chronic HFpEF
Paroxysmal atrial fibrillation
Chronic Eliquis OAC
h/o SOB with NICKI 02/12/25
Prior bowel perforation from collagenous colitis with colostomy creation and subsequent reversal, VHR and prior small bowel obstruction
Abnormal EKG
Acute on chronic kidney disease
History of CVA
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
Sarcoidosis
Frailty
Echo 02/09/25: Mild LVH, EF 50-55%, mild mitral regurgitation, mild aortic regurgitation, mild to moderate tricuspid regurgitation, pulmonary artery systolic pressure 27 mmHg
Plan:
Medically complex 80-year-old female admitted with acute hypoxic respiratory distress/heart failure with preserved ejection fraction requiring high flow O2 the morning of 03/09/2025 Following IV fluid resuscitation found to have right upper lobe
pneumonia, rapid atrial fibrillation, and progressive anemia.
-proBNP 03/09/2025 15,200
--2D echocardiogram 02/09/2025 with EF 50-55% with mild mitral, aortic insufficiency and mild to moderate tricuspid insufficiency with estimated pulmonary artery systolic pressure 27 mmHg and no pericardial effusion. Repeat 2D echocardiogram
03/09/2025 with a EF 55-60% with moderate mitral and aortic insufficiency and mild to moderate tricuspid insufficiency with increased estimated pulmonary artery systolic pressure to 42 mmHg. There was also bilateral pleural effusions
-Exam is difficult with patient still short of breath but weight is overall down with poor oral intake and GI losses with diarrhea and increasing creatinine.
-Shortness of breath multifactorial with pneumonia, malnutrition/prolonged illness, dysphagia/aspiration, anemia, And volume overload/heart failure with preserved ejection. She states symptoms improved slightly after nebulizer treatment.
-Chest x-ray 515 with small bilateral pleural effusions and slightly improved right upper lobe pneumonia with probable interstitial pulmonary edema
-Continue to monitor closely but will hold further Lasix at this point given increasing creatinine now 1.8.
-If creatinine stable tomorrow we will add back gentle diuresis
-Repeat proBNP
-Remains on nasal cannula O2 currently at 2 L
-Weight continues to improve currently at 100 pounds with her initial weight on 03/06 17 pounds.
-Repeat proBNP.
-Optimize medical therapy with normal blood pressure and maintenance of sinus rhythm.
-Patient is not chronically on DORIS/ARB/ARNI/aldosterone antagonist due to hypotension and CKD 3b
-Would not start SGLT2 inhibitor at this time but could reconsider as an outpatient
Right upper lobe pneumonia with dysphagia/aspiration
- antibiotics and O2 supplementation per primary.
- Speech evaluation/therapy ongoing
Acute on chronic renal insufficiency�hold Lasix and monitor
Paroxysmal atrial fibrillation with rapid atrial fibrillation 03/09/2025 now back in sinus rhythm
- Continue amiodarone 200 mg twice daily with plan to decrease to daily on 03/18/2025
- EKG today sinus rhythm with first-degree AV block with evidence of age-indeterminate anteroseptal infarct and NSST. QTc 470
- Continue carvedilol which was dose reduced for hypotension, 3.125 mg twice daily
- Patient was previously on Eliquis anticoagulation which is being held due to transfusion dependent anemia. Consider evaluation for watchman as an outpatient once recovered
Coronary artery disease with a history of inferior STEMI in 2020 status post POBA to the RCA with reportedly moderate diffuse disease in the LAD and circumflex
-Patient's outpatient tube sizer and cutter operator, Dr. Fernandez as well as cyber security specialist Dr. Rodriguez.
- Elevated troponins back in January admission with undetectable troponin this admission
- Continue medical therapy
- Would add aspirin if not prohibitive by GI medicine
- Continue atorvastatin
History of stroke status post loop recorder implant with [facility] cardiology 12/2023
- Difficult situation high risk for oral anticoagulation given transfusion dependent anemia; high risk [id number] score with history of prior stroke now with paroxysmal atrial fibrillation
- Would have her return to outpatient cardiology to discuss future watchman once more clinically stable
Abdominal aortic dilatation
- Focal dilatation of the infrarenal abdominal aorta measuring 2.9 cm
- Ongoing outpatient monitoring recommended
Transfusion dependent anemia/iron deficiency status post 1 unit packed red blood cells 03/09/2025. GI was consulted and has signed off. No procedures planned.
History of small bowel obstruction with prior bowel perforation (collagenous colitis) with colostomy creation and subsequent reversal, VHR and recent small bowel obstruction requiring prolonged admission from 02/07/2025 to 02/25/2025. Patient
underwent laparoscopic lysis of lesions on 02/12/2025.
Multiple prolonged hospitalizations with interruption of nutrition now malnourished.
-Dietary has been consulted
-PPI
-Iron supplementation
HPI 03/09/2025: She has a complex medical history which includes history of CVA, CKD, sarcoidosis, prior bowel perforation (collagenous colitis) with colostomy creation and subsequent reversal, VHR and recent small bowel obstruction requiring
prolonged admission from 02/07/2025 to 02/25/2025. Patient underwent laparoscopic lysis of lesions on 02/12/2025. During that hospitalization she developed paroxysmal atrial fibrillation with rapid ventricular response and ultimately was placed on
amiodarone with load. Patient converted to sinus rhythm. She presented back to emergency department on 03/06/2025 with worsening shortness of breath with chest x-ray showing right upper lobe pneumonia. Patient also noted to be anemic with
hemoglobin of 7.9 on admission. Patient was initially hypotensive and was given IV fluids with improvement of blood pressure. Patient now having worsening shortness of breath requiring high flow oxygen, is hypertensive and complaining of nausea.
Concern for pulmonary edema.
Progress Note - Stave Inspector
Subjective
Date of Service: March 14, 2025
Seen and examined. Complaining of shortness of breath that improved slightly following nebulizer. Overall feels fatigued.
Objective
Labs:
03/14/25 09:20
03/14/25 04:35
Labs
Hgb 8.6 g/dL (12.0-16.0) L 03/14/25 09:20
Hct 27.7 % (37.0-47.0) L 03/14/25 09:20
Plt Count 263 10^3/uL (130-400) 03/13/25 04:17
Sodium 140 mmol/L (135-145) 03/14/25 04:35
Potassium 4.0 mmol/L (3.5-5.1) 03/14/25 04:35
BUN 28 mg/dl (7-17) H 03/14/25 04:35
Creatinine 1.8 mg/dL (0.6-1.0) H 03/14/25 04:35
Glucose 83 mg/dl (70-99) 03/14/25 04:35
Vital Signs and I&O:
Vital Signs
Temp Pulse Resp BP Pulse Ox
98.1 F 68 22 113/53 96
03/14/25 11:05 03/14/25 14:00 03/14/25 14:00 03/14/25 14:00 03/14/25 14:00
Vital Signs
Temp Pulse Resp BP Pulse Ox
98.1 F 68 22 113/53 96
03/14/25 11:05 03/14/25 14:00 03/14/25 14:00 03/14/25 14:00 03/14/25 14:00
Intake & Output
03/12/25 03/13/25 03/14/25 03/15/25
06:59 06:59 06:59 06:59
Intake Total 500 / 500 530 / 530
Output Total 2049 / 2049 1100 / 1100
Balance -1550 / -1550 -1100 / -1100 530 / 530
Physical Exam
Physical Exam
GEN: Frail 80-year-old female on nasal cannula O2
HEENT: supple, anicteric, mmm
LUNGS: Bronchovesicular breath sounds with scattered rhonchi.
CV: Regular. Positive S1-S2. 2/6 SM
ABD: Soft. Distended positive bowel
EXt: No significant edema
--- NOTE | 2025-03-14 16:01 | PTCARENOTE ---
Patient AOx3. Patient has flat affect. NSR on monitor. 2L midflow tubbing with SpO2 greater than 92%. Dry frequent cough. Incontinent to bowel. Small dark green/black BM during shift. Heme test negative. Wound care completed per order. Q2 turns.
Call álvarez within reach, bed in lowest position, and bed of wheels locked.
[2025-03-14] MEDS: LAMICTAL 100 MG PO (17:14)
[2025-03-14] MEDS: LIPITOR 80 MG PO (19:32)
[2025-03-14] MEDS: REMERON 15 MG PO (19:32)
[2025-03-14] MEDS: SEROQUEL 100 MG PO (19:32)
[2025-03-14] MEDS: MIRAPEX, GENERIC 0.5 MG PO (19:32)
[2025-03-14] MEDS: KLONOPIN 1 MG PO (19:33)
[2025-03-14] MEDS: STERILE WATER FOR INJECTION IV (19:35)
--- NOTE | 2025-03-14 22:22 | PTCARENOTE ---
Patient aao x3 at start of shift however lethargic. Patient with increased lethargy and weakness throughout shift. Patient disrobed a short time ago and stated she was 'hot'. Patient a febrile at this time. CHB wipes and new linens provided, patient
able to partially assist. All dressings are c/d/i. Patient on 4L o2 via midflow, sats are mid to high 90's. Continues with frequent, dry harsh cough, some hemoptysis noted earlier this evening. Bowel sounds active x4. Patient repositioned frequently
for pressure relief and comfort. Call álvarez within reach. Will continue to monitor patient closely.
[2025-03-15] VITALS (14 sets, daily range): BP systolic 90–155; BP diastolic 49–66; BMI 18.8
[2025-03-15] MEDS: FIRVANQ 125 MG PO ×3 (02:58→17:20)
[2025-03-15 05:22] LABS: Hematocrit 26.7 % (37.0-47.0); Hemoglobin 8.4 g/dL (12.0-16.0)
[2025-03-15 05:49] LABS: Blood Urea Nitrogen 26 mg/dl (7-17); Calcium 8.1 mg/dl (8.4-10.2); Carbon Dioxide 28 mmol/L (22-30); Chloride 107 mmol/L (98-107); Estimated Creatinine Clearance 18 ml/min; Glucose 77 mg/dl (70-99); Potassium 3.8 mmol/L (3.5-5.1); Sodium 141 mmol/L (135-145); eGFR 27.96
[2025-03-15 05:56] LABS: NT-proBNP 11100 pg/ml
--- NOTE | 2025-03-15 06:23 | PTCARENOTE ---
Patient incontinent of loose stool x3 in past 2 hours. Rectal trumpet placed and functioning properly. Unsure if urine output was mixed with stool during incontinence this am. Bladder scanned patient for 436ml. Per protocol, notified Rosibel Diaz
CLINICAL DIETICIAN and straight cathed patient for 360ml of cloudy santiago urine on 1st attempt, patient tolerated well. Patient currently resting in bed, call álvarez within reach. Will continue to monitor.
[2025-03-15] MEDS: NSS (PRESERVATIVE FREE) 10 ML IV ×2 (09:24→20:18)
[2025-03-15] MEDS: PROTONIX IV 40 MG IV ×2 (09:24→20:17)
[2025-03-15] MEDS: SANTYL OINTMENT 1 APPLIC TOPICAL (09:24)
[2025-03-15] MEDS: ZOFRAN 4 MG PO (09:24)
[2025-03-15] MEDS: ROBITUSSIN 200 MG PO ×4 (09:24→20:17)
[2025-03-15] MEDS: CLARITIN PO ×2 (09:25→09:45)
[2025-03-15] MEDS: DESENEX/MITRAZOL/ZEASORB 1 APPLIC TOPICAL ×2 (09:25→20:15)
[2025-03-15] MEDS: TESSALON PERLES 200 MG PO ×3 (09:25→20:16)
[2025-03-15] MEDS: PEPCID PO ×2 (09:25→09:45)
[2025-03-15] MEDS: FLORASTOR 250 MG PO (09:26)
[2025-03-15] MEDS: WELLBUTRIN SR (12 hour sustained release) PO ×2 (09:26→09:45)
[2025-03-15] MEDS: PACERONE 200 MG PO (09:26)
[2025-03-15] MEDS: COREG 3.125 MG PO (09:28)
--- NOTE | 2025-03-15 09:45 | PTCARENOTE ---
During administration of PO medications, patient with increase in cough and complaining of feeling nauseous. Zofran given per DEC. Patient vomited small bills amount. SpO2 88% on 2L midflow. Patient increased to 4L midflow with SpO2 improving to 97%.
Dr. Patricia made aware. Speech therapist made aware and stated that they come to see her today. Patient made NPO. Care ongoing.
--- NOTE | 2025-03-15 10:09 | W.PN.HOSP.TC ---
Today's Communication/Plan
-
CXR
ABd X ray
Check C diff
Speech eval
Hold Lasix
Assessment / Plan
Assessment / Plan
80-year-old female was admitted on February 072024 and discharged on February 25, 2025. Was treated for C. difficile antigen positive but toxin negative. She has a longstanding history of abdominal pain and collagenous colitis with colostomy
creation and subsequent reversal at [place]. She underwent laparoscopic lysis of adhesions on 02/12/2025 secondary to small bowel obstruction.
Echo 03/09/2025-EF 55 to 60%. Moderate mitral regurgitation, moderate aortic insufficiency, mild to moderate tricuspid insufficiency, pulmonary artery pressure 42 mmHg.
CVS: S1-S2 normal, SM at apex
Chest: coarse BS bilaterally.
Abdomen: Soft, mild discomfort with palpation. Bowel sounds present , No guarding or rigidity.
Extremities: No edema
# Acute hypoxic respiratory failure secondary to pneumonia and pulmonary edema- on 4 L now
Patient with respiratory distress morning of 03/09 requiring high flow. s/p aggressive diuresis with improvement, now again on 4 L
Suspect aspiration.
Add NACL nebs and DUO nebs
# Pneumonia-Completed ceftriaxone and doxycycline. Continue Tessalon and Robitussin.Suspect aspiration with weak cough . Check VSE and repeat speech eval.
# Recent admission for C. difficile, SBO with lysis of adhesions and sepsis
# Acute on chronic chronic HFpEF-
Not on DORIS/ARB/Arni/aldosterone antagonist secondary to hypotension and CKD
Consider SGLT2 inhibitors as outpatient
Status post IV Lasix 40 mg twice daily, On hold
Hold Lasix again today- She has loose stools and GI losses
# Coronary artery disease with history of STEMI in 2019-continue statin. Eliquis. May need antiplatelets?
# Paroxysmal atrial fibrillation-on amiodarone, Coreg
Eliquis held secondary to severe anemia
Consider evaluation for watchman as an outpatient.
A-fib diagnosed 02/07/2025
Follows with [facility]-Dr. Fernandez and EP Dr. Markel Rodriguez
# Hyperlipidemia-continue atorvastatin
# History of CVA-continue statin.Start Antiplatelets as OP
# TYESHA on CKD stage III- Hold lasix
# Hypomagnesemia-replaced
# Epigastric pain-continue PPI twice daily. GI evaluated. No procedures planned.
# Abnormal urinalysis-not UTI
# Sarcoidosis
# Loop recorder
# Anemia-likely secondary to CKD-continue PPI and iron supplementation. Status post 1 unit of PRBC on 03/09/2025
# Collagenous colitis
(history of collagenous colitis diagnosed in the late by Dr. Aldair Valadez in [place] treated with budesonide in the past with subsequent resolution of diarrhea and chronic constipation ever since.)
Had severe constipation with bowel perforation in the mid/early s with colostomy with Dr. Smith at [facility].
This was reversed at [facility] by Dr.Cary Damon around with ventral hernia repair.
She has not seen GI since then.
# Laparoscopic lysis of adhesions on 02/12/2025
# Bilateral lumbar radiculopathy
# Osteoporosis
# Depression-continue Wellbutrin, clonazepam, Lamictal, Remeron
# Moderate protein calorie malnutrition
# Adrenal nodule 1.5 cm left side- Outpatient monitoring
# Restless leg syndrome-continue pramipexole
# Sacral wound- stage 3-PI- present prior to arrival
# C. difficile positive recently-continue p.o. vancomycin while on antibiotics for 1 more week. Has more diarrhea now. Check C diff.
# Hypoalbuminemia
# Ex-smoker
# DVT prophylaxis-SCD
# DNR
D/W RN at bed side
D/W cards
D/W Daughter at bed side
No discharge today. She looks worse today.
time over 50 min
pt is very frail and looks older than stated age. Multiple comorbidities. Prognosis guarded.
Anticipated Discharge: 24 - 48 hours
Subjective/Interval History
-
Date of Service: March 15, 2025
Objective Data
-
Labs:
Laboratory Results
03/15/25
04:56
Hgb 8.4 L
Hct 26.7 L
Sodium 141
Potassium 3.8
Chloride 107
Carbon Dioxide 28
BUN 26 H
Creatinine 1.8 H
Glucose 77
Calcium 8.1 L
Vital Signs:
Vital Signs
Temp Pulse Resp BP Pulse Ox
98.3 F 67 22 155/66 97
03/15/25 03:14 03/15/25 09:28 03/15/25 06:00 03/15/25 09:28 03/15/25 06:00
I&O
03/14/25 03/15/25 03/16/25
06:59 06:59 06:59
Intake Total 530 / 530
Output Total 1110 / 1110
Balance -580 / -580
[2025-03-15 10:49] LABS: Magnesium 2.1 mg/dl (1.6-2.3)
--- NOTE | 2025-03-15 10:57 | PTCARENOTE ---
Addendum entered by Irena Pruitt RN 03/15/25 11:11:
New verbal order from Dr. Blanco to hold both Coreg and Pacerone. Order sent to pharmacy.
Original Note:
Dr. Blanco made aware that patients HR is in the 40's-50's. Verbal order from Dr. Blanco to switch PO Pacerone 200 mg to 1 time daily and to hold coreg. Patient asymptomatic. Care ongoing.
[2025-03-15] MEDS: DUONEB 3 ML INH ×3 (11:35→19:19)
[2025-03-15] MEDS: SODIUM CHLORIDE 3% FOR INHALATION 1 VIAL INH ×2 (11:35→19:19)
--- NOTE | 2025-03-15 11:40 | W.PN.CARDCBS ---
Today's Communication / Plan
-
Stop amiodarone. Stop carvedilol.
O2 supplementation
Patient has indicated desire for hospice consult.
Impression / Plan
-
Family Physician: Andry Cuba MD
Primary comb capper: Dr. Fernandez; chain tender Dr. Rodriguez
Impression:
Presented with shortness of breath and hypotension 03/06/2025
Recent admission for C diff diarrhea, SBO with NICKI, spesis and new Afib with RVR 02/07/25 until 02/25/25
Acute multifactorial hypoxic respiratory failure
Right upper lobe pneumonia
Acute on chronic anemia
TYESHA on CKD 3b
Acute on chronic HFpEF
Paroxysmal atrial fibrillation
Chronic Eliquis OAC
h/o SOB with NICKI 02/12/25
Prior bowel perforation from collagenous colitis with colostomy creation and subsequent reversal, VHR and prior small bowel obstruction
Abnormal EKG
Acute on chronic kidney disease
History of CVA
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
Sarcoidosis
Frailty
Echo 02/09/25: Mild LVH, EF 50-55%, mild mitral regurgitation, mild aortic regurgitation, mild to moderate tricuspid regurgitation, pulmonary artery systolic pressure 27 mmHg
Plan:
Medically complex 80-year-old female admitted with acute hypoxic respiratory distress/heart failure with preserved ejection fraction requiring high flow O2 the morning of 03/09/2025 Following IV fluid resuscitation found to have right upper lobe
pneumonia, rapid atrial fibrillation, and progressive anemia.
-proBNP 03/09/2025 15,200 ---> 11,100 03/15
-2D echocardiogram 02/09/2025 with EF 50-55% with mild mitral, aortic insufficiency and mild to moderate tricuspid insufficiency with estimated pulmonary artery systolic pressure 27 mmHg and no pericardial effusion.
-2D echocardiogram 03/09/2025 with a EF 55-60% with moderate mitral and aortic insufficiency and mild to moderate tricuspid insufficiency with increased estimated pulmonary artery systolic pressure to 42 mmHg. There was also bilateral pleural
effusions
Decompensation this morning with more shortness of breath and increasing O2 requirements with suspected aspiration in addition to diarrhea and abdominal pain
-Shortness of breath multifactorial with pneumonia, malnutrition/prolonged illness, dysphagia/aspiration, anemia, and volume overload/heart failure with preserved ejection.
-Chest x-ray showing persistent small bilateral pleural effusions and atelectasis with diffuse interstitial opacification that slightly improving. Resolving pneumonia.
-Abdominal x-ray shows early or partial bowel obstruction
-O2 supplementation
-Hemoglobin stable at 8.4, full CBC not performed. Creatinine stable at 1.8. Sodium 141, potassium 3.8. Magnesium 2.1. Repeat proBNP 84770.
-She is also having sinus bradycardia and will hold carvedilol and amiodarone
-Continue to monitor on telemetry
-With family at bedside Patient indicated to myself and hospitalist that she is tired and wants to be made comfortable. Patient and family requesting hospice consult which is appropriate.
Continue supportive care
HPI 03/09/2025: She has a complex medical history which includes history of CVA, CKD, sarcoidosis, prior bowel perforation (collagenous colitis) with colostomy creation and subsequent reversal, VHR and recent small bowel obstruction requiring
prolonged admission from 02/07/2025 to 02/25/2025. Patient underwent laparoscopic lysis of lesions on 02/12/2025. During that hospitalization she developed paroxysmal atrial fibrillation with rapid ventricular response and ultimately was placed on
amiodarone with load. Patient converted to sinus rhythm. She presented back to emergency department on 03/06/2025 with worsening shortness of breath with chest x-ray showing right upper lobe pneumonia. Patient also noted to be anemic with
hemoglobin of 7.9 on admission. Patient was initially hypotensive and was given IV fluids with improvement of blood pressure. Patient now having worsening shortness of breath requiring high flow oxygen, is hypertensive and complaining of nausea.
Concern for pulmonary edema.
Progress Note - Wastewater Process Engineer
Subjective
Date of Service: March 15, 2025
Patient seen and examined with clinical decompensation this morning. Abdominal pain with more diarrhea as well as increased shortness of breath
Objective
Labs:
03/15/25 04:56
03/15/25 04:56
Labs
Hgb 8.4 g/dL (12.0-16.0) L 03/15/25 04:56
Hct 26.7 % (37.0-47.0) L 03/15/25 04:56
Plt Count 263 10^3/uL (130-400) 03/13/25 04:17
Sodium 141 mmol/L (135-145) 03/15/25 04:56
Potassium 3.8 mmol/L (3.5-5.1) 03/15/25 04:56
BUN 26 mg/dl (7-17) H 03/15/25 04:56
Creatinine 1.8 mg/dL (0.6-1.0) H 03/15/25 04:56
Glucose 77 mg/dl (70-99) 03/15/25 04:56
Vital Signs and I&O:
Vital Signs
Temp Pulse Resp BP Pulse Ox
98.3 F 52 20 128/63 98
03/15/25 03:14 03/15/25 10:00 03/15/25 10:00 03/15/25 10:00 03/15/25 10:00
Vital Signs
Temp Pulse Resp BP Pulse Ox
98.3 F 52 20 128/63 98
03/15/25 03:14 03/15/25 10:00 03/15/25 10:00 03/15/25 10:00 03/15/25 10:00
Intake & Output
03/13/25 03/14/25 03/15/25 03/16/25
06:59 06:59 06:59 06:59
Intake Total 530 / 530
Output Total 1100 / 1100 1110 / 1110
Balance -1100 / -1100 -580 / -580
Physical Exam
Physical Exam
GEN: Frail 80-year-old female on nasal cannula O2, Appears acutely ill
LUNGS: Exam difficult but overall decreased breath sounds with scattered rhonchi
CV: Regular. Positive S1-S2. 2/6 SM
ABD: Soft. Distended positive bowel, Mild tenderness
EXt: No significant edema
[2025-03-15] MEDS: FOLVITE PO (12:30)
[2025-03-15] MEDS: VITAMIN D3 (cholecalciferol) PO (12:30)
[2025-03-15] MEDS: FEOSOL PO (12:30)
--- NOTE | 2025-03-15 14:41 | W.PN.UPDATE ---
Update Note
Progress Note Update
Chest x-ray noted.
She is likely aspirating
With her diarrhea and creatinine like this I do not think this is CHF
Family is requesting hospice-I have a consult placed
--- NOTE | 2025-03-15 14:53 | CM ---
CM following re: discharge planning.
Hospice consult noted. Family preferred hospice. A referral to hospice made.
D/C thomas: hospice care with hospice
--- NOTE | 2025-03-15 15:04 | PTCARENOTE ---
Patient AOx3. Patient has flat affect. Sinus rosey-NSR on monitor. 3L midflow tubbing with SpO2 greater than 92%. Dry frequent cough. NPO. Incontinent to bowel. Rectal trumpet in place draining dark green/black stool. C-diff negative. Wound care
completed per order. Q2 turns. Call álvarez within reach, bed in lowest position, and bed of wheels locked.
--- NOTE | 2025-03-15 15:34 | HOSPNOTE ---
Addendum entered by Soco Mendosa RN 03/15/25 16:11:
Son Matt called me back. He is the point of contact- [phone]. We discussed hospice and options. Patient is to have a VSE tomorrow and family wishes to see those results. If patient is aspirating and that is why she will not improve then family is
interested in further discussing hospice at patients home vs inpatient. Will meet with them again tomorrow after VSE. Attending updated and in agreement. More information to follow.
Original Note:
Referral received. Called and left message for daughter Nalini to discuss hospice services as they requested. Will await a return call. More information to follow.
--- NOTE | 2025-03-15 16:36 | PTCARENOTE ---
Patient had no urine output throughout shift. Patient bladder scanned throughout shift. Bladder scan at 1600, patient had [address] Patricia made aware and ordered rock. Rock placed and urine was a milky/santiago color. Care ongoing.
[2025-03-15] MEDS: LAMICTAL 100 MG PO (17:21)
[2025-03-15] MEDS: REMERON 15 MG PO (20:16)
[2025-03-15] MEDS: KLONOPIN 1 MG PO (20:17)
[2025-03-15] MEDS: MIRAPEX, GENERIC 0.5 MG PO (20:17)
[2025-03-15] MEDS: SEROQUEL 100 MG PO (20:17)
[2025-03-15] MEDS: LIPITOR PO (20:17)
[2025-03-15] MEDS: STERILE WATER FOR INJECTION IV (20:18)
[2025-03-15] MEDS: FLORASTOR PO (20:18)
--- NOTE | 2025-03-15 20:56 | PTCARENOTE ---
Patient aao x3 at start of shift, able to make needs known. Lethargy noted. Patient repositioned for comfort and pressure relief. Suero cath remains intact and draining santiago urine. Rectal trumpet also intact and draining liquid green/brown stool.
Family visiting at start of shift. Patient currently resting in bed with no s/s of pain or discomfort. Call álvarez within reach, will continue to monitor patient closely.
[2025-03-16] VITALS (11 sets, daily range): BP systolic 103–159; BP diastolic 44–98; BMI 18.7
--- NOTE | 2025-03-16 00:03 | PTCARENOTE ---
Patient noted to be sinus rosey when sleeping, in the 40's sustained. Awakens to verbal stimuli and answers questions appropriately. Will continue to monitor.
[2025-03-16] MEDS: FIRVANQ 125 MG PO ×2 (01:49→14:50)
[2025-03-16 04:06] LABS: Hematocrit 26.8 % (37.0-47.0); Hemoglobin 8.3 g/dL (12.0-16.0); Mean Corpuscular Hgb 27.3 pg (27.0-31.0); Mean Corpuscular Volume 88.2 fL (81.0-99.0); Mean Platelet Volume 9.8 fL (7.4-10.4); Platelet Count 213 10^3/uL (130-400); Red Blood Cell Count 3.04 10^6/uL (4.20-5.40); Red Cell Dist. Width 17.7 % (11.5-14.5); White Blood Cell Count 5.6 10^3/uL (4.8-10.8)
[2025-03-16 04:30] LABS: Blood Urea Nitrogen 26 mg/dl (7-17); Calcium 8.1 mg/dl (8.4-10.2); Carbon Dioxide 31 mmol/L (22-30); Chloride 108 mmol/L (98-107); Estimated Creatinine Clearance 18 ml/min; Glucose 66 mg/dl (70-99); Magnesium 1.8 mg/dl (1.6-2.3); Potassium 3.6 mmol/L (3.5-5.1); Sodium 141 mmol/L (135-145); eGFR 29.94
[2025-03-16 07:17] LABS: Glucose - Point of Care 69 mg/dl (70-99)
[2025-03-16] MEDS: DUONEB 3 ML INH ×4 (07:19→20:09)
[2025-03-16] MEDS: SODIUM CHLORIDE 3% FOR INHALATION 1 VIAL INH ×2 (07:19→20:09)
[2025-03-16 07:43] LABS: Glucose - Point of Care 66 mg/dl (70-99)
[2025-03-16] MEDS: WELLBUTRIN SR (12 hour sustained release) 150 MG PO (08:27)
[2025-03-16] MEDS: PROTONIX IV 40 MG IV ×2 (08:27→21:09)
[2025-03-16] MEDS: TESSALON PERLES 200 MG PO ×3 (08:27→22:24)
[2025-03-16] MEDS: ROBITUSSIN 200 MG PO ×4 (08:27→22:23)
[2025-03-16] MEDS: NSS (PRESERVATIVE FREE) 10 ML IV ×2 (08:27→21:10)
[2025-03-16] MEDS: CLARITIN 10 MG PO (08:27)
[2025-03-16] MEDS: DESENEX/MITRAZOL/ZEASORB 1 APPLIC TOPICAL ×2 (08:28→21:12)
[2025-03-16] MEDS: SANTYL OINTMENT 1 APPLIC TOPICAL (08:28)
[2025-03-16] MEDS: D10W 1000 IV (08:34)
--- NOTE | 2025-03-16 09:22 | W.PN.HOSP.TC ---
Addendum entered and electronically signed by Jeannette Patricia MD 03/16/25 11:04:
Video swallow evaluation noted patient is aspirating with thin liquids and also mildly thick liquids. Moderately thick liquids and IDDSI 6 recommended. With patient's weak cough reflex I am afraid that she is going to continue to aspirate and I
shared this with patient's son. She also is developing a small bowel obstruction as per the x-ray which I also reviewed with him.
Family wants to meet with hospice and proceed with hospice.
Communicated this with dandy tender on-call.
Total time spent over 50 minutes today.
Original Note:
Today's Communication/Plan
-
VSE
Assessment / Plan
Assessment / Plan
80-year-old female was admitted on February 072024 and discharged on February 25, 2025. Was treated for C. difficile antigen positive but toxin negative. She has a longstanding history of abdominal pain and collagenous colitis with colostomy
creation and subsequent reversal at [facility]. She underwent laparoscopic lysis of adhesions on 02/12/2025 secondary to small bowel obstruction.
Echo 03/09/2025-EF 55 to 60%. Moderate mitral regurgitation, moderate aortic insufficiency, mild to moderate tricuspid insufficiency, pulmonary artery pressure 42 mmHg.
CVS: S1-S2 normal, SM at apex
Chest: coarse BS bilaterally, better than yesterday
Abdomen: Soft, mild discomfort with palpation. Bowel sounds present , No guarding or rigidity.
Extremities: No edema
# Acute hypoxic respiratory failure secondary to pneumonia and pulmonary edema- on 2 L now
Patient with respiratory distress morning of 03/09/25 requiring high flow. s/p aggressive diuresis with improvement, now again on 2 L
Suspect ongoing aspiration.
She is a little better with NPO for 24 hours which says she is aspirating.
VSE today.
Continue NACL nebs and DUO nebs
# Early small bowel obstruction on f-cil-hdnjgr. Patient is n.p.o. currently. Hold off on CT A/P.
# Hypoglycemia-secondary to poor reserve and NPO. D10 40 mL/h while NPO
# Pneumonia-Completed ceftriaxone and doxycycline. Continue Tessalon and Robitussin.Suspect aspiration with weak cough . Check VSE and repeat speech eval.
# Recent admission for C. difficile, SBO with lysis of adhesions and sepsis
# Acute on chronic chronic HFpEF-
Not on ODRIS/ARB/Arni/aldosterone antagonist secondary to hypotension and CKD
Consider SGLT2 inhibitors as outpatient
Status post IV Lasix 40 mg twice daily, On hold
Hold Lasix again today- She has loose stools and GI losses and NPO
# Coronary artery disease with history of STEMI in 2019-continue statin. Eliquis. May need antiplatelets?
# Paroxysmal atrial fibrillation-on amiodarone, Coreg
Eliquis held secondary to severe anemia
Consider evaluation for watchman as an outpatient.
A-fib diagnosed 02/07/2025
Follows with [facility]-Dr. Fernandez and EP Dr. Markel Rodriguez
# Hyperlipidemia-continue atorvastatin
# History of CVA-continue statin.Start Antiplatelets as OP
# TYESHA on CKD stage III- Hold lasix
# Hypomagnesemia-replaced
# Epigastric pain-continue PPI twice daily. GI evaluated. No procedures planned.
# Abnormal urinalysis-not UTI
# Sarcoidosis
# Loop recorder
# Anemia-likely secondary to CKD-continue PPI and iron supplementation. Status post 1 unit of PRBC on 03/09/2025
# Collagenous colitis
(history of collagenous colitis diagnosed in the late by Dr. Aldair Valadez in [place] treated with budesonide in the past with subsequent resolution of diarrhea and chronic constipation ever since.)
Had severe constipation with bowel perforation in the mid/early s with colostomy with Dr. Smith at [facility].
This was reversed at [facility] by Dr.Cary Damon around with ventral hernia repair.
She has not seen GI since then.
# Laparoscopic lysis of adhesions on 02/12/2025
# Bilateral lumbar radiculopathy
# Osteoporosis
# Depression-continue Wellbutrin, clonazepam, Lamictal, Remeron
# Moderate protein calorie malnutrition
# Adrenal nodule 1.5 cm left side- Outpatient monitoring
# Restless leg syndrome-continue pramipexole
# Sacral wound- stage 3-PI- present prior to arrival
# C. difficile positive recently-continue p.o. vancomycin while on antibiotics for 1 week post AB. Has more diarrhea now. C diff neg
# Hypoalbuminemia
# Ex-smoker
# DVT prophylaxis-SCD
# DNR
D/W RN at bed side
Discussed with speech therapy
She sounds a little better than yesterday but this states that she has ongoing aspiration and n.p.o. status got the lungs a little better sounding today.
Hospice consult was placed yesterday per family request.
Family wants to wait for video swallow to pursue definite hospice decisions.
pt is very frail and looks older than stated age. Multiple comorbidities. Prognosis guarded.
Anticipated Discharge: 24 - 48 hours
Subjective/Interval History
-
Date of Service: March 16, 2025
Objective Data
-
Labs:
Laboratory Results
03/16/25
03:54
WBC 5.6
Hgb 8.3 L
Hct 26.8 L
Plt Count 213
Sodium 141
Potassium 3.6
Chloride 108 H
Carbon Dioxide 31 H
BUN 26 H
Creatinine 1.7 H
Glucose 66 L
Calcium 8.1 L
Vital Signs:
Vital Signs
Temp Pulse Resp BP Pulse Ox
97.5 F 64 16 147/98 100
03/16/25 03:08 03/16/25 07:22 03/16/25 07:22 03/16/25 06:00 03/16/25 07:22
I&O
03/15/25 03/16/25 03/17/25
06:59 06:59 06:59
Intake Total 530 / 530
Output Total 1110 / 1110 650 / 650
Balance -580 / -580 -650 / -650
--- NOTE | 2025-03-16 09:30 | PTCARENOTE ---
Nightshift RN relayed in report that patients blood sugar on AM labs was 66. Patient was given alexandr shawn by nightshift RN. Blood sugar rechecked during change of shift and patients blood sugar was 69. Patient given 4 oz of apple juice and blood
sugar rechecked in [address] Patricia made aware and order D10. IVF running per order. Care ongoing.
--- NOTE | 2025-03-16 09:45 | PTOTSP ---
Speech Language Pathology
VIDEOFLUOROSCOPIC SWALLOWING EXAMINATION (VSE) completed. Pt significantly fatigued upon arrival to fluoro suite, worse than when last seen on 03/13. Difficult view given significant calcifications. Mild-mod oropharyngeal dysphagia noted.
Aspiration noted with thin liquids via single cup/straw sip with weak ineffective cough. Penetration noted with mildly thick liquids. Significant esophageal residue noted on sweep.
Recommend:
(1) Consider IDDSI Level 6 (soft/bite-sized) and moderately thick liquids pending medical POC. This modified diet will likely negatively affect already poor appetite
(2) Aspiration precautions: sit upright, slow rate, single sips
(3) Meds whole in puree
(4) Allow ice chips between meals post oral care given supervision per Aspiration Risk Hydration Protocol (ARHP)
(5) Ongoing GOC discussions. If hospice decided on, can liberalize diet per pt/family wishes
(5) LYFT DRIVER to continue to follow
[2025-03-16] MEDS: FLORASTOR PO (10:52)
[2025-03-16] MEDS: FOLVITE PO (11:14)
[2025-03-16] MEDS: VITAMIN D3 (cholecalciferol) PO (11:14)
[2025-03-16] MEDS: FEOSOL PO (11:14)
--- NOTE | 2025-03-16 15:38 | PTCARENOTE ---
Patient AOx3. Patient has flat affect. Sinus rosey-NSR on monitor. 2L midflow tubbing with SpO2 greater than 92%. Dry occasional cough. IDDSI 6. Poor appetite. IVF running per order. Incontinent to bowel. Rectal trumpet in place draining dark
green/black stool. Suero draining santiago urine. Wound care completed per order. Q2 turns. Call álvarez within reach, bed in lowest position, and bed of wheels locked.
[2025-03-16] MEDS: LAMICTAL 100 MG PO (17:05)
[2025-03-16] MEDS: TYLENOL 650 MG PO (18:30)
--- NOTE | 2025-03-16 19:43 | PTCARENOTE ---
Patient transferred to via stretcher by RN. Patient belongings transferred with patient. Verbal report given to Ashleigh HEBERT.
[2025-03-16] MEDS: FLORASTOR 250 MG PO (21:11)
[2025-03-16] MEDS: REMERON 15 MG PO (22:23)
[2025-03-16] MEDS: MIRAPEX, GENERIC 0.5 MG PO (22:23)
[2025-03-16] MEDS: KLONOPIN 1 MG PO (22:23)
[2025-03-16] MEDS: LIPITOR 80 MG PO (22:23)
[2025-03-16] MEDS: SEROQUEL 100 MG PO (22:23)
[2025-03-16] MEDS: STERILE WATER FOR INJECTION IV (22:24)
[2025-03-17] MEDS: FIRVANQ 125 MG PO (03:55)
[2025-03-17 06:00] VITALS: BMI 18.7
[2025-03-17] MEDS: DUONEB 3 ML INH ×4 (07:26→19:38)
[2025-03-17] MEDS: SODIUM CHLORIDE 3% FOR INHALATION 1 VIAL INH ×2 (07:26→19:38)
[2025-03-17 07:30] VITALS: BP 131/56
[2025-03-17] MEDS: PEPCID 20 MG PO (08:47)
[2025-03-17] MEDS: CLARITIN 10 MG PO (08:47)
[2025-03-17] MEDS: WELLBUTRIN SR (12 hour sustained release) 150 MG PO (08:47)
[2025-03-17] MEDS: NSS (PRESERVATIVE FREE) 10 ML IV (08:48)
[2025-03-17] MEDS: ROBITUSSIN 200 MG PO ×3 (08:48→21:41)
[2025-03-17] MEDS: TESSALON PERLES 200 MG PO (08:48)
[2025-03-17] MEDS: TYLENOL 650 MG PO (08:48)
[2025-03-17] MEDS: FLORASTOR 250 MG PO (08:48)
[2025-03-17] MEDS: SANTYL OINTMENT 1 APPLIC TOPICAL (08:49)
[2025-03-17] MEDS: PROTONIX IV 40 MG IV (08:49)
[2025-03-17] MEDS: DESENEX/MITRAZOL/ZEASORB 1 APPLIC TOPICAL ×2 (08:49→21:40)
[2025-03-17] MEDS: D10W 1000 IV (08:50)
--- NOTE | 2025-03-17 12:50 | CM ---
CM following re: discharge planning.
'
Reviewed pt's chart, met with pt and spoke to pt's son Jayy to update on discharge plan progress.
Per regional economic liaison, pt is accepted for admission on home hospice with hospice tomorrow and 11:00 a.m. transport time requested. Per regional economic liaison, all DME will be delivered to pt's home by 11:00 a.m tomorrow.
Both pt and her son Jayy are aware, expressed their agreement and son stated he and his sister will be at home. IMM reviewed, placed on chart, pt has a copy.
to arrange ambulance transport, BLS. PMNC completed and left thomas . Out of hospital DNR is signed by and is on the chart.
D/c plan: home tomorrow 03/18/25 with hospice and family support.
--- NOTE | 2025-03-17 12:54 | W.PN.HOSP.TC ---
Today's Communication/Plan
-
Continue IV fluids due to poor p.o. intake
Discharge once hospice arrangements made.
Assessment / Plan
Assessment / Plan
80-year-old female was admitted on February 072024 and discharged on February 25, 2025. Was treated for C. difficile antigen positive but toxin negative. She has a longstanding history of abdominal pain and collagenous colitis with colostomy
creation and subsequent reversal at [facility]. She underwent laparoscopic lysis of adhesions on 02/12/2025 secondary to small bowel obstruction.
Echo 03/09/2025-EF 55 to 60%. Moderate mitral regurgitation, moderate aortic insufficiency, mild to moderate tricuspid insufficiency, pulmonary artery pressure 42 mmHg.
CVS: S1-S2 normal, SM at apex
Chest: coarse BS bilaterally
Abdomen: Soft, mild discomfort with palpation. Bowel sounds present , No guarding or rigidity.
Extremities: No edema
No appetite
# Acute hypoxic respiratory failure secondary to pneumonia and pulmonary edema- on 2 L now
Patient with respiratory distress morning of 03/09/25 requiring high flow. s/p aggressive diuresis with improvement, now again on 2 L
Suspect ongoing aspiration.
Video swallow noted moderately thick liquids and IDDSI 6 for comfort as she is on hospice
# Early small bowel obstruction on [id number]-[id number]. Since patient is on hospice CT abdomen pelvis not ordered
# Hypoglycemia-secondary to poor reserve and NPO. D10 40 mL/h while NPO
# Pneumonia-Completed ceftriaxone and doxycycline. Continue Tessalon and Robitussin.Suspect aspiration with weak cough . Check VSE and repeat speech eval.
# Recent admission for C. difficile, SBO with lysis of adhesions and sepsis
# Acute on chronic chronic HFpEF-
Not on DORIS/ARB/Arni/aldosterone antagonist secondary to hypotension and CKD
Consider SGLT2 inhibitors as outpatient
Status post IV Lasix 40 mg twice daily, On hold
Hold Lasix again today- She has loose stools and GI losses and NPO
# Coronary artery disease with history of STEMI in 2019-continue statin.
# Paroxysmal atrial fibrillation-on amiodarone, Coreg
Eliquis held secondary to severe anemia
Consider evaluation for watchman as an outpatient.
A-fib diagnosed 02/07/2025
Follows with [facility]-Dr. Fernandez and EP Dr. Markel Rodriguez
# Hyperlipidemia-continue atorvastatin
# History of CVA-continue statin.
# TYESHA on CKD stage III- Hold lasix
# Hypomagnesemia-replaced
# Epigastric pain-continue PPI twice daily. GI evaluated. No procedures planned.
# Abnormal urinalysis-not UTI
# Sarcoidosis
# Loop recorder
# Anemia-likely secondary to CKD-continue PPI and iron supplementation. Status post 1 unit of PRBC on 03/09/2025
# Collagenous colitis
(history of collagenous colitis diagnosed in the late by Dr. Aldair Valadez in [place] treated with budesonide in the past with subsequent resolution of diarrhea and chronic constipation ever since.)
Had severe constipation with bowel perforation in the mid/early s with colostomy with Dr. Smith at [facility].
This was reversed at [facility] by Dr.Cary Damon around with ventral hernia repair.
She has not seen GI since then.
# Laparoscopic lysis of adhesions on 02/12/2025
# Bilateral lumbar radiculopathy
# Osteoporosis
# Depression-continue Wellbutrin, clonazepam, Lamictal, Remeron
# Moderate protein calorie malnutrition
# Adrenal nodule 1.5 cm left side- Outpatient monitoring
# Restless leg syndrome-continue pramipexole
# Sacral wound- stage 3-PI- present prior to arrival
# C. difficile positive recently-continue p.o. vancomycin while on antibiotics for 1 week post AB. Has more diarrhea now. C diff neg
# Hypoalbuminemia
# Ex-smoker
# DVT prophylaxis-SCD
# DNR
D/W RN
Discussed with family yesterday. Family has opted hospice arrangements made for discharge home tomorrow.
Anticipated Discharge: Within 24 hours
Subjective/Interval History
-
Date of Service: March 17, 2025
Objective Data
-
Vital Signs:
Vital Signs
Temp Pulse Resp BP Pulse Ox
97.5 F 55 14 131/56 99
03/17/25 07:30 03/17/25 11:26 03/17/25 11:26 03/17/25 07:30 03/17/25 07:30
I&O
03/16/25 03/17/25 03/18/25
06:59 06:59 06:59
Intake Total 600 / 600
Output Total 650 / 650 350 / 350
Balance -650 / -650 250 / 250
[2025-03-17] MEDS: ROBITUSSIN PO (13:15)
[2025-03-17] MEDS: FEOSOL PO (13:19)
[2025-03-17] MEDS: FOLVITE PO (13:20)
[2025-03-17] MEDS: VITAMIN D3 (cholecalciferol) PO (13:20)
--- NOTE | 2025-03-17 13:57 | HOSPNOTE ---
Family is in agreement with hospice and the philosophy. The patient will be discharged tomorrow 03/18 home with hospice. Equipment was ordered and transport is set for 11am. Once patient arrives home we will sign patient on to hospice. CM aware
and Attending.
[2025-03-17] MEDS: FIRVANQ PO (15:00)
[2025-03-17 15:05] VITALS: BP 156/57
[2025-03-17 16:00] VITALS: BP 156/57
[2025-03-17] MEDS: IMODIUM 2 MG PO (17:31)
[2025-03-17] MEDS: LAMICTAL 100 MG PO (17:31)
[2025-03-17] MEDS: ROXICODONE 5 MG PO ×2 (17:32→21:39)
[2025-03-17] MEDS: TESSALON PERLES PO (17:32)
[2025-03-17] MEDS: KLONOPIN 1 MG PO (21:39)
[2025-03-17] MEDS: REMERON 15 MG PO (21:39)
[2025-03-17] MEDS: MIRAPEX, GENERIC 0.5 MG PO (21:39)
[2025-03-17] MEDS: NSS (PRESERVATIVE FREE) IV (21:40)
[2025-03-17] MEDS: SEROQUEL 100 MG PO (21:40)
[2025-03-17] MEDS: FLORASTOR PO (21:40)
[2025-03-17] MEDS: STERILE WATER FOR INJECTION IV (21:41)
[2025-03-17] MEDS: PROTONIX IV IV (21:41)
[2025-03-17 23:15] VITALS: BP 134/61
[2025-03-18] MEDS: FIRVANQ PO (02:00)
[2025-03-18 07:10] VITALS: BP 117/52
[2025-03-18] MEDS: SODIUM CHLORIDE 3% FOR INHALATION 1 VIAL INH (07:31)
[2025-03-18] MEDS: DUONEB 3 ML INH (07:31)
--- NOTE | 2025-03-18 09:28 | CM ---
CM following re: discharge planning.
Reviewed pt's chart, met with pt and spoke to pt's son Jayy to update on discharge plan progress.
Per rehab liaison, pt is accepted for admission on home hospice with hospice today and 11:00 a.m. transport time requested. Per rehab liaison, all DME will be delivered to pt's home by 11:00 a.m today.
Both pt and her son Jayy are aware, expressed their agreement and son stated he and his sister will be at home. IMM reviewed yesterday, placed on chart, pt has a copy.
arranged ambulance transport today, BLS and pickling grader time 11:00 a.m. confirmed. PMNC completed yesterday and left with . Out of hospital DNR is signed by and is on the chart.
D/c plan: home today with hospice and family support.
--- NOTE | 2025-03-18 09:29 | W.DS.TRANS ---
Addendum entered and electronically signed by Jeannette Patricia MD 03/18/25 17:07:
Dictation- [id number]
Original Note:
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
-
Discharge Instructions:
Sleep Apnea Risk Intermediate
Discharge Diagnosis/Procedures Acute hypoxic respiratory failure
Early SBO
Hypoglycemia
Pneumonia
Aspiration
Heart failure
Coronary artery disease
Paroxysmal atrial fibrillation
Hyperlipidemia
History of CVA
Acute kidney injury
CKD stage III
Hypomagnesemia
History of collagenous colitis with surgery
Depression
Moderate protein calorie malnutrition
Sacral wound
Diet As tolerated
Activity As tolerated,With assistance
Driving Restrictions No driving
Other Services Hospice
Instructions:
Stand-Alone Forms:
Changes to Home Medications: Yes
Discharge Medications:
DC Medications w/original date entered in [facility]
bupropion HCl 150 mg tablet,12 hr sustained-release 150 mg PO DAILY Mental Health/Anxiety 02/07/25
lamotrigine 100 mg tablet 100 mg PO QPM Mental Health/Anxiety 02/07/25
mirtazapine 15 mg tablet 15 mg PO HS Mental Health/Anxiety 02/07/25
omeprazole 20 mg capsule,delayed release 20 mg PO DAILY Gastrointestinal Issue 02/07/25
pramipexole 0.25 mg tablet 0.5 mg PO HS Neurological Condition 02/07/25
quetiapine 100 mg tablet 100 mg PO HS Mental Health/Anxiety 02/07/25
clonazepam 1 mg tablet 1 mg PO HS Mental Health/Anxiety #10 tabs 02/25/25
bisacodyl 10 mg rectal suppository (Dulcolax (bisacodyl)) 10 mg MO DAILYPRN PRN IF NO BM AFTR MOM 03/06/25
guaifenesin 100 mg/5 mL oral liquid 200 mg PO Q4HPRN PRN COUGH 03/06/25
ondansetron HCl 4 mg tablet 4 mg PO Q6HPRN PRN NAUSEA 03/06/25
sodium phosphates 19 gram-7 gram/118 mL enema (Fleet Enema) 118 ml MO DAILYPRN PRN IF NO BM AFTR DULOLCAX 03/06/25
morphine 10 mg/5 mL oral solution 5 mg (2.5 mL) PO Q4H PRN pain or SOB #100 mL 03/18/25
Home Medication Changes
amio,coreg,statinPO vanco stopped
Pending Results: No
[2025-03-18] MEDS: D10W IV (09:43)
--- NOTE | 2025-03-18 09:44 | W.PN.HOSP.TC ---
Today's Communication/Plan
-
Discharge
Assessment / Plan
Assessment / Plan
80-year-old female was admitted on February 072024 and discharged on February 25, 2025. Was treated for C. difficile antigen positive but toxin negative. She has a longstanding history of abdominal pain and collagenous colitis with colostomy
creation and subsequent reversal at [place]. She underwent laparoscopic lysis of adhesions on 02/12/2025 secondary to small bowel obstruction.
Echo 03/09/2025-EF 55 to 60%. Moderate mitral regurgitation, moderate aortic insufficiency, mild to moderate tricuspid insufficiency, pulmonary artery pressure 42 mmHg.
CVS: S1-S2 normal, SM at apex
Chest: coarse BS bilaterally
Abdomen: Soft, mild discomfort with palpation. Bowel sounds present , No guarding or rigidity.
No appetite
# Acute hypoxic respiratory failure secondary to pneumonia and pulmonary edema- on 2 L now
Patient with respiratory distress morning of 03/09/25 requiring high flow. s/p aggressive diuresis with improvement, now again on 2 L
Ongoing aspiration.
Video swallow noted moderately thick liquids and IDDSI 6 for comfort as she is on hospice
# Early small bowel obstruction on [id number]. Since patient is on hospice CT abdomen pelvis not ordered
# Hypoglycemia-resolved
# Pneumonia-Completed ceftriaxone and doxycycline. Continue Tessalon and Robitussin.Suspect aspiration with weak cough
# Recent admission for C. difficile, SBO with lysis of adhesions and sepsis
# Acute on chronic chronic HFpEF-
Not on DORIS/ARB/Arni/aldosterone antagonist secondary to hypotension and CKD
Consider SGLT2 inhibitors as outpatient
Status post IV Lasix 40 mg twice daily, On hold
# Coronary artery disease with history of STEMI in 2019-continue statin.
# Paroxysmal atrial fibrillation-on amiodarone, Coreg
Eliquis held secondary to severe anemia
Consider evaluation for watchman as an outpatient.
A-fib diagnosed 02/07/2025
Follows with [facility]-Dr. Fernandez and EP Dr. Markel Rodriguez
# Hyperlipidemia-continue atorvastatin
# History of CVA-continue statin.
# TYESHA on CKD stage III- Hold lasix
# Hypomagnesemia-replaced
# Epigastric pain-continue PPI twice daily. GI evaluated.
# Abnormal urinalysis-not UTI
# Sarcoidosis
# Loop recorder
# Anemia-likely secondary to CKD-continue PPI and iron supplementation. Status post 1 unit of PRBC on 03/09/2025
# Collagenous colitis
(history of collagenous colitis diagnosed in the late by Dr. Aldair Valadez in [place] treated with budesonide in the past with subsequent resolution of diarrhea and chronic constipation ever since.)
Had severe constipation with bowel perforation in the mid/early with colostomy with Dr. Smith at [facility].
This was reversed at [facility] by Dr.Cary Damon around with ventral hernia repair.
She has not seen GI since then.
# Laparoscopic lysis of adhesions on 02/12/2025
# Bilateral lumbar radiculopathy
# Osteoporosis
# Depression-continue Wellbutrin, clonazepam, Lamictal, Remeron
# Moderate protein calorie malnutrition
# Adrenal nodule 1.5 cm left side- Outpatient monitoring
# Restless leg syndrome-continue pramipexole
# Sacral wound- stage 3-PI- present prior to arrival
# C. difficile positive recently-continue p.o. vancomycin while on antibiotics for 1 week post AB. Has more diarrhea now. C diff neg. Stop
# Hypoalbuminemia
# Ex-smoker
# DVT prophylaxis-SCD
# DNR
D/W RN
Discussed with case management
Hospice has been arranged for home and transportation today
Meds not needed for comfort stopped.
More than 30 minutes spent in discharge including
Final examination of the patient
Summarizing hospital stay
Instructions for continuing care to all relevant caregivers
Preparation of discharge records, prescriptions, and referral forms
Total time spent (in minutes): 36 min
Anticipated Discharge: Today
Subjective/Interval History
-
Date of Service: March 18, 2025
Objective Data
-
Vital Signs:
Vital Signs
Temp Pulse Resp BP Pulse Ox
97.7 F 59 16 117/52 98
03/18/25 07:10 03/18/25 07:34 03/18/25 07:34 03/18/25 07:10 03/18/25 07:34
I&O
03/17/25 03/18/25 03/19/25
06:59 06:59 06:59
Intake Total 600 / 600 220 / 220
Output Total 350 / 350 400 / 400
Balance 250 / 250 -180 / -180
[2025-03-18] MEDS: WELLBUTRIN SR (12 hour sustained release) 150 MG PO (09:48)
[2025-03-18] MEDS: ROBITUSSIN 200 MG PO (09:49)
[2025-03-18] MEDS: NSS (PRESERVATIVE FREE) 10 ML IV (09:49)
[2025-03-18] MEDS: FLORASTOR 250 MG PO (09:49)
[2025-03-18] MEDS: PROTONIX IV 40 MG IV (09:50)
[2025-03-18] MEDS: SANTYL OINTMENT 1 APPLIC TOPICAL (09:50)
[2025-03-18] MEDS: DESENEX/MITRAZOL/ZEASORB 1 APPLIC TOPICAL (09:51)
[2025-03-18] MEDS: ROXICODONE 5 MG PO (09:54)
--- NOTE | 2025-03-18 10:32 | VATNOTE ---
Midline D/C'd with TCL retrieved being 12cm. Pressure dressing applied.
== END 2025-03-18 12:02 | disposition hospice, home (50) | DRG 177 ==
LOC: 2 NORTH 16:25
PROVIDERS: Clinical Nurse Specialist Family Health; Internal Medicine; Internal Medicine Cardiovascular Disease; Nurse Practitioner; Nurse Practitioner Family; Student in an Organized Health Care Education/Training Program; ADMITTING PHYSICIAN Internal Medicine; ATTENDING PHYSICIAN Hospitalist; CONSULT PHYSICIAN Internal Medicine Gastroenterology; EMERGENCY PHYSICIAN Emergency Medicine; FAMILY PHYSICIAN Family Medicine; OTHER PHYSICIAN Nuclear Medicine Nuclear Cardiology
PROC: 30233N1 Transfusion of Nonautologous Red Blood Cells into Peripheral Vein, Percutaneous Approach (ICD-10-PCS; 2025-03-09)
DX: J69.0 Pneumonitis due to inhalation of food and vomit (principal); I50.33 Acute on chronic diastolic (congestive) heart failure; J96.01 Acute respiratory failure with hypoxia; L89.153 Pressure ulcer of sacral region, stage 3; I13.0 Hypertensive heart and chronic kidney disease with heart failure and stage 1 through stage 4 chronic kidney disease, or unspecified chronic kidney disease; N17.9 Acute kidney failure, unspecified; E44.0 Moderate protein-calorie malnutrition; Z68.1 Body mass index [BMI] 19.9 or less, adult; K56.609 Unspecified intestinal obstruction, unspecified as to partial versus complete obstruction; J98.11 Atelectasis; N18.32 Chronic kidney disease, stage 3b; I25.10 Atherosclerotic heart disease of native coronary artery without angina pectoris; I48.0 Paroxysmal atrial fibrillation; E78.00 Pure hypercholesterolemia, unspecified; Z86.73 Personal history of transient ischemic attack (TIA), and cerebral infarction without residual deficits; E83.42 Hypomagnesemia; K52.831 Collagenous colitis; F32.A Depression, unspecified; F41.9 Anxiety disorder, unspecified; D86.9 Sarcoidosis, unspecified; D63.1 Anemia in chronic kidney disease; M54.16 Radiculopathy, lumbar region; M81.0 Age-related osteoporosis without current pathological fracture; G25.81 Restless legs syndrome; Z87.891 Personal history of nicotine dependence; Z66 Do not resuscitate; E88.09 Other disorders of plasma-protein metabolism, not elsewhere classified; Z88.0 Allergy status to penicillin; Z88.2 Allergy status to sulfonamides; Z91.041 Radiographic dye allergy status; I77.811 Abdominal aortic ectasia; E27.8 Other specified disorders of adrenal gland; Z79.01 Long term (current) use of anticoagulants; Z79.899 Other long term (current) drug therapy; Z90.710 Acquired absence of both cervix and uterus; I44.30 Unspecified atrioventricular block; R54 Age-related physical debility; Z11.52 Encounter for screening for COVID-19
CPT/HCPCS: 93308; 71045; 71046; 74019; 74230; 80048; 80053; 81003; 81015; 82607; 82728; 82746; 82962; 83540; 83550; 83605; 83735; 83880; 84484; 85014; 85018; 85025; 85027; 86850; 86870; 86880; 86900; 86901; 86902; 86920; 86922; 87040; 87086; 87324; 87449; 87502; 87811; 92526; 92610; 92611; 93005; 93321; 93325; 94640; 96361; 96365; 96375; 97163; 97167; 97530; 97535; 99285; P9016